=== PATIENT | female | born 1960 | race African-American/Black ===

== ENCOUNTER 2017-01-02 08:52 | Emergency (ER) | payer OTHER ==
[2017-01-02 08:56] VITALS: BP 108/71; PULSE 63; TEMP 97.8; BMI 22.1
--- NOTE | 2017-01-02 09:30 | PDOC ---
History of Present Illness - General Chief Complaint: Cold Symptoms Stated Complaint: COUGH Time Seen by Provider: 01/02/17 09:00 History Source: Patient Exam Limitations: No Limitations - History of Present Illness Initial Comments: 01/02/17 10:12 Patient is a 56 y/o female with pmh HTN, cough of unknown origin, who presents to the ED today c/o three weeks of cough. Her symptoms have progessivly gotten worse. It started off as a dry cough and has now become a productive cough with white mucous. She states that she is coughing so hard her chest hurts when she has a coughing fit. She states she has tried multiple home remedies with no relief. She states this happened to her last year. Denies fever, chills, nausea , vomiting, lightheadedness, syncope, Past History - Past Medical History Allergies/Adverse Reactions: Allergies Allergy/AdvReac Type Severity Reaction Status Date / Time aspirin Allergy Intermediate Hives Verified 01/02/17 08:56 ibuprofen Allergy Intermediate vomitting Verified 01/02/17 08:56 ketorolac tromethamine Allergy ITCHING, Verified 01/02/17 08:56 [From Toradol] VOMITING morphine Allergy Hives Verified 01/02/17 08:56 Penicillins Allergy Hives Verified 01/02/17 08:56 Shellfish Allergy Hives Verified 01/02/17 08:56 onions Allergy Uncoded 01/02/17 08:56 Home Medications: Ambulatory Orders Amlodipine Besylate 5 mg PO DAILY 03/08/16 Albuterol 0.083% Nebulizer [place] [Ventolin 0.083% Nebulizer Soln -] 1 neb NEB Q4H #20 vial 01/02/17 Estrogens, Conjugated [Premarin] 0.9 mg PO DAILY 01/02/17 Prednisone [Deltasone] 40 mg PO DAILY #10 tablet 01/02/17 Promethazine/Phenyleph/Codeine [Phenergan VC+Codeine Syrup] 5 ml PO QID PRN # 118 ml MDD 4 01/02/17 Asthma: Yes (bronchitis) GI Disorders: Yes (sbo) - Surgical History Abdominal Surgery: Yes (small bowel obstruction) Neurologic Surgery: Yes (spinal surgery, SEVERAL) - Immunization History Immunization Up to Date: Yes - Psycho/Social/Smoking Cessation Hx Anxiety: No Suicidal Ideation: No Smoking Status: No Smoking History: Never smoked Have you smoked in the past 12 months: No Number of Cigarettes Smoked Daily: 0 Information on smoking cessation initiated: No Hx Alcohol Use: No Drug/Substance Use Hx: No Substance Use Type: None Hx Substance Use Treatment: No Review of Systems - Review of Systems Able to Perform ROS?: No Is the patient limited [place] proficient: No *Physical Exam - Vital Signs Last Vital Signs Temp Pulse Resp BP Pulse Ox 97.8 F 63 19 108/71 100 01/02/17 08:55 01/02/17 08:55 01/02/17 08:55 01/02/17 08:55 01/02/17 08:55 *DC/Admit/Observation/Transfer Diagnosis at time of Disposition: Bronchitis, Wrist pain, right - Discharge Dispostion Disposition: HOME Condition at time of disposition: Good Admit: No - Prescriptions Prescriptions: Prednisone [Deltasone] 40 mg PO DAILY #10 tablet Promethazine/Phenyleph/Codeine [Phenergan VC+Codeine Syrup] 5 ml PO QID PRN # 118 ml MDD 4 PRN Reason: Cough Albuterol 0.083% Nebulizer [place] [Ventolin 0.083% Nebulizer Soln -] 1 neb NEB Q4H #20 vial - Referrals Referrals: Eddie Burr MD [Staff Physician] - Cierra Honeycutt MD [Primary Care Provider] - Radhames Chau MD [Staff Physician] - - Patient Instructions Printed Discharge Instructions: DI for Acute Bronchitis Additional Instructions: Your x-rays today were negative. There was no evidence of pneumonia. Use your nebulizer treatments as prescribed to help your symptoms. Take the prednisone as prescribed and take the whole prescription even if you feel better. You may use the cough syrup as needed up to 4 times a day, every [address] after taking this medication as it can make you drowsy. Follow up with Dr. Burr , pulmonology and Dr. Isac glasgow (wrist). Continue to wear your wrist brace for support. You may take tylenol as needed for pain not to exceed 4,000mg a day. Return to the ED if you develop fevers, chills, nausea, vomiting, worsening of your symptoms, or have any changes in your symptoms
[2017-01-02] MEDS ORDERED: ALBUTEROL SO4 2.5/IPRATROPIUM 0.5 INH SOL 3 ML VIAL.NEB. NEB ONE (09:31)
[2017-01-02] MEDS ORDERED: guaiFENesin/CODEINE 10 ML UNIT-DOSE CUPS PO ONE (10:21)
[2017-01-02] MEDS ORDERED: guaiFENesin/CODEINE 5 ML UNIT-DOSE CUPS PO ONE (10:30)
== END 2017-01-02 10:55 | disposition home or self-care (01) ==
LOC: JERFT 08:52
PROC: 3E0F7GC Introduction of Other Therapeutic Substance into Respiratory Tract, Via Natural or Artificial Opening (ICD-10-PCS; principal; 2017-01-02)
DX: J40 Bronchitis, not specified as acute or chronic (principal)
CPT/HCPCS: 71020-TC; 73110-TC-RT; 73130-TC-RT; 99281-25

== ENCOUNTER 2017-01-14 11:47 | Emergency (ER) | payer OTHER ==
[2017-01-14 11:57] VITALS: BP 118/76; PULSE 70; TEMP 98.2; BMI 24.6
--- NOTE | 2017-01-14 12:42 | PDOC ---
History of Present Illness - General Chief Complaint: Cold Symptoms Stated Complaint: REVISIT Time Seen by Provider: 01/14/17 12:00 History Source: Patient Exam Limitations: No Limitations - History of Present Illness Initial Comments: 01/14/17 12:38 CC continued cough and lung inflamation x 3 weeks; no better post albuterol, 5 days prednisone Timing/Duration: reports: constant Severity: reports: moderate Possible Cause: Yes: occasional episodes Past History - Past Medical History Allergies/Adverse Reactions: Allergies Allergy/AdvReac Type Severity Reaction Status Date / Time aspirin Allergy Intermediate Hives Verified 01/14/17 11:57 ibuprofen Allergy Intermediate vomitting Verified 01/14/17 11:57 ketorolac tromethamine Allergy ITCHING, Verified 01/14/17 11:57 [From Toradol] VOMITING morphine Allergy Hives Verified 01/14/17 11:57 Penicillins Allergy Hives Verified 01/14/17 11:57 Shellfish Allergy Hives Verified 01/14/17 11:57 onions Allergy Uncoded 01/14/17 11:57 Home Medications: Ambulatory Orders Amlodipine Besylate 5 mg PO DAILY 03/08/16 Albuterol 0.083% Nebulizer [place] [Ventolin 0.083% Nebulizer Soln -] 1 neb NEB Q4H #20 vial 01/02/17 Estrogens, Conjugated [Premarin] 0.9 mg PO DAILY 01/02/17 Guaifenesin AC [Robitussin AC] 5 ml PO Q6H PRN #120 ml MDD 4 01/02/17 Prednisone [Deltasone] 40 mg PO DAILY #10 tablet 01/02/17 Promethazine/Phenyleph/Codeine [Phenergan VC+Codeine Syrup] 5 ml PO QID PRN # 118 ml MDD 4 01/02/17 Asthma: Yes (bronchitis) GI Disorders: Yes (sbo) - Surgical History Abdominal Surgery: Yes (small bowel obstruction) Neurologic Surgery: Yes (spinal surgery, SEVERAL) - Immunization History Immunization Up to Date: Yes - Psycho/Social/Smoking Cessation Hx Anxiety: No Suicidal Ideation: No Smoking Status: No Smoking History: Never smoked Have you smoked in the past 12 months: No Number of Cigarettes Smoked Daily: 0 Hx Alcohol Use: No Drug/Substance Use Hx: No Substance Use Type: None Hx Substance Use Treatment: No Respiratory Specific PMHX - Complaint Specific PMHX Angina: No Bronchitis: No Pneumonia: No Pulmonary Embolus: No TB (Tuberculosis): No Review of Systems - Review of Systems Constitutional: Yes: Fever, Malaise. No: Chills HEENTM: Yes: Nose Congestion Respiratory: Yes: Cough, Wheezing Cardiac (ROS): No: Symptoms Reported ABD/GI: No: Symptoms Reported *Physical Exam - Vital Signs Last Vital Signs Temp Pulse Resp BP Pulse Ox 98.2 F 70 20 118/76 99 01/14/17 11:54 01/14/17 11:54 01/14/17 11:54 01/14/17 11:54 01/14/17 11:54 - Physical Exam General Appearance: Yes: Appropriately Dressed. No: Apparent Distress HEENT: positive: TMs Normal, Pharynx Normal, Nasal Congestion Neck: positive: Tender, Supple Respiratory/Chest: positive: Lungs Clear, Wheezing Medical Decision Making - Medical Decision Making 01/14/17 12:40 will treat with albuterol prednisone, codeine and add abx *DC/Admit/Observation/Transfer Diagnosis at time of Disposition: Asthmatic bronchitis - Discharge Dispostion Disposition: HOME Condition at time of disposition: Stable Admit: No - Patient Instructions Additional Instructions: please see local MD next week for reevaluation
== END 2017-01-14 12:51 | disposition home or self-care (01) ==
LOC: JERFT 11:47
DX: J45.998 Other asthma (principal)
CPT/HCPCS: 99281-25

== ENCOUNTER 2017-09-19 07:28 | Emergency (ER) | payer OTHER ==
[2017-09-19 07:38] VITALS: BP 111/55; PULSE 66; TEMP 98.2; BMI 23.0
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
--- NOTE | 2017-09-19 09:15 | PDOC ---
Attending Attestation - Resident Resident Name: Hiro Goddard - ED Attending Attestation I have performed the following: I have examined & evaluated the patient, The case was reviewed & discussed with the resident, I agree w/resident's findings & plan, Exceptions are as noted - HPI HPI: 09/19/17 09:15 57 yo F with h/o chronic neck pain, s/p fusion, followed by DR. Calvin pain management her today because she has been having pain left side neck and shoulder x over one month. has been taking gabapentin, and tenazadine. has injection 2 weeks ago. no relief. c/o spasm in left trapezium. no f/c no swelling in shoulder c/o bulging in trapezium, muscle tightness. - Physicial Exam PE: 09/19/17 09:23 on exam no midline cervical spin tenderness, trapezial spasm, shoulder no erythema, no effusion, pain on abduction, elbow NT FROM, wrist NT FROM. sensation intact throughout lungs clear bilaterally, heart RRR no mrg. skin warm and dry no rash. - Medical Decision Making 09/19/17 09:24 57 yo F with h/o chronic pain, here with worsening pain left neck shoulder. plan pt allergic to multiple meds including nsaids, morphine asa, . will treat with medrol dose pack and change muslce relaxer to valium. explained to follow up with nuerology , . will d/w pt pcp dr. katz regarding need for outpt MRI for persistant pain. and follow up with DR. Calvin pain management.
[2017-09-19] MEDS ORDERED: diazePAM 5 MG TABLET PO ONE (09:20)
[2017-09-19] MEDS ORDERED: predniSONE 20 MG TABLET (UD) PO ONE (09:29)
[2017-09-19] MEDS ORDERED: ACETAMINOPHEN 325 MG TABLET (FP) PO ONE (09:29)
[2017-09-19] MEDS ORDERED: ACETAMINOPHEN 325 MG TABLET (FP) ONE (09:35)
[2017-09-19] MEDS ORDERED: diazePAM 5 MG TABLET ONE (09:35)
[2017-09-19] MEDS ORDERED: predniSONE 20 MG TABLET (UD) ONE (09:35)
[2017-09-19] MEDS ORDERED: predniSONE 10 MG TABLET (UD) ONE (09:38)
[2017-09-19] MEDS ORDERED: ACETAMINOPHEN WITH CODEINE 300MG/30MG TABLET PO ONE (10:13)
[2017-09-19] MEDS ORDERED: ACETAMINOPHEN WITH CODEINE 300MG/30MG TABLET ONE (10:28)
== END 2017-09-19 10:52 | disposition home or self-care (01) ==
LOC: JER 07:28
DX: M54.12 Radiculopathy, cervical region (principal); I10 Essential (primary) hypertension; Z88.8 Allergy status to other drugs, medicaments and biological substances
CPT/HCPCS: 99282-25

== ENCOUNTER 2017-09-29 07:11 | Emergency (ER) | payer OTHER ==
[2017-09-29 07:29] VITALS: BP 143/71; PULSE 74; TEMP 98.2; BMI 23.0
[2017-09-29] MEDS ORDERED: ACETAMINOPHEN 325 MG TABLET (FP) PO ONE (08:06)
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
[2017-09-29] MEDS ORDERED: ACETAMINOPHEN 325 MG TABLET (FP) ONE (08:19)
[2017-09-29 08:34] LABS: URINE APPEARANCE CLEAR; URINE BILIRUBIN NEGATIVE (<2.0 mg/dL); URINE COLOR COLORLESS; URINE GLUCOSE (UA) NEGATIVE (NEGATIVE); URINE KETONE NEGATIVE (NEGATIVE); URINE LEUK ESTERASE NEGATIVE (NEGATIVE); URINE NITRITE NEGATIVE (NEGATIVE); URINE PROTEIN NEGATIVE (NEGATIVE); URINE UROBILINOGEN NEGATIVE mg/dL (0.2-1.0)
--- NOTE | 2017-09-29 09:57 | PDOC ---
Attending Attestation - Resident Resident Name: Maricruz Paniaguaony - ED Attending Attestation I have performed the following: I have examined & evaluated the patient, The case was reviewed & discussed with the resident, I agree w/resident's findings & plan - HPI HPI: 09/29/17 09:54 57-year-old female with history of chronic muscle skeletal plain presents with 2 -3 days of URI symptoms consisting of nasal congestion/rhinorrhea, dry cough, sore throat and laryngitis. Presenting today complaining of persistent throat pain, which is exacerbating her chronic neck pain. No fevers or chills, no difficulty breathing, no chest pain. Denies any sick contacts, no night sweats. - Physicial Exam PE: 09/29/17 09:54 Vital signs are normal, O2 sat is 100% on room air Alert seated in stretcher, speaking full sentences TMs and oropharynx are clear, neck with chronic left sided muscular discomfort but no swelling. sub-centimeter submandibular and anterior cervical lymphadenopathy Lungs are clear, abdomen is benign No rash - Medical Decision Making 09/29/17 09:55 57-year-old female presents with URI symptoms for 2 or 3 days, persistent throat pain but no evidence of bacterial process. Presentation most consistent with viral etiology, influenza and strep are negative. Urinalysis without evidence of infection We'll discharge home, needs refill of her chronic Valium prescription, understands return criteria.
== END 2017-09-29 10:12 | disposition home or self-care (01) ==
LOC: JER 07:11
DX: J02.9 Acute pharyngitis, unspecified (principal); I10 Essential (primary) hypertension; Z87.19 Personal history of other diseases of the digestive system
CPT/HCPCS: 81003; 87070; 87430; 87804; 99282-25

== ENCOUNTER 2017-11-09 12:25 | Inpatient (IN) | payer OTHER ==
[2017-11-09 12:49] VITALS: BMI 26.5
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
[2017-11-09] MEDS ORDERED: ALBUTEROL SO4 2.5/IPRATROPIUM 0.5 INH SOL 3 ML VIAL.NEB. NEB ONE ×2 (14:01→14:23)
[2017-11-09] MEDS ORDERED: DEXAMETHASONE 4 MG TABLET (FP) PO ONE (14:15)
[2017-11-09] MEDS ORDERED: ONDANSETRON 8 MG TABLET (FP) PO ONE ×2 (14:15→14:34)
[2017-11-09] MEDS ORDERED: DEXAMETHASONE SOD PHOSPHATE 10 MG/1 ML VIAL ONE (14:23)
[2017-11-09 15:10] LABS: BASO % 0.7 % (0-2.0); EOS % 1.1 % (0-4.5); HEMATOCRIT 35.9 % (32.4-45.2); HEMOGLOBIN 11.7 GM/dL (10.7-15.3); LYMPH % 31.3 % (8-40); MCH 29.8 pg (25.7-33.7); MCHC 32.5 g/dl (32.0-36.0); MEAN CELL VOLUME 91.8 fl (80-96); MEAN PLT VOLUME 7.1 fl (7.5-11.1); MONO % 7.5 % (3.8-10.2); NEUT % 59.4 % (42.8-82.8); PLATELET COUNT 348 K/MM3 (134-434); RBC 3.91 M/mm3 (3.60-5.2); WHITE BLOOD COUNT 4.5 K/mm3 (4.0-10.0)
[2017-11-09] MEDS ORDERED: ONDANSETRON 4 MG TABLET PO ONE (15:15)
[2017-11-09] MEDS ORDERED: HYDROmorphone HCL 2 MG TABLET PO ONE ×2 (15:15→21:58)
[2017-11-09] MEDS ORDERED: ONDANSETRON *ODT* 4 MG TABLET ONE (15:26)
[2017-11-09] MEDS ORDERED: HYDROmorphone HCL 2 MG TABLET ONE ×2 (15:26→22:11)
[2017-11-09 15:39] LABS: ALBUMIN 3.8 g/dl (3.4-5.0); ANION GAP 5 (8-16); BILIRUBIN,TOTAL 0.3 mg/dL (0.2-1.0); BLOOD UREA NITROGEN 7 mg/dL (7-18); CALCIUM 9.6 mg/dL (8.5-10.1); CHLORIDE 110 mmol/L (98-107); CO2 29 mmol/L (21-32); GLUCOSE,RANDOM 95 mg/dL (74-106); SGOT/AST 13 U/L (15-37); SGPT/ALT 15 U/L (12-78); SODIUM 144 mmol/L (136-145); TOT PROT 7.4 g/dl (6.4-8.2)
[2017-11-09 15:40] LABS: ALK PHOS 79 U/L (45-117); N-TERMINAL BNP 155.82 pg/ml (5-125)
--- NOTE | 2017-11-09 17:19 | PDOC ---
Attending Attestation - Resident Resident Name: Shereen Nassar - ED Attending Attestation I have performed the following: I have examined & evaluated the patient, The case was reviewed & discussed with the resident, I agree w/resident's findings & plan, Exceptions are as noted - HPI HPI: 11/09/17 17:14 57-year-old female with past medical history of chronic neck pain, recurrent bronchitis, hypertension presents with 2 complaint. Initial complaint was patient had a productive cough for approximately one week. Was seen approximately one week ago and had taken a course of azithromycin. However, the patient continues to report coughing. Denies fevers or chills. The patient's second complaint is acute on chronic left sided neck pain. Patient has chronic left neck pain which she sees pain specialist Dr. Calvin. Given that the pain was worsening, the patient had attempted to make an appointment with her doctor but was unable to do so in a timely fashion. Patient states that the pain is worsened despite taking Tylenol cold. States that the pain radiates into her chest but denies any exertional component. Because of the pain, the patient came to the ED. - Physicial Exam PE: 11/09/17 17:14 GENERAL: Awake, alert, and fully oriented, uncomfortable appearing HEAD: No signs of trauma EYES: EOMI, sclera anicteric, conjunctiva clear ENT: Auricles normal inspection, hearing grossly normal, nares patent, normal ROM, supple LUNGS: Breath sounds equal, clear to auscultation bilaterally. No wheezes, and no crackles HEART: Regular rate and rhythm, normal S1 and S2, no murmurs, rubs or gallops EXTREMITIES: Normal range of motion, no edema. No clubbing or cyanosis. No cords, erythema, or tenderness NEUROLOGICAL: Cranial nerves II through XII grossly intact. Normal speech, normal gait SKIN: Warm, Dry, normal turgor, no rashes or lesions noted. - Medical Decision Making 11/09/17 17:18 Vital Signs Temp Pulse Resp BP Pulse Ox 98.6 F 75 20 145/85 100 11/09/17 12:43 11/09/17 12:43 11/09/17 12:43 11/09/17 12:43 11/09/17 12:43 57-year-old female patient. We'll rule out pneumonia with a chest x-ray. Dr. Burr had seen and evaluated the patient as well. In addition, patient likely with acute on chronic pain. We are unable to control the pain, the patient admitted to the hospital for pain control. Heart Score/ECG Review #1 ECG reviewed & interpreted by me at: 16:25 11/09/17 17:19 NSR 65, no std/monica, normal axis, normal intervals, QTC 461 msec
[2017-11-09] MEDS ORDERED: LOSARTAN POTASSIUM 50 MG TABLET (FP) PO ONE (20:12)
[2017-11-09] MEDS ORDERED: LOSARTAN POTASSIUM 25 MG TABLET ONE (22:11)
[2017-11-09] MEDS ORDERED: oxyCODONE HCL 5 MG TABLET PO PRN ×2 (23:39)
[2017-11-09] MEDS ORDERED: ACETAMINOPHEN 325 MG TABLET (FP) PO PRN (23:41)
[2017-11-09] MEDS ORDERED: oxyCODONE HCL 5 MG TABLET PO SCH (23:45)
[2017-11-10] MEDS ORDERED: ACETAMINOPHEN 325 MG TABLET (FP) ONE (01:01)
[2017-11-10] MEDS ORDERED: oxyCODONE HCL 5 MG TABLET ONE (01:02)
[2017-11-10] MEDS ORDERED: HYDROmorphone HCL 2 MG TABLET PO ONE (02:19)
[2017-11-10] MEDS ORDERED: HYDROmorphone HCL 2 MG TABLET ONE (02:27)
[2017-11-10] MEDS ORDERED: MEPERIDINE HCL CARPU-JECT 25 MG/1 ML DISP.SYRIN IM PRN (09:28)
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
[2017-11-10] MEDS ORDERED: hydrOXYzine HCL 100 MG/2 ML VIAL IM ONE (11:45)
--- NOTE | 2017-11-10 12:04 | EKG ---
Test Reason : Blood Pressure : / mmHG Vent. Rate : 065 BPM Atrial Rate : 065 BPM P-R Int : 162 ms QRS Dur : 068 ms QT Int : 444 ms P-R-T Axes : 054 025 024 degrees QTc Int : 461 ms NORMAL SINUS RHYTHM NORMAL ECG Confirmed by MD ALEXX, ELVI ([id number]) on 11/10/2017 12:04:29 PM Referred By: Confirmed By:ELVI COFFEY MD
[2017-11-10] MEDS ORDERED: TIZANIDINE HCL 2 MG TABLET PO PRN (12:40)
[2017-11-10] MEDS ORDERED: MAG HYDROX/AL HYDROX/SIMETH 30 ML UNIT-DOSE CUP PO PRN (12:42)
[2017-11-10] MEDS ORDERED: ACETAMINOPHEN WITH CODEINE 300MG/30MG TABLET PO PRN (12:45)
[2017-11-10] MEDS: ONDANSETRON *ODT* 4 MG TABLET SL PRN ×2 (13:10→21:13)
[2017-11-10] MEDS: LOSARTAN POTASSIUM 50 MG TABLET (FP) PO SCH (13:19)
[2017-11-10] MEDS ORDERED: diphenhydrAMINE HCL 25 MG CAPSULE (FP) PO PRN (13:45)
[2017-11-10] MEDS: GABAPENTIN 300 MG CAPSULE (FP) PO SCH ×2 (14:06→21:13)
[2017-11-10] MEDS ORDERED: HYDROmorphone HCL 2 MG TABLET PO PRN (16:30)
[2017-11-10] MEDS: AZITHROMYCIN IVPB 500 MG in DEXTROSE 5%-WATER - 250 ML IVPB SCH (16:42)
--- NOTE | 2017-11-10 18:47 | CONSULT ---
Consult Consult Specialty:: Pain management Reason for Consultation:: Neck pain - History of Present Illness History of Present Illness: 57 yr old female known to me was admitted with severe neck pain and left upper extremity pain 02/10 with h/o chronic Neck pain s/p fusion. She was taking Tylenol #3 at home. She has difficulty in moving left upper extremity. - History Source History Provided By: Patient Limitations to Obtaining History: No Limitations - Past Medical History Cardio/Vascular: Yes: HTN Pulmonary: Yes: COPD Gastrointestinal: Yes: Constipation ...: No - Past Surgical History Additional Surgical History: Cervical fusion - Alcohol/Substance Use Hx Alcohol Use: No - Smoking History Smoking history: Never smoked Have you smoked in the past 12 months: No Aproximately how many cigarettes per day: 0 - Social History History of Recent Travel: No Home Medications - Allergies Allergies/Adverse Reactions: Allergies Allergy/AdvReac Type Severity Reaction Status Date / Time aspirin Allergy Intermediate Hives Verified 11/09/17 14:15 ibuprofen Allergy Intermediate vomitting Verified 11/09/17 14:15 ketorolac tromethamine Allergy ITCHING, Verified 11/09/17 14:15 [From Toradol] VOMITING morphine Allergy Hives Verified 11/09/17 14:15 Penicillins Allergy Hives Verified 11/09/17 14:15 Shellfish Allergy Hives Verified 11/09/17 14:15 onions Allergy Uncoded 11/09/17 14:15 - Home Medications Home Medications: Ambulatory Orders Estrogens, Conjugated [Premarin] 0.625 mg PO DAILY 01/02/17 Simvastatin 10 mg PO DAILY 09/19/17 Tizanidine HCl 2 mg PO BID 09/19/17 Losartan Potassium 50 mg PO ASDIR 10/31/17 Benzonatate 100 mg PO DAILY 11/09/17 Fluticasone/Vilanterol [Breo Ellipta 200-25 Mcg INH] 1 each IH PRN 11/09/17 Review of Systems - Review of Systems Constitutional: reports: No Symptoms Eyes: reports: No Symptoms HENT: reports: No Symptoms Neck: reports: Pain on Movement, Stiffness Cardiovascular: reports: No Symptoms Respiratory: reports: No Symptoms Gastrointestinal: reports: Constipation Genitourinary: reports: No Symptoms Musculoskeletal: reports: Extremity Pain, Muscle Pain, Muscle Weakness Integumentary: reports: No Symptoms Neurological: reports: No Symptoms Hematology/Lymphatic: reports: No Symptoms Pain Intensity: 10 Physical Exam Vital Signs: Vital Signs Temperature 98.0 F 11/10/17 14:09 Pulse Rate 88 11/10/17 14:09 Respiratory Rate 20 11/10/17 14:09 Blood Pressure 130/73 11/10/17 14:09 O2 Sat by Pulse Oximetry (%) 98 11/10/17 06:23 Constitutional: Yes: Well Nourished Eyes: Yes: WNL HENT: Yes: WNL Neck: Yes: Tenderness Cardiovascular: Yes: WNL Respiratory: Yes: WNL Gastrointestinal: Yes: WNL Musculoskeletal: Yes: Joint Stiffness, Muscle Pain, Muscle Weakness, Other ( Neck pain on movement. Paracervical muscle spasm, scar+) Extremities: Yes: Other (unable to lift left upper extremity due to pain.) Integumentary: Yes: WNL Neurological: Yes: WNL, Weakness ...Motor Strength: LUE Labs: CBC, BMP 11/09/17 14:55 11/09/17 14:55 Current Medications Generic Name Dose Route Start Last Admin Trade Name Freq PRN Reason Stop Dose Admin Acetaminophen/Codeine Phosphate 1 tab 11/10/17 12:45 11/10/17 13:19 Tylenol # 3 - PO 1 tab Q8H PRN Administration PAIN SCALE 4-10 Al Hydroxide/Mg Hydroxide 30 ml 11/10/17 12:42 Mylanta Oral Suspension - PO Q8H PRN INDIGESTION Diphenhydramine HCl 50 mg 11/10/17 13:45 Benadryl - PO BID PRN FOR ITCHING Gabapentin 300 mg 11/10/17 14:00 11/10/17 14:06 Neurontin - PO Not Given TID JUJU Hydromorphone HCl 2 mg 11/10/17 16:30 11/10/17 16:41 Dilaudid - PO 2 mg Q6H PRN Administration PAIN 4-10 Azithromycin 500 mg/ Dextrose 250 mls @ 250 mls/hr 11/10/17 11:45 11/10/17 16 :42 IVPB 250 mls/hr DAILY JUJU Administration Losartan Potassium 50 mg 11/10/17 10:00 11/10/17 13:19 Cozaar - PO 50 mg DAILY JUJU Administration Ondansetron HCl 8 mg 11/10/17 12:41 11/10/17 13:10 Zofran Odt - SL 8 mg Q8H PRN Administration NAUSEA AND/OR VOMITING Tizanidine HCl 2 mg 11/10/17 12:40 Tizanidine Hcl PO Q8H PRN MUSCLE SPASMS Imaging - Results MRI: Report Reviewed Assessment/Plan Discussed in detail with patient family members were present. 1. D/C Dilaudid 2. Tylenol #3 Q4 PRN 3. Consultation with Dr. Michelle 4. She refuse PT 5. D/C Benadry ( allergic to dye as per patient ) 6. May be discharged home after Surgical eval and medically stable. Thanks for your kind referral. Please call me if you have any questions at [phone].
[2017-11-10] MEDS ORDERED: PT OWN MED DRAWER 7, Y5N ONE (19:54)
[2017-11-10] MEDS: ACETAMINOPHEN WITH CODEINE 300MG/30MG TABLET PO PRN (21:06)
[2017-11-11] MEDS: ACETAMINOPHEN WITH CODEINE 300MG/30MG TABLET PO PRN ×5 (02:53→20:20)
[2017-11-11] MEDS ORDERED: PT OWN MED DRAWER 7, Y5N ONE ×2 (03:05→09:37)
[2017-11-11] MEDS: ONDANSETRON *ODT* 4 MG TABLET SL PRN ×3 (06:55→22:35)
[2017-11-11] MEDS: GABAPENTIN 300 MG CAPSULE (FP) PO SCH ×3 (06:57→22:35)
[2017-11-11] MEDS: LOSARTAN POTASSIUM 50 MG TABLET (FP) PO SCH (09:51)
[2017-11-11] MEDS: AZITHROMYCIN IVPB 500 MG in DEXTROSE 5%-WATER - 250 ML IVPB SCH (09:52)
--- NOTE | 2017-11-11 14:22 | PN ---
Progress Note, Physician Chief Complaint: Lt shoulder pain persists History of Present Illness: Evaluated by neuro surgery Dr Josue Advised epi dural - Current Medication List Current Medications: Active Medications Acetaminophen/Codeine Phosphate (Tylenol # 3 -) 1 tab PO Q4H PRN PRN Reason: PAIN LEVEL 6-10 Last Admin: 11/11/17 11:15 Dose: 1 tab Al Hydroxide/Mg Hydroxide (Mylanta Oral Suspension -) 30 ml PO Q8H PRN PRN Reason: INDIGESTION Gabapentin (Neurontin -) 300 mg PO TID [facility] Last Admin: 11/11/17 06:57 Dose: 300 mg Azithromycin 500 mg/ Dextrose 250 mls @ 250 mls/hr IVPB DAILY [facility] Last Admin: 11/11/17 09:52 Dose: 250 mls/hr Losartan Potassium (Cozaar -) 50 mg PO DAILY [facility] Last Admin: 11/11/17 09:51 Dose: 50 mg Ondansetron HCl (Zofran Odt -) 8 mg SL Q8H PRN PRN Reason: NAUSEA AND/OR VOMITING Last Admin: 11/11/17 06:55 Dose: 8 mg Tizanidine HCl (Tizanidine Hcl) 2 mg PO Q8H PRN PRN Reason: MUSCLE SPASMS - Objective Vital Signs: Vital Signs Temperature 97.9 F 11/11/17 09:45 Pulse Rate 60 11/11/17 09:45 Respiratory Rate 20 11/11/17 09:45 Blood Pressure 110/60 11/11/17 09:45 O2 Sat by Pulse Oximetry (%) 100 11/11/17 09:00 Constitutional: Yes: No Distress Eyes: Yes: WNL HENT: Yes: WNL Neck: Yes: WNL Cardiovascular: Yes: WNL Respiratory: Yes: WNL Gastrointestinal: Yes: WNL ...Rectal Exam: Yes: Deferred Genitourinary: Yes: WNL Musculoskeletal: Yes: WNL Edema: No Integumentary: Yes: WNL Neurological: Yes: Alert Labs: CBC, BMP 11/09/17 14:55 11/09/17 14:55 Assessment/Plan Will discuss with Dr Calvin
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
[2017-11-12] MEDS: ACETAMINOPHEN WITH CODEINE 300MG/30MG TABLET PO PRN ×3 (00:29→11:48)
[2017-11-12] MEDS: ONDANSETRON *ODT* 4 MG TABLET SL PRN (06:07)
[2017-11-12] MEDS: GABAPENTIN 300 MG CAPSULE (FP) PO SCH ×3 (06:08→22:39)
--- NOTE | 2017-11-12 09:22 | PN ---
Progress Note, Physician Chief Complaint: Lt shoulder pain the same,cough better History of Present Illness: Admitted with intractable neck and Lt shoulder pain Evaluated by neuro surgeon Dr Josue ,he will do the surgery as out patient next month - Current Medication List Current Medications: Active Medications Acetaminophen/Codeine Phosphate (Tylenol # 3 -) 1 tab PO Q4H PRN PRN Reason: PAIN LEVEL 6-10 Last Admin: 11/12/17 06:07 Dose: 1 tab Al Hydroxide/Mg Hydroxide (Mylanta Oral Suspension -) 30 ml PO Q8H PRN PRN Reason: INDIGESTION Gabapentin (Neurontin -) 300 mg PO TID [facility] Last Admin: 11/12/17 06:08 Dose: 300 mg Azithromycin 500 mg/ Dextrose 250 mls @ 250 mls/hr IVPB DAILY [facility] Last Admin: 11/11/17 09:52 Dose: 250 mls/hr Losartan Potassium (Cozaar -) 50 mg PO DAILY [facility] Last Admin: 11/11/17 09:51 Dose: 50 mg Ondansetron HCl (Zofran Odt -) 8 mg SL Q8H PRN PRN Reason: NAUSEA AND/OR VOMITING Last Admin: 11/12/17 06:07 Dose: 8 mg Tizanidine HCl (Tizanidine Hcl) 2 mg PO Q8H PRN PRN Reason: MUSCLE SPASMS - Objective Vital Signs: Vital Signs Temperature 98.1 F 11/12/17 06:00 Pulse Rate 58 L 11/12/17 06:00 Respiratory Rate 20 11/12/17 06:00 Blood Pressure 108/60 11/12/17 06:00 O2 Sat by Pulse Oximetry (%) 100 11/11/17 21:00 Constitutional: Yes: Mild Distress Eyes: Yes: WNL HENT: Yes: WNL Neck: Yes: WNL Cardiovascular: Yes: WNL Respiratory: Yes: Regular Gastrointestinal: Yes: WNL Genitourinary: Yes: WNL Edema: No Neurological: Yes: Alert Labs: CBC, BMP 11/09/17 14:55 11/09/17 14:55 Assessment/Plan Will discuss with Dr Kolb regarding epidural
[2017-11-12] MEDS ORDERED: PT OWN MED DRAWER 7, Y5N ONE (09:55)
[2017-11-12] MEDS: LOSARTAN POTASSIUM 50 MG TABLET (FP) PO SCH (10:00)
[2017-11-12] MEDS: AZITHROMYCIN IVPB 500 MG in DEXTROSE 5%-WATER - 250 ML IVPB SCH (10:01)
[2017-11-12] MEDS ORDERED: ONDANSETRON *ODT* 4 MG TABLET SL ONE (12:00)
[2017-11-12] MEDS ORDERED: hydrOXYzine HCL 50 MG/ML VIAL IM ONE (12:45)
--- NOTE | 2017-11-12 18:10 | PN ---
Mental Health Exam - Mental Status Exam Alert and Oriented to: Time, Place, Person Cognitive Function: Grossly Intact Patient Appearance: Disheveled Mood: Withdrawn, Anxious, Apprehensive Affect: Mood Congruent Patient Behavior: Passive (LAYING PRONE, UNMOVING, FLAT ON BACK, MULTIPLE PILLOWS. ) Speech Pattern: Clear, Tangential Voice Loudness: Mildly Soft/Quiet Thought Process: Goal Oriented Thought Disorder: Not Present Hallucinations: None Suicidal Ideation: None Homicidal Ideation: None Insight/Judgement: Fair Sleep: Poorly Appetite: Fair Muscle strength/Tone: Normal Gait/Station: Deferred
--- NOTE | 2017-11-12 18:18 | PN ---
Progress Note (short form) - Note Progress Note: THIS IS A 57 YO FEMALE ADMITTED WITH PAIN SYMPTOMS. cLIENT STATED SHE IS "TROWING UP" TODAY. eNDORSED UNABLE TO SLEEP WELL LAST NIGHT. 14 YO DAUGHTER BY HER SIDE, PLAYING PHONE GAMES, WHO MOM STATED SHE HAS A LEARNING DISABILITY. cONSULT CALLED FOR "ANXIETY". CLIENT IS ALERT AND ORIENTATED, MILD PRESSURED SPEECH, TANGENTAL, STATING "I DONT NEED PSYCHIATRY, I NEED DR LAURENT TO GIVE ME AN EPIDURAL". sHE IS PASSIVE, DENIES ANY SUBSTANCE USE, DENIES ANY PSYCH HISTORY. CLIENT TREATED WITH GAPAPENTIN 300MG PO TID. SHE RECIEVED 1 DOSE OF IM VISTARIL ON 11-12 AT 1PM. SHE IS NOT WILLING TO COMMENCE SSRI OR ANTI ANXIETY TREATMENT. ALSO RECOMEND OUTPATIENT THERAPY OR GROUPS. DX. ADJUSTMENT DISORDER RELATED TO GENERAL MEDICAL CONDITION. Problem List - Problems (1) Adjustment disorder with anxiety Code(s): F43.22 - ADJUSTMENT DISORDER WITH ANXIETY
[2017-11-13] MEDS: ACETAMINOPHEN WITH CODEINE 300MG/30MG TABLET PO PRN (03:35)
[2017-11-13] MEDS: ONDANSETRON *ODT* 4 MG TABLET SL PRN (03:36)
[2017-11-13] MEDS: GABAPENTIN 300 MG CAPSULE (FP) PO SCH (06:20)
[2017-11-13 07:15] VITALS: BP 101/55; PULSE 69; TEMP 97.9
--- NOTE | 2017-11-13 09:12 | DS ---
Physical Examination Vital Signs: Vital Signs Temperature 97.9 F 11/13/17 06:00 Pulse Rate 69 11/13/17 06:00 Respiratory Rate 18 11/13/17 06:00 Blood Pressure 101/55 11/13/17 06:00 O2 Sat by Pulse Oximetry (%) 99 11/12/17 21:00 Findings/Remarks: C/O nausia and vomiting Relived with zofran Constitutional: Yes: Anxious Eyes: Yes: WNL HENT: Yes: WNL Neck: Yes: WNL Cardiovascular: Yes: WNL Respiratory: Yes: WNL Gastrointestinal: Yes: WNL ...Rectal Exam: Yes: Deferred Renal/: Yes: WNL Musculoskeletal: Yes: Muscle Pain, Muscle Weakness Edema: No Neurological: Yes: Alert Psychiatric: Yes: Alert Labs: CBC, BMP 11/09/17 14:55 11/09/17 14:55 Discharge Summary Reason For Visit: ASTHMATIC BRONCHITIS,INTRACTABLE BACK PAIN, Current Active Problems Adjustment disorder with anxiety (Acute) Bronchitis (Acute) Cough (Acute) Intractable back pain (Acute) Condition: Guarded - Instructions Referrals: Cierra Honeycutt MD [Primary Care Provider] - - Home Medications Comprehensive Discharge Medication List: Ambulatory Orders Estrogens, Conjugated [Premarin] 0.625 mg PO DAILY 01/02/17 Simvastatin 10 mg PO DAILY 09/19/17 Tizanidine HCl 2 mg PO BID 09/19/17 Losartan Potassium 50 mg PO ASDIR 10/31/17 Benzonatate 100 mg PO DAILY 11/09/17 Fluticasone/Vilanterol [Breo Ellipta 200-25 Mcg INH] 1 each IH PRN 11/09/17
[2017-11-13] MEDS: LOSARTAN POTASSIUM 50 MG TABLET (FP) PO SCH (11:29)
[2017-11-13] MEDS: AZITHROMYCIN IVPB 500 MG in DEXTROSE 5%-WATER - 250 ML IVPB SCH (11:29)
== END 2017-11-13 11:28 | disposition home or self-care (01) | DRG 347 ==
LOC: JER 12:25 → JERBED 19:16 → J5S 11-10 09:24 → OBSVTOIN 11-10 09:26
PROVIDERS: ADMIT Internal Medicine; ATTEND Internal Medicine
DX: M54.2 Cervicalgia (principal); M54.5 Low back pain; I10 Essential (primary) hypertension; J44.9 Chronic obstructive pulmonary disease, unspecified; M25.512 Pain in left shoulder; F43.22 Adjustment disorder with anxiety; K59.00 Constipation, unspecified; R11.2 Nausea with vomiting, unspecified; J20.9 Acute bronchitis, unspecified
CPT/HCPCS: 36415; 71046-TC-FY; 80053; 82550; 83880; 84484; 85025; 93005; 93010; 93971-TC; 99282-25; G0378; J7620; Q0162

== ENCOUNTER 2017-12-01 06:21 | Day surgery (SDC) | payer OTHER ==
[2017-11-27 15:29] VITALS: BMI 28.3
[2017-12-01 06:56] VITALS: BP 128/72; PULSE 66; TEMP 97.9
[2017-12-01] MEDS ORDERED: ACETAMINOPHEN INJECTION 100 ML IVPB ONE (07:06)
[2017-12-01] MEDS ORDERED: CLINDAMYCIN PHOSPHATE 600 MG/4 ML VIAL ONE (07:37)
[2017-12-01] MEDS ORDERED: SUCCINYLCHOLINE CHLORIDE 200 MG/10 ML VIAL ONE (07:37)
[2017-12-01] MEDS ORDERED: PROPOFOL 20 ML ONE ×2 (07:37)
[2017-12-01] MEDS ORDERED: ROCURONIUM BROMIDE 50 MG/5 ML VIAL ONE (07:37)
[2017-12-01] MEDS ORDERED: fentaNYL CITRATE 250 MCG/5 ML VIAL ONE (07:37)
[2017-12-01] MEDS ORDERED: MIDAZOLAM HCL 2 MG/2 ML SINGLE DOSE VIAL ONE ×2 (07:38)
[2017-12-01] MEDS ORDERED: SEVOFLURANE 250 ML BTL ONE (07:45)
[2017-12-01] MEDS ORDERED: DESFLURANE GAS 240 ML BOTTLE IH ONE (07:45)
--- NOTE | 2017-12-01 07:51 | HP ---
History & Physical Update - History History: No Change - Physical Physical: No Change - Assessment Assessment: No Change - Plan Plan: No Change (Initial H&P is located in patient's paper chart. No new complaints or medications.)
[2017-12-01] MEDS ORDERED: THROMBIN (BOVINE) 20,000 UNIT VIAL TP ONE (08:29)
[2017-12-01] MEDS ORDERED: GENTAMICIN SO4 80 MG/2 ML VIAL ONE (08:29)
[2017-12-01] MEDS ORDERED: BUPIVACAINE HCL/PF 0.5% (5MG/ML) 10 ML VIAL ONE (08:30)
[2017-12-01] MEDS ORDERED: SODIUM CHLORIDE 0.9% P/F 10 ML VIAL IJ ONE (08:34)
== END 2017-12-01 11:15 | disposition home or self-care (01) | DRG 347 ==
LOC: UNDOADMIN 06:21 → JASUSAT 06:21 → JSAMEDAYSX 06:21 → EDSTATUS 08:00 → JASUSAT 11:15 → UNDODISIN 11:15 → EDSTATUS 12-03 08:00
PROVIDERS: ATTEND Neurological Surgery
PROC: 0SJC4ZZ Inspection of Right Knee Joint, Percutaneous Endoscopic Approach (ICD-10-PCS; principal; 2017-12-01)
DX: Z53.8 Procedure and treatment not carried out for other reasons (principal)
CPT/HCPCS: 86850; 86900; 86901; J0131

== ENCOUNTER 2017-12-02 05:40 | Inpatient (IN) | payer OTHER ==
--- NOTE | 2017-12-02 06:02 | PDOC ---
*Physical Exam - Vital Signs Last Vital Signs Temp Pulse Resp BP Pulse Ox 98.0 F 101 H 20 151/100 99 12/02/17 05:49 12/02/17 05:49 12/02/17 05:49 12/02/17 05:49 12/02/17 05:49 ED Treatment Course - LABORATORY CBC & Chemistry Diagram: 12/02/17 08:29 12/02/17 08:29 Medical Decision Making - Medical Decision Making 12/02/17 06:02 agree with care from BOB Tamayo *DC/Admit/Observation/Transfer Diagnosis at time of Disposition: Cervical pain (neck), Weakness of left upper extremity, Intractable pain - Discharge Dispostion Condition at time of disposition: Fair - Referrals - Patient Instructions - Post Discharge Activity
--- NOTE | 2017-12-02 06:14 | PDOC ---
History of Present Illness - General Chief Complaint: Pain Stated Complaint: PAIN,LEFT SIDE Time Seen by Provider: 12/02/17 05:53 History Source: Patient - History of Present Illness Initial Comments: 12/02/17 06:55 57-year-old female complaining of left-sided neck pain radiating to the left arm and left side of face. Patient has multiple spinal surgeries in the past. Patient was scheduled for spinal surgery yesterday and surgery was canceled. Patient reports that she woke up at 12:30 AM with severe pain to the neck radiating to the arm. Patient reports that she is unable to move the arm since 12:30 aM. Reports that this similar episodes have happened in the past today the pain is very severe. Patient was advised by neurosurgery Dr. Gilliland for evaluation Past History - Past Medical History Allergies/Adverse Reactions: Allergies Allergy/AdvReac Type Severity Reaction Status Date / Time aspirin Allergy Intermediate Hives Verified 12/01/17 07:00 ibuprofen Allergy Intermediate vomitting Verified 12/01/17 07:00 ketorolac tromethamine Allergy ITCHING, Verified 12/01/17 07:00 [From Toradol] VOMITING morphine Allergy Hives Verified 12/01/17 07:00 Penicillins Allergy Hives Verified 12/01/17 07:00 Shellfish Allergy Hives Verified 12/01/17 07:00 onions Allergy Uncoded 12/01/17 07:00 Home Medications: Ambulatory Orders Estrogens, Conjugated [Premarin] 0.625 mg PO DAILY 01/02/17 Simvastatin 10 mg PO DAILY 09/19/17 Losartan Potassium 50 mg PO ASDIR 10/31/17 Benzonatate 100 mg PO DAILY 11/09/17 Fluticasone/Vilanterol [Breo Ellipta 200-25 Mcg INH] 1 each IH PRN 11/09/17 Acetaminophen W/ Codeine #3 [Tylenol # 3 -] 1 tab PO Q6H 11/27/17 Gabapentin [Neurontin -] 100 mg PO Q8H 11/27/17 Ondansetron HCl [Zofran] 4 mg PO Q8H PRN 11/27/17 Acetaminophen/Diphenhydramine [Tylenol Pm Ex-Strength Caplet] 2 each PO PRN PRN 12/01/17 Lidocaine [Lidocaine Pain Relief] 1 each TP PRN PRN 12/01/17 Anemia: No Asthma: Yes (bronchitis) Cancer: No Cardiac Disorders: No CVA: No COPD: No CHF: No DVT: No Dementia: No Diabetes: No GI Disorders: Yes (sbo) Disorders: No HTN: Yes Hypercholesterolemia: Yes Liver Disease: No Seizures: No Thyroid Disease: No - Surgical History Abdominal Surgery: Yes (small bowel obstruction) Appendectomy: No Cardiac Surgery: No Cholecystectomy: No Lung Surgery: No Neurologic Surgery: Yes (spinal surgery, SEVERAL) Orthopedic Surgery: Yes - Immunization History Immunization Up to Date: Yes - Suicide/Smoking/Psychosocial Hx Smoking Status: No Smoking History: Never smoked Have you smoked in the past 12 months: No Number of Cigarettes Smoked Daily: 0 Information on smoking cessation initiated: No Hx Alcohol Use: No Drug/Substance Use Hx: No Substance Use Type: None Hx Substance Use Treatment: No Review of Systems - Review of Systems Able to Perform ROS?: Yes Is the patient limited [place] proficient: No Constitutional: No: Symptoms Reported, See HPI, Chills, Diaphoresis, Fever, Loss of Appetite, Malaise, Night Sweats, Weakness, Weight Stable, Unintentional Wgt. Loss, Unexplained wgt Loss, Other Musculoskeletal: Yes: Joint Swelling, Muscle Pain Neurological: Yes: Other (neck pain) *Physical Exam - Vital Signs Last Vital Signs Temp Pulse Resp BP Pulse Ox 98.0 F 101 H 20 151/100 99 12/02/17 05:49 12/02/17 05:49 12/02/17 05:49 12/02/17 05:49 12/02/17 05:49 - Physical Exam General Appearance: Yes: Moderate Distress Extremity: positive: Normal Capillary Refill, Normal Inspection, Other (limited range of motion 2left arm) Integumentary: positive: Normal Color, Dry, Warm Neurologic: positive: Fully Oriented, Alert ED Treatment Course - LABORATORY CBC & Chemistry Diagram: 12/03/17 21:30 12/03/17 21:30 Medical Decision Making - Medical Decision Making A: intractable pain P: cbc, cmp, pt/ptt muscle relaxant pain control 12/02/17 06:58 Spoke to neurosurgery service. Pending a call back from Dr. Chou. 12/02/17 07:06 patient signed out to Olga Guevara *DC/Admit/Observation/Transfer Diagnosis at time of Disposition: Cervical pain (neck), Weakness of left upper extremity, Intractable pain - Discharge Dispostion Condition at time of disposition: Fair - Referrals - Patient Instructions - Post Discharge Activity
[2017-12-02] MEDS ORDERED: ACETAMINOPHEN 1000 MG/100 ML VIAL (NON FORMULARY) IVPB ONE (07:04)
[2017-12-02] MEDS ORDERED: LORazepam 2 MG/ML SDV VIAL ONE (07:21)
[2017-12-02] MEDS ORDERED: diazePAM 5 MG TABLET PO ONE (07:44)
[2017-12-02] MEDS ORDERED: diazePAM 5 MG TABLET ONE (07:47)
[2017-12-02 08:40] LABS: BASO % 1.1 % (0-2.0); EOS % 1.3 % (0-4.5); HEMATOCRIT 34.4 % (32.4-45.2); HEMOGLOBIN 11.5 GM/dL (10.7-15.3); LYMPH % 23.3 % (8-40); MCH 30.4 pg (25.7-33.7); MCHC 33.3 g/dl (32.0-36.0); MEAN CELL VOLUME 91.3 fl (80-96); MEAN PLT VOLUME 7.5 fl (7.5-11.1); MONO % 8.1 % (3.8-10.2); NEUT % 66.2 % (42.8-82.8); PLATELET COUNT 213 K/MM3 (134-434); RBC 3.77 M/mm3 (3.60-5.2); RDW 14.1 % (11.6-15.6); WHITE BLOOD COUNT 4.4 K/mm3 (4.0-10.0)
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
[2017-12-02 09:08] LABS: INR 1.1 (0.83-1.09); PROTHROMBIN TIME (PATIENT) 12.4 SEC (9.7-13.0)
[2017-12-02 09:10] LABS: ACTIVATED PTT 27.3 SECONDS (25.2-36.5)
[2017-12-02] MEDS ORDERED: ACETAMINOPHEN INJECTION 100 ML IVPB ONE (09:17)
[2017-12-02 09:21] LABS: ALBUMIN 3.9 g/dl (3.4-5.0); ALK PHOS 63 U/L (45-117); ANION GAP 11 (8-16); BILIRUBIN,TOTAL 0.6 mg/dL (0.2-1.0); BLOOD UREA NITROGEN 15 mg/dL (7-18); CALCIUM 9.4 mg/dL (8.5-10.1); CHLORIDE 108 mmol/L (98-107); CO2 22 mmol/L (21-32); CREATININE 0.9 mg/dL (0.55-1.02); GLUCOSE,RANDOM 113 mg/dL (74-106); SGOT/AST 17 U/L (15-37); SGPT/ALT 19 U/L (12-78); SODIUM 141 mmol/L (136-145); TOT PROT 7.2 g/dl (6.4-8.2)
[2017-12-02] MEDS ORDERED: ONDANSETRON 4 MG/2 ML VIAL IVPUSH ONE ×2 (09:43→15:59)
[2017-12-02] MEDS ORDERED: ACETAMINOPHEN WITH CODEINE 300MG/30MG TABLET PO ONE ×2 (09:46→15:59)
[2017-12-02] MEDS ORDERED: ACETAMINOPHEN WITH CODEINE 300MG/30MG TABLET ONE ×3 (09:51→16:13)
[2017-12-02] MEDS ORDERED: ONDANSETRON 4 MG/2 ML VIAL ONE ×2 (09:51→16:13)
[2017-12-02] MEDS: ONDANSETRON 4 MG/2 ML VIAL IVPUSH PRN (20:09)
[2017-12-02] MEDS: ACETAMINOPHEN WITH CODEINE 300MG/30MG TABLET PO PRN (20:13)
[2017-12-02] MEDS ORDERED: CHLORHEXIDINE GLUCONATE 4% CLEANSER FOR DECOLONIZATION TP SCH (22:00)
[2017-12-03] MEDS: ACETAMINOPHEN WITH CODEINE 300MG/30MG TABLET PO PRN ×2 (00:03→07:05)
[2017-12-03] MEDS: ONDANSETRON 4 MG/2 ML VIAL IVPUSH PRN ×2 (00:04→07:04)
[2017-12-03] MEDS ORDERED: LIDOCAINE 5% TOPICAL PATCH TP SCH (00:30)
[2017-12-03] MEDS ORDERED: GENTAMICIN SO4 80 MG/2 ML VIAL ONE ×2 (07:27→12:41)
[2017-12-03] MEDS ORDERED: BACITRACIN 15 GM TUBE TOPICAL OINTMENT ONE (07:28)
[2017-12-03] MEDS ORDERED: THROMBIN (BOVINE) 20,000 UNIT VIAL TP ONE ×2 (07:28→13:48)
[2017-12-03] MEDS ORDERED: BUPIVACAINE HCL/PF 0.5% (5MG/ML) 10 ML VIAL ONE ×2 (07:28→11:15)
[2017-12-03] MEDS ORDERED: LIDOCAINE 1%/EPI 1:100000 (20 ML MULTI DOSE VIAL) ONE ×2 (07:28→11:14)
[2017-12-03] MEDS ORDERED: VANCOMYCIN 1,000 MG VIAL (RESTRICTED TO ID ONLY) ONE ×2 (07:28→09:58)
[2017-12-03] MEDS ORDERED: THROMBIN (BOVINE) 5,000 UNIT VIAL TP ONE (07:29)
--- NOTE | 2017-12-03 08:51 | HP ---
Admitting History and Physical - Admission Chief Complaint: pain in the neck ,radiate to Lt shoulder. Scheduled to go for surgery on 12/03/17. She spoke to neurosurgeon Dr Rangel and he told her to go to ER History Source: Patient Limitations to Obtaining History: No Limitations - Past Medical History Cardiovascular: Yes: HTN Pulmonary: Yes: COPD Gastrointestinal: Yes: Constipation Heme/Onc: Yes: Anemia Psych: Yes: Anxiety - Past Surgical History Additional Past Surgical History: S/P cervical spine fussion - Smoking History Smoking history: Never smoked Have you smoked in the past 12 months: No Aproximately how many cigarettes per day: 0 - Alcohol/Substance Use Hx Alcohol Use: No - Social History History of Recent Travel: No Home Medications - Allergies Allergies/Adverse Reactions: Allergies Allergy/AdvReac Type Severity Reaction Status Date / Time aspirin Allergy Intermediate Hives Verified 12/01/17 07:00 ibuprofen Allergy Intermediate vomitting Verified 12/01/17 07:00 ketorolac tromethamine Allergy ITCHING, Verified 12/01/17 07:00 [From Toradol] VOMITING morphine Allergy Hives Verified 12/01/17 07:00 Penicillins Allergy Hives Verified 12/01/17 07:00 Shellfish Allergy Hives Verified 12/01/17 07:00 onions Allergy Uncoded 12/01/17 07:00 - Home Medications Home Medications: Ambulatory Orders Estrogens, Conjugated [Premarin] 0.625 mg PO DAILY 01/02/17 Simvastatin 10 mg PO DAILY 09/19/17 Losartan Potassium 50 mg PO ASDIR 10/31/17 Benzonatate 100 mg PO DAILY 11/09/17 Fluticasone/Vilanterol [Breo Ellipta 200-25 Mcg INH] 1 each IH PRN 11/09/17 Acetaminophen W/ Codeine #3 [Tylenol # 3 -] 1 tab PO Q6H 11/27/17 Gabapentin [Neurontin -] 100 mg PO Q8H 11/27/17 Ondansetron HCl [Zofran] 4 mg PO Q8H PRN 11/27/17 Acetaminophen/Diphenhydramine [Tylenol Pm Ex-Strength Caplet] 2 each PO PRN PRN 12/01/17 Lidocaine [Lidocaine Pain Relief] 1 each TP PRN PRN 12/01/17 Physical Examination Vital Signs: Vital Signs Temperature 98 F 12/03/17 06:00 Pulse Rate 74 08/02/18 06:00 Respiratory Rate 20 12/03/17 06:00 Blood Pressure 104/68 12/03/17 06:00 O2 Sat by Pulse Oximetry (%) 99 12/02/17 21:00 Labs: CBC, BMP 12/02/17 08:29 12/02/17 08:29
[2017-12-03] MEDS ORDERED: ROCURONIUM BROMIDE 50 MG/5 ML VIAL ONE ×3 (09:03→12:03)
[2017-12-03] MEDS ORDERED: PROPOFOL 20 ML ONE ×2 (09:03→12:03)
[2017-12-03] MEDS ORDERED: MIDAZOLAM HCL 2 MG/2 ML SINGLE DOSE VIAL ONE (09:03)
[2017-12-03] MEDS ORDERED: LIDOCAINE HCL/PF 2% SDV 5ML VIAL ONE (09:04)
[2017-12-03] MEDS ORDERED: ceFAZolin SODIUM 1 GM VIAL ONE ×3 (09:49→20:48)
[2017-12-03] MEDS ORDERED: SODIUM CHLORIDE 0.9% P/F 10 ML VIAL IJ ONE ×3 (09:49→12:16)
[2017-12-03] MEDS ORDERED: ceFAZolin SODIUM 1 GM VIAL IVPB ONE (09:50)
[2017-12-03] MEDS ORDERED: LIDOCAINE 1%/EPI 1:100000 (20 ML MULTI DOSE VIAL) IJ ONE ×2 (09:59→12:35)
[2017-12-03] MEDS ORDERED: LIDOCAINE PATCH REMOVAL MC SCH (10:00)
[2017-12-03] MEDS ORDERED: VANCOMYCIN 1,000 MG VIAL (RESTRICTED TO ID ONLY) IVPB ONE (10:00)
[2017-12-03] MEDS ORDERED: ONDANSETRON 4 MG/2 ML VIAL ONE ×2 (10:02→14:27)
[2017-12-03] MEDS ORDERED: DEXAMETHASONE SOD PHOSPHATE 4 MG/1 ML VIAL ONE ×2 (10:02→14:27)
[2017-12-03] MEDS ORDERED: BUPIVACAINE HCL/PF 0.5% (5MG/ML) 10 ML VIAL IJ ONE ×2 (11:58)
[2017-12-03] MEDS ORDERED: ePHEDrine SULFATE 50 MG/1 ML AMPULE ONE (12:05)
[2017-12-03] MEDS ORDERED: ACETAMINOPHEN INJECTION 100 ML IVPB ONE (12:25)
[2017-12-03] MEDS ORDERED: GLYCOPYRROLATE 0.2 MG/1 ML VIAL ONE (14:43)
[2017-12-03] MEDS ORDERED: NEOSTIGMINE METHYLSULFATE 0.5 MG/ML - 10 ML MDV ONE (14:44)
[2017-12-03] MEDS ORDERED: LACTATED RINGERS SOLUTION 1,000 ML IV SCH (15:00)
[2017-12-03] MEDS ORDERED: HYDROmorphone *PCA* 10MG/50ML DISP.SYRIN PCA SCH (15:00)
[2017-12-03] MEDS ORDERED: METOPROLOL TARTRATE 5 MG/5 ML VIAL ONE (15:39)
[2017-12-03] MEDS: METOPROLOL TARTRATE 5 MG/5 ML VIAL IVPUSH ONE ×2 (15:40→18:43)
--- NOTE | 2017-12-03 16:07 | OP ---
Operative Note - Note: Operative Date: 12/03/17 Pre-Operative Diagnosis: spinal cord compression Operation: Exploration of spinal fusion, Removal of sublaminal wires, C2-T1 Laminectomies, C7-T1 osteotomies, C2-T1 deformity correction with posterior fusion, Removal of anterior instrumentation, C4/C5 corpectomies, Reconstruction with Peek cages and anterior plating Post-Operative Diagnosis: Same as Pre-op Surgeon: Dandre Michelle Buffer Chrome: Phill Wu Anesthesiologist/BALANCE RECESSER: Murtaza Alcaraz Anesthesia: General
[2017-12-03 16:09] LABS: BASO % 0.2 % (0-2.0); HEMATOCRIT 33.6 % (32.4-45.2); HEMOGLOBIN 11.3 GM/dL (10.7-15.3); LYMPH % 10.9 % (8-40); MCH 30.2 pg (25.7-33.7); MCHC 33.5 g/dl (32.0-36.0); MEAN PLT VOLUME 7.8 fl (7.5-11.1); MONO % 2.6 % (3.8-10.2); NEUT % 86.3 % (42.8-82.8); PLATELET COUNT 167 K/MM3 (134-434); RBC 3.74 M/mm3 (3.60-5.2); RDW 14.5 % (11.6-15.6); WHITE BLOOD COUNT 15.9 K/mm3 (4.0-10.0)
--- NOTE | 2017-12-03 16:09 | SURG ---
Surgery Seasonal Greenery Bundler Note Seasonal Greenery Bundler: Phill Wu PA-C Date of Service: 12/03/17 Diagnosis: Spinal cord compression Procedure: Exploration of spinal fusion, Removal of sublaminal wires, C2-T1 Laminectomies, C7-T1 osteotomies, C2-T1 deformity correction with posterior fusion, Removal of anterior instrumentation, C4/C5 corpectomies, Reconstruction with Peek cages and anterior plating I was present for the entirety of the operative procedure. For further detail, please refer to operative report.
[2017-12-03 16:28] LABS: ALBUMIN 2.3 g/dl (3.4-5.0); ALK PHOS 37 U/L (45-117); ANION GAP 11 (8-16); BILIRUBIN,TOTAL 0.4 mg/dL (0.2-1.0); BLOOD UREA NITROGEN 13 mg/dL (7-18); CALCIUM 7.1 mg/dL (8.5-10.1); CHLORIDE 110 mmol/L (98-107); CO2 22 mmol/L (21-32); CREATININE 1.1 mg/dL (0.55-1.02); GLUCOSE,RANDOM 191 mg/dL (74-106); POTASSIUM 4.1 mmol/L (3.5-5.1); SGOT/AST 16 U/L (15-37); SGPT/ALT 14 U/L (12-78); SODIUM 143 mmol/L (136-145); TOT PROT 4.2 g/dl (6.4-8.2)
[2017-12-03] MEDS: hydrALAZINE HCL 20 MG/ML VIAL IVPUSH ONE ×2 (16:31→18:45)
[2017-12-03] MEDS ORDERED: ACETAMINOPHEN WITH CODEINE 300MG/30MG TABLET PO PRN (16:52)
[2017-12-03 16:56] LABS: INR 1.19 (0.83-1.09); PROTHROMBIN TIME (PATIENT) 13.5 SEC (9.7-13.0)
[2017-12-03 16:59] LABS: ACTIVATED PTT 20.8 SECONDS (25.2-36.5)
[2017-12-03] MEDS ORDERED: diphenhydrAMINE HCL 25 MG CAPSULE (FP) PO PRN (17:34)
[2017-12-03] MEDS ORDERED: LACTATED RINGERS SOLUTION 1,000 ML/1,000 ML INFUS.BAG IV SCH (17:45)
[2017-12-03] MEDS ORDERED: BENZOIN/ALOE VERA/STORAX/TOLU 58 ML BOTTLE ONE (17:56)
[2017-12-03] MEDS ORDERED: DEXTROSE 5%-WATER - 50 ML IVPB ONE (20:48)
[2017-12-03] MEDS: MUPIROCIN 2% TOPICAL OINTMENT FOR DECOLONIZATION NS SCH (21:05)
[2017-12-03] MEDS: CEFAZOLIN 1 GM in DEXTROSE 5%-WATER - 50 ML IVPB SCH (21:05)
[2017-12-03] MEDS: CHLORHEXIDINE GLUCONATE 4% CLEANSER FOR DECOLONIZATION TP SCH (21:06)
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
[2017-12-03 21:51] LABS: HEMATOCRIT 40.9 % (32.4-45.2); MCH 29.2 pg (25.7-33.7); MCHC 34.1 g/dl (32.0-36.0); MEAN CELL VOLUME 85.8 fl (80-96); MEAN PLT VOLUME 7.5 fl (7.5-11.1); PLATELET COUNT 144 K/MM3 (134-434); RBC 4.77 M/mm3 (3.60-5.2); RDW 15.4 % (11.6-15.6); WHITE BLOOD COUNT 14.9 K/mm3 (4.0-10.0)
[2017-12-03] MEDS ORDERED: HEPARIN NA (PORCINE) 5,000 UNITS/ML 1ML VIAL SQ SCH (22:00)
[2017-12-03 22:21] LABS: ANION GAP 12 (8-16); BLOOD UREA NITROGEN 14 mg/dL (7-18); CALCIUM 7.5 mg/dL (8.5-10.1); CHLORIDE 108 mmol/L (98-107); CO2 21 mmol/L (21-32); CREATININE 1.1 mg/dL (0.55-1.02); GLUCOSE,RANDOM 204 mg/dL (74-106); POTASSIUM 4.7 mmol/L (3.5-5.1); SODIUM 141 mmol/L (136-145)
[2017-12-04] MEDS: ONDANSETRON 4 MG/2 ML VIAL IVPUSH PRN ×5 (01:13→19:25)
[2017-12-04] MEDS ORDERED: DEXTROSE 5%-WATER - 50 ML IVPB ONE ×3 (04:40→19:23)
[2017-12-04] MEDS ORDERED: ceFAZolin SODIUM 1 GM VIAL ONE ×3 (04:40→19:22)
[2017-12-04] MEDS: CEFAZOLIN 1 GM in DEXTROSE 5%-WATER - 50 ML IVPB SCH ×3 (04:41→20:21)
[2017-12-04] MEDS: HEPARIN NA (PORCINE) 5,000 UNITS/ML 1ML VIAL SQ SCH ×3 (05:23→21:07)
[2017-12-04 05:52] LABS: HEMATOCRIT 36.7 % (32.4-45.2); HEMOGLOBIN 12.8 GM/dL (10.7-15.3); MCH 29.5 pg (25.7-33.7); MCHC 34.8 g/dl (32.0-36.0); MEAN CELL VOLUME 84.7 fl (80-96); MEAN PLT VOLUME 7.6 fl (7.5-11.1); PLATELET COUNT 141 K/MM3 (134-434); RBC 4.34 M/mm3 (3.60-5.2); RDW 15.9 % (11.6-15.6); WHITE BLOOD COUNT 16.1 K/mm3 (4.0-10.0)
[2017-12-04 06:20] LABS: ANION GAP 8 (8-16); BLOOD UREA NITROGEN 14 mg/dL (7-18); CALCIUM 7.5 mg/dL (8.5-10.1); CHLORIDE 107 mmol/L (98-107); CO2 25 mmol/L (21-32); CREATININE 0.9 mg/dL (0.55-1.02); GLUCOSE,RANDOM 149 mg/dL (74-106); POTASSIUM 4.4 mmol/L (3.5-5.1); SODIUM 140 mmol/L (136-145)
[2017-12-04] MEDS ORDERED: PROMETHAZINE HCL 25 MG/1 ML VIAL IVPB PRN (08:26)
[2017-12-04] MEDS ORDERED: DEXAMETHASONE SOD PHOSPHATE 4 MG/1 ML VIAL IVPUSH ONE (08:26)
--- NOTE | 2017-12-04 08:30 | PN ---
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
[2017-12-04] MEDS: LACTATED RINGERS SOLUTION 1,000 ML/1,000 ML INFUS.BAG IV SCH (09:15)
--- NOTE | 2017-12-04 09:15 | PN ---
Progress Note (short form) - Note Progress Note: POD#1 Pt states tht her left hand pain is improved, having pain at the back of her neck. No headaches, some nausea. Vital Signs Period Temp Pulse Resp BP Sys/[place] Pulse Ox Last 24 Hr 98.1 F-99.6 F 83-125 12-18 109-195/65-107 90-100 SAHARA-posterior 25ml Anterior- to bile bag, drain outpt not recorded GEN: Alert and Oriented, follows commands. CV: RR, mild tachycardia Lungs: CTA b/l anteriorly Back: incision c/d/i. SAHARA serosangrenous Neck: Anterior dressing c/d/i, mild swelling noted. SAHARA(whte part) out approx 2 cm, but is still draining blood tinged fluid. Secured drain in place with tegaderm on drain itself and onto the pts anterior shoulder. LE: no calf tendneress note/SCDs in place Neuro: senior technical trainer strength equal b/l with flexion/extension of upper arm 5/5 b/l. Able to assist with turning while lying flat. CBC, BMP /07/19 05:30 Laboratory Tests //18 21:30 WBC 14.9 H Hgb 14.0 Hct 40.9 D Plt Count 144 12/04/17 05:30 A/p:57 yo female s/p Removal of sublaminal wires, C2-T1 Laminectomies, C7-T1 osteotomies, C2-T1 deformity correction with posterior fusion, Removal of anterior instrumentation, C4/C5 corpectomies, Reconstruction with Peek cages and anterior plating Pt's H&H remains stable today after 3 units of PRBC, will continue to monitor and begin folic acid/MVI in the am if on clears Clears today if nausea improves, decrease IVF to 50ml per hour. Discontinue IVF after tolerating an oral diet. Heparin SQ today started for DVT ppx, pt may also be oob to chair with her cervical collar on. Maintain [place] J collar 23 hours per day PT ordered Daily labs Discussed the care plan and evaluation with Dr. Michelle
--- NOTE | 2017-12-04 09:52 | PN ---
Progress Note, Physician Chief Complaint: Neck pain persists History of Present Illness: S/P cervical spine fusion, removal of heard layton and insertion of posterior plate - Current Medication List Current Medications: Active Medications Chlorhexidine Gluconate (Hibiclens For Decolonization -) 1 applic TP HS REPLACED BY [facility] Last Admin: 12/03/17 21:06 Dose: 1 applic Diphenhydramine HCl (Benadryl -) 25 mg PO Q6H PRN PRN Reason: FOR ITCHING Docusate Sodium (Colace -) 100 mg PO TID REPLACED BY [facility] Ferrous Sulfate (Feosol -) 325 mg PO DAILY REPLACED BY [facility] Folic Acid (Folic Acid -) 1 mg PO DAILY REPLACED BY [facility] Heparin Sodium (Porcine) (Heparin -) 5,000 unit SQ TID REPLACED BY [facility] Last Admin: 12/04/17 05:23 Dose: 5,000 unit Hydromorphone HCl (Dilaudid Associate Artistic Director -) 10 mg PROCESSOR HELPER PROCESSOR HELPER REPLACED BY [facility]; Protocol Stop: 12/11/17 08:26 Cefazolin Sodium 1 gm/ (Dextrose) 50 mls @ 100 mls/hr IVPB Q8H REPLACED BY [facility] Last Admin: 12/04/17 04:41 Dose: 100 mls/hr Lactated Ringer's (Lactated Ringers Solution) 1,000 ml in 1,000 mls @ 50 mls/ hr IV ASDIR REPLACED BY [facility] Mupirocin (Bactroban Ointment (For Decolonization) -) 1 applic NS BID REPLACED BY [facility] Stop: 12/08/17 21:59 Last Admin: 12/03/17 21:05 Dose: 1 applic Ondansetron HCl (Zofran Injection) 4 mg IVPUSH Q4H PRN PRN Reason: NAUSEA AND/OR VOMITING Promethazine HCl (Phenergan Injection -) 12.5 mg IVPB Q6H PRN PRN Reason: NAUSEA AND/OR VOMITING - Objective Vital Signs: Vital Signs Temperature 99.6 F 12/04/17 08:00 Pulse Rate 83 12/04/17 08:35 Respiratory Rate 12 12/04/17 09:00 Blood Pressure 129/75 12/04/17 08:00 O2 Sat by Pulse Oximetry (%) 99 12/04/17 08:35 Constitutional: Yes: Severe Distress Eyes: Yes: WNL HENT: Yes: WNL Neck: Yes: WNL Cardiovascular: Yes: WNL Respiratory: Yes: WNL Gastrointestinal: Yes: WNL ...Rectal Exam: Yes: WNL Breast(s): Yes: WNL Musculoskeletal: Yes: Muscle Weakness Edema: No Peripheral Pulses WNL: Yes Integumentary: Yes: WNL Neurological: Yes: Alert Labs: CBC, BMP 12/04/17 05:30 12/04/17 05:30 INR, PTT INR 1.19 (0.83-1.09) H 12/03/17 15:30
[2017-12-04] MEDS: MUPIROCIN 2% TOPICAL OINTMENT FOR DECOLONIZATION NS SCH ×2 (10:00→21:07)
[2017-12-04] MEDS: HYDROmorphone *PCA* 10MG/50ML DISP.SYRIN PCA SCH (10:00)
--- NOTE | 2017-12-04 12:01 | PN ---
Teaching Attending Note Name of Resident: Mireille Taylor ATTENDING PHYSICIAN STATEMENT I saw and evaluated the patient. I reviewed the resident's note and discussed the case with the resident. I agree with the resident's findings and plan as documented. SUBJECTIVE: Patient seen and examined in the ICU. Awake and alert. Reports back pain. No CP or SOB. Intake & Output 12/01/17 12/02/17 12/03/17 12/04/17 23:59 23:59 23:59 23:59 Intake Total 4450 Output Total 1550 425 Balance 2900 -425 Weight 160 lb Last Vital Signs Temp Pulse Resp BP Pulse Ox 99.6 F 84 17 142/65 97 12/04/17 08:00 12/04/17 11:48 12/04/17 11:48 12/04/17 11:48 12/04/17 11:21 Active Medications Chlorhexidine Gluconate (Hibiclens For Decolonization -) 1 applic TP HS [facility] Last Admin: 12/03/17 21:06 Dose: 1 applic Diphenhydramine HCl (Benadryl -) 25 mg PO Q6H PRN PRN Reason: FOR ITCHING Docusate Sodium (Colace -) 100 mg PO TID [facility] Ferrous Sulfate (Feosol -) 325 mg PO DAILY [facility] Folic Acid (Folic Acid -) 1 mg PO DAILY [facility] Heparin Sodium (Porcine) (Heparin -) 5,000 unit SQ TID [facility] Last Admin: 12/04/17 05:23 Dose: 5,000 unit Hydromorphone HCl (Dilaudid Juice Packaging Machines Setter -) 10 mg APPLICATION DEVELOPMENT TEAM LEAD APPLICATION DEVELOPMENT TEAM LEAD [facility]; Protocol Stop: 12/11/17 08:26 Last Admin: 12/04/17 10:00 Dose: 10 mg Cefazolin Sodium 1 gm/ (Dextrose) 50 mls @ 100 mls/hr IVPB Q8H [facility] Last Admin: 12/04/17 04:41 Dose: 100 mls/hr Lactated Ringer's (Lactated Ringers Solution) 1,000 ml in 1,000 mls @ 50 mls/ hr IV ASDIR [facility] Last Admin: 12/04/17 09:15 Dose: 50 mls/hr Mupirocin (Bactroban Ointment (For Decolonization) -) 1 applic NS BID [facility] Stop: 12/08/17 21:59 Last Admin: 12/04/17 10:00 Dose: 1 applic Ondansetron HCl (Zofran Injection) 4 mg IVPUSH Q4H PRN PRN Reason: NAUSEA AND/OR VOMITING Last Admin: 12/04/17 10:38 Dose: 4 mg Promethazine HCl (Phenergan Injection -) 12.5 mg IVPB Q6H PRN PRN Reason: NAUSEA AND/OR VOMITING GENERAL: Awake, alert, and oriented, mildly uncomfortable due to pain HEAD: Normal with no signs of trauma. EYES: Pupils equal, sclera anicteric, conjunctiva clear. EARS, NOSE, THROAT: Oropharynx clear without exudates. Dry MM. NECK: Cervical collar, ROM not assessed, two drains present, draining sanguinous fluid, dressing applied. LUNGS: Breath sounds equal, clear to auscultation bilaterally. No wheezes, and no crackles. No accessory muscle use. HEART: Regular rate and rhythm, normal S1 and S2 without murmur, rub or gallop. ABDOMEN: Soft, nontender, not distended, normoactive bowel sounds, no guarding, no rebound, no masses. UPPER EXTREMITIES: No peripheral edema. LOWER EXTREMITIES: 2+ pulses, no peripheral edema. NEUROLOGICAL: No facial asymmetry, motor 4/5 in UE, sensation to light touch intact. PSYCHIATRIC: Cooperative. SKIN: Warm, dry. Laboratory Results - last 24 hr 12/02/17 12/03/17 12/03/17 09:11 15:30 15:30 WBC 15.9 H RBC 3.74 Hgb 11.3 Hct 33.6 MCV 90.0 MCH 30.2 MCHC 33.5 RDW 14.5 Plt Count 167 D MPV 7.8 Absolute Neuts (auto) 13.7 Neutrophils % 86.3 H D Lymphocytes % 10.9 D Monocytes % 2.6 L Eosinophils % 0.0 D Basophils % 0.2 Nucleated RBC % 0 PT with INR INR PTT (Actin FS) Sodium 143 Potassium 4.1 Chloride 110 H Carbon Dioxide 22 Anion Gap 11 BUN 13 Creatinine 1.1 H Creat Clearance w eGFR 51.02 Random Glucose 191 H Calcium 7.1 L Total Bilirubin 0.4 AST 16 ALT 14 Alkaline Phosphatase 37 L D Total Protein 4.2 L D Albumin 2.3 L Blood Type A POSITIVE Antibody Screen Negative Crossmatch IS Only See Detail 12/03/17 12/03/17 12/03/17 15:30 21:30 21:30 WBC 14.9 H RBC 4.77 Hgb 14.0 Hct 40.9 D MCV 85.8 MCH 29.2 MCHC 34.1 RDW 15.4 Plt Count 144 MPV 7.5 Absolute Neuts (auto) Neutrophils % Lymphocytes % Monocytes % Eosinophils % Basophils % Nucleated RBC % PT with INR 13.50 H INR 1.19 H PTT (Actin FS) 20.8 L Sodium 141 Potassium 4.7 Chloride 108 H Carbon Dioxide 21 Anion Gap 12 BUN 14 Creatinine 1.1 H Creat Clearance w eGFR 51.02 Random Glucose 204 H Calcium 7.5 L Total Bilirubin AST ALT Alkaline Phosphatase Total Protein Albumin Blood Type Antibody Screen Crossmatch IS Only 12/04/17 12/04/17 05:30 05:30 WBC 16.1 H RBC 4.34 Hgb 12.8 Hct 36.7 MCV 84.7 MCH 29.5 MCHC 34.8 RDW 15.9 H Plt Count 141 MPV 7.6 Absolute Neuts (auto) Neutrophils % Lymphocytes % Monocytes % Eosinophils % Basophils % Nucleated RBC % PT with INR INR PTT (Actin FS) Sodium 140 Potassium 4.4 Chloride 107 Carbon Dioxide 25 Anion Gap 8 BUN 14 Creatinine 0.9 Creat Clearance w eGFR > 60 Random Glucose 149 H Calcium 7.5 L Total Bilirubin AST ALT Alkaline Phosphatase Total Protein Albumin Blood Type Antibody Screen Crossmatch IS Only Problem List - Problems (1) Cervical pain (neck) Code(s): M54.2 - CERVICALGIA (2) Intractable back pain Code(s): M54.9 - DORSALGIA, UNSPECIFIED (3) Weakness of left upper extremity Code(s): M62.81 - MUSCLE WEAKNESS (GENERALIZED) (4) Asthmatic bronchitis Code(s): J45.909 - UNSPECIFIED ASTHMA, UNCOMPLICATED (5) Hypertension Code(s): I10 - ESSENTIAL (PRIMARY) HYPERTENSION ASSESSMENT/PLAN: POD #1 S/P exploration of spinal fusion, removal of sublaminal wires, C2-T1 Laminectomies, C7-T1 osteotomies, C2-T1 deformity correction with posterior fusion, removal of anterior instrumentation, C4/C5 corpectomies, reconstruction with Peek cages and anterior plating, durotomy. Asthma HTN Asthma COPD Anxiety HPL Plan: Mobility per Neurosurgery Pain control with APPLICATION DEVELOPMENT TEAM LEAD O2 as needed VTE prophylaxis Post-op ABX per ID IVF Monitor drain output PO when cleared by surgery Dr Limon Critical care time spent in reviewing chart, evaluating patient and formulating plan - 36 minutes.
--- NOTE | 2017-12-04 13:50 | PN ---
Physical Exam: SUBJECTIVE: Patient seen and examined at bedside. she does not appear in any acute distress, however, she is complaining of back/neck pain and nausea. she denies any MCMULLEN/Dizziness SOB/ or chest pain. OBJECTIVE: Vital Signs Period Temp Pulse Resp BP Sys/Hylton Pulse Ox Last 24 Hr 98.1 F-99.6 F 80-125 12-20 109-195/65-107 90-100 GENERAL: The patient is awake, alert, and fully oriented, in no acute distress. NECK: cervical collar in place, range of motion not tested- 2 drains present draining serosanguinous fluid LUNGS: Breath sounds equal, clear to auscultation bilaterally, no wheezes, no crackles, no accessory muscle use. HEART: Regular rate and rhythm, S1, S2 without murmur, rub or gallop. ABDOMEN: Soft, nontender, nondistended, normoactive bowel sounds, no guarding, no rebound, no hepatosplenomegaly, no masses. EXTREMITIES: 2+ pulses, warm, well-perfused, no edema. PSYCH: Normal mood, normal affect. SKIN: Warm, dry, normal turgor, no rashes or lesions noted Laboratory Results - last 24 hr 12/02/17 12/03/17 12/03/17 09:11 15:30 15:30 WBC 15.9 H RBC 3.74 Hgb 11.3 Hct 33.6 MCV 90.0 MCH 30.2 MCHC 33.5 RDW 14.5 Plt Count 167 D MPV 7.8 Absolute Neuts (auto) 13.7 Neutrophils % 86.3 H D Lymphocytes % 10.9 D Monocytes % 2.6 L Eosinophils % 0.0 D Basophils % 0.2 Nucleated RBC % 0 PT with INR INR PTT (Actin FS) Sodium 143 Potassium 4.1 Chloride 110 H Carbon Dioxide 22 Anion Gap 11 BUN 13 Creatinine 1.1 H Creat Clearance w eGFR 51.02 Random Glucose 191 H Calcium 7.1 L Total Bilirubin 0.4 AST 16 ALT 14 Alkaline Phosphatase 37 L D Total Protein 4.2 L D Albumin 2.3 L Blood Type A POSITIVE Antibody Screen Negative Crossmatch IS Only See Detail 12/03/17 12/03/17 12/03/17 15:30 21:30 21:30 WBC 14.9 H RBC 4.77 Hgb 14.0 Hct 40.9 D MCV 85.8 MCH 29.2 MCHC 34.1 RDW 15.4 Plt Count 144 MPV 7.5 Absolute Neuts (auto) Neutrophils % Lymphocytes % Monocytes % Eosinophils % Basophils % Nucleated RBC % PT with INR 13.50 H INR 1.19 H PTT (Actin FS) 20.8 L Sodium 141 Potassium 4.7 Chloride 108 H Carbon Dioxide 21 Anion Gap 12 BUN 14 Creatinine 1.1 H Creat Clearance w eGFR 51.02 Random Glucose 204 H Calcium 7.5 L Total Bilirubin AST ALT Alkaline Phosphatase Total Protein Albumin Blood Type Antibody Screen Crossmatch IS Only 12/04/17 12/04/17 05:30 05:30 WBC 16.1 H RBC 4.34 Hgb 12.8 Hct 36.7 MCV 84.7 MCH 29.5 MCHC 34.8 RDW 15.9 H Plt Count 141 MPV 7.6 Absolute Neuts (auto) Neutrophils % Lymphocytes % Monocytes % Eosinophils % Basophils % Nucleated RBC % PT with INR INR PTT (Actin FS) Sodium 140 Potassium 4.4 Chloride 107 Carbon Dioxide 25 Anion Gap 8 BUN 14 Creatinine 0.9 Creat Clearance w eGFR > 60 Random Glucose 149 H Calcium 7.5 L Total Bilirubin AST ALT Alkaline Phosphatase Total Protein Albumin Blood Type Antibody Screen Crossmatch IS Only Active Medications Generic Name Dose Route Start Last Admin Trade Name Freq PRN Reason Stop Dose Admin Chlorhexidine Gluconate 1 applic 12/03/17 22:00 12/03/17 21:06 Hibiclens For Decolonization - TP 1 applic HS JUJU Administration Diphenhydramine HCl 25 mg 12/03/17 17:34 Benadryl - PO Q6H PRN FOR ITCHING Docusate Sodium 100 mg 12/04/17 22:00 Colace - PO TID JUJU Ferrous Sulfate 325 mg 12/05/17 10:00 Feosol - PO DAILY JUJU Folic Acid 1 mg 12/05/17 10:00 Folic Acid - PO DAILY JUJU Heparin Sodium (Porcine) 5,000 unit 12/04/17 06:00 12/04/17 05:23 Heparin - SQ 5,000 unit TID JUJU Administration Hydromorphone HCl 10 mg 12/04/17 08:30 12/04/17 10:00 Dilaudid Program Attendant - DOCUMENT CLERK 12/11/17 08:26 10 mg DOCUMENT CLERK JUJU Administration Protocol Cefazolin Sodium 1 gm/ 50 mls @ 100 mls/hr 08/02/18 21:00 12/04/17 04:41 Dextrose IVPB 100 mls/hr Q8H JUJU Administration Lactated Ringer's 1,000 ml in 1,000 mls @ 50 mls/hr 12/04/17 09:06 12/04/17 09:15 Lactated Ringers Solution IV 50 mls/hr ASDIR JUJU Administration Mupirocin 1 applic 12/03/17 22:00 12/04/17 10:00 Bactroban Ointment (For Decolonization) - NS 12/08/17 21:59 1 applic BID JUJU Administration Ondansetron HCl 4 mg 12/04/17 08:26 12/04/17 10:38 Zofran Injection IVPUSH 4 mg Q4H PRN Administration NAUSEA AND/OR VOMITING Promethazine HCl 12.5 mg 12/04/17 08:26 Phenergan Injection - IVPB Q6H PRN NAUSEA AND/OR VOMITING ASSESSMENT/PLAN: 57 y/o female with PMH of HTN,COPD,asthma, multiple spine surgeries in the past - presented to the ED with left sided pain and numbness radiating up to the face and down through the arm. Patient underwent neurosurgery last night: C2-T1 laminectomy,C7-T1 ostectomy, C2-T1 posterior fusion, C4-C5 corpectomies and durotomy with spinal cord exploration. Patient is now POD #1. POD #1 from spinal surgery -patient needs to be wearing collar for majority of day as per neurosurgery -incentive spirometry -Dilaudid DOCUMENT CLERK for pain -zofran and phenergan for nausea -mobility as per surgery -abx as per ID Cardio: restart home meds when permissable from surgery F/E/N LR 1000@50mls/hr monitor electrolytes clear diet dispo: monitor in ICU setting- transfer when permissible by surgery Problem List - Problems (1) Cervical pain (neck) Code(s): M54.2 - CERVICALGIA (2) Intractable back pain Code(s): M54.9 - DORSALGIA, UNSPECIFIED (3) Intractable pain Code(s): R52 - PAIN, UNSPECIFIED Visit type - Emergency Visit Emergency Visit: Yes ED Registration Date: 12/02/17 Care time: The patient presented to the Emergency Department on the above date and was hospitalized for further evaluation of their emergent condition. - New Patient This patient is new to me today: Yes Date on this admission: 12/04/17 - Critical Care Critical Care patient: Yes Total Critical Care Time (in minutes): 35 Critical Care Statement: The care of this patient involved high complexity decision making to prevent further life threatening deterioration of the patient 's condition and/or to evaluate & treat vital organ system(s) failure or risk of failure.
[2017-12-04] MEDS ORDERED: PT OWN MED DRAWER 7, Y5N ONE (14:13)
[2017-12-04] MEDS: CHLORHEXIDINE GLUCONATE 4% CLEANSER FOR DECOLONIZATION TP SCH (21:07)
[2017-12-04] MEDS: DOCUSATE SODIUM 100 MG CAPSULE (FP) PO SCH (21:07)
[2017-12-05] MEDS: ONDANSETRON 4 MG/2 ML VIAL IVPUSH PRN (00:08)
[2017-12-05] MEDS: LACTATED RINGERS SOLUTION 1,000 ML/1,000 ML INFUS.BAG IV SCH ×2 (01:00→10:00)
[2017-12-05] MEDS ORDERED: ceFAZolin SODIUM 1 GM VIAL ONE ×2 (04:56→19:52)
[2017-12-05] MEDS ORDERED: DEXTROSE 5%-WATER - 50 ML IVPB ONE ×2 (04:56→19:52)
[2017-12-05] MEDS: CEFAZOLIN 1 GM in DEXTROSE 5%-WATER - 50 ML IVPB SCH ×3 (04:59→20:32)
[2017-12-05] MEDS: HEPARIN NA (PORCINE) 5,000 UNITS/ML 1ML VIAL SQ SCH ×3 (05:00→21:04)
[2017-12-05] MEDS: DOCUSATE SODIUM 100 MG CAPSULE (FP) PO SCH ×3 (05:00→21:04)
[2017-12-05 06:07] LABS: BASO % 0.3 % (0-2.0); HEMATOCRIT 30.3 % (32.4-45.2); HEMOGLOBIN 10.5 GM/dL (10.7-15.3); LYMPH % 15.9 % (8-40); MCH 29.9 pg (25.7-33.7); MCHC 34.6 g/dl (32.0-36.0); MEAN CELL VOLUME 86.2 fl (80-96); MEAN PLT VOLUME 7.6 fl (7.5-11.1); MONO % 8.7 % (3.8-10.2); NEUT % 75.1 % (42.8-82.8); PLATELET COUNT 118 K/MM3 (134-434); RBC 3.51 M/mm3 (3.60-5.2); RDW 15.6 % (11.6-15.6); WHITE BLOOD COUNT 13.9 K/mm3 (4.0-10.0)
[2017-12-05 06:36] LABS: ALBUMIN 2.6 g/dl (3.4-5.0); ALK PHOS 34 U/L (45-117); ANION GAP 6 (8-16); BILIRUBIN,TOTAL 0.4 mg/dL (0.2-1.0); BLOOD UREA NITROGEN 12 mg/dL (7-18); CALCIUM 7.7 mg/dL (8.5-10.1); CHLORIDE 105 mmol/L (98-107); CO2 29 mmol/L (21-32); CREATININE 0.8 mg/dL (0.55-1.02); GLUCOSE,RANDOM 94 mg/dL (74-106); MAGNESIUM 1.9 mg/dL (1.8-2.4); POTASSIUM 4.1 mmol/L (3.5-5.1); SGOT/AST 19 U/L (15-37); SGPT/ALT 15 U/L (12-78); SODIUM 140 mmol/L (136-145); TOT PROT 4.9 g/dl (6.4-8.2)
[2017-12-05] MEDS ORDERED: ONDANSETRON 4 MG/2 ML VIAL ONE (08:37)
[2017-12-05] MEDS ORDERED: ONDANSETRON 4 MG/2 ML VIAL IVPUSH PRN (08:44)
[2017-12-05] MEDS: MUPIROCIN 2% TOPICAL OINTMENT FOR DECOLONIZATION NS SCH ×2 (10:02→21:05)
[2017-12-05] MEDS: HYDROmorphone *PCA* 10MG/50ML DISP.SYRIN PCA SCH (10:06)
[2017-12-05] MEDS: FOLIC ACID 1 MG TABLET (FP) PO SCH (10:07)
[2017-12-05] MEDS: FERROUS SO4 325 MG TABLET (FP) PO SCH (10:07)
[2017-12-05] MEDS: ACETAMINOPHEN 1000 MG/100 ML VIAL (NON FORMULARY) IVPB PRN ×3 (10:25→23:20)
--- NOTE | 2017-12-05 12:28 | PN ---
Teaching Attending Note Name of Resident: Alo Greene ATTENDING PHYSICIAN STATEMENT I saw and evaluated the patient. I reviewed the resident's note and discussed the case with the resident. I agree with the resident's findings and plan as documented. SUBJECTIVE: Pt seen and examined in the ICU. Pain controlled but with increasing headache and nausea after using ROUTE RELIEF DRIVER pump. OBJECTIVE: Vital Signs Period Temp Pulse Resp BP Sys/Hylton Pulse Ox Last 24 Hr 99.0 F-99.9 F 70-101 12-27 126-161/70-92 96-100 Intake & Output 12/02/17 12/03/17 12/04/17 12/05/17 23:59 23:59 23:59 23:59 Intake Total 4450 950 820 Output Total 1550 2365 610 Balance 2900 -1415 210 Weight 72.575 kg Gen: NAD in cervical collar Heart: RRR Lung: decreased breath sounds at the bases Abd: soft, nontender Ext: no edema Drains with serosanguinous fluid CBC, BMP 12/05/17 05:30 12/05/17 05:30 Active Medications Acetaminophen (Ofirmev Injection -) 1,000 mg IVPB Q6H PRN PRN Reason: PAIN LEVEL 6-10 Last Admin: 12/05/17 10:25 Dose: 1,000 mg Chlorhexidine Gluconate (Hibiclens For Decolonization -) 1 applic TP HS [facility] Last Admin: 12/04/17 21:07 Dose: 1 applic Diphenhydramine HCl (Benadryl -) 25 mg PO Q6H PRN PRN Reason: FOR ITCHING Docusate Sodium (Colace -) 100 mg PO TID [facility] Last Admin: 12/05/17 05:00 Dose: 100 mg Ferrous Sulfate (Feosol -) 325 mg PO DAILY [facility] Last Admin: 12/05/17 10:07 Dose: 325 mg Folic Acid (Folic Acid -) 1 mg PO DAILY [facility] Last Admin: 12/05/17 10:07 Dose: 1 mg Heparin Sodium (Porcine) (Heparin -) 5,000 unit SQ TID [facility] Last Admin: 12/05/17 05:00 Dose: 5,000 unit Hydromorphone HCl (Dilaudid Enterprise Cloud Architect -) 10 mg ROUTE RELIEF DRIVER ROUTE RELIEF DRIVER [facility]; Protocol Stop: 12/11/17 08:26 Last Admin: 12/05/17 10:06 Dose: Not Given Cefazolin Sodium 1 gm/ (Dextrose) 50 mls @ 100 mls/hr IVPB Q8H [facility] Last Admin: 12/05/17 04:59 Dose: 100 mls/hr Lactated Ringer's (Lactated Ringers Solution) 1,000 ml in 1,000 mls @ 50 mls/ hr IV ASDIR [facility] Last Admin: 12/05/17 10:00 Dose: 50 mls/hr Mupirocin (Bactroban Ointment (For Decolonization) -) 1 applic NS BID [facility] Stop: 12/08/17 21:59 Last Admin: 12/05/17 10:02 Dose: 1 applic Ondansetron HCl (Zofran Injection) 4 mg IVPUSH Q6H PRN PRN Reason: NAUSEA Last Admin: 12/05/17 09:07 Dose: 4 mg ASSESSMENT AND PLAN: Spinal Cord Compression s/p C2-T1 Laminectomies/C7-T1 Osteotomies/C2-T1 posterior fusion/Removal of anterior instrumentation/Reconstruction HTN Hypercholesterolemia COPD - pain control - add IV tylenol - antiemetics - monitor drain output - d/c jacques - rehab/PT - PO as tolerated - bowel regimen - DVT prophylaxis - can transfer to floor when ok with surgery
[2017-12-05] MEDS ORDERED: DEXAMETHASONE SOD PHOSPHATE 4 MG/1 ML VIAL IM ONE (12:40)
[2017-12-05] MEDS ORDERED: PT OWN MED DRAWER 7, Y5N ONE (13:22)
--- NOTE | 2017-12-05 14:02 | PN ---
Physical Exam: SUBJECTIVE: Patient seen and examined at bedside. C/o headache. Had nausea when sitting in chair yesterday. Sitting in chair today and able to tolerate it better today. OBJECTIVE: Vital Signs Period Temp Pulse Resp BP Sys/Hylton Pulse Ox Last 24 Hr 99.0 F-99.9 F 70-101 12-27 126-161/70-92 96-100 GENERAL: The patient is awake, alert, and fully oriented, in no acute distress. NECK: neck with cervical collar, pt with 2 drains placed. LUNGS: Breath sounds equal, clear to auscultation bilaterally HEART: Regular rate and rhythm, S1, S2 ABDOMEN: Soft, nontender, nondistended, normoactive bowel sounds EXTREMITIES: warm, well-perfused, no edema. PSYCH: Normal mood, normal affect. SKIN: Warm, dry Laboratory Results - last 24 hr 12/02/17 12/05/17 12/05/17 09:11 05:30 05:30 WBC 13.9 H RBC 3.51 L Hgb 10.5 L Hct 30.3 L D MCV 86.2 MCH 29.9 MCHC 34.6 RDW 15.6 Plt Count 118 L MPV 7.6 Absolute Neuts (auto) 10.5 Neutrophils % 75.1 Lymphocytes % 15.9 D Monocytes % 8.7 D Eosinophils % 0.0 Basophils % 0.3 Nucleated RBC % 0 Sodium 140 Potassium 4.1 Chloride 105 Carbon Dioxide 29 Anion Gap 6 L BUN 12 Creatinine 0.8 Creat Clearance w eGFR > 60 Random Glucose 94 Calcium 7.7 L Phosphorus 3.0 Magnesium 1.9 Total Bilirubin 0.4 AST 19 ALT 15 Alkaline Phosphatase 34 L Total Protein 4.9 L Albumin 2.6 L Crossmatch IS Only See Detail Active Medications Generic Name Dose Route Start Last Admin Trade Name Freq PRN Reason Stop Dose Admin Acetaminophen 1,000 mg 12/05/17 10:00 12/05/17 10:25 Ofirmev Injection - IVPB 1,000 mg Q6H PRN Administration PAIN LEVEL 6-10 Chlorhexidine Gluconate 1 applic 12/03/17 22:00 12/04/17 21:07 Hibiclens For Decolonization - TP 1 applic HS JUJU Administration Diphenhydramine HCl 25 mg 12/03/17 17:34 Benadryl - PO Q6H PRN FOR ITCHING Docusate Sodium 100 mg 12/04/17 22:00 12/05/17 13:24 Colace - PO 100 mg TID JUJU Administration Ferrous Sulfate 325 mg 12/05/17 10:00 12/05/17 10:07 Feosol - PO 325 mg DAILY JUJU Administration Folic Acid 1 mg 12/05/17 10:00 12/05/17 10:07 Folic Acid - PO 1 mg DAILY JUJU Administration Heparin Sodium (Porcine) 5,000 unit 12/04/17 06:00 12/05/17 13:24 Heparin - SQ 5,000 unit TID JUJU Administration Hydromorphone HCl 10 mg 12/04/17 08:30 12/05/17 10:06 Dilaudid Assembler Bicycle - FISH HATCHERY SUPERINTENDENT 12/11/17 08:26 Not Given FISH HATCHERY SUPERINTENDENT JUJU Protocol Cefazolin Sodium 1 gm/ 50 mls @ 100 mls/hr 12/03/17 21:00 12/05/17 04:59 Dextrose IVPB 100 mls/hr Q8H JUJU Administration Lactated Ringer's 1,000 ml in 1,000 mls @ 50 mls/hr 12/04/17 09:06 12/05/17 10:00 Lactated Ringers Solution IV 50 mls/hr ASDIR JUJU Administration Mupirocin 1 applic 12/03/17 22:00 12/05/17 10:02 Bactroban Ointment (For Decolonization) - NS 12/08/17 21:59 1 applic BID JUJU Administration Ondansetron HCl 4 mg 12/05/17 08:44 12/05/17 09:07 Zofran Injection IVPUSH 4 mg Q6H PRN Administration NAUSEA ASSESSMENT/PLAN: 57 y/o F w/PMH of HTN, asthma, COPD, previous spinal surgeries presented to ER with numbness and pain on L side radiating to face and arm. Pt is s/p C2-T1 laminectomy; POD 2 -C2-T1 laminectomy -POD 2 -Dilaudid FISH HATCHERY SUPERINTENDENT -c/w incentive spirometry -on cefazolin -spoke with Dr. Michelle - goal for drains at this time is 0mL and to hold fluids unless necessary. He would like the patient to continue to be monitored in the ICU at this time. -LR stopped -c/w PT, OOB to chair -d/c georgie when ambulating -Headache -IV ofirmev 1g q6h PRN for headache -received one push of decadron 4mg for MCMULLEN as well today -Cardio -Normotensive, can resume home meds when hypertensive -DVT ppx -SCDs and TEDs -FEN -No fluids -Monitor electrolytes -Clear diet -Dispo: continue ICU monitoring Visit type - Emergency Visit Emergency Visit: Yes ED Registration Date: 12/02/17 Care time: The patient presented to the Emergency Department on the above date and was hospitalized for further evaluation of their emergent condition. - New Patient This patient is new to me today: No - Critical Care Critical Care patient: Yes Total Critical Care Time (in minutes): 39 Critical Care Statement: The care of this patient involved high complexity decision making to prevent further life threatening deterioration of the patient 's condition and/or to evaluate & treat vital organ system(s) failure or risk of failure.
[2017-12-05] MEDS ORDERED: ONDANSETRON 4 MG TABLET PO PRN (16:24)
[2017-12-05] MEDS ORDERED: PATIENT'S OWN MEDICATION (NON-FORMULARY) (Fluticasone/Vilanterol [Breo Ellipta 200-25 Mcg IH SCH (16:30)
--- NOTE | 2017-12-05 16:30 | PN ---
Progress Note, Physician Chief Complaint: C/O Head ache and Left shoulder pain - Current Medication List Current Medications: Active Medications Acetaminophen (Ofirmev Injection -) 1,000 mg IVPB Q6H PRN PRN Reason: PAIN LEVEL 6-10 Last Admin: 12/05/17 16:21 Dose: 1,000 mg Chlorhexidine Gluconate (Hibiclens For Decolonization -) 1 applic TP HS [facility] Last Admin: 12/04/17 21:07 Dose: 1 applic Diphenhydramine HCl (Benadryl -) 25 mg PO Q6H PRN PRN Reason: FOR ITCHING Docusate Sodium (Colace -) 100 mg PO TID [facility] Last Admin: 12/05/17 13:24 Dose: 100 mg Ferrous Sulfate (Feosol -) 325 mg PO DAILY [facility] Last Admin: 12/05/17 10:07 Dose: 325 mg Folic Acid (Folic Acid -) 1 mg PO DAILY [facility] Last Admin: 12/05/17 10:07 Dose: 1 mg Heparin Sodium (Porcine) (Heparin -) 5,000 unit SQ TID [facility] Last Admin: 12/05/17 13:24 Dose: 5,000 unit Hydromorphone HCl (Dilaudid Pin Setter -) 10 mg HEARTH FEEDER HEARTH FEEDER [facility]; Protocol Stop: 12/11/17 08:26 Last Admin: 12/05/17 10:06 Dose: Not Given Cefazolin Sodium 1 gm/ (Dextrose) 50 mls @ 100 mls/hr IVPB Q8H [facility] Last Admin: 12/05/17 14:38 Dose: 100 mls/hr Mupirocin (Bactroban Ointment (For Decolonization) -) 1 applic NS BID [facility] Stop: 12/08/17 21:59 Last Admin: 12/05/17 10:02 Dose: 1 applic Ondansetron HCl (Zofran Injection) 4 mg IVPUSH Q6H PRN PRN Reason: NAUSEA Last Admin: 12/05/17 09:07 Dose: 4 mg - Objective Vital Signs: Vital Signs Temperature 99.8 F H 12/05/17 14:00 Pulse Rate 100 H 12/05/17 14:00 Respiratory Rate 20 12/05/17 14:00 Blood Pressure 159/86 12/05/17 14:00 O2 Sat by Pulse Oximetry (%) 100 12/05/17 13:54 Middle aged F S/O C spine surgery c/o neck pain and Left UE numbness HEENT: Mm moist, no anemia, PERRLA, EOMI NECK: S/p surgery on wound vac CHEST: CTA B/L CVS; S1S2 R ABD: nO distention, non tender , BS + EXT: No viky afeet no calf tenderness SUSTAINABLE AGRICULTURE SPECIALIST: Aox3 Left UE radiating pain Labs: CBC, BMP 12/05/17 05:30 12/05/17 05:30 INR, PTT INR 1.19 (0.83-1.09) H 12/03/17 15:30 Problem List - Problems (1) Intractable back pain Assessment/Plan: Exploration of spinal fusion, Removal of sublaminal wires, C2-T1 Laminectomies, C7-T1 osteotomies, C2-T1 deformity correction with posterior fusion, Removal of anterior instrumentation, C4/C5 corpectomies, Reconstruction with Peek cages and anterior plating cont pain management Code(s): M54.9 - DORSALGIA, UNSPECIFIED (2) Weakness of left upper extremity Assessment/Plan: Due to cord compression s/p decompression surgery pain control cont Neurosurgery recommendations Code(s): M62.81 - MUSCLE WEAKNESS (GENERALIZED) (3) Hypertension Assessment/Plan: Well controlled of [place] Code(s): I10 - ESSENTIAL (PRIMARY) HYPERTENSION (4) COPD (chronic obstructive pulmonary disease) Assessment/Plan: Stable cont Adavair Duoneb PRN Code(s): J44.9 - CHRONIC OBSTRUCTIVE PULMONARY DISEASE, UNSPECIFIED
[2017-12-05] MEDS: GABAPENTIN 100 MG CAPSULE (FP) PO SCH ×2 (18:32→21:04)
[2017-12-05] MEDS ORDERED: LORazepam 2 MG/ML SDV VIAL IVPUSH PRN (18:33)
--- NOTE | 2017-12-05 18:51 | PN ---
Progress Note (short form) - Note Progress Note: Anesthesiology Pain Service 57 y.o. woman POD#2 after cervical spine exploration with post-op PATIENT ACCOUNTS CLERK. Pt. c/o headache and she states that the PATIENT ACCOUNTS CLERK is not helping. She states that she occasionally takes Valium at home when this type of pain starts. Otherwise, she has had no other issues since overnight; she spent the evening of POD#0 on BiPAP but has not needed this further. Per RN, she did diurese 2 litres of fluid over the course of the day. 57 y.o. woman s/p cervical spine exploration with headache. Will add PRN Ativan for headache. Continue PATIENT ACCOUNTS CLERK for now; will D/C if pt. not using. Continue further care as per ICU/primary team.
[2017-12-05] MEDS: LORazepam 2 MG/ML SDV VIAL IVPUSH PRN (19:54)
[2017-12-05] MEDS: CHLORHEXIDINE GLUCONATE 4% CLEANSER FOR DECOLONIZATION TP SCH (21:04)
[2017-12-06] MEDS ORDERED: PT OWN MED DRAWER 7, Y5N ONE ×2 (01:59→12:25)
[2017-12-06] MEDS ORDERED: oxyCODONE HCL 5 MG TABLET PO ONE (03:14)
[2017-12-06] MEDS: LORazepam 2 MG/ML SDV VIAL IVPUSH PRN ×2 (03:31→19:53)
[2017-12-06] MEDS ORDERED: DEXTROSE 5%-WATER - 50 ML IVPB ONE ×3 (04:04→19:31)
[2017-12-06] MEDS ORDERED: ceFAZolin SODIUM 1 GM VIAL ONE ×3 (04:04→19:31)
[2017-12-06] MEDS: CEFAZOLIN 1 GM in DEXTROSE 5%-WATER - 50 ML IVPB SCH ×3 (04:12→21:20)
[2017-12-06] MEDS: GABAPENTIN 100 MG CAPSULE (FP) PO SCH ×3 (05:22→21:21)
[2017-12-06] MEDS: DOCUSATE SODIUM 100 MG CAPSULE (FP) PO SCH ×3 (05:22→21:21)
[2017-12-06] MEDS: HEPARIN NA (PORCINE) 5,000 UNITS/ML 1ML VIAL SQ SCH ×3 (05:22→21:21)
[2017-12-06 06:03] LABS: BASO % 0.3 % (0-2.0); HEMATOCRIT 30.8 % (32.4-45.2); HEMOGLOBIN 10.6 GM/dL (10.7-15.3); LYMPH % 11.3 % (8-40); MCH 29.8 pg (25.7-33.7); MCHC 34.3 g/dl (32.0-36.0); MEAN CELL VOLUME 86.9 fl (80-96); MEAN PLT VOLUME 7.7 fl (7.5-11.1); MONO % 6.9 % (3.8-10.2); NEUT % 81.5 % (42.8-82.8); PLATELET COUNT 145 K/MM3 (134-434); RBC 3.55 M/mm3 (3.60-5.2); RDW 15.6 % (11.6-15.6); WHITE BLOOD COUNT 13.6 K/mm3 (4.0-10.0)
[2017-12-06 06:35] LABS: ALBUMIN 2.8 g/dl (3.4-5.0); ANION GAP 7 (8-16); BLOOD UREA NITROGEN 12 mg/dL (7-18); CALCIUM 8.1 mg/dL (8.5-10.1); CHLORIDE 102 mmol/L (98-107); CO2 29 mmol/L (21-32); GLUCOSE,RANDOM 112 mg/dL (74-106); MAGNESIUM 2.2 mg/dL (1.8-2.4); POTASSIUM 4.1 mmol/L (3.5-5.1); SODIUM 138 mmol/L (136-145)
[2017-12-06 06:37] LABS: ALK PHOS 47 U/L (45-117); BILIRUBIN,TOTAL 0.4 mg/dL (0.2-1.0); CREATININE 0.7 mg/dL (0.55-1.02); PHOSPHOROUS 3.2 mg/dL (2.5-4.9); SGOT/AST 20 U/L (15-37); SGPT/ALT 16 U/L (12-78); TOT PROT 5.7 g/dl (6.4-8.2)
--- NOTE | 2017-12-06 10:05 | PN ---
Progress Note (short form) - Note Progress Note: P 104 BP 152/83 and Spo2 98% on RA.Patient stable but c/o headache 8/10 pain score which could be due to duratomy so will continue shear tender today and will f/u tomorrow.
[2017-12-06] MEDS: ACETAMINOPHEN 1000 MG/100 ML VIAL (NON FORMULARY) IVPB PRN (10:48)
[2017-12-06] MEDS: FOLIC ACID 1 MG TABLET (FP) PO SCH (11:00)
[2017-12-06] MEDS: FERROUS SO4 325 MG TABLET (FP) PO SCH (11:00)
[2017-12-06] MEDS: MUPIROCIN 2% TOPICAL OINTMENT FOR DECOLONIZATION NS SCH ×2 (11:00→21:24)
--- NOTE | 2017-12-06 11:15 | PN ---
Physical Exam: SUBJECTIVE: Patient seen and examined at bedside. patient is complaining of a lot of pain in her head/neck/back overnight. she didn't want to take her MEDICAL INSTRUCTOR as she didnt think the medicine was helping her. she denies any CP/SOB/N/V OBJECTIVE: Vital Signs Period Temp Pulse Resp BP Sys/Hylton Pulse Ox Last 24 Hr 98.7 F-99.8 F 80-106 12-27 130-160/73-92 96-100 GENERAL: The patient is awake, alert, and fully oriented, in distress. NECK: in cervical collar; ROM not tested. [address] LUNGS: Breath sounds equal, clear to auscultation bilaterally, no wheezes, no crackles, no accessory muscle use. HEART: Regular rate and rhythm, S1, S2 without murmur, rub or gallop. ABDOMEN: Soft, nontender, nondistended, normoactive bowel sounds, no guarding, no rebound, no hepatosplenomegaly, no masses. EXTREMITIES: 2+ pulses, warm, well-perfused, no edema. SKIN: Warm, dry, normal turgor, no rashes or lesions noted Laboratory Results - last 24 hr 12/06/17 12/06/17 05:30 05:30 WBC 13.6 H RBC 3.55 L Hgb 10.6 L Hct 30.8 L MCV 86.9 MCH 29.8 MCHC 34.3 RDW 15.6 Plt Count 145 D MPV 7.7 Absolute Neuts (auto) 11.0 Neutrophils % 81.5 Lymphocytes % 11.3 D Monocytes % 6.9 Eosinophils % 0.0 Basophils % 0.3 Nucleated RBC % 0 Sodium 138 Potassium 4.1 Chloride 102 Carbon Dioxide 29 Anion Gap 7 L BUN 12 Creatinine 0.7 Creat Clearance w eGFR > 60 Random Glucose 112 H Calcium 8.1 L Phosphorus 3.2 Magnesium 2.2 Total Bilirubin 0.4 AST 20 ALT 16 Alkaline Phosphatase 47 D Total Protein 5.7 L Albumin 2.8 L Active Medications Generic Name Dose Route Start Last Admin Trade Name Freq PRN Reason Stop Dose Admin Acetaminophen/Butalbital/Caffeine 1 tablet 12/06/17 10:35 Fioricet - PO Q4H PRN HEADACHE Atorvastatin Calcium 10 mg 12/06/17 22:00 Lipitor - PO HS JUJU Chlorhexidine Gluconate 1 applic 12/03/17 22:00 12/05/17 21:04 Hibiclens For Decolonization - TP 1 applic HS JUJU Administration Diphenhydramine HCl 25 mg 12/03/17 17:34 Benadryl - PO Q6H PRN FOR ITCHING Docusate Sodium 100 mg 12/04/17 22:00 12/06/17 05:22 Colace - PO 100 mg TID JUJU Administration Ferrous Sulfate 325 mg 12/05/17 10:00 12/05/17 10:07 Feosol - PO 325 mg DAILY JUJU Administration Folic Acid 1 mg 12/05/17 10:00 12/05/17 10:07 Folic Acid - PO 1 mg DAILY JUJU Administration Gabapentin 100 mg 12/05/17 16:45 12/06/17 05:22 Neurontin - PO 100 mg TID JUJU Administration Heparin Sodium (Porcine) 5,000 unit 12/04/17 06:00 12/06/17 05:22 Heparin - SQ 5,000 unit TID [facility] Administration Hydromorphone HCl 10 mg 12/04/17 08:30 12/05/17 10:06 Dilaudid Senior Counsel Commercial - MEDICAL INSTRUCTOR 12/11/17 08:26 Not Given MEDICAL INSTRUCTOR [facility] Protocol Cefazolin Sodium 1 gm/ 50 mls @ 100 mls/hr 12/03/17 21:00 12/06/17 04:12 Dextrose IVPB 100 mls/hr Q8H JUJU Administration Lorazepam 0.5 mg 12/05/17 18:51 12/06/17 03:31 Ativan Injection - IVPUSH 0.5 mg Q6H PRN Administration MUSCLE SPASMS Mupirocin 1 applic 12/03/17 22:00 12/05/17 21:05 Bactroban Ointment (For Decolonization) - NS 12/08/17 21:59 1 applic BID JUJU Administration Non-Formulary Medication 1 each 12/05/17 16:30 Fluticasone/Vilanterol [Breo Ellipta 200-25 Mcg Inh] IH PRN JUJU Ondansetron HCl 4 mg 12/05/17 08:44 12/05/17 09:07 Zofran Injection IVPUSH 4 mg Q6H PRN Administration NAUSEA Ondansetron HCl 4 mg 12/05/17 16:24 Zofran - PO Q8H PRN NAUSEA Oxycodone HCl 10 mg 12/06/17 10:49 Roxicodone - PO Q6H PRN PAIN LEVEL 6-10 ASSESSMENT/PLAN: 57 y/o female s/p laminectomy and duratomy POD #3 still complaining of head/neck /back pain. POD#3: still complaining of head/neck/back pain -d/c dilaudid MEDICAL INSTRUCTOR -start fioricet and oxycodone 10 -no extra fluids as per surgery -keep drains at 0ml as per surgery- -d/c jacques once ambulating -zofran PRN for nausea headache: -start fioricet for headaches Cardio: -can restart home medications if become hypertensive DVT Prophylaxis: SCD's and JASON's F/E/N: -no extra fluids -replete electrolytes if necessary -clear diet dispo: continue ICU monitoring Problem List - Problems (1) Cervical pain (neck) Code(s): M54.2 - CERVICALGIA (2) Intractable back pain Code(s): M54.9 - DORSALGIA, UNSPECIFIED (3) Intractable pain Code(s): R52 - PAIN, UNSPECIFIED Visit type - Emergency Visit Emergency Visit: Yes ED Registration Date: 12/02/17 Care time: The patient presented to the Emergency Department on the above date and was hospitalized for further evaluation of their emergent condition. - New Patient This patient is new to me today: No - Critical Care Critical Care patient: Yes Total Critical Care Time (in minutes): 35 Critical Care Statement: The care of this patient involved high complexity decision making to prevent further life threatening deterioration of the patient 's condition and/or to evaluate & treat vital organ system(s) failure or risk of failure.
--- NOTE | 2017-12-06 11:52 | PN ---
Teaching Attending Note Name of Resident: Mireille Taylor ATTENDING PHYSICIAN STATEMENT I saw and evaluated the patient. I reviewed the resident's note and discussed the case with the resident. I agree with the resident's findings and plan as documented. SUBJECTIVE: Pt seen and examined in the ICU. Still with persistent headache. No shortness of breath or chest pain. No fevers or chills. OBJECTIVE: Vital Signs Period Temp Pulse Resp BP Sys/Hylton Pulse Ox Last 24 Hr 98.7 F-99.8 F 80-106 12-27 130-160/73-92 96-100 Intake & Output 12/03/17 12/04/17 12/05/17 12/06/17 23:59 23:59 23:59 23:59 Intake Total 4450 950 1900 270 Output Total 1550 2365 3195 770 Balance 2900 -1415 -1295 -500 Weight 73 kg 72.711 kg Gen: uncomfortable in hard cervical collar Heart: RRR Lung: decreased breath sounds at the bases Abd: soft, nontender Ext: no edema Drains with serosanguinous fluid CBC, BMP 12/06/17 05:30 12/06/17 05:30 Active Medications Acetaminophen/Butalbital/Caffeine (Fioricet -) 1 tablet PO Q4H PRN PRN Reason: HEADACHE Atorvastatin Calcium (Lipitor -) 10 mg PO [facility] Chlorhexidine Gluconate (Hibiclens For Decolonization -) 1 applic TP [facility] Last Admin: 12/05/17 21:04 Dose: 1 applic Diphenhydramine HCl (Benadryl -) 25 mg PO Q6H PRN PRN Reason: FOR ITCHING Docusate Sodium (Colace -) 100 mg PO TID [facility] Last Admin: 12/06/17 05:22 Dose: 100 mg Ferrous Sulfate (Feosol -) 325 mg PO DAILY [facility] Last Admin: 12/05/17 10:07 Dose: 325 mg Folic Acid (Folic Acid -) 1 mg PO DAILY [facility] Last Admin: 12/05/17 10:07 Dose: 1 mg Gabapentin (Neurontin -) 100 mg PO TID [facility] Last Admin: 12/06/17 05:22 Dose: 100 mg Heparin Sodium (Porcine) (Heparin -) 5,000 unit SQ TID [facility] Last Admin: 12/06/17 05:22 Dose: 5,000 unit Hydromorphone HCl (Dilaudid Reservoir Engineer -) 10 mg FOURTH MATE FOURTH MATE [facility]; Protocol Stop: 12/11/17 08:26 Last Admin: 12/05/17 10:06 Dose: Not Given Cefazolin Sodium 1 gm/ (Dextrose) 50 mls @ 100 mls/hr IVPB Q8H [facility] Last Admin: 12/06/17 04:12 Dose: 100 mls/hr Lorazepam (Ativan Injection -) 0.5 mg IVPUSH Q6H PRN PRN Reason: MUSCLE SPASMS Last Admin: 12/06/17 03:31 Dose: 0.5 mg Mupirocin (Bactroban Ointment (For Decolonization) -) 1 applic NS BID [facility] Stop: 12/08/17 21:59 Last Admin: 12/05/17 21:05 Dose: 1 applic Non-Formulary Medication (Fluticasone/Vilanterol [Breo Ellipta 200-25 Mcg Inh]) 1 each IH PRN [facility] Ondansetron HCl (Zofran Injection) 4 mg IVPUSH Q6H PRN PRN Reason: NAUSEA Last Admin: 12/05/17 09:07 Dose: 4 mg Ondansetron HCl (Zofran -) 4 mg PO Q8H PRN PRN Reason: NAUSEA Oxycodone HCl (Roxicodone -) 10 mg PO Q6H PRN PRN Reason: PAIN LEVEL 6-10 ASSESSMENT AND PLAN: Spinal Cord Compression s/p C2-T1 Laminectomies/C7-T1 Osteotomies/C2-T1 posterior fusion/Removal of anterior instrumentation/Reconstruction HTN Hypercholesterolemia COPD - pain control - d/c dilaudid FOURTH MATE, titrate oxycodone - antiemetics - trial of decadron - monitor drain output - d/c jacques - rehab/PT - PO as tolerated - bowel regimen - DVT prophylaxis - can transfer to floor when ok with surgery
[2017-12-06] MEDS: oxyCODONE HCL 5 MG TABLET PO PRN ×2 (13:01→19:33)
--- NOTE | 2017-12-06 13:26 | PN ---
Progress Note, Physician Chief Complaint: C/o pain all over the body History of Present Illness: S/P neck surgery being followed by Neurosurgeon and ICU attednding - Current Medication List Current Medications: Active Medications Acetaminophen/Butalbital/Caffeine (Fioricet -) 1 tablet PO Q4H PRN PRN Reason: HEADACHE Atorvastatin Calcium (Lipitor -) 10 mg PO [facility] Chlorhexidine Gluconate (Hibiclens For Decolonization -) 1 applic TP HS [facility] Last Admin: 12/05/17 21:04 Dose: 1 applic Diphenhydramine HCl (Benadryl -) 25 mg PO Q6H PRN PRN Reason: FOR ITCHING Docusate Sodium (Colace -) 100 mg PO TID [facility] Last Admin: 12/06/17 05:22 Dose: 100 mg Ferrous Sulfate (Feosol -) 325 mg PO DAILY [facility] Last Admin: 12/06/17 11:00 Dose: 325 mg Folic Acid (Folic Acid -) 1 mg PO DAILY [facility] Last Admin: 12/06/17 11:00 Dose: 1 mg Gabapentin (Neurontin -) 100 mg PO TID [facility] Last Admin: 12/06/17 05:22 Dose: 100 mg Heparin Sodium (Porcine) (Heparin -) 5,000 unit SQ TID [facility] Last Admin: 12/06/17 05:22 Dose: 5,000 unit Hydromorphone HCl (Dilaudid Tarper -) 10 mg EXECUTIVE MANAGER EXECUTIVE MANAGER [facility]; Protocol Stop: 12/11/17 08:26 Last Admin: 12/05/17 10:06 Dose: Not Given Cefazolin Sodium 1 gm/ (Dextrose) 50 mls @ 100 mls/hr IVPB Q8H [facility] Last Admin: 12/06/17 13:01 Dose: 100 mls/hr Lorazepam (Ativan Injection -) 0.5 mg IVPUSH Q6H PRN PRN Reason: MUSCLE SPASMS Last Admin: 12/06/17 03:31 Dose: 0.5 mg Mupirocin (Bactroban Ointment (For Decolonization) -) 1 applic NS BID [facility] Stop: 12/08/17 21:59 Last Admin: 12/06/17 11:00 Dose: 1 applic Non-Formulary Medication (Fluticasone/Vilanterol [Breo Ellipta 200-25 Mcg Inh]) 1 each IH PRN [facility] Ondansetron HCl (Zofran Injection) 4 mg IVPUSH Q6H PRN PRN Reason: NAUSEA Last Admin: 12/05/17 09:07 Dose: 4 mg Ondansetron HCl (Zofran -) 4 mg PO Q8H PRN PRN Reason: NAUSEA Oxycodone HCl (Roxicodone -) 10 mg PO Q6H PRN PRN Reason: PAIN LEVEL 6-10 Last Admin: 12/06/17 13:01 Dose: 10 mg - Objective Vital Signs: Vital Signs Temperature 98.7 F 12/06/17 06:00 Pulse Rate 80 12/06/17 08:00 Respiratory Rate 16 12/06/17 06:00 Blood Pressure 154/87 12/06/17 06:00 O2 Sat by Pulse Oximetry (%) 99 12/06/17 11:52 Constitutional: Yes: Severe Distress Eyes: Yes: WNL HENT: Yes: WNL Neck: Yes: WNL Cardiovascular: Yes: WNL, Tachycardia Respiratory: Yes: Regular ...Rectal Exam: Yes: Deferred Genitourinary: Yes: Monreal Present Edema: No Peripheral Pulses WNL: Yes ...Motor Strength: LUE (moves OK) Labs: CBC, BMP 12/06/17 05:30 12/06/17 05:30 INR, PTT INR 1.19 (0.83-1.09) H 12/03/17 15:30
[2017-12-06] MEDS: ACETAMINOPHEN/CAFFEINE/BUTALBITAL 1 TAB PO PRN ×2 (19:32→23:30)
[2017-12-06] MEDS: SENNOSIDES 8.6MG TABLET (FP) PO PRN (21:21)
[2017-12-06] MEDS: ATORVASTATIN CA 10 MG TABLET (FP) PO SCH (21:22)
[2017-12-06] MEDS: CHLORHEXIDINE GLUCONATE 4% CLEANSER FOR DECOLONIZATION TP SCH (21:22)
[2017-12-07] MEDS: oxyCODONE HCL 5 MG TABLET PO PRN ×4 (03:00→21:57)
[2017-12-07] MEDS: LORazepam 2 MG/ML SDV VIAL IVPUSH PRN ×4 (03:10→21:57)
[2017-12-07] MEDS: ACETAMINOPHEN/CAFFEINE/BUTALBITAL 1 TAB PO PRN ×4 (03:30→21:57)
[2017-12-07] MEDS ORDERED: ceFAZolin SODIUM 1 GM VIAL ONE ×3 (05:58→20:11)
[2017-12-07] MEDS ORDERED: DEXTROSE 5%-WATER - 50 ML IVPB ONE ×3 (05:58→20:11)
[2017-12-07] MEDS: CEFAZOLIN 1 GM in DEXTROSE 5%-WATER - 50 ML IVPB SCH ×3 (06:00→21:23)
[2017-12-07] MEDS: DOCUSATE SODIUM 100 MG CAPSULE (FP) PO SCH ×3 (06:02→21:53)
[2017-12-07] MEDS: GABAPENTIN 100 MG CAPSULE (FP) PO SCH ×3 (06:02→21:53)
[2017-12-07] MEDS: HEPARIN NA (PORCINE) 5,000 UNITS/ML 1ML VIAL SQ SCH ×3 (06:03→21:53)
[2017-12-07 06:09] LABS: BASO % 0.7 % (0-2.0); EOS % 0.5 % (0-4.5); HEMATOCRIT 30.8 % (32.4-45.2); HEMOGLOBIN 10.6 GM/dL (10.7-15.3); LYMPH % 20.2 % (8-40); MCHC 34.4 g/dl (32.0-36.0); MEAN CELL VOLUME 87.4 fl (80-96); MEAN PLT VOLUME 7.3 fl (7.5-11.1); MONO % 9.1 % (3.8-10.2); NEUT % 69.5 % (42.8-82.8); PLATELET COUNT 186 K/MM3 (134-434); RBC 3.53 M/mm3 (3.60-5.2); RDW 14.8 % (11.6-15.6)
[2017-12-07 06:36] LABS: CHLORIDE 99 mmol/L (98-107); POTASSIUM 3.7 mmol/L (3.5-5.1); SODIUM 135 mmol/L (136-145)
[2017-12-07 06:47] LABS: ALBUMIN 2.7 g/dl (3.4-5.0); ALK PHOS 51 U/L (45-117); ANION GAP 7 (8-16); BILIRUBIN,TOTAL 0.4 mg/dL (0.2-1.0); BLOOD UREA NITROGEN 12 mg/dL (7-18); CO2 29 mmol/L (21-32); CREATININE 0.6 mg/dL (0.55-1.02); GLUCOSE,RANDOM 107 mg/dL (74-106); MAGNESIUM 1.9 mg/dL (1.8-2.4); PHOSPHOROUS 3.3 mg/dL (2.5-4.9); SGOT/AST 20 U/L (15-37); SGPT/ALT 16 U/L (12-78); TOT PROT 5.7 g/dl (6.4-8.2)
--- NOTE | 2017-12-07 08:14 | PN ---
Progress Note (short form) - Note Progress Note: POD #4 Patient seen and examined at bedside. Cont to c/o MCMULLEN. RN notes states she sin't using her DENTISTRY PROFESSOR becuase she (the patient) doesn't think it's helping her. She states her LUE/hand numbness is slowly getting better. Denies photophobia, n/v. Denies CP, SOB or palpitations. Last Vital Signs Temp Pulse Resp BP Pulse Ox 99.6 F 83 16 140/77 95 18 02:00 12/07/17 06:00 12/07/17 06:00 12/07/17 06:00 12/06/17 22:00 CBC, BMP 12/07/17 05:30 12/07/17 05:30 SAHARA --> minimal output Anterior --> drain to bile bag PE GEN: A&Ox3 CV: Tachy at 111, no ectopy Lungs: CTA bilat Back: incision c/d/i. SAHARA serosangrenous Neck: Anterior dressing c/d/i, mild swelling noted. No hematoma. SAHARA Neuro: GMNVI bilat, 5 LE: SCDs bilat. Soft. NT <Isaac Longoria P - Last Filed: 12/07/17 08:30> - Note Progress Note: Agree with above. Plan to switch both drains to bile bags and monitor output and wounds for swelling. This will hopefully relieve some of her headaches. <Dandre Michelle - Last Filed: 12/07/17 09:39> Problem List - Problems (1) Intractable back pain Assessment/Plan: POD #4 s/p C2-T1 Laminectomies/C7-T1 Osteotomies/C2-T1 posterior fusion/Removal of anterior instrumentation/Reconstruction DVT PPX via Heparin SQ OOB to chair with her cervical collar on. [place] collar to be worn 23 hours/day (may take off when eating food) PT Daily labs Monitor SAHARA and Bile bag output and record Above plan discussed with Dr. Michelle and agrees Code(s): M54.9 - DORSALGIA, UNSPECIFIED <Isaac Longoria P - Last Filed: 12/07/17 08:30>
[2017-12-07] MEDS: FERROUS SO4 325 MG TABLET (FP) PO SCH (09:05)
[2017-12-07] MEDS: FOLIC ACID 1 MG TABLET (FP) PO SCH (09:05)
--- NOTE | 2017-12-07 09:17 | PN ---
Progress Note, Physician Chief Complaint: Patient resting comfortably. Nurse states that she prefers scheduled oral medications over ELECTROENCEPHALOGRAPH TECHNICIAN. Has not been using ELECTROENCEPHALOGRAPH TECHNICIAN much lately, only oral meds. No complications. - Current Medication List Current Medications: Active Medications Acetaminophen/Butalbital/Caffeine (Fioricet -) 1 tablet PO Q4H PRN PRN Reason: HEADACHE Last Admin: 12/07/17 07:35 Dose: 1 tablet Atorvastatin Calcium (Lipitor -) 10 mg PO [facility] Last Admin: 12/06/17 21:22 Dose: 10 mg Chlorhexidine Gluconate (Hibiclens For Decolonization -) 1 applic TP [facility] Last Admin: 12/06/17 21:22 Dose: 1 applic Diphenhydramine HCl (Benadryl -) 25 mg PO Q6H PRN PRN Reason: FOR ITCHING Docusate Sodium (Colace -) 100 mg PO TID [facility] Last Admin: 12/07/17 06:02 Dose: 100 mg Ferrous Sulfate (Feosol -) 325 mg PO DAILY [facility] Last Admin: 12/07/17 09:05 Dose: 325 mg Folic Acid (Folic Acid -) 1 mg PO DAILY [facility] Last Admin: 12/07/17 09:05 Dose: 1 mg Gabapentin (Neurontin -) 100 mg PO TID [facility] Last Admin: 12/07/17 06:02 Dose: 100 mg Heparin Sodium (Porcine) (Heparin -) 5,000 unit SQ TID [facility] Last Admin: 12/07/17 06:03 Dose: 5,000 unit Hydromorphone HCl (Dilaudid Backer Up -) 10 mg ELECTROENCEPHALOGRAPH TECHNICIAN ELECTROENCEPHALOGRAPH TECHNICIAN [facility]; Protocol Stop: 12/11/17 08:26 Last Admin: 12/05/17 10:06 Dose: Not Given Cefazolin Sodium 1 gm/ (Dextrose) 50 mls @ 100 mls/hr IVPB Q8H [facility] Last Admin: 12/07/17 06:00 Dose: 100 mls/hr Lorazepam (Ativan Injection -) 0.5 mg IVPUSH Q6H PRN PRN Reason: MUSCLE SPASMS Last Admin: 12/07/17 09:06 Dose: 0.5 mg Mupirocin (Bactroban Ointment (For Decolonization) -) 1 applic NS BID [facility] Stop: 12/08/17 21:59 Last Admin: 12/06/17 21:24 Dose: 1 applic Non-Formulary Medication (Fluticasone/Vilanterol [Breo Ellipta 200-25 Mcg Inh]) 1 each IH PRN [facility] Ondansetron HCl (Zofran -) 4 mg PO Q8H PRN PRN Reason: NAUSEA Oxycodone HCl (Roxicodone -) 10 mg PO Q6H PRN PRN Reason: PAIN LEVEL 6-10 Last Admin: 12/07/17 09:05 Dose: 10 mg Senna (Senna -) 2 tab PO HS PRN PRN Reason: CONSTIPATION Last Admin: 12/06/17 21:21 Dose: 2 tab - Objective Vital Signs: Vital Signs Temperature 99.6 F 12/07/17 02:00 Pulse Rate 65 12/07/17 08:31 Respiratory Rate 15 12/07/17 08:00 Blood Pressure 159/90 12/07/17 08:00 O2 Sat by Pulse Oximetry (%) 95 12/07/17 08:31 Constitutional: Yes: Well Nourished, No Distress, Calm Neurological: Yes: WNL, Alert, Oriented Labs: CBC, BMP 12/07/17 05:30 12/07/17 05:30 INR, PTT INR 1.19 (0.83-1.09) H 12/03/17 15:30 Assessment/Plan POD#4 s/p Cervical spine exploration and removal of hardware under GA. Stable condition. D/C ELECTROENCEPHALOGRAPH TECHNICIAN.
--- NOTE | 2017-12-07 09:24 | PN ---
Progress Note, Physician Chief Complaint: Head ache History of Present Illness: S/P cervical spine surgery - Current Medication List Current Medications: Active Medications Acetaminophen/Butalbital/Caffeine (Fioricet -) 1 tablet PO Q4H PRN PRN Reason: HEADACHE Last Admin: 12/07/17 07:35 Dose: 1 tablet Atorvastatin Calcium (Lipitor -) [address] [facility] Last Admin: 12/06/17 21:22 Dose: 10 mg Chlorhexidine Gluconate (Hibiclens For Decolonization -) [address] [facility] Last Admin: 12/06/17 21:22 Dose: 1 applic Diphenhydramine HCl (Benadryl -) 25 mg PO Q6H PRN PRN Reason: FOR ITCHING Docusate Sodium (Colace -) 100 mg PO TID [facility] Last Admin: 12/07/17 06:02 Dose: 100 mg Ferrous Sulfate (Feosol -) 325 mg PO DAILY [facility] Last Admin: 12/07/17 09:05 Dose: 325 mg Folic Acid (Folic Acid -) 1 mg PO DAILY [facility] Last Admin: 12/07/17 09:05 Dose: 1 mg Gabapentin (Neurontin -) 100 mg PO TID [facility] Last Admin: 12/07/17 06:02 Dose: 100 mg Heparin Sodium (Porcine) (Heparin -) 5,000 unit SQ TID [facility] Last Admin: 12/07/17 06:03 Dose: 5,000 unit Hydromorphone HCl (Dilaudid Winery Cellar Hand -) 10 mg CONTRACT RUNNER CONTRACT RUNNER [facility]; Protocol Stop: 12/11/17 08:26 Last Admin: 12/05/17 10:06 Dose: Not Given Cefazolin Sodium 1 gm/ (Dextrose) 50 mls @ 100 mls/hr IVPB Q8H [facility] Last Admin: 12/07/17 06:00 Dose: 100 mls/hr Lorazepam (Ativan Injection -) 0.5 mg IVPUSH Q6H PRN PRN Reason: MUSCLE SPASMS Last Admin: 12/07/17 09:06 Dose: 0.5 mg Mupirocin (Bactroban Ointment (For Decolonization) -) 1 applic NS BID [facility] Stop: 12/08/17 21:59 Last Admin: 12/06/17 21:24 Dose: 1 applic Non-Formulary Medication (Fluticasone/Vilanterol [Breo Ellipta 200-25 Mcg Inh]) 1 each IH PRN [facility] Ondansetron HCl (Zofran -) 4 mg PO Q8H PRN PRN Reason: NAUSEA Oxycodone HCl (Roxicodone -) 10 mg PO Q6H PRN PRN Reason: PAIN LEVEL 6-10 Last Admin: 12/07/17 09:05 Dose: 10 mg Senna (Senna -) 2 tab PO HS PRN PRN Reason: CONSTIPATION Last Admin: 12/06/17 21:21 Dose: 2 tab - Objective Vital Signs: Vital Signs Temperature 99.6 F 12/07/17 02:00 Pulse Rate 65 12/07/17 08:31 Respiratory Rate 15 12/07/17 08:00 Blood Pressure 159/90 12/07/17 08:00 O2 Sat by Pulse Oximetry (%) 95 12/07/17 08:31 Constitutional: Yes: Mild Distress Eyes: Yes: WNL HENT: Yes: WNL Neck: Yes: WNL Cardiovascular: Yes: WNL Respiratory: Yes: WNL Gastrointestinal: Yes: WNL ...Rectal Exam: Yes: Deferred Musculoskeletal: Yes: Muscle Pain Extremities: Yes: WNL Edema: No Peripheral Pulses WNL: Yes Wound/Incision: Yes: Dressing Dry and Intact Neurological: Yes: Alert Psychiatric: Yes: Alert Labs: CBC, BMP 12/07/17 05:30 12/07/17 05:30 INR, PTT INR 1.19 (0.83-1.09) H 12/03/17 15:30 Assessment/Plan As per ICU attending
[2017-12-07] MEDS: MUPIROCIN 2% TOPICAL OINTMENT FOR DECOLONIZATION NS SCH ×2 (10:54→21:56)
--- NOTE | 2017-12-07 11:41 | PN ---
Teaching Attending Note Name of Resident: Mireille Taylor ATTENDING PHYSICIAN STATEMENT I saw and evaluated the patient. I reviewed the resident's note and discussed the case with the resident. I agree with the resident's findings and plan as documented. SUBJECTIVE: Pt seen and examined in the ICU. Pain better controlled on fiorcet. Increased headache with dilaudid. OBJECTIVE: Vital Signs Period Temp Pulse Resp BP Sys/Hylton Pulse Ox Last 24 Hr 98.2 F-99.6 F 65-104 12-20 137-159/60-99 95-99 Intake & Output 12/04/17 12/05/17 12/06/17 12/07/17 23:59 23:59 23:59 23:59 Intake Total 950 1900 910 Output Total 2365 3195 1595 400 Balance -1415 -1295 -685 -400 Weight 73 kg 72.711 kg 69.989 kg Gen: NAD in hard collar Heart: RRR Lung: decreased breath sounds at the bases Abd: soft, nontender Ext: no edema Drains with serosanguinous fluid CBC, BMP 12/07/17 05:30 12/07/17 05:30 Active Medications Acetaminophen/Butalbital/Caffeine (Fioricet -) 1 tablet PO Q4H PRN PRN Reason: HEADACHE Last Admin: 12/07/17 07:35 Dose: 1 tablet Atorvastatin Calcium (Lipitor -) 10 mg PO HS [facility] Last Admin: 12/06/17 21:22 Dose: 10 mg Chlorhexidine Gluconate (Hibiclens For Decolonization -) 1 applic TP HS [facility] Last Admin: 12/06/17 21:22 Dose: 1 applic Diphenhydramine HCl (Benadryl -) 25 mg PO Q6H PRN PRN Reason: FOR ITCHING Docusate Sodium (Colace -) 100 mg PO TID [facility] Last Admin: 12/07/17 06:02 Dose: 100 mg Ferrous Sulfate (Feosol -) 325 mg PO DAILY [facility] Last Admin: 12/07/17 09:05 Dose: 325 mg Folic Acid (Folic Acid -) 1 mg PO DAILY [facility] Last Admin: 12/07/17 09:05 Dose: 1 mg Gabapentin (Neurontin -) 100 mg PO TID [facility] Last Admin: 12/07/17 06:02 Dose: 100 mg Heparin Sodium (Porcine) (Heparin -) 5,000 unit SQ TID [facility] Last Admin: 12/07/17 06:03 Dose: 5,000 unit Hydromorphone HCl (Dilaudid Plastic Outfitter -) 10 mg CONFIGURATION TECHNICIAN CONFIGURATION TECHNICIAN [facility]; Protocol Stop: 12/11/17 08:26 Last Admin: 12/05/17 10:06 Dose: Not Given Cefazolin Sodium 1 gm/ (Dextrose) 50 mls @ 100 mls/hr IVPB Q8H [facility] Last Admin: 12/07/17 06:00 Dose: 100 mls/hr Lorazepam (Ativan Injection -) 0.5 mg IVPUSH Q6H PRN PRN Reason: MUSCLE SPASMS Last Admin: 12/07/17 09:06 Dose: 0.5 mg Mupirocin (Bactroban Ointment (For Decolonization) -) 1 applic NS BID [facility] Stop: 12/08/17 21:59 Last Admin: 12/07/17 10:54 Dose: 1 applic Non-Formulary Medication (Fluticasone/Vilanterol [Breo Ellipta 200-25 Mcg Inh]) 1 each IH PRN [facility] Ondansetron HCl (Zofran -) 4 mg PO Q8H PRN PRN Reason: NAUSEA Oxycodone HCl (Roxicodone -) 10 mg PO Q6H PRN PRN Reason: PAIN LEVEL 6-10 Last Admin: 12/07/17 09:05 Dose: 10 mg Senna (Senna -) 2 tab PO HS PRN PRN Reason: CONSTIPATION Last Admin: 12/06/17 21:21 Dose: 2 tab ASSESSMENT AND PLAN: Spinal Cord Compression s/p C2-T1 Laminectomies/C7-T1 Osteotomies/C2-T1 posterior fusion/Removal of anterior instrumentation/Reconstruction HTN Hypercholesterolemia COPD - pain control - d/c dilaudid CONFIGURATION TECHNICIAN, titrate oxycodone - antiemetics - monitor drain output - rehab/PT - PO as tolerated - bowel regimen - DVT prophylaxis - can transfer to floor when ok with surgery
--- NOTE | 2017-12-07 13:45 | PN ---
Physical Exam: SUBJECTIVE: Patient seen and examined at bedside. states her pain and headache is much better controlled with the new meds. she does not want to use the dilaudid LUNCHEONETTE MANAGER as she feels it gives her a headache and makes her feel worse. she denies any CP/SOB/N/V. her nausea is much improved with the zofran. OBJECTIVE: Vital Signs Period Temp Pulse Resp BP Sys/Hylton Pulse Ox Last 24 Hr 98.2 F-99.6 F 65-104 12-20 138-159/60-99 95-98 GENERAL: The patient is awake, alert, and fully oriented, in slight acute distress. NECK: in cervical collar; cannot assess ROM LUNGS: Breath sounds equal, clear to auscultation bilaterally, no wheezes, no crackles, no accessory muscle use. HEART: Regular rate and rhythm, S1, S2 without murmur, rub or gallop. ABDOMEN: Soft, nontender, nondistended, normoactive bowel sounds, no guarding, no rebound, no hepatosplenomegaly, no masses. EXTREMITIES: 2+ pulses, warm, well-perfused, no edema. NEUROLOGICAL: Cranial nerves II through XII grossly intact. Normal speech, gait not observed. PSYCH: Normal mood, normal affect. SKIN: Warm, dry, normal turgor, no rashes or lesions noted Laboratory Results - last 24 hr 12/02/17 12/07/17 12/07/17 09:11 05:30 05:30 WBC 12.0 H RBC 3.53 L Hgb 10.6 L Hct 30.8 L MCV 87.4 MCH 30.0 MCHC 34.4 RDW 14.8 Plt Count 186 D MPV 7.3 L Absolute Neuts (auto) 8.3 Neutrophils % 69.5 Lymphocytes % 20.2 D Monocytes % 9.1 Eosinophils % 0.5 D Basophils % 0.7 Nucleated RBC % 0 Sodium 135 L Potassium 3.7 Chloride 99 Carbon Dioxide 29 Anion Gap 7 L BUN 12 Creatinine 0.6 Creat Clearance w eGFR > 60 Random Glucose 107 H Calcium 8.0 L Phosphorus 3.3 Magnesium 1.9 Total Bilirubin 0.4 AST 20 ALT 16 Alkaline Phosphatase 51 Total Protein 5.7 L Albumin 2.7 L Blood Type A POSITIVE Antibody Screen Negative Crossmatch IS Only See Detail Active Medications Generic Name Dose Route Start Last Admin Trade Name Freq PRN Reason Stop Dose Admin Acetaminophen/Butalbital/Caffeine 1 tablet 12/06/17 10:35 12/07/17 13:16 Fioricet - PO 1 tablet Q4H PRN Administration HEADACHE Atorvastatin Calcium 10 mg 12/06/17 22:00 12/06/17 21:22 Lipitor - PO 10 mg HS [facility] Administration Chlorhexidine Gluconate 1 applic 12/03/17 22:00 12/06/17 21:22 Hibiclens For Decolonization - TP 1 applic HS [facility] Administration Diphenhydramine HCl 25 mg 12/03/17 17:34 Benadryl - PO Q6H PRN FOR ITCHING Docusate Sodium 100 mg 12/04/17 22:00 12/07/17 13:12 Colace - PO 100 mg TID [facility] Administration Ferrous Sulfate 325 mg 12/05/17 10:00 12/07/17 09:05 Feosol - PO 325 mg DAILY [facility] Administration Folic Acid 1 mg 12/05/17 10:00 12/07/17 09:05 Folic Acid - PO 1 mg DAILY [facility] Administration Gabapentin 100 mg 12/05/17 16:45 12/07/17 13:14 Neurontin - PO 100 mg TID [facility] Administration Heparin Sodium (Porcine) 5,000 unit 12/04/17 06:00 12/07/17 13:11 Heparin - SQ 5,000 unit TID [facility] Administration Hydromorphone HCl 10 mg 12/04/17 08:30 12/05/17 10:06 Dilaudid Slide Fastener Repairer - LUNCHEONETTE MANAGER 12/11/17 08:26 Not Given LUNCHEONETTE MANAGER [facility] Protocol Cefazolin Sodium 1 gm/ 50 mls @ 100 mls/hr 12/03/17 21:00 12/07/17 12:23 Dextrose IVPB 100 mls/hr Q8H [facility] Administration Lorazepam 0.5 mg 12/05/17 18:51 12/07/17 09:06 Ativan Injection - IVPUSH 0.5 mg Q6H PRN Administration MUSCLE SPASMS Mupirocin 1 applic 12/03/17 22:00 12/07/17 10:54 Bactroban Ointment (For Decolonization) - NS 12/08/17 21:59 1 applic BID [facility] Administration Non-Formulary Medication 1 each 12/05/17 16:30 Fluticasone/Vilanterol [Breo Ellipta 200-25 Mcg Inh] IH PRN [facility] Ondansetron HCl 4 mg 12/05/17 16:24 Zofran - PO Q8H PRN NAUSEA Oxycodone HCl 10 mg 12/06/17 10:49 12/07/17 09:05 Roxicodone - PO 10 mg Q6H PRN Administration PAIN LEVEL 6-10 Senna 2 tab 12/06/17 18:44 12/06/17 21:21 Senna - PO 2 tab HS PRN Administration CONSTIPATION ASSESSMENT/PLAN: 57 y/o female s/p laminectomy and duratomy POD #4 neck/back/arm pain is improving. Spinal Surgery POD #4: patients pain is much better controlled -monitor drain output- needs to be near zero -out of bed to chair -d/c dilaudid LUNCHEONETTE MANAGER -c/w fioricet and oxycodone -zofran for nausea -senna PRN for constipation HLD: -continue taking lipitor F/E/N: no extra fluids replete electrolytes when needed PO as tolerated Problem List - Problems (1) Cervical pain (neck) Code(s): M54.2 - CERVICALGIA (2) Intractable back pain Code(s): M54.9 - DORSALGIA, UNSPECIFIED (3) Intractable pain Code(s): R52 - PAIN, UNSPECIFIED Visit type - Emergency Visit Emergency Visit: Yes ED Registration Date: 12/02/17 Care time: The patient presented to the Emergency Department on the above date and was hospitalized for further evaluation of their emergent condition. - New Patient This patient is new to me today: No - Critical Care Critical Care patient: Yes Total Critical Care Time (in minutes): 35 Critical Care Statement: The care of this patient involved high complexity decision making to prevent further life threatening deterioration of the patient 's condition and/or to evaluate & treat vital organ system(s) failure or risk of failure.
[2017-12-07] MEDS: ATORVASTATIN CA 10 MG TABLET (FP) PO SCH (21:53)
[2017-12-07] MEDS: CHLORHEXIDINE GLUCONATE 4% CLEANSER FOR DECOLONIZATION TP SCH (21:58)
[2017-12-07] MEDS ORDERED: ACETAMINOPHEN 1000 MG/100 ML VIAL (NON FORMULARY) IVPB ONE (22:46)
--- NOTE | 2017-12-08 00:13 | PN ---
Progress Note (short form) - Note Progress Note: The patient is complaining of worsening sore throat, neck pain. She was found to have fever 101.3F. The patient cervical collar was removed, wound is well healing, drain output monitored. Blood cultures, urine cultures, UA ordered. The patient was given Tylenol IV, neurosurgeon was notified and agreed with orders. Problem List - Problems (1) Cervical pain (neck) Code(s): M54.2 - CERVICALGIA (2) Intractable back pain Code(s): M54.9 - DORSALGIA, UNSPECIFIED (3) Weakness of left upper extremity Code(s): M62.81 - MUSCLE WEAKNESS (GENERALIZED) (4) Asthmatic bronchitis Code(s): J45.909 - UNSPECIFIED ASTHMA, UNCOMPLICATED (5) Hypertension Code(s): I10 - ESSENTIAL (PRIMARY) HYPERTENSION
[2017-12-08 00:30] LABS: BASO % 0.4 % (0-2.0); EOS % 0.2 % (0-4.5); HEMATOCRIT 32.7 % (32.4-45.2); HEMOGLOBIN 11.1 GM/dL (10.7-15.3); LYMPH % 12.5 % (8-40); MCH 29.7 pg (25.7-33.7); MCHC 33.9 g/dl (32.0-36.0); MEAN CELL VOLUME 87.7 fl (80-96); MEAN PLT VOLUME 7.6 fl (7.5-11.1); MONO % 10.6 % (3.8-10.2); NEUT % 76.3 % (42.8-82.8); PLATELET COUNT 235 K/MM3 (134-434); RBC 3.73 M/mm3 (3.60-5.2); RDW 14.7 % (11.6-15.6); WHITE BLOOD COUNT 12.5 K/mm3 (4.0-10.0)
[2017-12-08 01:03] LABS: ALBUMIN 2.6 g/dl (3.4-5.0); ANION GAP 7 (8-16); BLOOD UREA NITROGEN 10 mg/dL (7-18); CALCIUM 8.1 mg/dL (8.5-10.1); CHLORIDE 97 mmol/L (98-107); CO2 29 mmol/L (21-32); CREATININE 0.7 mg/dL (0.55-1.02); GLUCOSE,RANDOM 139 mg/dL (74-106); POTASSIUM 3.7 mmol/L (3.5-5.1); SGOT/AST 16 U/L (15-37); SGPT/ALT 13 U/L (12-78); SODIUM 133 mmol/L (136-145)
[2017-12-08 01:05] LABS: ALK PHOS 59 U/L (45-117); BILIRUBIN,TOTAL 0.3 mg/dL (0.2-1.0); TOT PROT 5.8 g/dl (6.4-8.2)
[2017-12-08 01:27] LABS: URINE APPEARANCE CLEAR; URINE BILIRUBIN NEGATIVE (<2.0 mg/dL); URINE COLOR LTYELLOW; URINE GLUCOSE (UA) NEGATIVE (NEGATIVE); URINE KETONE 2+ (NEGATIVE); URINE LEUK ESTERASE NEGATIVE (NEGATIVE); URINE NITRITE NEGATIVE (NEGATIVE); URINE PROTEIN NEGATIVE (NEGATIVE); URINE UROBILINOGEN NEGATIVE mg/dL (0.2-1.0)
[2017-12-08] MEDS ORDERED: SODIUM CHLORIDE 1,000 ML IV SCH (03:45)
[2017-12-08] MEDS ORDERED: DEXTROSE 5%-WATER - 50 ML IVPB ONE ×3 (03:52→19:50)
[2017-12-08] MEDS ORDERED: ceFAZolin SODIUM 1 GM VIAL ONE ×3 (03:52→19:49)
[2017-12-08] MEDS: oxyCODONE HCL 5 MG TABLET PO PRN ×4 (03:56→20:40)
[2017-12-08] MEDS: ACETAMINOPHEN/CAFFEINE/BUTALBITAL 1 TAB PO PRN ×3 (04:00→12:32)
[2017-12-08] MEDS: LORazepam 2 MG/ML SDV VIAL IVPUSH PRN ×2 (04:00→20:14)
[2017-12-08] MEDS: CEFAZOLIN 1 GM in DEXTROSE 5%-WATER - 50 ML IVPB SCH ×3 (04:02→21:11)
[2017-12-08] MEDS: HEPARIN NA (PORCINE) 5,000 UNITS/ML 1ML VIAL SQ SCH ×3 (06:16→21:12)
[2017-12-08] MEDS: GABAPENTIN 100 MG CAPSULE (FP) PO SCH ×2 (06:16→13:07)
[2017-12-08] MEDS: DOCUSATE SODIUM 100 MG CAPSULE (FP) PO SCH ×3 (06:16→21:12)
[2017-12-08 06:24] LABS: BASO % 0.4 % (0-2.0); EOS % 0.6 % (0-4.5); HEMATOCRIT 32.3 % (32.4-45.2); LYMPH % 20.3 % (8-40); MCH 30.1 pg (25.7-33.7); MCHC 34.2 g/dl (32.0-36.0); MEAN CELL VOLUME 88.2 fl (80-96); MEAN PLT VOLUME 7.7 fl (7.5-11.1); MONO % 8.8 % (3.8-10.2); NEUT % 69.9 % (42.8-82.8); PLATELET COUNT 228 K/MM3 (134-434); RBC 3.66 M/mm3 (3.60-5.2); RDW 14.7 % (11.6-15.6); WHITE BLOOD COUNT 11.7 K/mm3 (4.0-10.0)
[2017-12-08 06:50] LABS: CHLORIDE 101 mmol/L (98-107); POTASSIUM 3.9 mmol/L (3.5-5.1); SODIUM 135 mmol/L (136-145)
[2017-12-08 06:55] LABS: ALBUMIN 2.6 g/dl (3.4-5.0); ALK PHOS 59 U/L (45-117); ANION GAP 6 (8-16); BILIRUBIN,TOTAL 0.3 mg/dL (0.2-1.0); BLOOD UREA NITROGEN 9 mg/dL (7-18); CALCIUM 8.3 mg/dL (8.5-10.1); CO2 28 mmol/L (21-32); CREATININE 0.7 mg/dL (0.55-1.02); GLUCOSE,RANDOM 115 mg/dL (74-106); MAGNESIUM 2.1 mg/dL (1.8-2.4); PHOSPHOROUS 3.2 mg/dL (2.5-4.9); SGOT/AST 19 U/L (15-37); SGPT/ALT 12 U/L (12-78); TOT PROT 5.9 g/dl (6.4-8.2)
[2017-12-08] MEDS ORDERED: oxyCODONE HCL 5 MG TABLET PO ONE (08:33)
--- NOTE | 2017-12-08 09:41 | PN ---
Progress Note, Physician Chief Complaint: Feels the same - Current Medication List Current Medications: Active Medications Acetaminophen/Butalbital/Caffeine (Fioricet -) 1 tablet PO Q4H PRN PRN Reason: HEADACHE Last Admin: 12/08/17 08:42 Dose: 1 tablet Atorvastatin Calcium (Lipitor -) 10 mg PO [facility] Last Admin: 12/07/17 21:53 Dose: 10 mg Chlorhexidine Gluconate (Hibiclens For Decolonization -) 1 applic TP [facility] Last Admin: 12/07/17 21:58 Dose: 1 applic Diphenhydramine HCl (Benadryl -) 25 mg PO Q6H PRN PRN Reason: FOR ITCHING Docusate Sodium (Colace -) 100 mg PO TID [facility] Last Admin: 12/08/17 06:16 Dose: 100 mg Ferrous Sulfate (Feosol -) 325 mg PO DAILY [facility] Last Admin: 12/07/17 09:05 Dose: 325 mg Folic Acid (Folic Acid -) 1 mg PO DAILY [facility] Last Admin: 12/07/17 09:05 Dose: 1 mg Gabapentin (Neurontin -) 100 mg PO TID [facility] Last Admin: 12/08/17 06:16 Dose: 100 mg Heparin Sodium (Porcine) (Heparin -) 5,000 unit SQ TID [facility] Last Admin: 12/08/17 06:16 Dose: 5,000 unit Cefazolin Sodium 1 gm/ (Dextrose) 50 mls @ 100 mls/hr IVPB Q8H [facility] Last Admin: 12/08/17 04:02 Dose: 100 mls/hr Levofloxacin (Levaquin 750 Mg Premixed Ivpb -) 750 mg in 150 mls @ 100 mls/hr IVPB ONCE ONE; Protocol Stop: 12/08/17 10:14 Last Admin: 12/08/17 08:42 Dose: 100 mls/hr Lorazepam (Ativan Injection -) 0.5 mg IVPUSH Q6H PRN PRN Reason: MUSCLE SPASMS Last Admin: 12/08/17 04:00 Dose: 0.5 mg Mupirocin (Bactroban Ointment (For Decolonization) -) 1 applic NS BID [facility] Stop: 12/08/17 21:59 Last Admin: 12/07/17 21:56 Dose: 1 applic Non-Formulary Medication (Fluticasone/Vilanterol [Breo Ellipta 200-25 Mcg Inh]) 1 each IH PRN [facility] Ondansetron HCl (Zofran -) 4 mg PO Q8H PRN PRN Reason: NAUSEA Oxycodone HCl (Roxicodone -) 10 mg PO Q6H PRN PRN Reason: PAIN LEVEL 6-10 Last Admin: 12/08/17 03:56 Dose: 10 mg Senna (Senna -) 2 tab PO HS PRN PRN Reason: CONSTIPATION Last Admin: 12/06/17 21:21 Dose: 2 tab - Objective Vital Signs: Vital Signs Temperature 98.8 F 12/08/17 07:41 Pulse Rate 91 H 12/08/17 07:41 Respiratory Rate 16 12/08/17 07:41 Blood Pressure 106/65 12/08/17 07:41 O2 Sat by Pulse Oximetry (%) 99 12/08/17 07:41 Constitutional: Yes: Moderate Distress Eyes: Yes: WNL HENT: Yes: WNL Neck: Yes: WNL, Tenderness Cardiovascular: Yes: WNL, Tachycardia Respiratory: Yes: Regular Gastrointestinal: Yes: Normal Bowel Sounds ...Rectal Exam: Yes: Deferred Genitourinary: Yes: WNL Edema: No Wound/Incision: Yes: Clean/Dry ...Motor Strength: LUE (Weak) Labs: CBC, BMP 12/08/17 05:30 12/08/17 05:30 INR, PTT INR 1.19 (0.83-1.09) H 12/03/17 15:30 Assessment/Plan Continue present care
[2017-12-08] MEDS: SENNOSIDES 8.6MG TABLET (FP) PO PRN ×2 (09:44→21:14)
[2017-12-08] MEDS: FOLIC ACID 1 MG TABLET (FP) PO SCH (09:45)
[2017-12-08] MEDS: FERROUS SO4 325 MG TABLET (FP) PO SCH (09:46)
[2017-12-08] MEDS: MUPIROCIN 2% TOPICAL OINTMENT FOR DECOLONIZATION NS SCH (09:46)
[2017-12-08] MEDS ORDERED: HEMOQUE TEST 1 EACH EACH ONE (10:07)
--- NOTE | 2017-12-08 11:31 | PN ---
Teaching Attending Note Name of Resident: Mireille Taylor ATTENDING PHYSICIAN STATEMENT I saw and evaluated the patient. I reviewed the resident's note and discussed the case with the resident. I agree with the resident's findings and plan as documented. SUBJECTIVE: Pt seen and examined in the ICU. Febrile overnight and now with thick whitish/ yellow sputum, started on antibiotics. Cultures pending. Still with pain. OBJECTIVE: Vital Signs Period Temp Pulse Resp BP Sys/Hylton Pulse Ox Last 24 Hr 98.8 F-101.3 F 79-119 15-21 106-154/65-101 97-99 Intake & Output 12/05/17 12/06/17 12/07/17 12/08/17 23:59 23:59 23:59 23:59 Intake Total 1900 910 370 370 Output Total 3195 1595 835 120 Balance -1295 -685 -465 250 Weight 73 kg 72.711 kg 69.989 kg 69.899 kg Gen: NAD in hard collar Heart: RRR Lung: decreased breath sounds at the bases Abd: soft, nontender Ext: no edema Drains with serosanguinous fluid CBC, BMP 12/08/17 05:30 12/08/17 05:30 Active Medications Acetaminophen/Butalbital/Caffeine (Fioricet -) 1 tablet PO Q4H PRN PRN Reason: HEADACHE Last Admin: 12/08/17 08:42 Dose: 1 tablet Atorvastatin Calcium (Lipitor -) 10 mg PO HS [facility] Last Admin: 12/07/17 21:53 Dose: 10 mg Chlorhexidine Gluconate (Hibiclens For Decolonization -) 1 applic TP [facility] Last Admin: 12/07/17 21:58 Dose: 1 applic Diphenhydramine HCl (Benadryl -) 25 mg PO Q6H PRN PRN Reason: FOR ITCHING Docusate Sodium (Colace -) 100 mg PO TID [facility] Last Admin: 12/08/17 06:16 Dose: 100 mg Ferrous Sulfate (Feosol -) 325 mg PO DAILY [facility] Last Admin: 12/08/17 09:46 Dose: 325 mg Folic Acid (Folic Acid -) 1 mg PO DAILY [facility] Last Admin: 12/08/17 09:45 Dose: 1 mg Gabapentin (Neurontin -) 100 mg PO TID [facility] Last Admin: 12/08/17 06:16 Dose: 100 mg Heparin Sodium (Porcine) (Heparin -) 5,000 unit SQ TID [facility] Last Admin: 12/08/17 06:16 Dose: 5,000 unit Cefazolin Sodium 1 gm/ (Dextrose) 50 mls @ 100 mls/hr IVPB Q8H [facility] Last Admin: 12/08/17 04:02 Dose: 100 mls/hr Lorazepam (Ativan Injection -) 0.5 mg IVPUSH Q6H PRN PRN Reason: MUSCLE SPASMS Last Admin: 12/08/17 04:00 Dose: 0.5 mg Mupirocin (Bactroban Ointment (For Decolonization) -) 1 applic NS BID [facility] Stop: 12/08/17 21:59 Last Admin: 12/08/17 09:46 Dose: 1 applic Non-Formulary Medication (Fluticasone/Vilanterol [Breo Ellipta 200-25 Mcg Inh]) 1 each IH PRN [facility] Ondansetron HCl (Zofran -) 4 mg PO Q8H PRN PRN Reason: NAUSEA Oxycodone HCl (Roxicodone -) 10 mg PO Q6H PRN PRN Reason: PAIN LEVEL 6-10 Last Admin: 12/08/17 09:45 Dose: 10 mg Senna (Senna -) 2 tab PO HS PRN PRN Reason: CONSTIPATION Last Admin: 12/08/17 09:44 Dose: 2 tab ASSESSMENT AND PLAN: Spinal Cord Compression s/p C2-T1 Laminectomies/C7-T1 Osteotomies/C2-T1 posterior fusion/Removal of anterior instrumentation/Reconstruction HTN Hypercholesterolemia COPD Acute Bronchitis - continue antibiotics - f/u cultures - incentive spirometry - pain control - antiemetics - monitor drain output - rehab/PT - PO as tolerated - bowel regimen - DVT prophylaxis - can transfer to floor when ok with surgery
--- NOTE | 2017-12-08 12:31 | PN ---
Physical Exam: SUBJECTIVE: Patient seen and examined at bedside. patient still complains of pain but states she is feeling better. Patient spiked a fever to 101.3 overnight and has a productive cough. blood and urine cultures were sent and chest was performed. patient's pain is much better controlled with the new pain medications. OBJECTIVE: Vital Signs Period Temp Pulse Resp BP Sys/Hylton Pulse Ox Last 24 Hr 98.8 F-101.3 F 79-117 15-21 106-154/65-101 97-99 GENERAL: The patient is awake, alert, and fully oriented, in no acute distress.. NECK: drains are intact with dressings clean and dry; minimal serosanguinous drain output. LUNGS: Breath sounds equal, clear to auscultation bilaterally, no wheezes, no crackles, no accessory muscle use. HEART: Regular rate and rhythm, S1, S2 without murmur, rub or gallop. ABDOMEN: Soft, nontender, nondistended, normoactive bowel sounds, no guarding, no rebound, no hepatosplenomegaly, no masses. EXTREMITIES: 2+ pulses, warm, well-perfused, no edema. PSYCH: Normal mood, normal affect. SKIN: Warm, dry, normal turgor, no rashes or lesions noted Laboratory Results - last 24 hr 12/08/17 12/08/17 12/08/17 00:00 00:00 00:00 WBC 12.5 H RBC 3.73 Hgb 11.1 Hct 32.7 MCV 87.7 MCH 29.7 MCHC 33.9 RDW 14.7 Plt Count 235 D MPV 7.6 Absolute Neuts (auto) 9.6 Neutrophils % 76.3 Lymphocytes % 12.5 D Monocytes % 10.6 H Eosinophils % 0.2 Basophils % 0.4 Nucleated RBC % 0 Sodium 133 L Potassium 3.7 Chloride 97 L Carbon Dioxide 29 Anion Gap 7 L BUN 10 Creatinine 0.7 Creat Clearance w eGFR > 60 Random Glucose 139 H Calcium 8.1 L Phosphorus Magnesium Total Bilirubin 0.3 AST 16 ALT 13 Alkaline Phosphatase 59 Total Protein 5.8 L Albumin 2.6 L Urine Color Ltyellow Urine Appearance Clear Urine pH 6.0 D Ur Specific [place] 1.020 Urine Protein Negative Urine Glucose (UA) Negative Urine Ketones 2+ H Urine Blood Negative Urine Nitrite Negative Urine Bilirubin Negative Urine Urobilinogen Negative Ur Leukocyte Esterase Negative 12/08/17 12/08/17 05:30 05:30 WBC 11.7 H RBC 3.66 Hgb 11.0 Hct 32.3 L MCV 88.2 MCH 30.1 MCHC 34.2 RDW 14.7 Plt Count 228 MPV 7.7 Absolute Neuts (auto) 8.2 Neutrophils % 69.9 Lymphocytes % 20.3 D Monocytes % 8.8 Eosinophils % 0.6 D Basophils % 0.4 Nucleated RBC % 0 Sodium 135 L Potassium 3.9 Chloride 101 Carbon Dioxide 28 Anion Gap 6 L BUN 9 Creatinine 0.7 Creat Clearance w eGFR > 60 Random Glucose 115 H Calcium 8.3 L Phosphorus 3.2 Magnesium 2.1 Total Bilirubin 0.3 AST 19 ALT 12 Alkaline Phosphatase 59 Total Protein 5.9 L Albumin 2.6 L Urine Color Urine Appearance Urine pH Ur Specific [place] Urine Protein Urine Glucose (UA) Urine Ketones Urine Blood Urine Nitrite Urine Bilirubin Urine Urobilinogen Ur Leukocyte Esterase Active Medications Generic Name Dose Route Start Last Admin Trade Name Freq PRN Reason Stop Dose Admin Acetaminophen/Butalbital/Caffeine 1 tablet 12/06/17 10:35 12/08/17 08:42 Fioricet - PO 1 tablet Q4H PRN Administration HEADACHE Atorvastatin Calcium 10 mg 12/06/17 22:00 12/07/17 21:53 Lipitor - PO 10 mg HS [facility] Administration Chlorhexidine Gluconate 1 applic 12/03/17 22:00 12/07/17 21:58 Hibiclens For Decolonization - TP 1 applic HS [facility] Administration Diphenhydramine HCl 25 mg 12/03/17 17:34 Benadryl - PO Q6H PRN FOR ITCHING Docusate Sodium 100 mg 12/04/17 22:00 12/08/17 06:16 Colace - PO 100 mg TID [facility] Administration Ferrous Sulfate 325 mg 12/05/17 10:00 12/08/17 09:46 Feosol - PO 325 mg DAILY [facility] Administration Folic Acid 1 mg 12/05/17 10:00 12/08/17 09:45 Folic Acid - PO 1 mg DAILY [facility] Administration Gabapentin 100 mg 12/05/17 16:45 12/08/17 06:16 Neurontin - PO 100 mg TID [facility] Administration Heparin Sodium (Porcine) 5,000 unit 12/04/17 06:00 12/08/17 06:16 Heparin - SQ 5,000 unit TID [facility] Administration Cefazolin Sodium 1 gm/ 50 mls @ 100 mls/hr 12/03/17 21:00 12/08/17 04:02 Dextrose IVPB 100 mls/hr Q8H [facility] Administration Lorazepam 0.5 mg 12/05/17 18:51 12/08/17 04:00 Ativan Injection - IVPUSH 0.5 mg Q6H PRN Administration MUSCLE SPASMS Mupirocin 1 applic 12/03/17 22:00 12/08/17 09:46 Bactroban Ointment (For Decolonization) - NS 12/08/17 21:59 1 applic BID [facility] Administration Non-Formulary Medication 1 each 12/05/17 16:30 Fluticasone/Vilanterol [Breo Ellipta 200-25 Mcg Inh] IH PRN [facility] Ondansetron HCl 4 mg 12/05/17 16:24 Zofran - PO Q8H PRN NAUSEA Oxycodone HCl 10 mg 12/06/17 10:49 12/08/17 09:45 Roxicodone - PO 10 mg Q6H PRN Administration PAIN LEVEL 6-10 Senna 2 tab 12/06/17 18:44 12/08/17 09:44 Senna - PO 2 tab HS PRN Administration CONSTIPATION ASSESSMENT/PLAN: 57 y/o female s/p laminectomy and duratomy POD #5 neck/back/arm pain is improving. However, given patients fever spike overnight workup has been intitiated. POD#5: -patient's pain is improving -continue with oxycodone and fioricet -monitor drain output: minimal -no extra fluids -out of bed -can transfer once permissible by surgery Fever: -follow up blood and urine cultures -continue with abx F/E/N: no fluids replete electrolytes when necessary clear diet dispo: one more day of ICU monitoring per neurosurgeon Problem List - Problems (1) Cervical pain (neck) Code(s): M54.2 - CERVICALGIA (2) Intractable back pain Code(s): M54.9 - DORSALGIA, UNSPECIFIED (3) Intractable pain Code(s): R52 - PAIN, UNSPECIFIED Visit type - Emergency Visit Emergency Visit: Yes ED Registration Date: 12/02/17 Care time: The patient presented to the Emergency Department on the above date and was hospitalized for further evaluation of their emergent condition. - New Patient This patient is new to me today: No - Critical Care Critical Care patient: Yes Total Critical Care Time (in minutes): 35 Critical Care Statement: The care of this patient involved high complexity decision making to prevent further life threatening deterioration of the patient 's condition and/or to evaluate & treat vital organ system(s) failure or risk of failure.
[2017-12-08] MEDS ORDERED: LIDOCAINE 5% TOPICAL PATCH TP ONE (14:19)
--- NOTE | 2017-12-08 15:26 | PN ---
Progress Note (short form) - Note Progress Note: POD #5 Exploration of spinal fusion, Removal of sublaminal wires, C2-T1 Laminectomies, C7-T1 osteotomies, C2-T1 deformity correction with posterior fusion, Removal of anterior instrumentation, C4/C5 corpectomies, Reconstruction with Peek cages and anterior plating Patient seen and examined at bedside. She c/o pain over incision sites but states the MCMULLEN is better today. She states her LUE/hand numbness is slowly improving. She is tolerating her clear diet and denies any CP, SOB, N/V or chills. Vital Signs Temp 100.3 F H 0818 13:00 Pulse 82 18 13:00 Resp 17 12/08/17 13:00 BP 129/82 12/08/17 13:00 Pulse Ox 99 12/08/17 07:41 Intake & Output 18 12/08/17 12/08/17 23:59 11:59 23:59 Intake Total 370 620 Output Total 405 135 Balance -35 485 Weight 154 lb 1.6 oz Intake: IV 100 Normal Saline - 1,000 ml 100 @ 50 mls/hr IV ASDIR [facility] Rx#:[id number] IVPB 50 400 Oral 320 120 Output: Drainage 55 35 Left Posterior Back 25 10 Right Anterior Neck 30 25 Urine 350 100 Void 350 100 Other: Voiding Method Indwelling Catheter Bedpan # Unmeasured Voids Void 3 Bowel Movement No Weight Measurement Method Built in Bedscale CBC, BMP 18 05:30 18 05:30 PE A&Ox3, NAD Lungs: unlabored resp on RA posterior neck incision: c/d/i with surrounding tissue intact and no evidence of erythema, edema, collection or d/c, Drain at right upper thoracic paravetebral area in good position and draining ss Anterior neck incision: c/d/i with some flaking of the dermabond, surrounding tissue intact with no erythema, edema, collection of d/c. Drain at right lateral neck partially pulled out with tip insitu and draining ss d/c UE: Right social welfare administrator with 5/5 strength, left social welfare administrator 3/5 strength LE: compartments soft, supple and non-tender with +2 pedal pulses 5/5 strength with dorsi/plantar flexion Problem List - Problems (1) Intractable pain Assessment/Plan: POD #5 front/back re-op c-spine with low grade fever and resolving h/a. 1) maintain c-collar 23 hours/day 2) DVT prophylaxis, SQ heparin, b/l scds 3) OOB with PT as tolerated 4) Encourage daily IS Evaluation and plan discussed with Dr Michelle Code(s): R52 - PAIN, UNSPECIFIED
[2017-12-08] MEDS: ATORVASTATIN CA 10 MG TABLET (FP) PO SCH (21:13)
[2017-12-08] MEDS: CHLORHEXIDINE GLUCONATE 4% CLEANSER FOR DECOLONIZATION TP SCH (21:13)
[2017-12-08] MEDS: GABAPENTIN 300 MG CAPSULE (FP) PO SCH (21:23)
[2017-12-08] MEDS ORDERED: LIDOCAINE PATCH REMOVAL MC SCH (22:00)
[2017-12-09] MEDS: oxyCODONE HCL 5 MG TABLET PO PRN ×3 (01:48→19:03)
[2017-12-09 06:04] LABS: BASO % 0.5 % (0-2.0); EOS % 0.8 % (0-4.5); HEMATOCRIT 33.7 % (32.4-45.2); HEMOGLOBIN 11.3 GM/dL (10.7-15.3); LYMPH % 16.8 % (8-40); MCH 29.7 pg (25.7-33.7); MCHC 33.6 g/dl (32.0-36.0); MEAN CELL VOLUME 88.4 fl (80-96); MONO % 8.6 % (3.8-10.2); NEUT % 73.3 % (42.8-82.8); PLATELET COUNT 271 K/MM3 (134-434); RBC 3.81 M/mm3 (3.60-5.2); WHITE BLOOD COUNT 12.7 K/mm3 (4.0-10.0)
[2017-12-09] MEDS ORDERED: DEXTROSE 5%-WATER - 50 ML IVPB ONE ×2 (06:09→12:04)
[2017-12-09] MEDS ORDERED: ceFAZolin SODIUM 1 GM VIAL ONE ×2 (06:09→12:03)
[2017-12-09] MEDS: CEFAZOLIN 1 GM in DEXTROSE 5%-WATER - 50 ML IVPB SCH ×2 (06:10→12:05)
[2017-12-09] MEDS: DOCUSATE SODIUM 100 MG CAPSULE (FP) PO SCH ×3 (06:10→21:18)
[2017-12-09] MEDS: HEPARIN NA (PORCINE) 5,000 UNITS/ML 1ML VIAL SQ SCH ×3 (06:10→21:17)
[2017-12-09] MEDS: GABAPENTIN 300 MG CAPSULE (FP) PO SCH ×3 (06:11→21:18)
[2017-12-09 06:37] LABS: ALBUMIN 2.6 g/dl (3.4-5.0); ANION GAP 8 (8-16); BLOOD UREA NITROGEN 9 mg/dL (7-18); CALCIUM 8.5 mg/dL (8.5-10.1); CHLORIDE 99 mmol/L (98-107); CO2 29 mmol/L (21-32); CREATININE 0.7 mg/dL (0.55-1.02); GLUCOSE,RANDOM 111 mg/dL (74-106); PHOSPHOROUS 3.1 mg/dL (2.5-4.9); POTASSIUM 3.9 mmol/L (3.5-5.1); SGOT/AST 16 U/L (15-37); SGPT/ALT 12 U/L (12-78); SODIUM 136 mmol/L (136-145)
[2017-12-09 06:38] LABS: ALK PHOS 68 U/L (45-117); BILIRUBIN,TOTAL 0.3 mg/dL (0.2-1.0); TOT PROT 6.1 g/dl (6.4-8.2)
--- NOTE | 2017-12-09 07:50 | PN ---
Progress Note (short form) - Note Progress Note: POD #6 Patient seen and examined at bedside. Cont to c/o about incisional pain but tolerating with PRN meds. Also, still c/o MCMULLEN but has reduced/improved greatly since my last note. States she has gotten OOB and ambulate around ICU. Still has LUE/hand numbness...slowly improving. Tolerating clear diet. Denies n/v/f/c or photophobia. Last Vital Signs Temp Pulse Resp BP Pulse Ox 99.6 F 89 18 128/75 99 18 06:00 18 06:00 18 06:00 12/09/17 06:00 12/08/17 20:38 CBC, BMP 12/09/17 05:30 12/09/17 05:30 PE GEN: NAD. A&Ox3 NECK (posterior): incidion c/d/i. no evidence of erythema, edema, or collection. Drain/bilebag (rt paravetebral). (neck): incision c/d/i, no erythema, edema, collection. Drain/bilebag ( rt lateral), partially pulled out with tip insitu. draining minimal UE: Rt 5/5 strength, Lt 3/5 strength. LE: soft, supple and NT. DP/PT 2+ bilat. + Dorsi/Plantar flexion <Isaac Longoria - Last Filed: 12/09/17 08:05> - Note Progress Note: Agree with above. Wounds look good. Agree with removal of drains and coating incisions with Dermabond. Patient may transfer to regular room and soon thereafter to Rehab. CVL should be removed soon. GI/DVT prophylaxis. Posterior skin clips may be removed 3 weeks after surgery date. <Dandre Michelle - Last Filed: 12/09/17 12:48> Problem List - Problems (1) Intractable back pain Assessment/Plan: POD #6 s/p Exploration of spinal fusion, Removal of sublaminal wires, C2-T1 Laminectomies, C7-T1 osteotomies, C2-T1 deformity correction with posterior fusion, Removal of anterior instrumentation, C4/C5 corpectomies, Reconstruction with Peek cages and anterior plating Instructed to wear C-collar 23h/day - may remove while eating DVT ppx - SQ hep, b/l scds OOB PT Incentive spirometer Pain management PRN Drain/bilebag to gravity Advance diet as tolerated Per Dr. Michelle, please downgrade patient to floors Above plan discussed with Dr Michelle and agrees Code(s): M54.9 - DORSALGIA, UNSPECIFIED <Isaac Longoria - Last Filed: 12/09/17 08:05>
[2017-12-09] MEDS: FOLIC ACID 1 MG TABLET (FP) PO SCH (10:16)
[2017-12-09] MEDS: FERROUS SO4 325 MG TABLET (FP) PO SCH (10:16)
--- NOTE | 2017-12-09 11:21 | PN ---
Teaching Attending Note Name of Resident: Mireille Taylor ATTENDING PHYSICIAN STATEMENT I saw and evaluated the patient. I reviewed the resident's note and discussed the case with the resident. I agree with the resident's findings and plan as documented. SUBJECTIVE: Pt seen and examined in the ICU. Pain better controlled. No further fevers. Still with productive cough. OBJECTIVE: Vital Signs Period Temp Pulse Resp BP Sys/Hylton Pulse Ox Last 24 Hr 99.6 F-100.3 F 80-119 14-24 94-159/69-91 99-99 Intake & Output 12/06/17 12/07/17 12/08/17 12/09/17 23:59 23:59 23:59 23:59 Intake Total 910 370 720 350 Output Total 1595 835 785 715 Balance -685 -465 -65 -365 Weight 72.711 kg 69.989 kg 69.899 kg 69.995 kg Gen: NAD in hard collar Heart: RRR Lung: decreased breath sounds at the bases Abd: soft, nontender Ext: no edema Drains with serosanguinous fluid CBC, BMP 12/09/17 05:30 12/09/17 05:30 Active Medications Acetaminophen/Butalbital/Caffeine (Fioricet -) 1 tablet PO Q4H PRN PRN Reason: HEADACHE Last Admin: 12/08/17 12:32 Dose: 1 tablet Atorvastatin Calcium (Lipitor -) 10 mg PO HS [facility] Last Admin: 12/08/17 21:13 Dose: 10 mg Chlorhexidine Gluconate (Hibiclens For Decolonization -) 1 applic TP [facility] Last Admin: 12/08/17 21:13 Dose: 1 applic Diphenhydramine HCl (Benadryl -) 25 mg PO Q6H PRN PRN Reason: FOR ITCHING Docusate Sodium (Colace -) 100 mg PO TID [facility] Last Admin: 12/09/17 06:10 Dose: Not Given Ferrous Sulfate (Feosol -) 325 mg PO DAILY [facility] Last Admin: 12/09/17 10:16 Dose: 325 mg Folic Acid (Folic Acid -) 1 mg PO DAILY [facility] Last Admin: 12/09/17 10:16 Dose: 1 mg Gabapentin (Neurontin -) 300 mg PO TID [facility] Last Admin: 12/09/17 06:11 Dose: 300 mg Heparin Sodium (Porcine) (Heparin -) 5,000 unit SQ TID [facility] Last Admin: 12/09/17 06:10 Dose: 5,000 unit Cefazolin Sodium 1 gm/ (Dextrose) 50 mls @ 100 mls/hr IVPB Q8H [facility] Last Admin: 12/09/17 06:10 Dose: 100 mls/hr Levofloxacin (Levaquin 750 Mg Premixed Ivpb -) 750 mg in 150 mls @ 100 mls/hr IVPB DAILY@0800 [facility]; Protocol Last Admin: 12/09/17 10:16 Dose: 100 mls/hr Lorazepam (Ativan Injection -) 0.5 mg IVPUSH Q6H PRN PRN Reason: MUSCLE SPASMS Last Admin: 12/08/17 20:14 Dose: 0.5 mg Miscellaneous (Lidoderm Patch Removal) 1 each MC DAILY@2200 [facility] Last Admin: 12/08/17 21:12 Dose: 1 each Non-Formulary Medication (Fluticasone/Vilanterol [Breo Ellipta 200-25 Mcg Inh]) 1 each IH PRN [facility] Ondansetron HCl (Zofran -) 4 mg PO Q8H PRN PRN Reason: NAUSEA Oxycodone HCl (Roxicodone -) 10 mg PO Q6H PRN PRN Reason: PAIN LEVEL 6-10 Last Admin: 12/09/17 01:48 Dose: 10 mg Senna (Senna -) 2 tab PO HS PRN PRN Reason: CONSTIPATION Last Admin: 12/08/17 21:14 Dose: 2 tab ASSESSMENT AND PLAN: Spinal Cord Compression s/p C2-T1 Laminectomies/C7-T1 Osteotomies/C2-T1 posterior fusion/Removal of anterior instrumentation/Reconstruction HTN Hypercholesterolemia COPD Acute Bronchitis - continue antibiotics - f/u cultures, send sputum - incentive spirometry - pain control - antiemetics - d/c drains per NS - rehab/PT - PO as tolerated - bowel regimen - DVT prophylaxis - transfer to floor
--- NOTE | 2017-12-09 11:42 | PN ---
Physical Exam: SUBJECTIVE: Patient seen and examined at bedside. she states her pain is much more controlled but she is still having productive cough. she walked around the unit with PT yesterday and did well. she denies any CP/N/VSOB. patient is still on empiric antibiotics for possible pneumonia, but blood cultures and urine cultures are negative thus far. OBJECTIVE: Vital Signs Period Temp Pulse Resp BP Sys/Hylton Pulse Ox Last 24 Hr 99.6 F-100.3 F 80-119 14-24 94-159/69-91 99-99 GENERAL: The patient is awake, alert, and fully oriented, in slight acute distress. NECK: cervical collar; cannot assess ROM LUNGS: Breath sounds equal, clear to auscultation bilaterally, no wheezes, no crackles, no accessory muscle use. HEART: Regular rate and rhythm, S1, S2 without murmur, rub or gallop. ABDOMEN: Soft, nontender, nondistended, normoactive bowel sounds, no guarding, no rebound, no hepatosplenomegaly, no masses. EXTREMITIES: 2+ pulses, warm, well-perfused, no edema. PSYCH: Normal mood, normal affect. SKIN: Warm, dry, normal turgor, no rashes or lesions noted Laboratory Results - last 24 hr 12/08/17 12/09/17 12/09/17 05:30 05:30 05:30 WBC 12.7 H RBC 3.81 Hgb 11.3 Hct 33.7 MCV 88.4 MCH 29.7 MCHC 33.6 RDW 15.0 Plt Count 271 MPV 7.0 L Absolute Neuts (auto) 9.3 Neutrophils % 73.3 Neutrophils % (Manual) 61.2 Band Neutrophils % 0.0 Lymphocytes % 16.8 Lymphocytes % (Manual) 26.5 Monocytes % 8.6 Monocytes % (Manual) 12 H Eosinophils % 0.8 Eosinophils % (Manual) 0.0 Basophils % 0.5 Basophils % (Manual) 0.0 Myelocytes % (Man) 0 Promyelocytes % (Man) 0 Blast Cells % (Manual) 0 Nucleated RBC % 0 Metamyelocytes 0 Sodium 136 Potassium 3.9 Chloride 99 Carbon Dioxide 29 Anion Gap 8 BUN 9 Creatinine 0.7 Creat Clearance w eGFR > 60 Random Glucose 111 H Calcium 8.5 Phosphorus 3.1 Magnesium 2.0 Total Bilirubin 0.3 AST 16 ALT 12 Alkaline Phosphatase 68 Total Protein 6.1 L Albumin 2.6 L Active Medications Generic Name Dose Route Start Last Admin Trade Name Freq PRN Reason Stop Dose Admin Acetaminophen/Butalbital/Caffeine 1 tablet 12/06/17 10:35 12/08/17 12:32 Fioricet - PO 1 tablet Q4H PRN Administration HEADACHE Atorvastatin Calcium 10 mg 12/06/17 22:00 12/08/17 21:13 Lipitor - PO 10 mg HS JUJU Administration Chlorhexidine Gluconate 1 applic 12/03/17 22:00 12/08/17 21:13 Hibiclens For Decolonization - TP 1 applic HS [facility] Administration Diphenhydramine HCl 25 mg 12/03/17 17:34 Benadryl - PO Q6H PRN FOR ITCHING Docusate Sodium 100 mg 12/04/17 22:00 12/09/17 06:10 Colace - PO Not Given TID JUJU Ferrous Sulfate 325 mg 12/05/17 10:00 12/09/17 10:16 Feosol - PO 325 mg DAILY JUJU Administration Folic Acid 1 mg 12/05/17 10:00 12/09/17 10:16 Folic Acid - PO 1 mg DAILY JUJU Administration Gabapentin 300 mg 12/08/17 22:00 12/09/17 06:11 Neurontin - PO 300 mg TID [facility] Administration Heparin Sodium (Porcine) 5,000 unit 12/04/17 06:00 12/09/17 06:10 Heparin - SQ 5,000 unit TID JUJU Administration Cefazolin Sodium 1 gm/ 50 mls @ 100 mls/hr 12/03/17 21:00 12/09/17 06:10 Dextrose IVPB 100 mls/hr Q8H JUJU Administration Levofloxacin 750 mg in 150 mls @ 100 mls/hr 12/09/17 09:15 12/09/17 10:16 Levaquin 750 Mg Premixed Ivpb - IVPB 100 mls/hr DAILY@0800 [facility] Administration Protocol Lorazepam 0.5 mg 12/05/17 18:51 12/08/17 20:14 Ativan Injection - IVPUSH 0.5 mg Q6H PRN Administration MUSCLE SPASMS Miscellaneous 1 each 12/08/17 22:00 12/08/17 21:12 Lidoderm Patch Removal MC 1 each DAILY@2200 JUJU Administration Non-Formulary Medication 1 each 12/05/17 16:30 Fluticasone/Vilanterol [Breo Ellipta 200-25 Mcg Inh] IH PRN JUJU Ondansetron HCl 4 mg 12/05/17 16:24 Zofran - PO Q8H PRN NAUSEA Oxycodone HCl 10 mg 12/06/17 10:49 12/09/17 01:48 Roxicodone - PO 10 mg Q6H PRN Administration PAIN LEVEL 6-10 Senna 2 tab 12/06/17 18:44 12/08/17 21:14 Senna - PO 2 tab HS PRN Administration CONSTIPATION ASSESSMENT/PLAN: 57 y/o female s/p laminectomy and duratomy POD #6 neck/back/arm pain is improving. she is no longer spiking fevers, blood and urine cultures are negative to date thus far. Surgery POD #6: patients pain is improving and she is gradually getting her strength back with minimal output from her drain -continue with pain medications -incentive spirometry -out of bed Pneumonia? -patients fever workup has been intiated; blood and urine cx negative thus far' -follow up sputum cx -repeat CXR in AM -c/w levaquin 750 daily F/E/N -not on fluids -replete electrolytes when necessary -soft diet dispo: transfer to med surg Problem List - Problems (1) Cervical pain (neck) Code(s): M54.2 - CERVICALGIA (2) Intractable back pain Code(s): M54.9 - DORSALGIA, UNSPECIFIED (3) Intractable pain Code(s): R52 - PAIN, UNSPECIFIED Visit type - Emergency Visit Emergency Visit: Yes ED Registration Date: 12/02/17 Care time: The patient presented to the Emergency Department on the above date and was hospitalized for further evaluation of their emergent condition. - New Patient This patient is new to me today: No - Critical Care Critical Care patient: Yes Total Critical Care Time (in minutes): 35 Critical Care Statement: The care of this patient involved high complexity decision making to prevent further life threatening deterioration of the patient 's condition and/or to evaluate & treat vital organ system(s) failure or risk of failure.
[2017-12-09 11:43] VITALS: BMI 27.3
[2017-12-09] MEDS: ACETAMINOPHEN/CAFFEINE/BUTALBITAL 1 TAB PO PRN (13:25)
[2017-12-09 13:33] LABS: ACANTHOCYTES 0; HELMET CELLS 0; HOWELL-JOLLY BODIES 0; OVALOCYTE 0; ROULEAU 0; SICKELED CELLS 0; TARGET CELLS 0; TEAR DROP CELLS 0; TOXIC GRANULATION 0
[2017-12-09 13:36] LABS: ANISOCYTOSIS 1+; MACROCYTOSIS 1+
--- NOTE | 2017-12-09 13:57 | PN ---
Progress Note (short form) - Note Progress Note: Procedure note: Anterior and posterior drains removed with the tip intact. Pt tolerated the drain removal well.
--- NOTE | 2017-12-09 15:26 | PN ---
Progress Note, Physician Chief Complaint: C/O Head ache and Left shoulder pain - Current Medication List Current Medications: Active Medications Acetaminophen/Butalbital/Caffeine (Fioricet -) 1 tablet PO Q4H PRN PRN Reason: HEADACHE Last Admin: 12/09/17 13:25 Dose: 1 tablet Atorvastatin Calcium (Lipitor -) 10 mg PO [facility] Last Admin: 12/08/17 21:13 Dose: 10 mg Chlorhexidine Gluconate (Hibiclens For Decolonization -) 1 applic TP [facility] Last Admin: 12/08/17 21:13 Dose: 1 applic Diphenhydramine HCl (Benadryl -) 25 mg PO Q6H PRN PRN Reason: FOR ITCHING Docusate Sodium (Colace -) 100 mg PO TID [facility] Last Admin: 12/09/17 14:48 Dose: 100 mg Ferrous Sulfate (Feosol -) 325 mg PO DAILY [facility] Last Admin: 12/09/17 10:16 Dose: 325 mg Folic Acid (Folic Acid -) 1 mg PO DAILY [facility] Last Admin: 12/09/17 10:16 Dose: 1 mg Gabapentin (Neurontin -) 300 mg PO TID [facility] Last Admin: 12/09/17 14:48 Dose: 300 mg Heparin Sodium (Porcine) (Heparin -) 5,000 unit SQ TID [facility] Last Admin: 12/09/17 14:48 Dose: 5,000 unit Cefazolin Sodium 1 gm/ (Dextrose) 50 mls @ 100 mls/hr IVPB Q8H [facility] Last Admin: 12/09/17 12:05 Dose: 100 mls/hr Levofloxacin (Levaquin 750 Mg Premixed Ivpb -) 750 mg in 150 mls @ 100 mls/hr IVPB DAILY@0800 [facility]; Protocol Last Admin: 12/09/17 10:16 Dose: 100 mls/hr Lorazepam (Ativan Injection -) 0.5 mg IVPUSH Q6H PRN PRN Reason: MUSCLE SPASMS Last Admin: 12/08/17 20:14 Dose: 0.5 mg Miscellaneous (Lidoderm Patch Removal) 1 each MC DAILY@2200 [facility] Last Admin: 12/08/17 21:12 Dose: 1 each Non-Formulary Medication (Fluticasone/Vilanterol [Breo Ellipta 200-25 Mcg Inh]) 1 each IH PRN [facility] Ondansetron HCl (Zofran -) 4 mg PO Q8H PRN PRN Reason: NAUSEA Oxycodone HCl (Roxicodone -) 10 mg PO Q6H PRN PRN Reason: PAIN LEVEL 6-10 Last Admin: 12/09/17 12:05 Dose: 10 mg Senna (Senna -) 2 tab PO HS PRN PRN Reason: CONSTIPATION Last Admin: 12/08/17 21:14 Dose: 2 tab - Objective Vital Signs: Vital Signs Temperature 99.6 F 12/09/17 06:00 Pulse Rate 114 H 12/09/17 10:00 Respiratory Rate 20 12/09/17 10:43 Blood Pressure 118/80 12/09/17 10:00 O2 Sat by Pulse Oximetry (%) 99 12/09/17 10:43 Middle aged F S/O C spine surgery c/o neck pain and Left UE numbness HEENT: Mm moist, no anemia, PERRLA, EOMI NECK: S/p surgery on wound vac CHEST: CTA B/L CVS; S1S2 R ABD: nO distention, non tender , BS + EXT: No viky afeet no calf tenderness [employer] OF [employer]KS: [employer] Left UE radiating pain Labs: CBC, BMP 12/09/17 05:30 12/09/17 05:30 INR, PTT INR 1.19 (0.83-1.09) H 12/03/17 15:30 Problem List - Problems (1) Intractable back pain Assessment/Plan: Exploration of spinal fusion, Removal of sublaminal wires, C2-T1 Laminectomies, C7-T1 osteotomies, C2-T1 deformity correction with posterior fusion, Removal of anterior instrumentation, C4/C5 corpectomies, Reconstruction with Peek cages and anterior plating cont pain management Code(s): M54.9 - DORSALGIA, UNSPECIFIED (2) Weakness of left upper extremity Assessment/Plan: Due to cord compression s/p decompression surgery pain control cont Neurosurgery recommendations Code(s): M62.81 - MUSCLE WEAKNESS (GENERALIZED) (3) Hypertension Assessment/Plan: Well controlled of [place] Code(s): I10 - ESSENTIAL (PRIMARY) HYPERTENSION (4) COPD (chronic obstructive pulmonary disease) Assessment/Plan: Stable cont Adavair Duoneb PRN Code(s): J44.9 - CHRONIC OBSTRUCTIVE PULMONARY DISEASE, UNSPECIFIED
[2017-12-09] MEDS ORDERED: SENNOSIDES 8.6MG TABLET (FP) PO PRN (19:31)
[2017-12-09] MEDS ORDERED: PATIENT'S OWN MEDICATION (NON-FORMULARY) (Fluticasone/Vilanterol [Breo Ellipta 200-25 Mcg IH SCH (19:31)
[2017-12-09] MEDS ORDERED: LORazepam 2 MG/ML SDV VIAL IVPUSH PRN (19:31)
[2017-12-09] MEDS ORDERED: LIDOCAINE 5% TOPICAL PATCH TP ONE (20:15)
[2017-12-09] MEDS: LIDOCAINE PATCH REMOVAL MC SCH (21:17)
[2017-12-09] MEDS: ATORVASTATIN CA 10 MG TABLET (FP) PO SCH (21:17)
[2017-12-09] MEDS ORDERED: LIDOCAINE PATCH REMOVAL MC SCH (22:00)
[2017-12-10] MEDS: ACETAMINOPHEN/CAFFEINE/BUTALBITAL 1 TAB PO PRN ×5 (01:57→21:28)
[2017-12-10] MEDS: oxyCODONE HCL 5 MG TABLET PO PRN ×3 (04:29→20:03)
[2017-12-10 07:55] LABS: BASO % 0.4 % (0-2.0); EOS % 0.6 % (0-4.5); HEMATOCRIT 33.3 % (32.4-45.2); HEMOGLOBIN 11.1 GM/dL (10.7-15.3); LYMPH % 12.4 % (8-40); MCH 29.6 pg (25.7-33.7); MCHC 33.3 g/dl (32.0-36.0); MEAN CELL VOLUME 88.7 fl (80-96); NEUT % 78.6 % (42.8-82.8); PLATELET COUNT 304 K/MM3 (134-434); RBC 3.75 M/mm3 (3.60-5.2); RDW 14.8 % (11.6-15.6); WHITE BLOOD COUNT 12.6 K/mm3 (4.0-10.0)
[2017-12-10] MEDS: FERROUS SO4 325 MG TABLET (FP) PO SCH (08:45)
[2017-12-10] MEDS ORDERED: LORazepam 1 MG TABLET PO PRN (09:03)
--- NOTE | 2017-12-10 09:08 | PN ---
Progress Note, Physician Chief Complaint: Still C/O pain all over History of Present Illness: On 8th floor now Spiked fever last night,Dr Pak consulted ,on Levaquin - Current Medication List Current Medications: Active Medications Acetaminophen/Butalbital/Caffeine (Fioricet -) 1 tablet PO Q4H PRN PRN Reason: HEADACHE Last Admin: 12/10/17 01:57 Dose: 1 tablet Atorvastatin Calcium (Lipitor -) 10 mg PO HS [facility] Last Admin: 12/09/17 21:17 Dose: 10 mg Diphenhydramine HCl (Benadryl -) 25 mg PO Q6H PRN PRN Reason: FOR ITCHING Docusate Sodium (Colace -) 100 mg PO TID [facility] Last Admin: 12/09/17 21:18 Dose: Not Given Ferrous Sulfate (Feosol -) 325 mg PO DAILY@0800 [facility] Last Admin: 12/10/17 08:45 Dose: 325 mg Folic Acid (Folic Acid -) 1 mg PO DAILY [facility] Gabapentin (Neurontin -) 300 mg PO TID [facility] Last Admin: 12/09/17 21:18 Dose: 300 mg Heparin Sodium (Porcine) (Heparin -) 5,000 unit SQ TID [facility] Last Admin: 12/09/17 21:17 Dose: 5,000 unit Levofloxacin (Levaquin 750 Mg Premixed Ivpb -) 750 mg in 150 mls @ 100 mls/hr IVPB DAILY@0800 [facility]; Protocol Last Admin: 12/10/17 08:45 Dose: 100 mls/hr Lorazepam (Ativan -) 2 mg PO TID PRN PRN Reason: ANXIETY Miscellaneous (Lidoderm Patch Removal) 1 each MC DAILY@2200 [facility] Last Admin: 12/09/17 21:17 Dose: Not Given Non-Formulary Medication (Fluticasone/Vilanterol [Breo Ellipta 200-25 Mcg Inh]) 1 each IH PRN [facility] Ondansetron HCl (Zofran -) 4 mg PO Q8H PRN PRN Reason: NAUSEA Oxycodone HCl (Roxicodone -) 10 mg PO Q6H PRN PRN Reason: PAIN LEVEL 6-10 Last Admin: 12/10/17 04:29 Dose: 10 mg Senna (Senna -) 2 tab PO HS PRN PRN Reason: CONSTIPATION Last Admin: 12/09/17 21:18 Dose: 2 tab - Objective Vital Signs: Vital Signs Temperature 99.8 F H 12/10/17 06:00 Pulse Rate 104 H 12/10/17 06:00 Respiratory Rate 18 12/10/17 06:00 Blood Pressure 128/70 12/10/17 06:00 O2 Sat by Pulse Oximetry (%) 99 12/09/17 23:55 Constitutional: Yes: Mild Distress Eyes: Yes: WNL HENT: Yes: WNL Neck: Yes: WNL Cardiovascular: Yes: WNL Respiratory: Yes: WNL Gastrointestinal: Yes: WNL ...Rectal Exam: Yes: Deferred Genitourinary: Yes: WNL Musculoskeletal: Yes: Muscle Weakness Neurological: Yes: Alert Labs: CBC, BMP 12/10/17 07:00 INR, PTT INR 1.19 (0.83-1.09) H 12/03/17 15:30
[2017-12-10 09:16] LABS: CHLORIDE 100 mmol/L (98-107); POTASSIUM 4.7 mmol/L (3.5-5.1); SODIUM 138 mmol/L (136-145)
[2017-12-10 09:28] LABS: ALBUMIN 2.7 g/dl (3.4-5.0); ALK PHOS 76 U/L (45-117); ANION GAP 13 (8-16); BILIRUBIN,TOTAL 0.3 mg/dL (0.2-1.0); BLOOD UREA NITROGEN 13 mg/dL (7-18); CALCIUM 8.8 mg/dL (8.5-10.1); CO2 25 mmol/L (21-32); CREATININE 0.7 mg/dL (0.55-1.02); GLUCOSE,RANDOM 119 mg/dL (74-106); MAGNESIUM 2.2 mg/dL (1.8-2.4); PHOSPHOROUS 3.5 mg/dL (2.5-4.9); SGOT/AST 39 U/L (15-37); SGPT/ALT 19 U/L (12-78); TOT PROT 6.3 g/dl (6.4-8.2)
[2017-12-10] MEDS: FOLIC ACID 1 MG TABLET (FP) PO SCH (09:34)
[2017-12-10 10:24] LABS: ANISOCYTOSIS 1+; MACROCYTOSIS 0; PLATELET ESTIMATE NORMAL
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
[2017-12-10] MEDS: DOCUSATE SODIUM 100 MG CAPSULE (FP) PO SCH ×2 (13:30→21:29)
[2017-12-10] MEDS: HEPARIN NA (PORCINE) 5,000 UNITS/ML 1ML VIAL SQ SCH ×2 (13:31→21:30)
[2017-12-10] MEDS: GABAPENTIN 300 MG CAPSULE (FP) PO SCH ×2 (13:31→21:30)
[2017-12-10] MEDS: CLINDAMYCIN HCL 150 MG CAPSULE (FP) PO SCH ×2 (14:40→18:57)
[2017-12-10] MEDS ORDERED: PT OWN MED DRAWER 7, Y5N ONE (17:35)
[2017-12-10] MEDS: diazePAM 5 MG TABLET PO PRN ×2 (17:37→21:31)
[2017-12-10] MEDS: ATORVASTATIN CA 10 MG TABLET (FP) PO SCH (21:31)
[2017-12-10] MEDS: ONDANSETRON 4 MG TABLET PO PRN (21:31)
[2017-12-10] MEDS: LIDOCAINE PATCH REMOVAL MC SCH (22:05)
[2017-12-11] MEDS: CLINDAMYCIN HCL 150 MG CAPSULE (FP) PO SCH ×5 (00:55→23:33)
[2017-12-11] MEDS: ACETAMINOPHEN/CAFFEINE/BUTALBITAL 1 TAB PO PRN ×5 (01:01→23:32)
[2017-12-11] MEDS: diazePAM 5 MG TABLET PO PRN ×2 (01:02→23:33)
[2017-12-11] MEDS: oxyCODONE HCL 5 MG TABLET PO PRN ×3 (01:03→21:34)
[2017-12-11] MEDS: DOCUSATE SODIUM 100 MG CAPSULE (FP) PO SCH ×3 (06:24→21:31)
[2017-12-11] MEDS: GABAPENTIN 300 MG CAPSULE (FP) PO SCH ×3 (06:25→21:32)
[2017-12-11] MEDS: HEPARIN NA (PORCINE) 5,000 UNITS/ML 1ML VIAL SQ SCH ×3 (06:26→21:31)
[2017-12-11] MEDS: FERROUS SO4 325 MG TABLET (FP) PO SCH (08:12)
--- NOTE | 2017-12-11 09:58 | PN ---
Progress Note, Physician History of Present Illness: patient looks better has been afebrile some discomfort - Current Medication List Current Medications: Active Medications Acetaminophen/Butalbital/Caffeine (Fioricet -) 1 tablet PO Q4H PRN PRN Reason: HEADACHE Last Admin: 12/11/17 07:40 Dose: 1 tablet Atorvastatin Calcium (Lipitor -) 10 mg PO HS [facility] Last Admin: 12/10/17 21:31 Dose: 10 mg Clindamycin HCl (Cleocin -) 300 mg PO Q6HPO [facility] Last Admin: 12/11/17 06:22 Dose: 300 mg Diazepam (Valium -) 5 mg PO Q4H PRN PRN Reason: MUSCLE SPASMS Last Admin: 12/11/17 01:02 Dose: 5 mg Diphenhydramine HCl (Benadryl -) 25 mg PO Q6H PRN PRN Reason: FOR ITCHING Docusate Sodium (Colace -) 100 mg PO TID [facility] Last Admin: 12/11/17 06:24 Dose: Not Given Ferrous Sulfate (Feosol -) 325 mg PO DAILY@0800 [facility] Last Admin: 12/11/17 08:12 Dose: 325 mg Folic Acid (Folic Acid -) 1 mg PO DAILY [facility] Last Admin: 12/10/17 09:34 Dose: 1 mg Gabapentin (Neurontin -) 300 mg PO TID [facility] Last Admin: 12/11/17 06:25 Dose: 300 mg Heparin Sodium (Porcine) (Heparin -) 5,000 unit SQ TID [facility] Last Admin: 12/11/17 06:26 Dose: 5,000 unit Miscellaneous (Lidoderm Patch Removal) 1 each MC DAILY@2200 [facility] Last Admin: 12/10/17 22:05 Dose: 1 each Non-Formulary Medication (Fluticasone/Vilanterol [Breo Ellipta 200-25 Mcg Inh]) 1 each IH PRN [facility] Ondansetron HCl (Zofran -) 4 mg PO Q8H PRN PRN Reason: NAUSEA Last Admin: 12/10/17 21:31 Dose: 4 mg Oxycodone HCl (Roxicodone -) 10 mg PO Q6H PRN PRN Reason: PAIN LEVEL 6-10 Last Admin: 12/11/17 01:03 Dose: 10 mg Senna (Senna -) 2 tab PO HS PRN PRN Reason: CONSTIPATION Last Admin: 12/09/17 21:18 Dose: 2 tab - Objective Vital Signs: Vital Signs Temperature 99.1 F 12/11/17 07:17 Pulse Rate 107 H 12/11/17 07:17 Respiratory Rate 18 12/11/17 07:17 Blood Pressure 129/64 12/11/17 07:17 O2 Sat by Pulse Oximetry (%) 98 12/10/17 21:00 Constitutional: Yes: No Distress, Calm HENT: Yes: Other (neck) Cardiovascular: Yes: Regular Rate and Rhythm Respiratory: Yes: Regular, CTA Bilaterally Gastrointestinal: Yes: Normal Bowel Sounds, Soft Musculoskeletal: Yes: WNL Extremities: Yes: WNL Neurological: Yes: Alert, Oriented Psychiatric: Yes: Alert, Oriented Labs: CBC, BMP 12/10/17 07:00 12/10/17 07:00 INR, PTT INR 1.19 (0.83-1.09) H 12/03/17 15:30 Assessment/Plan Problem List - Problems (1) Cervical pain (neck) Code(s): M54.2 - CERVICALGIA (2) Intractable back pain Code(s): M54.9 - DORSALGIA, UNSPECIFIED (3) Weakness of left upper extremity Code(s): M62.81 - MUSCLE WEAKNESS (GENERALIZED) (4) Asthmatic bronchitis Code(s): J45.909 - UNSPECIFIED ASTHMA, UNCOMPLICATED (5) Hypertension Code(s): I10 - ESSENTIAL (PRIMARY) HYPERTENSION 6 fever 7 leukocytosis ASSESSMENT/PLAN: S/P exploration of spinal fusion, removal of sublaminal wires, C2-T1 Laminectomies, C7-T1 osteotomies, C2-T1 deformity correction with posterior fusion, removal of anterior instrumentation, C4/C5 corpectomies, reconstruction with Peek cages and anterior plating, durotomy. patient spiking fevers plan continue current mgmt rest as per the team will check wbc tomorrow rest as per the team
[2017-12-11] MEDS: FOLIC ACID 1 MG TABLET (FP) PO SCH (10:12)
[2017-12-11] MEDS ORDERED: BISACODYL 10 MG SUPP.RECT RC PRN (11:47)
[2017-12-11] MEDS ORDERED: PT OWN MED DRAWER 7, Y5N ONE ×2 (12:09→14:20)
--- NOTE | 2017-12-11 12:12 | PROC ---
Procedure Note Procedure: Patient spiking fevers. Central line in > 7 days. ID consulted and following. Right IJ central line removed with distal tip intact. Occlusive dressing applied. Tolerated well.
[2017-12-11] MEDS: ONDANSETRON 4 MG TABLET PO PRN (15:58)
[2017-12-11] MEDS: LIDOCAINE PATCH REMOVAL MC SCH (21:34)
[2017-12-11] MEDS: ATORVASTATIN CA 10 MG TABLET (FP) PO SCH (21:34)
[2017-12-12] MEDS: oxyCODONE HCL 5 MG TABLET PO PRN ×3 (06:46→18:21)
[2017-12-12] MEDS: ACETAMINOPHEN/CAFFEINE/BUTALBITAL 1 TAB PO PRN ×3 (06:47→16:59)
[2017-12-12] MEDS: HEPARIN NA (PORCINE) 5,000 UNITS/ML 1ML VIAL SQ SCH ×4 (06:47→22:17)
[2017-12-12] MEDS: GABAPENTIN 300 MG CAPSULE (FP) PO SCH ×4 (06:47→22:04)
[2017-12-12] MEDS: DOCUSATE SODIUM 100 MG CAPSULE (FP) PO SCH ×4 (06:48→22:04)
[2017-12-12] MEDS: CLINDAMYCIN HCL 150 MG CAPSULE (FP) PO SCH ×4 (06:48→23:35)
[2017-12-12 08:04] LABS: HEMATOCRIT 33.3 % (32.4-45.2); HEMOGLOBIN 11.5 GM/dL (10.7-15.3); MCH 30.6 pg (25.7-33.7); MCHC 34.5 g/dl (32.0-36.0); MEAN CELL VOLUME 88.6 fl (80-96); MEAN PLT VOLUME 7.4 fl (7.5-11.1); PLATELET COUNT 409 K/MM3 (134-434); RBC 3.76 M/mm3 (3.60-5.2); RDW 14.5 % (11.6-15.6); WHITE BLOOD COUNT 9.9 K/mm3 (4.0-10.0)
[2017-12-12 08:10] LABS: CHLORIDE 99 mmol/L (98-107); SODIUM 137 mmol/L (136-145)
[2017-12-12 08:23] LABS: ANION GAP 9 (8-16); BLOOD UREA NITROGEN 21 mg/dL (7-18); CALCIUM 8.8 mg/dL (8.5-10.1); CO2 29 mmol/L (21-32); CREATININE 0.9 mg/dL (0.55-1.02); GLUCOSE,RANDOM 120 mg/dL (74-106)
[2017-12-12] MEDS: FERROUS SO4 325 MG TABLET (FP) PO SCH (09:26)
[2017-12-12] MEDS: diazePAM 5 MG TABLET PO PRN ×2 (09:26→22:04)
[2017-12-12] MEDS: FOLIC ACID 1 MG TABLET (FP) PO SCH (09:26)
--- NOTE | 2017-12-12 12:02 | PN ---
Progress Note, Physician Chief Complaint: C/O bad head aches History of Present Illness: S/P neck surgery,sill has weakness LUE - Current Medication List Current Medications: Active Medications Acetaminophen (Tylenol -) 500 mg PO Q6H PRN PRN Reason: PAIN LEVEL 1-5 Acetaminophen/Butalbital/Caffeine (Fioricet -) 1 tablet PO Q4H PRN PRN Reason: HEADACHE Last Admin: 12/12/17 11:45 Dose: 1 tablet Atorvastatin Calcium (Lipitor -) 10 mg PO HS [facility] Last Admin: 12/11/17 21:34 Dose: 10 mg Bisacodyl (Dulcolax Suppository -) 10 mg RC DAILY PRN PRN Reason: CONSTIPATION Last Admin: 12/11/17 12:04 Dose: 10 mg Clindamycin HCl (Cleocin -) 300 mg PO Q6HPO [facility] Last Admin: 12/12/17 06:48 Dose: 300 mg Diazepam (Valium -) 5 mg PO Q4H PRN PRN Reason: MUSCLE SPASMS Last Admin: 12/12/17 09:26 Dose: 5 mg Diphenhydramine HCl (Benadryl -) 25 mg PO Q6H PRN PRN Reason: FOR ITCHING Docusate Sodium (Colace -) 100 mg PO TID [facility] Last Admin: 12/12/17 07:58 Dose: Not Given Ferrous Sulfate (Feosol -) 325 mg PO DAILY@0800 [facility] Last Admin: 12/12/17 09:26 Dose: 325 mg Folic Acid (Folic Acid -) 1 mg PO DAILY [facility] Last Admin: 12/12/17 09:26 Dose: 1 mg Gabapentin (Neurontin -) 300 mg PO TID [facility] Last Admin: 12/12/17 07:59 Dose: Not Given Heparin Sodium (Porcine) (Heparin -) 5,000 unit SQ TID [facility] Last Admin: 12/12/17 07:59 Dose: Not Given Miscellaneous (Lidoderm Patch Removal) 1 each MC DAILY@2200 [facility] Last Admin: 12/11/17 21:34 Dose: 1 each Non-Formulary Medication (Fluticasone/Vilanterol [Breo Ellipta 200-25 Mcg Inh]) 1 each IH PRN [facility] Ondansetron HCl (Zofran -) 4 mg PO Q8H PRN PRN Reason: NAUSEA Last Admin: 12/11/17 15:58 Dose: 4 mg Oxycodone HCl (Roxicodone -) 10 mg PO Q6H PRN PRN Reason: PAIN LEVEL 6-10 Last Admin: 12/12/17 06:46 Dose: 10 mg Senna (Senna -) 2 tab PO HS PRN PRN Reason: CONSTIPATION Last Admin: 12/09/17 21:18 Dose: 2 tab - Objective Vital Signs: Vital Signs Temperature 99.2 F 12/12/17 06:00 Pulse Rate 94 H 12/12/17 06:00 Respiratory Rate 20 12/12/17 06:00 Blood Pressure 112/74 12/12/17 06:00 O2 Sat by Pulse Oximetry (%) 99 12/11/17 21:00 Constitutional: Yes: Moderate Distress Eyes: Yes: WNL HENT: Yes: WNL Neck: Yes: Other (Dressings intact Has the coller in place) Cardiovascular: Yes: WNL Respiratory: Yes: WNL ...Rectal Exam: Yes: Deferred Genitourinary: Yes: WNL Edema: No Peripheral Pulses WNL: Yes Neurological: Yes: Alert Psychiatric: Yes: Alert Labs: CBC, BMP 12/12/17 06:30 12/12/17 06:30 INR, PTT INR 1.19 (0.83-1.09) H 12/03/17 15:30 Assessment/Plan continue same treatment
--- NOTE | 2017-12-12 12:39 | PN ---
Progress Note, Physician History of Present Illness: headaches weakness left arm wbc has normalized - Current Medication List Current Medications: Active Medications Acetaminophen (Tylenol -) 500 mg PO Q6H PRN PRN Reason: PAIN LEVEL 1-5 Acetaminophen/Butalbital/Caffeine (Fioricet -) 1 tablet PO Q4H PRN PRN Reason: HEADACHE Last Admin: 12/12/17 11:45 Dose: 1 tablet Atorvastatin Calcium (Lipitor -) 10 mg PO HS [facility] Last Admin: 12/11/17 21:34 Dose: 10 mg Bisacodyl (Dulcolax Suppository -) 10 mg RC DAILY PRN PRN Reason: CONSTIPATION Last Admin: 12/11/17 12:04 Dose: 10 mg Clindamycin HCl (Cleocin -) 300 mg PO Q6HPO [facility] Last Admin: 12/12/17 06:48 Dose: 300 mg Diazepam (Valium -) 5 mg PO Q4H PRN PRN Reason: MUSCLE SPASMS Last Admin: 12/12/17 09:26 Dose: 5 mg Diphenhydramine HCl (Benadryl -) 25 mg PO Q6H PRN PRN Reason: FOR ITCHING Docusate Sodium (Colace -) 100 mg PO TID [facility] Last Admin: 12/12/17 07:58 Dose: Not Given Ferrous Sulfate (Feosol -) 325 mg PO DAILY@0800 [facility] Last Admin: 12/12/17 09:26 Dose: 325 mg Folic Acid (Folic Acid -) 1 mg PO DAILY [facility] Last Admin: 12/12/17 09:26 Dose: 1 mg Gabapentin (Neurontin -) 300 mg PO TID [facility] Last Admin: 12/12/17 07:59 Dose: Not Given Heparin Sodium (Porcine) (Heparin -) 5,000 unit SQ TID [facility] Last Admin: 12/12/17 07:59 Dose: Not Given Miscellaneous (Lidoderm Patch Removal) 1 each MC DAILY@2200 [facility] Last Admin: 12/11/17 21:34 Dose: 1 each Non-Formulary Medication (Fluticasone/Vilanterol [Breo Ellipta 200-25 Mcg Inh]) 1 each IH PRN [facility] Ondansetron HCl (Zofran -) 4 mg PO Q8H PRN PRN Reason: NAUSEA Last Admin: 12/11/17 15:58 Dose: 4 mg Oxycodone HCl (Roxicodone -) 10 mg PO Q6H PRN PRN Reason: PAIN LEVEL 6-10 Last Admin: 12/12/17 12:06 Dose: 10 mg Senna (Senna -) 2 tab PO HS PRN PRN Reason: CONSTIPATION Last Admin: 12/09/17 21:18 Dose: 2 tab - Objective Vital Signs: Vital Signs Temperature 99.2 F 12/12/17 06:00 Pulse Rate 94 H 12/12/17 06:00 Respiratory Rate 20 12/12/17 06:00 Blood Pressure 112/74 12/12/17 06:00 O2 Sat by Pulse Oximetry (%) 99 12/11/17 21:00 Constitutional: Yes: No Distress, Calm HENT: Yes: Other (hard collar) Cardiovascular: Yes: Regular Rate and Rhythm Respiratory: Yes: Regular, CTA Bilaterally Gastrointestinal: Yes: Normal Bowel Sounds, Soft Musculoskeletal: Yes: WNL Extremities: Yes: WNL Neurological: Yes: Alert, Oriented Psychiatric: Yes: Alert, Oriented Labs: CBC, BMP 12/12/17 06:30 12/12/17 06:30 INR, PTT INR 1.19 (0.83-1.09) H 12/03/17 15:30 Assessment/Plan Problem List - Problems (1) Cervical pain (neck) Code(s): M54.2 - CERVICALGIA (2) Intractable back pain Code(s): M54.9 - DORSALGIA, UNSPECIFIED (3) Weakness of left upper extremity Code(s): M62.81 - MUSCLE WEAKNESS (GENERALIZED) (4) Asthmatic bronchitis Code(s): J45.909 - UNSPECIFIED ASTHMA, UNCOMPLICATED (5) Hypertension Code(s): I10 - ESSENTIAL (PRIMARY) HYPERTENSION 6 fever 7 leukocytosis ASSESSMENT/PLAN: S/P exploration of spinal fusion, removal of sublaminal wires, C2-T1 Laminectomies, C7-T1 osteotomies, C2-T1 deformity correction with posterior fusion, removal of anterior instrumentation, C4/C5 corpectomies, reconstruction with Peek cages and anterior plating, durotomy. patient spiking fevers plan continue current mgmt rest as per the team
[2017-12-12] MEDS: ATORVASTATIN CA 10 MG TABLET (FP) PO SCH (22:04)
[2017-12-12] MEDS: diphenhydrAMINE HCL 25 MG CAPSULE (FP) PO PRN (22:04)
[2017-12-12] MEDS: ACETAMINOPHEN 500 MG TABLET (FP) PO PRN (22:05)
[2017-12-12] MEDS: LIDOCAINE PATCH REMOVAL MC SCH ×2 (22:16→22:25)
[2017-12-13] MEDS: diazePAM 5 MG TABLET PO PRN ×2 (02:46→13:55)
[2017-12-13] MEDS: ACETAMINOPHEN 500 MG TABLET (FP) PO PRN (03:03)
[2017-12-13] MEDS: GABAPENTIN 300 MG CAPSULE (FP) PO SCH ×3 (06:53→21:47)
[2017-12-13] MEDS: CLINDAMYCIN HCL 150 MG CAPSULE (FP) PO SCH ×4 (06:53→23:09)
[2017-12-13] MEDS: DOCUSATE SODIUM 100 MG CAPSULE (FP) PO SCH ×3 (06:53→21:47)
[2017-12-13] MEDS: HEPARIN NA (PORCINE) 5,000 UNITS/ML 1ML VIAL SQ SCH ×3 (06:54→21:48)
--- NOTE | 2017-12-13 07:17 | PN ---
Progress Note, Physician History of Present Illness: still continues to have headaches no other issues some neck pain still in c collar - Current Medication List Current Medications: Active Medications Acetaminophen (Tylenol -) 500 mg PO Q6H PRN PRN Reason: PAIN LEVEL 1-5 Last Admin: 12/13/17 03:03 Dose: 500 mg Atorvastatin Calcium (Lipitor -) 10 mg PO HS [facility] Last Admin: 12/12/17 22:04 Dose: 10 mg Bisacodyl (Dulcolax Suppository -) 10 mg RC DAILY PRN PRN Reason: CONSTIPATION Last Admin: 12/11/17 12:04 Dose: 10 mg Clindamycin HCl (Cleocin -) 300 mg PO Q6HPO [facility] Last Admin: 12/13/17 06:53 Dose: 300 mg Diazepam (Valium -) 5 mg PO Q4H PRN PRN Reason: MUSCLE SPASMS Last Admin: 12/13/17 02:46 Dose: 5 mg Diphenhydramine HCl (Benadryl -) 25 mg PO Q6H PRN PRN Reason: FOR ITCHING Last Admin: 12/12/17 22:04 Dose: 25 mg Docusate Sodium (Colace -) 100 mg PO TID [facility] Last Admin: 12/13/17 06:53 Dose: 100 mg Ferrous Sulfate (Feosol -) 325 mg PO DAILY@0800 [facility] Last Admin: 12/12/17 09:26 Dose: 325 mg Folic Acid (Folic Acid -) 1 mg PO DAILY [facility] Last Admin: 12/12/17 09:26 Dose: 1 mg Gabapentin (Neurontin -) 300 mg PO TID [facility] Last Admin: 12/13/17 06:53 Dose: 300 mg Heparin Sodium (Porcine) (Heparin -) 5,000 unit SQ TID [facility] Last Admin: 12/13/17 06:54 Dose: 5,000 unit Miscellaneous (Lidoderm Patch Removal) 1 each MC DAILY@2200 [facility] Last Admin: 12/12/17 22:25 Dose: Not Given Non-Formulary Medication (Fluticasone/Vilanterol [Breo Ellipta 200-25 Mcg Inh]) 1 each IH PRN [facility] Ondansetron HCl (Zofran -) 4 mg PO Q8H PRN PRN Reason: NAUSEA Last Admin: 12/11/17 15:58 Dose: 4 mg Senna (Senna -) 2 tab PO HS PRN PRN Reason: CONSTIPATION Last Admin: 12/09/17 21:18 Dose: 2 tab - Objective Vital Signs: Vital Signs Temperature 99.6 F 12/12/17 22:00 Pulse Rate 94 H 12/12/17 22:00 Respiratory Rate 18 12/12/17 22:00 Blood Pressure 123/71 12/12/17 22:00 O2 Sat by Pulse Oximetry (%) 95 12/12/17 21:00 Constitutional: Yes: No Distress, Calm HENT: Yes: Other (c collar) Cardiovascular: Yes: Regular Rate and Rhythm Respiratory: Yes: Regular, CTA Bilaterally Gastrointestinal: Yes: Normal Bowel Sounds, Soft Musculoskeletal: Yes: WNL Extremities: Yes: WNL Neurological: Yes: Alert, Oriented Labs: CBC, BMP 12/12/17 06:30 12/12/17 06:30 INR, PTT INR 1.19 (0.83-1.09) H 12/03/17 15:30 Assessment/Plan Problem List - Problems (1) Cervical pain (neck) Code(s): M54.2 - CERVICALGIA (2) Intractable back pain Code(s): M54.9 - DORSALGIA, UNSPECIFIED (3) Weakness of left upper extremity Code(s): M62.81 - MUSCLE WEAKNESS (GENERALIZED) (4) Asthmatic bronchitis Code(s): J45.909 - UNSPECIFIED ASTHMA, UNCOMPLICATED (5) Hypertension Code(s): I10 - ESSENTIAL (PRIMARY) HYPERTENSION 6 fever 7 leukocytosis ASSESSMENT/PLAN: S/P exploration of spinal fusion, removal of sublaminal wires, C2-T1 Laminectomies, C7-T1 osteotomies, C2-T1 deformity correction with posterior fusion, removal of anterior instrumentation, C4/C5 corpectomies, reconstruction with Peek cages and anterior plating, durotomy. patient spiking fevers plan continue current mgmt rest as per the team will stop clinda tomorrow physio
[2017-12-13] MEDS: FOLIC ACID 1 MG TABLET (FP) PO SCH (10:30)
[2017-12-13] MEDS: FERROUS SO4 325 MG TABLET (FP) PO SCH (10:30)
[2017-12-13] MEDS: ACETAMINOPHEN/CAFFEINE/BUTALBITAL 1 TAB PO PRN ×3 (10:31→21:47)
[2017-12-13] MEDS: oxyCODONE HCL 5 MG TABLET PO PRN ×3 (10:31→23:10)
--- NOTE | 2017-12-13 12:16 | PN ---
Progress Note, Physician Chief Complaint: Still C/o sevior headache History of Present Illness: S/P neck surgery C/O head ache not relived with fiorecet - Current Medication List Current Medications: Active Medications Acetaminophen (Tylenol -) 500 mg PO Q6H PRN PRN Reason: PAIN LEVEL 1-5 Last Admin: 12/13/17 03:03 Dose: 500 mg Acetaminophen/Butalbital/Caffeine (Fioricet -) 1 tablet PO Q4H PRN PRN Reason: HEADACHE Last Admin: 12/13/17 10:31 Dose: 1 tablet Atorvastatin Calcium (Lipitor -) 10 mg PO HS [facility] Last Admin: 12/12/17 22:04 Dose: 10 mg Bisacodyl (Dulcolax Suppository -) 10 mg RC DAILY PRN PRN Reason: CONSTIPATION Last Admin: 12/11/17 12:04 Dose: 10 mg Clindamycin HCl (Cleocin -) 300 mg PO Q6HPO [facility] Last Admin: 12/13/17 06:53 Dose: 300 mg Diazepam (Valium -) 5 mg PO Q4H PRN PRN Reason: MUSCLE SPASMS Last Admin: 12/13/17 02:46 Dose: 5 mg Diphenhydramine HCl (Benadryl -) 25 mg PO Q6H PRN PRN Reason: FOR ITCHING Last Admin: 12/12/17 22:04 Dose: 25 mg Docusate Sodium (Colace -) 100 mg PO TID [facility] Last Admin: 12/13/17 06:53 Dose: 100 mg Ferrous Sulfate (Feosol -) 325 mg PO DAILY@0800 [facility] Last Admin: 12/13/17 10:30 Dose: 325 mg Folic Acid (Folic Acid -) 1 mg PO DAILY [facility] Last Admin: 12/13/17 10:30 Dose: 1 mg Gabapentin (Neurontin -) 300 mg PO TID [facility] Last Admin: 12/13/17 06:53 Dose: 300 mg Heparin Sodium (Porcine) (Heparin -) 5,000 unit SQ TID [facility] Last Admin: 12/13/17 06:54 Dose: 5,000 unit Miscellaneous (Lidoderm Patch Removal) 1 each MC DAILY@2200 [facility] Last Admin: 12/12/17 22:25 Dose: Not Given Non-Formulary Medication (Fluticasone/Vilanterol [Breo Ellipta 200-25 Mcg Inh]) 1 each IH PRN [facility] Ondansetron HCl (Zofran -) 4 mg PO Q8H PRN PRN Reason: NAUSEA Last Admin: 12/11/17 15:58 Dose: 4 mg Oxycodone HCl (Roxicodone -) 10 mg PO Q6H PRN PRN Reason: PAIN 6-10 Last Admin: 12/13/17 10:31 Dose: 10 mg Senna (Senna -) 2 tab PO HS PRN PRN Reason: CONSTIPATION Last Admin: 12/09/17 21:18 Dose: 2 tab - Objective Vital Signs: Vital Signs Temperature 99.6 F 12/13/17 08:00 Pulse Rate 90 12/13/17 08:00 Respiratory Rate 18 12/13/17 08:00 Blood Pressure 101/52 12/13/17 08:00 O2 Sat by Pulse Oximetry (%) 95 12/12/17 21:00 Constitutional: Yes: Mild Distress Eyes: Yes: WNL HENT: Yes: WNL Neck: Yes: Rigid Cardiovascular: Yes: WNL Respiratory: Yes: WNL Gastrointestinal: Yes: WNL ...Rectal Exam: Yes: Deferred Genitourinary: Yes: WNL Musculoskeletal: Yes: Back Pain Edema: No Wound/Incision: Yes: Clean/Dry Neurological: Yes: Alert Psychiatric: Yes: Alert Labs: CBC, BMP 12/12/17 06:30 12/12/17 06:30 INR, PTT INR 1.19 (0.83-1.09) H 12/03/17 15:30 Assessment/Plan Will give immitrx atrial for head ache
[2017-12-13] MEDS ORDERED: SUMAtriptan SUCCINATE 50 MG TABLET PO SCH (13:00)
[2017-12-13] MEDS ORDERED: SUMAtriptan SUCCINATE 50 MG TABLET PO ONE (13:00)
[2017-12-13] MEDS: diphenhydrAMINE HCL 25 MG CAPSULE (FP) PO PRN (21:47)
[2017-12-13] MEDS: ATORVASTATIN CA 10 MG TABLET (FP) PO SCH (21:47)
[2017-12-13] MEDS: LIDOCAINE PATCH REMOVAL MC SCH (21:48)
[2017-12-14] MEDS: ACETAMINOPHEN/CAFFEINE/BUTALBITAL 1 TAB PO PRN ×5 (02:05→23:52)
[2017-12-14] MEDS: oxyCODONE HCL 5 MG TABLET PO PRN ×3 (06:53→19:07)
[2017-12-14] MEDS: CLINDAMYCIN HCL 150 MG CAPSULE (FP) PO SCH ×2 (06:53→12:56)
[2017-12-14] MEDS: DOCUSATE SODIUM 100 MG CAPSULE (FP) PO SCH ×3 (06:53→21:54)
[2017-12-14] MEDS: HEPARIN NA (PORCINE) 5,000 UNITS/ML 1ML VIAL SQ SCH ×3 (06:53→22:03)
[2017-12-14] MEDS: GABAPENTIN 300 MG CAPSULE (FP) PO SCH ×3 (06:53→21:54)
[2017-12-14] MEDS: FERROUS SO4 325 MG TABLET (FP) PO SCH (08:12)
--- NOTE | 2017-12-14 09:22 | PN ---
Progress Note, Physician Chief Complaint: pain better History of Present Illness: S/P neck surgery,doing better - Current Medication List Current Medications: Active Medications Acetaminophen (Tylenol -) 500 mg PO Q6H PRN PRN Reason: PAIN LEVEL 1-5 Last Admin: 12/13/17 03:03 Dose: 500 mg Acetaminophen/Butalbital/Caffeine (Fioricet -) 1 tablet PO Q4H PRN PRN Reason: HEADACHE Last Admin: 12/14/17 06:52 Dose: 1 tablet Atorvastatin Calcium (Lipitor -) 10 mg PO HS [facility] Last Admin: 12/13/17 21:47 Dose: 10 mg Bisacodyl (Dulcolax Suppository -) 10 mg RC DAILY PRN PRN Reason: CONSTIPATION Last Admin: 12/11/17 12:04 Dose: 10 mg Clindamycin HCl (Cleocin -) 300 mg PO Q6HPO [facility] Last Admin: 12/14/17 06:53 Dose: 300 mg Diphenhydramine HCl (Benadryl -) 25 mg PO Q6H PRN PRN Reason: FOR ITCHING Last Admin: 12/13/17 21:47 Dose: 25 mg Docusate Sodium (Colace -) 100 mg PO TID [facility] Last Admin: 12/14/17 06:53 Dose: 100 mg Ferrous Sulfate (Feosol -) 325 mg PO DAILY@0800 [facility] Last Admin: 12/14/17 08:12 Dose: 325 mg Folic Acid (Folic Acid -) 1 mg PO DAILY [facility] Last Admin: 12/13/17 10:30 Dose: 1 mg Gabapentin (Neurontin -) 300 mg PO TID [facility] Last Admin: 12/14/17 06:53 Dose: 300 mg Heparin Sodium (Porcine) (Heparin -) 5,000 unit SQ TID [facility] Last Admin: 12/14/17 06:53 Dose: 5,000 unit Lidocaine (Lidoderm Patch -) 1 patch TP DAILY [facility] Miscellaneous (Lidoderm Patch Removal) 1 each MC DAILY@2200 [facility] Non-Formulary Medication (Fluticasone/Vilanterol [Breo Ellipta 200-25 Mcg Inh]) 1 each IH PRN [facility] Ondansetron HCl (Zofran -) 4 mg PO Q8H PRN PRN Reason: NAUSEA Last Admin: 12/11/17 15:58 Dose: 4 mg Oxycodone HCl (Roxicodone -) 10 mg PO Q6H PRN PRN Reason: PAIN 6-10 Last Admin: 12/14/17 06:53 Dose: 10 mg Senna (Senna -) 2 tab PO HS PRN PRN Reason: CONSTIPATION Last Admin: 12/09/17 21:18 Dose: 2 tab - Objective Vital Signs: Vital Signs Temperature 99.2 F 12/14/17 06:00 Pulse Rate 87 12/14/17 06:00 Respiratory Rate 20 12/14/17 06:00 Blood Pressure 119/64 12/14/17 06:00 O2 Sat by Pulse Oximetry (%) 96 12/13/17 21:00 Constitutional: Yes: Anxious Eyes: Yes: WNL HENT: Yes: WNL Neck: Yes: WNL Cardiovascular: Yes: WNL Respiratory: Yes: WNL Gastrointestinal: Yes: WNL ...Rectal Exam: Yes: Deferred Genitourinary: Yes: WNL Musculoskeletal: Yes: WNL Edema: No Neurological: Yes: Alert Labs: CBC, BMP 12/12/17 06:30 12/12/17 06:30 INR, PTT INR 1.19 (0.83-1.09) H 12/03/17 15:30 Assessment/Plan Will talk to SW regarding DC home
[2017-12-14] MEDS: ACETAMINOPHEN 500 MG TABLET (FP) PO PRN ×2 (09:27→21:52)
[2017-12-14] MEDS: FOLIC ACID 1 MG TABLET (FP) PO SCH (10:15)
[2017-12-14] MEDS: LIDOCAINE 5% TOPICAL PATCH TP SCH (10:15)
--- NOTE | 2017-12-14 12:24 | PN ---
Progress Note, Physician History of Present Illness: still continues to have headaches no fever stable - Current Medication List Current Medications: Active Medications Acetaminophen (Tylenol -) 500 mg PO Q6H PRN PRN Reason: PAIN LEVEL 1-5 Last Admin: 12/14/17 09:27 Dose: 500 mg Acetaminophen/Butalbital/Caffeine (Fioricet -) 1 tablet PO Q4H PRN PRN Reason: HEADACHE Last Admin: 12/14/17 06:52 Dose: 1 tablet Atorvastatin Calcium (Lipitor -) 10 mg PO HS [facility] Last Admin: 12/13/17 21:47 Dose: 10 mg Bisacodyl (Dulcolax Suppository -) 10 mg RC DAILY PRN PRN Reason: CONSTIPATION Last Admin: 12/11/17 12:04 Dose: 10 mg Diphenhydramine HCl (Benadryl -) 25 mg PO Q6H PRN PRN Reason: FOR ITCHING Last Admin: 12/13/17 21:47 Dose: 25 mg Docusate Sodium (Colace -) 100 mg PO TID [facility] Last Admin: 12/14/17 06:53 Dose: 100 mg Ferrous Sulfate (Feosol -) 325 mg PO DAILY@0800 [facility] Last Admin: 12/14/17 08:12 Dose: 325 mg Folic Acid (Folic Acid -) 1 mg PO DAILY [facility] Last Admin: 12/14/17 10:15 Dose: 1 mg Gabapentin (Neurontin -) 300 mg PO TID [facility] Last Admin: 12/14/17 06:53 Dose: 300 mg Heparin Sodium (Porcine) (Heparin -) 5,000 unit SQ TID [facility] Last Admin: 12/14/17 06:53 Dose: 5,000 unit Lidocaine (Lidoderm Patch -) 1 patch TP DAILY [facility] Last Admin: 12/14/17 10:15 Dose: 1 patch Miscellaneous (Lidoderm Patch Removal) 1 each MC DAILY@2200 [facility] Non-Formulary Medication (Fluticasone/Vilanterol [Breo Ellipta 200-25 Mcg Inh]) 1 each IH PRN [facility] Ondansetron HCl (Zofran -) 4 mg PO Q8H PRN PRN Reason: NAUSEA Last Admin: 12/11/17 15:58 Dose: 4 mg Oxycodone HCl (Roxicodone -) 10 mg PO Q6H PRN PRN Reason: PAIN 6-10 Last Admin: 12/14/17 06:53 Dose: 10 mg Senna (Senna -) 2 tab PO HS PRN PRN Reason: CONSTIPATION Last Admin: 12/09/17 21:18 Dose: 2 tab - Objective Vital Signs: Vital Signs Temperature 97.6 F 12/14/17 08:00 Pulse Rate 98 H 12/14/17 08:00 Respiratory Rate 20 12/14/17 08:00 Blood Pressure 116/83 12/14/17 08:00 O2 Sat by Pulse Oximetry (%) 98 12/14/17 10:30 Constitutional: Yes: No Distress, Calm HENT: Yes: Other Cardiovascular: Yes: Regular Rate and Rhythm Respiratory: Yes: Regular, CTA Bilaterally Gastrointestinal: Yes: Normal Bowel Sounds, Soft Musculoskeletal: Yes: WNL Extremities: Yes: WNL Neurological: Yes: Alert, Oriented Psychiatric: Yes: Alert, Oriented Labs: CBC, BMP 12/12/17 06:30 12/12/17 06:30 INR, PTT INR 1.19 (0.83-1.09) H 12/03/17 15:30 Assessment/Plan Problem List - Problems (1) Cervical pain (neck) Code(s): M54.2 - CERVICALGIA (2) Intractable back pain Code(s): M54.9 - DORSALGIA, UNSPECIFIED (3) Weakness of left upper extremity Code(s): M62.81 - MUSCLE WEAKNESS (GENERALIZED) (4) Asthmatic bronchitis Code(s): J45.909 - UNSPECIFIED ASTHMA, UNCOMPLICATED (5) Hypertension Code(s): I10 - ESSENTIAL (PRIMARY) HYPERTENSION 6 fever 7 leukocytosis ASSESSMENT/PLAN: S/P exploration of spinal fusion, removal of sublaminal wires, C2-T1 Laminectomies, C7-T1 osteotomies, C2-T1 deformity correction with posterior fusion, removal of anterior instrumentation, C4/C5 corpectomies, reconstruction with Peek cages and anterior plating, durotomy. patient spiking fevers plan continue current mgmt rest as per the team stopped clinda physio rest as per the team
[2017-12-14] MEDS: diphenhydrAMINE HCL 25 MG CAPSULE (FP) PO PRN ×2 (18:14→23:53)
[2017-12-14] MEDS: ATORVASTATIN CA 10 MG TABLET (FP) PO SCH (21:54)
[2017-12-14] MEDS ORDERED: LIDOCAINE PATCH REMOVAL MC SCH (22:00)
[2017-12-15] MEDS: DOCUSATE SODIUM 100 MG CAPSULE (FP) PO SCH (06:33)
[2017-12-15] MEDS: GABAPENTIN 300 MG CAPSULE (FP) PO SCH (06:33)
[2017-12-15] MEDS: ACETAMINOPHEN/CAFFEINE/BUTALBITAL 1 TAB PO PRN ×2 (06:33→10:36)
[2017-12-15] MEDS: oxyCODONE HCL 5 MG TABLET PO PRN (06:34)
[2017-12-15] MEDS: HEPARIN NA (PORCINE) 5,000 UNITS/ML 1ML VIAL SQ SCH (06:39)
[2017-12-15] MEDS: ONDANSETRON 4 MG TABLET PO PRN (07:38)
--- NOTE | 2017-12-15 08:49 | DS ---
Physical Examination Vital Signs: Vital Signs Temperature 98.8 F 12/15/17 06:00 Pulse Rate 89 12/15/17 06:00 Respiratory Rate 20 12/15/17 06:00 Blood Pressure 106/73 12/15/17 06:00 O2 Sat by Pulse Oximetry (%) 97 12/14/17 21:00 Findings/Remarks: S/P cervical spine fusion Head aches on and off Constitutional: Yes: Anxious Eyes: Yes: WNL HENT: Yes: WNL Neck: Yes: Decreased ROM Cardiovascular: Yes: Regular Rate and Rhythm Respiratory: Yes: WNL Gastrointestinal: Yes: WNL ...Rectal Exam: Yes: Deferred Renal/: Yes: WNL Breast(s): Yes: WNL Musculoskeletal: Yes: Muscle Weakness Edema: No Peripheral Pulses WNL: Yes Wound/Incision: Yes: Clean/Dry Neurological: Yes: Alert Psychiatric: Yes: Alert Labs: CBC, BMP 12/12/17 06:30 12/12/17 06:30 Discharge Summary Reason For Visit: INTRACTABLE PAIN Current Active Problems COPD (chronic obstructive pulmonary disease) (Acute) Cervical pain (neck) (Acute) Intractable back pain (Acute) Intractable pain (Acute) Weakness of left upper extremity (Acute) Condition: Fair - Instructions Referrals: Caesar Wright MD [Primary Care Provider] - - Home Medications Comprehensive Discharge Medication List: Ambulatory Orders Estrogens, Conjugated [Premarin] 0.625 mg PO DAILY 01/02/17 Simvastatin 10 mg PO DAILY 09/19/17 Losartan Potassium 50 mg PO ASDIR 10/31/17 Benzonatate 100 mg PO DAILY 11/09/17 Fluticasone/Vilanterol [Breo Ellipta 200-25 Mcg INH] 1 each IH PRN 11/09/17 Acetaminophen W/ Codeine #3 [Tylenol # 3 -] 1 tab PO Q6H 11/27/17 Gabapentin [Neurontin -] 100 mg PO Q8H 11/27/17 Ondansetron HCl [Zofran] 4 mg PO Q8H PRN 11/27/17 Acetaminophen/Diphenhydramine [Tylenol Pm Ex-Strength Caplet] 2 each PO PRN PRN 12/01/17 Lidocaine [Lidocaine Pain Relief] 1 each TP PRN PRN 12/01/17
[2017-12-15] MEDS: FERROUS SO4 325 MG TABLET (FP) PO SCH (08:51)
[2017-12-15] MEDS: LIDOCAINE 5% TOPICAL PATCH TP SCH (10:03)
[2017-12-15] MEDS: FOLIC ACID 1 MG TABLET (FP) PO SCH (10:03)
--- NOTE | 2017-12-15 12:10 | PN ---
Progress Note, Physician History of Present Illness: stable going home no headaches otherwise doing well - Current Medication List Current Medications: Active Medications Acetaminophen (Tylenol -) 500 mg PO Q6H PRN PRN Reason: PAIN LEVEL 1-5 Last Admin: 12/14/17 21:52 Dose: 500 mg Acetaminophen/Butalbital/Caffeine (Fioricet -) 1 tablet PO Q4H PRN PRN Reason: HEADACHE Last Admin: 12/15/17 10:36 Dose: 1 tablet Atorvastatin Calcium (Lipitor -) 10 mg PO HS [facility] Last Admin: 12/14/17 21:54 Dose: 10 mg Bisacodyl (Dulcolax Suppository -) 10 mg RC DAILY PRN PRN Reason: CONSTIPATION Last Admin: 12/11/17 12:04 Dose: 10 mg Diphenhydramine HCl (Benadryl -) 25 mg PO Q6H PRN PRN Reason: FOR ITCHING Last Admin: 12/14/17 23:53 Dose: 25 mg Docusate Sodium (Colace -) 100 mg PO TID [facility] Last Admin: 12/15/17 06:33 Dose: 100 mg Ferrous Sulfate (Feosol -) 325 mg PO DAILY@0800 [facility] Last Admin: 12/15/17 08:51 Dose: 325 mg Folic Acid (Folic Acid -) 1 mg PO DAILY [facility] Last Admin: 12/15/17 10:03 Dose: 1 mg Gabapentin (Neurontin -) 300 mg PO TID [facility] Last Admin: 12/15/17 06:33 Dose: 300 mg Heparin Sodium (Porcine) (Heparin -) 5,000 unit SQ TID [facility] Last Admin: 12/15/17 06:39 Dose: 5,000 unit Lidocaine (Lidoderm Patch -) 1 patch TP DAILY [facility] Last Admin: 12/15/17 10:03 Dose: 1 patch Miscellaneous (Lidoderm Patch Removal) 1 each MC DAILY@2200 [facility] Last Admin: 12/14/17 22:03 Dose: 1 each Non-Formulary Medication (Fluticasone/Vilanterol [Breo Ellipta 200-25 Mcg Inh]) 1 each IH PRN [facility] Ondansetron HCl (Zofran -) 4 mg PO Q8H PRN PRN Reason: NAUSEA Last Admin: 12/15/17 07:38 Dose: 4 mg Oxycodone HCl (Roxicodone -) 10 mg PO Q6H PRN PRN Reason: PAIN 6-10 Last Admin: 12/15/17 06:34 Dose: 10 mg Senna (Senna -) 2 tab PO HS PRN PRN Reason: CONSTIPATION Last Admin: 12/09/17 21:18 Dose: 2 tab - Objective Vital Signs: Vital Signs Temperature 98.8 F 12/15/17 06:00 Pulse Rate 89 12/15/17 06:00 Respiratory Rate 20 12/15/17 06:00 Blood Pressure 106/73 12/15/17 06:00 O2 Sat by Pulse Oximetry (%) 97 12/14/17 21:00 Constitutional: Yes: No Distress, Calm Eyes: Yes: WNL HENT: Yes: Other (hard neck collar) Cardiovascular: Yes: Regular Rate and Rhythm Respiratory: Yes: Regular, CTA Bilaterally Gastrointestinal: Yes: Normal Bowel Sounds, Soft Musculoskeletal: Yes: WNL Extremities: Yes: WNL Neurological: Yes: Alert, Oriented Psychiatric: Yes: Alert, Oriented Labs: CBC, BMP 12/12/17 06:30 12/12/17 06:30 INR, PTT INR 1.19 (0.83-1.09) H 12/03/17 15:30 Assessment/Plan Problem List - Problems (1) Cervical pain (neck) Code(s): M54.2 - CERVICALGIA (2) Intractable back pain Code(s): M54.9 - DORSALGIA, UNSPECIFIED (3) Weakness of left upper extremity Code(s): M62.81 - MUSCLE WEAKNESS (GENERALIZED) (4) Asthmatic bronchitis Code(s): J45.909 - UNSPECIFIED ASTHMA, UNCOMPLICATED (5) Hypertension Code(s): I10 - ESSENTIAL (PRIMARY) HYPERTENSION 6 fever 7 leukocytosis ASSESSMENT/PLAN: S/P exploration of spinal fusion, removal of sublaminal wires, C2-T1 Laminectomies, C7-T1 osteotomies, C2-T1 deformity correction with posterior fusion, removal of anterior instrumentation, C4/C5 corpectomies, reconstruction with Peek cages and anterior plating, durotomy. patient spiking fevers plan continue current mgmt rest as per the team physio rest as per the team
[2017-12-15 12:13] VITALS: BP 123/57; PULSE 88; TEMP 98.5
== END 2017-12-15 11:55 | disposition home or self-care (01) | DRG 321 ==
LOC: JER 05:40 → JERBED 08:53 → UNDOADMIN 10:21 → JERBED 10:21 → J8W 16:45 → JICU 12-03 18:08 → J8W 12-09 21:52
PROVIDERS: ADMIT Internal Medicine; ATTEND Internal Medicine
PROC: 0RG4071 Fusion of Cervicothoracic Vertebral Joint with Autologous Tissue Substitute, Posterior Approach, Posterior Column, Open Approach (ICD-10-PCS; 2017-12-03)
PROC: 0RG2071 Fusion of 2 or more Cervical Vertebral Joints with Autologous Tissue Substitute, Posterior Approach, Posterior Column, Open Approach (ICD-10-PCS; 2017-12-03)
PROC: 0PP30JZ Removal of Synthetic Substitute from Cervical Vertebra, Open Approach (ICD-10-PCS; 2017-12-03)
PROC: 0JR707Z Replacement of Back Subcutaneous Tissue and Fascia with Autologous Tissue Substitute, Open Approach (ICD-10-PCS; 2017-12-03)
PROC: 0PB30ZZ Excision of Cervical Vertebra, Open Approach (ICD-10-PCS; 2017-12-03)
PROC: 0PP304Z Removal of Internal Fixation Device from Cervical Vertebra, Open Approach (ICD-10-PCS; 2017-12-03)
PROC: 0RG4070 Fusion of Cervicothoracic Vertebral Joint with Autologous Tissue Substitute, Anterior Approach, Anterior Column, Open Approach (ICD-10-PCS; 2017-12-03)
PROC: 0RG20A0 Fusion of 2 or more Cervical Vertebral Joints with Interbody Fusion Device, Anterior Approach, Anterior Column, Open Approach (ICD-10-PCS; 2017-12-03)
PROC: 00QT0ZZ Repair Spinal Meninges, Open Approach (ICD-10-PCS; 2017-12-03)
PROC: 05H533Z Insertion of Infusion Device into Right Subclavian Vein, Percutaneous Approach (ICD-10-PCS; 2017-12-03)
PROC: B516ZZA Fluoroscopy of Right Subclavian Vein, Guidance (ICD-10-PCS; 2017-12-03)
PROC: 00NW0ZZ Release Cervical Spinal Cord, Open Approach (ICD-10-PCS; principal; 2017-12-03 09:00)
PROC: 00NX0ZZ Release Thoracic Spinal Cord, Open Approach (ICD-10-PCS; 2017-12-03 09:00)
PROC: 05PYX3Z Removal of Infusion Device from Upper Vein, External Approach (ICD-10-PCS; 2017-12-11)
DX: M47.12 Other spondylosis with myelopathy, cervical region (principal); M50.01 Cervical disc disorder with myelopathy, high cervical region; M40.202 Unspecified kyphosis, cervical region; M50.20 Other cervical disc displacement, unspecified cervical region; G95.29 Other cord compression; R51 Headache; I10 Essential (primary) hypertension; J44.9 Chronic obstructive pulmonary disease, unspecified; F41.9 Anxiety disorder, unspecified; E78.5 Hyperlipidemia, unspecified; Z88.0 Allergy status to penicillin; M54.9 Dorsalgia, unspecified; R50.82 Postprocedural fever; J20.9 Acute bronchitis, unspecified; M62.81 Muscle weakness (generalized); J45.909 Unspecified asthma, uncomplicated
CPT/HCPCS: 36415; 36511; 71045-TC-FY; 72125-TC; 76000-TC-FY; 80048; 80053; 81003; 83735; 84100; 85025; 85027; 85610; 85730; 86850; 86900; 86901; 86922; 87040; 87070; 87077; 87086; 87205; 94660; 94760; 97116-GP; 97161-GP; 99284-25; J0131; J1644; J7030; P9038; P9058

== ENCOUNTER 2018-01-16 11:36 | Emergency (ER) | payer OTHER ==
[2018-01-16 11:43] VITALS: BP 154/78; PULSE 80; TEMP 98.4; BMI 23.0
--- NOTE | 2018-01-16 11:59 | PDOC ---
Attending Attestation - Resident Resident Name: Joey Manzanares - ED Attending Attestation I have performed the following: I have examined & evaluated the patient, The case was reviewed & discussed with the resident, I agree w/resident's findings & plan, Exceptions are as noted
--- NOTE | 2018-01-16 12:35 | PDOC ---
Attending Attestation - Resident Resident Name: Joey Manzanares - ED Attending Attestation I have performed the following: I have examined & evaluated the patient, The case was reviewed & discussed with the resident, I agree w/resident's findings & plan, Exceptions are as noted - HPI HPI: 01/16/18 12:32 57-year-old female patient status post C2 to T1 laminectomy on December 03 presents with bruising and mild drainage from the anterior neck surgical site. Denies fevers or chills. Noted that yesterday she was developing some crusting of the neck. Patient called her neurosurgeon, Dr. Mihcelle, who sent the patient to the ER. - Physicial Exam PE: 01/16/18 12:37 GENERAL: Awake, alert, and fully oriented, in no acute distress HEAD: No signs of trauma EYES: EOMI, sclera anicteric, conjunctiva clear ENT: Auricles normal inspection, hearing grossly normal, nares patent, oropharynx clear without exudates. Moist mucosa NECK: Normal ROM, supple, anterior surgical site with some honeycombing, crusting, but no obvious oozing. EXTREMITIES: Normal range of motion, no edema. No clubbing or cyanosis. No cords, erythema, or tenderness NEUROLOGICAL: Cranial nerves II through XII grossly intact. Normal speech SKIN: Warm, Dry, normal turgor, no rashes or lesions noted. - Medical Decision Making 01/16/18 12:37 Vital Signs Temp Pulse Resp BP Pulse Ox 98.4 F 80 18 154/78 100 01/16/18 11:37 01/16/18 11:37 01/16/18 11:37 01/16/18 11:37 01/16/18 11:37 57 yo F p/w mild oozing and infection of post surgical site. No fever or chills. Pt is otherwise nontoxic appearing. Case discussed with Dr. Michelle (who also has images of her neck). Requests oral antibiotics nd follow up in the next several days for followup. Will start clindamycin. I agree with plan. Will instruct pt to return if symptoms worsen. 01/16/18 12:41
--- NOTE | 2018-01-16 12:48 | PDOC ---
History of Present Illness - General Chief Complaint: Wound Stated Complaint: PCP SENT Time Seen by Provider: 01/16/18 11:49 History Source: Patient, Old Records Exam Limitations: No Limitations - History of Present Illness Initial Comments: 57 y/o female presenting to [facility] ER via private auto from home at request of Dr. Michelle. Pt is complaining of itching and drainage from post-op site since last night. States it was dripping down her neck. Denies active bleeding, fevers , chills, or diaphoresis. Pt is s/p exploration of spinal fusion, removal of sublaminal wires, C2-T1 Laminectomies, C7-T1 osteotomies, C2-T1 deformity correction with posterior fusion, removal of anterior instrumentation, C4/C5 corpectomies, reconstruction with Peek cages and anterior plating. Performed by Dr. Rees on 03 December 2017. Past History - Past Medical History Allergies/Adverse Reactions: Allergies Allergy/AdvReac Type Severity Reaction Status Date / Time aspirin Allergy Intermediate Hives Verified 01/16/18 11:43 ibuprofen Allergy Intermediate vomitting Verified 01/16/18 11:43 ketorolac tromethamine Allergy ITCHING, Verified 01/16/18 11:43 [From Toradol] VOMITING lactose Allergy Verified 01/16/18 11:43 morphine Allergy Hives Verified 01/16/18 11:43 Penicillins Allergy Hives Verified 01/16/18 11:43 Shellfish Allergy Hives Verified 01/16/18 11:43 onions Allergy Uncoded 01/16/18 11:43 seasoning Allergy Uncoded 01/16/18 11:43 Home Medications: Ambulatory Orders Estrogens, Conjugated [Premarin] 0.625 mg PO DAILY 01/02/17 Simvastatin 10 mg PO DAILY 09/19/17 Losartan Potassium 50 mg PO ASDIR 10/31/17 Benzonatate 100 mg PO DAILY 11/09/17 Gabapentin [Neurontin -] 100 mg PO Q8H 11/27/17 Ondansetron HCl [Zofran] 4 mg PO Q8H PRN 11/27/17 Diazepam [Valium] 2 mg PO BID #14 tablet MDD 2 12/19/17 Fentanyl 12.5 mcg TD ONCE #2 patch MDD 1 12/19/17 Clindamycin Oral Solution [Cleocin Oral Solution -] 300 mg PO Q6H 7 Days #560 ml 01/16/18 Anemia: No Asthma: Yes (bronchitis) Cancer: No Cardiac Disorders: No CVA: No COPD: No CHF: No DVT: No Dementia: No Diabetes: No GI Disorders: Yes (sbo) Disorders: No HTN: Yes Hypercholesterolemia: Yes Liver Disease: No Seizures: No Thyroid Disease: No - Surgical History Abdominal Surgery: Yes (small bowel obstruction) Appendectomy: No Cardiac Surgery: No Cholecystectomy: No Lung Surgery: No Neurologic Surgery: Yes (spinal surgery, SEVERAL) Orthopedic Surgery: Yes - Immunization History Immunization Up to Date: Yes - Suicide/Smoking/Psychosocial Hx Smoking Status: No Smoking History: Never smoked Have you smoked in the past 12 months: No Number of Cigarettes Smoked Daily: 0 Hx Alcohol Use: No Drug/Substance Use Hx: No Substance Use Type: None Hx Substance Use Treatment: No Review of Systems - Review of Systems Able to Perform ROS?: Yes Is the patient limited Telugu proficient: No Constitutional: No: Chills, Diaphoresis, Fever HEENTM: No: Difficulty Swallowing Respiratory: No: Shortness of Breath Cardiac (ROS): No: Chest Pain Integumentary: Yes: See HPI, Pruritus *Physical Exam - Vital Signs Last Vital Signs Temp Pulse Resp BP Pulse Ox 98.4 F 80 18 154/78 100 01/16/18 11:37 01/16/18 11:37 01/16/18 11:37 01/16/18 11:37 01/16/18 11:37 - Physical Exam Comments: Constitutional: Well-developed, well-nourished female in no acute distress or obvious discomfort. Found sitting upright with on rollator with cervical collar in place. Alert and oriented x4. Answered all questions appropriately and completely. Speech was non-labored, non-pressured. Cardiovascular: Not tachycardic or bradycardic. Peripheral pulses: Radial pulses full. Respiratory: Breathing unlabored. Equal chest rise and fall. Stable on room air. Neuro: Alert and oriented. Moving all four extremities spontaneously. Standing from seated position without assistance. Skin: Anterior post-op site: covered with clean dressing. Small amount of purulent material noted inside of dressing. Wound itself appeared dry, without serosanguinous or purulent discharge. No obvious wound dehiscence. No fluctuance. Posterior post-op site: clean, dry, and intact without dressing in place. Globally skin is warm and dry. Psych: Affect: appropriate. Mood: normal. Medical Decision Making - Medical Decision Making *Reviewed vital signs, nursing notes, and prior visit documentation (if available). 57 y/o female complaining of pruritus and drainage from anterior neck post-op site. No systemic symptoms. Afebrile. Vitals unremarkable. Physical exam revealing mild purulent material on dressing. Suspect possible cellulitis without abscess versus normal wound healing course. Very low suspicion for systemic infection given vitals. 12:[address] Michelle. Requests Keflex 500 QID for 2 weeks. Will see in outpatient clinic on Thursday. Pt is allergic to penicillin per [facility]. Will prescribed clindamycin 300mg q6h for 7 days. Pt insists she be prescribed oral suspension. Called [facility] to make sure they have it in stock, they do not. Called [facility] to insure they have it in stock, they do. Electronic script sent. Discussed physical exam findings with pt. Answered all questions. Provided return precautions. Pt expressed verbal understanding and agreement with plan to discharge home with outpatient follow up. *DC/Admit/Observation/Transfer Diagnosis at time of Disposition: Cellulitis of drainage site, post-operative Qualifiers: Encounter type: initial encounter Qualified Code(s): T81.4XXA - Infection following a procedure, initial encounter - Discharge Dispostion Disposition: HOME Condition at time of disposition: Good Decision to Admit order: No - Prescriptions Prescriptions: Clindamycin Oral Solution [Cleocin Oral Solution -] 300 mg PO Q6H 7 Days #560 ml - Referrals Referrals: Dandre Michelle MD, FAANS [Staff Physician] - - Patient Instructions Printed Discharge Instructions: DI for Wound Infection Additional Instructions: I have sent a prescription for Clindamycin to [facility]. I called to make sure the medication was in stock. Take as directed on the bottle. Follow up with Dr. Michelle's office on Thursday (January 20, 2018). You will need to call to make an appointment. The number is included in this packet. Go to the nearest emergency department if your condition worsens or you feel like you need additional emergency evaluation. Print Language: KAZAKH - Post Discharge Activity
== END 2018-01-16 13:37 | disposition home or self-care (01) ==
LOC: JER 11:36
DX: T81.4XXA Infection following a procedure, initial encounter (principal); L03.221 Cellulitis of neck; I10 Essential (primary) hypertension; E78.00 Pure hypercholesterolemia, unspecified; Z87.09 Personal history of other diseases of the respiratory system; Z87.19 Personal history of other diseases of the digestive system; Z88.0 Allergy status to penicillin; Z88.8 Allergy status to other drugs, medicaments and biological substances; Z91.018 Allergy to other foods
CPT/HCPCS: 99282-25

== ENCOUNTER 2018-01-16 21:36 | Emergency (ER) | payer OTHER ==
[2018-01-16 21:49] VITALS: BP 136/87; PULSE 86; TEMP 98.6; BMI 23.0
[2018-01-16] MEDS ORDERED: methylPREDNISolone NA SUCC 125 MG/2 ML VIAL IVPB ONE (22:42)
[2018-01-16] MEDS ORDERED: FAMOTIDINE 20 MG/50 ML IVPB 20 MG/50 ML MG IVPB ONE ×2 (22:42→23:32)
[2018-01-16] MEDS ORDERED: SODIUM CHLORIDE 1,000 ML IV STA (22:42)
--- NOTE | 2018-01-16 22:42 | PDOC ---
History of Present Illness - General History Source: Patient Exam Limitations: No Limitations - History of Present Illness Initial Comments: 01/16/18 22:41 Best Contact:[phone] PCP: Dr. Nolan Pmhx: Chronic neck pain Pshx: 3 cervical fusion/last surgery was 12/03/2017: SBO/resection, total abdominal hysterectomy Allergies: Aspirin, Toradol, ibuprofen, lactulose, morphine, penicillin FH:0 Social Hx: Cigarettes/ 0 Alcohol/ 0 Drugs/0 LMP:N/A 57-year-old female presents to the emergency department complaining of hives/ puritis to her face, right shoulder after taking gabapentin one hour prior to her symptoms. Patient states she initially took her first dose of gabapentin yesterday and noticed some itching to the left anterior thigh but she fell asleep. Patient states she took her second dose this afternoon and shortly afterwards, patient noticed some hives "that's itchy" but denies any nausea/ vomiting, fever/chills, headache, dizziness, facial pains, sore throat, throat closing sensation, chest pain, shortness of breath, back pains, abdominal pains. Patient states she was recently given gabapentin due to her recent cervical fusion. <Jimbo Reddy - Last Filed: 01/17/18 03:24> <Tyree Mckeon - Last Filed: 01/17/18 22:16> - General Chief Complaint: Allergic Reaction Stated Complaint: ALLERGIC REACTION Time Seen by Provider: 01/16/18 21:56 Past History - Past Medical History Anemia: No Asthma: Yes (bronchitis) Cancer: No Cardiac Disorders: No CVA: No COPD: No CHF: No DVT: No Dementia: No Diabetes: No GI Disorders: Yes (sbo) Disorders: No HTN: Yes Hypercholesterolemia: Yes Liver Disease: No Seizures: No Thyroid Disease: No - Surgical History Abdominal Surgery: Yes (small bowel obstruction) Appendectomy: No Cardiac Surgery: No Cholecystectomy: No Lung Surgery: No Neurologic Surgery: Yes (spinal surgery, SEVERAL) Orthopedic Surgery: Yes - Immunization History Immunization Up to Date: Yes - Suicide/Smoking/Psychosocial Hx Smoking Status: No Smoking History: Never smoked Have you smoked in the past 12 months: No Number of Cigarettes Smoked Daily: 0 Hx Alcohol Use: No Drug/Substance Use Hx: No Substance Use Type: None Hx Substance Use Treatment: No <Jimbo Reddy - Last Filed: 01/17/18 03:24> <Tyree Mckeon - Last Filed: 01/17/18 22:16> - Past Medical History Allergies/Adverse Reactions: Allergies Allergy/AdvReac Type Severity Reaction Status Date / Time aspirin Allergy Intermediate Hives Verified 01/16/18 11:43 ibuprofen Allergy Intermediate vomitting Verified 01/16/18 11:43 ketorolac tromethamine Allergy ITCHING, Verified 01/16/18 11:43 [From Toradol] VOMITING lactose Allergy Verified 01/16/18 11:43 morphine Allergy Hives Verified 01/16/18 11:43 Penicillins Allergy Hives Verified 01/16/18 11:43 Shellfish Allergy Hives Verified 01/16/18 11:43 onions Allergy Uncoded 01/16/18 11:43 seasoning Allergy Uncoded 01/16/18 11:43 Home Medications: Ambulatory Orders Estrogens, Conjugated [Premarin] 0.625 mg PO DAILY 01/02/17 Simvastatin 10 mg PO DAILY 09/19/17 Losartan Potassium 50 mg PO ASDIR 10/31/17 Benzonatate 100 mg PO DAILY 11/09/17 Gabapentin [Neurontin -] 100 mg PO Q8H 11/27/17 Ondansetron HCl [Zofran] 4 mg PO Q8H PRN 11/27/17 Diazepam [Valium] 2 mg PO BID #14 tablet MDD 2 12/19/17 Fentanyl 12.5 mcg TD ONCE #2 patch MDD 1 12/19/17 Clindamycin Oral Solution [Cleocin Oral Solution -] 300 mg PO Q6H 7 Days #560 ml 01/16/18 predniSONE [Deltasone -] 20 mg PO BID 3 Days #6 tablet 01/17/18 Review of Systems - Review of Systems Able to Perform ROS?: Yes Comments:: 01/17/18 03:26 CONSTITUTIONAL: Absent: fever, chills, diaphoresis, generalized weakness, malaise, loss of appetite HEENT: Absent: rhinorrhea, nasal congestion, throat pain, throat swelling, difficulty swallowing, mouth swelling, ear pain, eye pain, visual Changes CARDIOVASCULAR: Absent: chest pain, loss of consciousness, palpitations, irregular heart rate, peripheral edema RESPIRATORY: Absent: cough, shortness of breath, dyspnea with exertion, orthopnea, wheezing, stridor, hemoptysis GASTROINTESTINAL: Absent: abdominal pain, abdominal distension, nausea, vomiting, diarrhea, constipation, melena, hematochezia GENITOURINARY: Absent: dysuria, frequency, urgency, hesitancy, hematuria, flank pain, genital pain MUSCULOSKELETAL: Absent: myalgia, arthralgia, joint swelling SKIN: +hives/itch to face/right shoulder Absent: pallor HEMATOLOGIC/IMMUNOLOGIC: Absent: easy bleeding, easy bruising, lymphadenopathy, frequent infections ENDOCRINE: Absent: unexplained weight gain, unexplained weight loss, heat intolerance, cold intolerance NEUROLOGIC: Absent: headache, focal weakness or paresthesias, dizziness, unsteady gait, seizure, mental status changes, bladder or bowel incontinence PSYCHIATRIC: Absent: anxiety, depression, suicidal or homicidal ideation, hallucinations. Is the patient limited Wolof proficient: No <Lauren Reddyui - Last Filed: 01/17/18 03:24> *Physical Exam - Vital Signs Last Vital Signs Temp Pulse Resp BP Pulse Ox 98.6 F 86 18 136/87 100 01/16/18 21:44 01/16/18 21:44 01/16/18 21:44 01/16/18 21:44 01/16/18 21:44 - Physical Exam Comments: 01/17/18 03:26 GENERAL: Well developed, well nourished. Awake and alert. No acute distress. HEENT: Normocephalic, atraumatic. PERRLA, EOMI. No conjunctival pallor. Sclera are non- icteric. Moist mucous membranes. Oropharynx is clear. NECK: Supple. Full ROM. No JVD. Carotid pulses 2+ and symmetric, without bruits. No thyromegaly. No lymphadenopathy. CARDIOVASCULAR: Regular rate and rhythm. No murmurs, rubs, or gallops. Distal pulses are 2+ and symmetric. PULMONARY: No evidence of respiratory distress. Lungs clear to auscultation bilaterally. No wheezing, rales or rhonchi. ABDOMINAL: Soft. Non-tender. Non-distended. No rebound or guarding. No organomegaly. Normoactive bowel sounds. MUSCULOSKELETAL Normal range of motion at all joints. No bony deformities or tenderness. No CVA tenderness. EXTREMITIES: No cyanosis. No clubbing. No edema. No calf tenderness. SKIN: +hives to face/right shoulder Warm and dry. Normal capillary refill. No rashes. No jaundice. NEUROLOGICAL: Alert, awake, appropriate. Cranial nerves 2-12 intact. No deficits to light touch and temperature in face, upper extremities and lower extremities. No motor deficits in the in face, upper extremities and lower extremities. Normoreflexic in the upper and lower extremities. Normal speech. Toes are down- going bilaterally. Gait is normal without ataxia. PSYCHIATRIC: Cooperative. Good eye contact. Appropriate mood and affect. <Jimbo Reddy - Last Filed: 01/17/18 03:24> - Vital Signs Last Vital Signs Temp Pulse Resp BP Pulse Ox 98.6 F 86 18 136/87 100 01/16/18 21:44 01/16/18 21:44 01/16/18 21:44 01/16/18 21:44 01/16/18 21:44 <Tyree Mckeon - Last Filed: 01/17/18 22:16> ED Treatment Course - Medications Given in the ED: ED Medications Discontinued Medications Generic Name Dose Route Start Last Admin Trade Name Brendan PRN Reason Stop Dose Admin Diphenhydramine HCl 25 mg 01/16/18 22:42 01/16/18 23:44 Benadryl Injection - IVPUSH 01/16/18 22:43 25 mg ONCE ONE Administration Famotidine/Sodium Chloride 20 mg in 50 mls @ 100 mls/hr 01/16/18 22:42 23:44 Pepcid 20 Mg Premixed Ivpb - IVPB 01/16/18 23:11 100 mls/hr ONCE ONE Administration Sodium Chloride 1,000 mls @ 1,000 mls/hr 01/16/18 22:42 01/16/18 23:44 Normal Saline - IV 01/16/18 23:41 1,000 mls/hr ASDIR STA Administration Methylprednisolone Sodium Succinate 125 mg 01/16/18 22:42 01/16/18 23:44 Solu-Medrol - IVPB 01/16/18 22:43 125 mg ONCE ONE Administration <Tyree Mckeon - Last Filed: 01/17/18 22:16> Medical Decision Making - Medical Decision Making 01/17/18 22:16 The patient was seen and evaluated in conjunction with GABRIELLA Reddy under my direct supervision, ancillary studies were reviewed. I agree with the plan as outlined by GABRIELLA Reddy. <Tyree Mckeon - Last Filed: 01/17/18 22:16> *DC/Admit/Observation/Transfer - Discharge Dispostion Decision to Admit order: No <Jimbo Reddy - Last Filed: 01/17/18 03:24> <Tyree Mckeon - Last Filed: 01/17/18 22:16> Diagnosis at time of Disposition: Allergic reaction caused by a drug Qualifiers: Encounter type: initial encounter Qualified Code(s): T78.40XA - Allergy, unspecified, initial encounter - Discharge Dispostion Disposition: HOME Condition at time of disposition: Stable - Prescriptions Prescriptions: predniSONE [Deltasone -] 20 mg PO BID 3 Days #6 tablet - Referrals Referrals: Celeste Phelps MD [Staff Physician] - - Patient Instructions Printed Discharge Instructions: DI for General Allergic Reactions Additional Instructions: Increase fluids Take Prednisone as prescribed Zantac 300mg tablet daily for 5 days Follow up with the retail product advisor listed on your discharge Return to the ER for severe/persistent/worsening symptoms Progress Note - Progress Note Progress Note: Patient states she feels 99.99% better and wishes to be discharged. <Jimbo Reddy - Last Filed: 01/17/18 03:24>
[2018-01-16] MEDS ORDERED: methylPREDNISolone NA SUCC 125 MG/2 ML VIAL ONE (23:32)
== END 2018-01-17 02:49 | disposition home or self-care (01) ==
LOC: JER 21:36
PROC: 3E033GC Introduction of Other Therapeutic Substance into Peripheral Vein, Percutaneous Approach (ICD-10-PCS; principal; 2018-01-16)
PROC: 3E033GC Introduction of Other Therapeutic Substance into Peripheral Vein, Percutaneous Approach (ICD-10-PCS; 2018-01-16)
PROC: 3E0333Z Introduction of Anti-inflammatory into Peripheral Vein, Percutaneous Approach (ICD-10-PCS; 2018-01-16)
DX: T42.6X5A Adverse effect of other antiepileptic and sedative-hypnotic drugs, initial encounter (principal); L50.0 Allergic urticaria
CPT/HCPCS: 99281-25; J7030

== ENCOUNTER 2018-02-06 15:47 | Observation (INO) | payer OTHER ==
[2018-02-06 16:01] VITALS: BMI 23.0
--- NOTE | 2018-02-06 16:23 | PDOC ---
History of Present Illness - General Chief Complaint: Pain, Acute Stated Complaint: POST OP PAIN Time Seen by Provider: 02/06/18 16:04 - History of Present Illness Initial Comments: 02/06/18 16:49 Patient is a 57 year old female with a PMH of C2-TI laminectomy (12/2017), COPD (not on home O2), asthma, anxiety, HLD who presents to our ED this afternoon c/ o 3 day h/o abdominal pain, neck pain and resolved hives. Patient states the pain started acutely on night and is intermittent, cramping, diffuse w/ radiation to her back. Unable to identify any triggering or relieving factors. Notes she has been tolerating PO intake, however has had decreased appetite 2/ 2 to her pain. Two loose watery non-bloody stools prior to presentation. Rash occurred this morning -- resolved after 1 hour. As per EMR, patient was last evaluated in our ED in 01/2105 both for pain related to her laminectomy site and an allergic reaction possibly to Gabapentin. Mild discharge was appreciated from wound site and patient was given Clindamycin and discharged home. Allergy: as per EMR Surgical: Laminectomy Social: denies toxic habits PMD: Dr. Chaim M.D. Past History - Past Medical History Allergies/Adverse Reactions: Allergies Allergy/AdvReac Type Severity Reaction Status Date / Time aspirin Allergy Intermediate Hives Verified 02/06/18 15:56 ibuprofen Allergy Intermediate vomitting Verified 02/06/18 15:56 ketorolac tromethamine Allergy ITCHING, Verified 02/06/18 15:56 [From Toradol] VOMITING lactose Allergy Verified 02/06/18 15:56 morphine Allergy Hives Verified 02/06/18 15:56 Penicillins Allergy Hives Verified 02/06/18 15:56 Shellfish Allergy Hives Verified 02/06/18 15:56 onions Allergy Uncoded 02/06/18 15:56 seasoning Allergy Uncoded 02/06/18 15:56 Home Medications: Ambulatory Orders Estrogens, Conjugated [Premarin] 0.625 mg PO DAILY 01/02/17 Simvastatin 10 mg PO DAILY 09/19/17 Losartan Potassium 50 mg PO ASDIR 10/31/17 Benzonatate 100 mg PO DAILY 11/09/17 Gabapentin [Neurontin -] 100 mg PO Q8H 11/27/17 Ondansetron HCl [Zofran] 4 mg PO Q8H PRN 11/27/17 Diazepam [Valium] 2 mg PO BID #14 tablet MDD 2 12/19/17 Fentanyl 12.5 mcg TD ONCE #2 patch MDD 1 12/19/17 Clindamycin Oral Solution [Cleocin Oral Solution -] 300 mg PO Q6H 7 Days #560 ml 01/16/18 predniSONE [Deltasone -] 20 mg PO BID 3 Days #6 tablet 01/17/18 Anemia: No Asthma: Yes (bronchitis) Cancer: No Cardiac Disorders: No CVA: No COPD: No CHF: No DVT: No Dementia: No Diabetes: No GI Disorders: Yes (sbo) Disorders: No HTN: Yes Hypercholesterolemia: Yes Liver Disease: No Seizures: No Thyroid Disease: No - Surgical History Abdominal Surgery: Yes (small bowel obstruction) Appendectomy: No Cardiac Surgery: No Cholecystectomy: No Lung Surgery: No Neurologic Surgery: Yes (spinal surgery, SEVERAL) Orthopedic Surgery: Yes - Immunization History Immunization Up to Date: Yes - Suicide/Smoking/Psychosocial Hx Smoking Status: No Smoking History: Never smoked Have you smoked in the past 12 months: No Number of Cigarettes Smoked Daily: 0 Hx Alcohol Use: No Drug/Substance Use Hx: No Substance Use Type: None Hx Substance Use Treatment: No Review of Systems - Review of Systems Constitutional: No: Fever HEENTM: No: Blurred Vision, Double Vision Respiratory: No: Cough, Shortness of Breath, Wheezing, Hemoptysis Cardiac (ROS): No: Chest Pain, Lightheadedness, Palpitations, Syncope ABD/GI: Yes: Constipated, Nausea, Vomiting, Other (2 episodes of loose watery stools) : No: Burning, Dysuria Musculoskeletal: Yes: Neck Pain *Physical Exam - Vital Signs Last Vital Signs Temp Pulse Resp BP Pulse Ox 98.5 F 125 H 30 H 144/87 99 02/06/18 15:56 02/06/18 15:56 02/06/18 15:56 02/06/18 15:56 02/06/18 15:56 - Physical Exam General Appearance: Yes: Nourished, Appropriately Dressed HEENT: positive: Normal Voice, Hearing Grossly Normal Neck: positive: Trachea midline, Supple, Other (anterior and posterior surgical sites, no erythema/edema/discharge) Respiratory/Chest: positive: Lungs Clear, Normal Breath Sounds. negative: Crackles, Wheezing Cardiovascular: positive: S1, S2. negative: Edema, JVD, Murmur Vascular Pulses: Dorsalis-Pedis (R): 3+, Doralis-Pedis (L): 3+ Gastrointestinal/Abdominal: positive: Other (diffuse TTP w/o peritoneal signs). negative: Guarding, Rebound, Hernia, Mass Extremity: positive: Normal Capillary Refill, Normal Inspection Integumentary: positive: Normal Color, Dry, Warm Neurologic: positive: Fully Oriented, Alert ED Treatment Course - LABORATORY CBC & Chemistry Diagram: 02/06/18 16:20 02/06/18 16:20 Medical Decision Making - Medical Decision Making 02/06/18 18:35 57 year old female with abdominal pain w/emesis as well as neck pain, h/o SBO in 2010. Abdomen exquisitely tender on PE w/o peritoneal signs. Tachycardic. Frontal diagnosis: acute abdomen including SBO/appy/cholecystitis as well as GERD/PUD, PNA. Will obtain basic labs, latic acid, lipase as well as coags +CT abdomen (w/o contrast as patient as shellfish allergy). Zofran + Benadryl + Tylenol + IV NS. Reassess. Case d/w Dr. Michelle -- agrees w/plan of care. Requests update on patient. 02/06/18 18:40 Lactic Acid 2.4 --> IV fluids hanging; will repeat s/p fluid Tachycardia resolved (HR 94), patient continues to breath comfortably on RA 02/06/18 19:03 CT abdomen, repeat Lactic pending Patient signed out to Dr. Greene (Resident) and Dr. Osborne (Attending). Dr. Greene to contact Dr. Michelle with plan. *DC/Admit/Observation/Transfer Diagnosis at time of Disposition: Abdominal pain - Referrals - Patient Instructions - Post Discharge Activity
[2018-02-06] MEDS ORDERED: SODIUM CHLORIDE 0.9% 500 ML INFUS.BAG IV ONE (16:33)
[2018-02-06 17:21] LABS: BASO % 0.5 % (0-2.0); EOS % 2.6 % (0-4.5); HEMATOCRIT 36.8 % (32.4-45.2); HEMOGLOBIN 12.1 GM/dL (10.7-15.3); LYMPH % 13.9 % (8-40); MCH 30.1 pg (25.7-33.7); MCHC 32.8 g/dl (32.0-36.0); MEAN CELL VOLUME 91.7 fl (80-96); MEAN PLT VOLUME 7.9 fl (7.5-11.1); MONO % 6.1 % (3.8-10.2); NEUT % 76.9 % (42.8-82.8); PLATELET COUNT 253 K/MM3 (134-434); RBC 4.01 M/mm3 (3.60-5.2); RDW 15.1 % (11.6-15.6)
[2018-02-06 17:37] LABS: INR 1.13 (0.83-1.09); PROTHROMBIN TIME (PATIENT) 13.3 SEC (9.7-13.0)
[2018-02-06 17:40] LABS: ACTIVATED PTT 26.9 SECONDS (25.2-36.5)
[2018-02-06 17:49] LABS: ALK PHOS 69 U/L (45-117); ANION GAP 9 MMOL/L (8-16); BILIRUBIN,TOTAL 0.8 mg/dL (0.2-1); BLOOD UREA NITROGEN 14 mg/dL (7-18); CALCIUM 9.4 mg/dL (8.5-10.1); CHLORIDE 105 mmol/L (98-107); CO2 24 mmol/L (21-32); CREATININE 0.8 mg/dL (0.55-1.3); GLUCOSE,RANDOM 84 mg/dL (74-106); LIPASE 87 U/L (73-393); POTASSIUM 4.5 mmol/L (3.5-5.1); SGOT/AST 21 U/L (15-37); SGPT/ALT 16 U/L (13-61); SODIUM 139 mmol/L (136-145); TOT PROT 7.3 g/dl (6.4-8.2)
[2018-02-06] MEDS ORDERED: ONDANSETRON 4 MG/2 ML VIAL IVPUSH ONE ×2 (18:04→22:03)
[2018-02-06] MEDS ORDERED: MAG HYDROX/AL HYDROX/SIMETH -MYLANTA- ORAL SUSPENSION PO ONE (18:04)
[2018-02-06] MEDS ORDERED: PANTOPRAZOLE SODIUM 40 MG VIAL IVPUSH ONE (18:09)
[2018-02-06] MEDS ORDERED: ACETAMINOPHEN 1000 MG/100 ML VIAL (NON FORMULARY) IVPB ONE (18:09)
[2018-02-06] MEDS ORDERED: ACETAMINOPHEN INJECTION 100 ML IVPB ONE (18:40)
[2018-02-06] MEDS ORDERED: MAG HYDROX/AL HYDROX/SIMETH 30 ML UNIT-DOSE CUP ONE (18:40)
[2018-02-06] MEDS ORDERED: ONDANSETRON 4 MG/2 ML VIAL ONE ×2 (18:40→22:07)
[2018-02-06] MEDS ORDERED: PANTOPRAZOLE SODIUM 40 MG VIAL ONE (18:40)
[2018-02-06] MEDS ORDERED: diazePAM CARPU-JECT 10 MG/2 ML DISP.SYRIN IVPUSH ONE (18:53)
[2018-02-06] MEDS ORDERED: diazePAM 2 MG TABLET PO ONE (18:55)
[2018-02-06] MEDS ORDERED: diazePAM 2 MG TABLET ONE (18:57)
--- NOTE | 2018-02-06 19:48 | PDOC ---
Attending Attestation - Resident Resident Name: Chaparrita Mariscal - ED Attending Attestation I have performed the following: I have examined & evaluated the patient, The case was reviewed & discussed with the resident, I agree w/resident's findings & plan, Exceptions are as noted - HPI HPI: 02/06/18 19:43 57yo F wit h/o recent laminectomy ( dr. kenny 12/19) copd/ asthma, here today c/o abd pain. . does hh/o sbo. pt states since 3 days has been having diffuse abd pain, nausea and vomiting. also c/o loose watery stool. has cough, nonproductive. when coughing, feels she strained her neck, now c/o pain at her anterior incision site. no f/c no urinary complaints. no drainage from wound currently. was treated previously with antiobiotics for wound infection. has two losse watery nonbloody stools today. no new weakness or numbness. has left upper extremity weakness and pain from prior to her surgery. - Physicial Exam PE: 02/06/18 19:47 awake alert lungs clear bilaterally. heart rrr no mrg abd soft. diffusely ttp. no rebound no guarding. ext wwp. . skin anterior and posterior scars cdi, no erythema. no fluctuance. no drainage. - Medical Decision Making 02/06/18 19:48 differential viral uri, colitis, uti, pyleo, sbo less likley, pt also c/o hives, states has had intermittent rash, wsa previously believed to be secondary to gabapentin. pt states has rash earlier today, but not currently has since resolve. no tongue or lip swelling. no new wheezing. plan ct a/p labs ua , pain control will give benadryl for itching. reassess.
--- NOTE | 2018-02-06 20:02 | PDOC ---
*Physical Exam - Vital Signs Last Vital Signs Temp Pulse Resp BP Pulse Ox 98.5 F 125 H 30 H 144/87 99 02/06/18 15:56 02/06/18 15:56 02/06/18 15:56 02/06/18 15:56 02/06/18 15:56 ED Treatment Course - LABORATORY CBC & Chemistry Diagram: 02/06/18 16:20 02/06/18 16:20 - ADDITIONAL ORDERS Additional order review: Laboratory Results 02/06/18 02/06/18 02/06/18 16:20 16:20 16:20 PT with INR 13.30 H INR 1.13 H PTT (Actin FS) 26.9 Sodium 139 Potassium 4.5 Chloride 105 Carbon Dioxide 24 Anion Gap 9 BUN 14 Creatinine 0.8 Creat Clearance w eGFR > 60 Random Glucose 84 Lactic Acid Calcium 9.4 Total Bilirubin 0.8 AST 21 ALT 16 Alkaline Phosphatase 69 Creatine Kinase 65 Troponin I < 0.02 Total Protein 7.3 Albumin 4.0 Lipase 87 Blood Type A POSITIVE Antibody Screen Negative 02/06/18 16:12 PT with INR INR PTT (Actin FS) Sodium Potassium Chloride Carbon Dioxide Anion Gap BUN Creatinine Creat Clearance w eGFR Random Glucose Lactic Acid 2.3 H* Calcium Total Bilirubin AST ALT Alkaline Phosphatase Creatine Kinase Troponin I Total Protein Albumin Lipase Blood Type Antibody Screen 02/06/18 16:20 RBC 4.01 MCV 91.7 MCHC 32.8 RDW 15.1 MPV 7.9 Neutrophils % 76.9 Lymphocytes % 13.9 Monocytes % 6.1 Eosinophils % 2.6 D Basophils % 0.5 - Medications Given in the ED: ED Medications Discontinued Medications Generic Name Dose Route Start Last Admin Trade Name Brendan PRN Reason Stop Dose Admin Acetaminophen 1,000 mg 02/06/18 18:09 02/06/18 18:45 Ofirmev Injection - IVPB 02/06/18 18:10 1,000 mg ONCE ONE Administration Al Hydroxide/Mg Hydroxide 30 ml 02/06/18 18:04 02/06/18 18:50 Mylanta Suspension - PO 02/06/18 18:05 Not Given ONCE ONE Diazepam 2 mg 02/06/18 18:53 02/06/18 19:04 Valium Injection - IVPUSH 02/06/18 18:54 Not Given ONCE ONE Diazepam 2 mg 02/06/18 18:55 02/06/18 19:03 Valium - PO 02/06/18 18:56 2 mg ONCE ONE Administration Diphenhydramine HCl 25 mg 02/06/18 18:04 02/06/18 18:40 Benadryl Injection - IVPUSH 02/06/18 18:05 25 mg ONCE ONE Administration Ondansetron HCl 4 mg 02/06/18 18:04 02/06/18 18:45 Zofran Injection IVPUSH 02/06/18 18:05 4 mg ONCE ONE Administration Pantoprazole Sodium 40 mg 02/06/18 18:09 02/06/18 18:45 Protonix Iv IVPUSH 02/06/18 18:10 40 mg ONCE ONE Administration Sodium Chloride 1,000 ml 02/06/18 16:33 02/06/18 18:00 Normal Saline - IV 02/06/18 16:34 1,000 ml ONCE ONE Administration Medical Decision Making - Medical Decision Making Sign out received from Dr. Mariscal. 02/06/18 21:[address] scan, awaiting prelim read. 02/06/18 21:27 Pt reports her neck pain is returning and she is starting to get itchy again. This is the same pain she presented with. Lactic acid repeated. Pending results. Pt had received 1 L NS. IV Benadryl 25 mg ordered. Dilaudid 2 mg PO ordered. IV zofran 4 mg ordered. 02/06/18 22:05 Pt initially refused PO dilaudid but now would like to take it. 02/06/18 22:16 CT prelim read shows mild mucosal thickening in distal ileum and terminal ileum suggestive of ileitis. 02/06/18 22:41 Will check to see if she is able to tolerate PO at this time. Called Dr. Michelle but call went to voicemail. Pt given crackers and water. Lactic acid now at 1.2 02/06/18 22:55 Pt would like to try a turkey sandwich 02/06/18 23:54 Pt did not tolerate the turkey sandwich. She says her stomach pains returned after eating. Pt will be placed in observation for intractable abd pain and ileitis. Will make pt NPO for now. NS @ 75 ml/hr started. 02/07/18 00:39 Spoke and discussed case with Dr. Ortega Duran. Pt to be placed in observation for intractable abdominal pain and inability to tolerate PO intake. *DC/Admit/Observation/Transfer Diagnosis at time of Disposition: Abdominal pain - Discharge Dispostion Decision to Admit order: Yes - Referrals - Patient Instructions - Post Discharge Activity
[2018-02-06 21:08] LABS: URINE APPEARANCE CLEAR; URINE BILIRUBIN NEGATIVE (<2.0 mg/dL); URINE COLOR STRAW; URINE GLUCOSE (UA) NEGATIVE (NEGATIVE); URINE KETONE 2+ (NEGATIVE); URINE LEUK ESTERASE NEGATIVE (NEGATIVE); URINE NITRITE NEGATIVE (NEGATIVE); URINE PROTEIN NEGATIVE (NEGATIVE); URINE UROBILINOGEN NEGATIVE mg/dL (0.2-1.0)
[2018-02-06 21:22] VITALS: TEMP 98.4
[2018-02-06] MEDS ORDERED: HYDROmorphone HCL 2 MG TABLET PO ONE ×2 (21:36→22:04)
[2018-02-06] MEDS ORDERED: HYDROmorphone HCL 2 MG TABLET ONE ×2 (21:45→22:06)
[2018-02-07] MEDS ORDERED: SODIUM CHLORIDE 1,000 ML IV SCH (00:15)
[2018-02-07] MEDS ORDERED: ONDANSETRON 4 MG TABLET PO PRN (03:28)
[2018-02-07] MEDS ORDERED: FENTANYL TD ONE (03:30)
[2018-02-07] MEDS ORDERED: LOSARTAN POTASSIUM 50 MG TABLET (FP) PO SCH (03:30)
[2018-02-07] MEDS ORDERED: FENTANYL TD SCH (03:30)
[2018-02-07] MEDS ORDERED: fentaNYL 25mcg/hr PATCH.TD72 ONE (03:35)
[2018-02-07] MEDS ORDERED: HYDROmorphone HCl 2 MG/ML VIAL IVPUSH PRN (03:35)
[2018-02-07] MEDS ORDERED: GABAPENTIN 100 MG CAPSULE (FP) ONE (03:36)
[2018-02-07] MEDS ORDERED: ONDANSETRON *ODT* 4 MG TABLET ONE (04:48)
[2018-02-07 05:49] VITALS: BP 128/72; PULSE 78
[2018-02-07] MEDS ORDERED: GABAPENTIN 100 MG CAPSULE (FP) PO SCH (06:00)
[2018-02-07] MEDS ORDERED: PATIENT'S OWN MEDICATION (NON-FORMULARY) (Benzonatate [Benzonatate] 100 MG) PO SCH (10:00)
[2018-02-07] MEDS: diazePAM 2 MG TABLET PO SCH ×2 (10:10→10:50)
[2018-02-07] MEDS ORDERED: diazePAM 2 MG TABLET ONE (10:50)
[2018-02-07] MEDS: FAMOTIDINE 20 MG/50 ML IVPB 20 MG/50 ML MG IVPB SCH ×2 (10:50→10:59)
[2018-02-07] MEDS ORDERED: PANTOPRAZOLE 40 MG TABLET (FP) PO ONE (12:05)
[2018-02-07] MEDS ORDERED: PANTOPRAZOLE 40 MG TABLET (FP) ONE (12:06)
--- NOTE | 2018-02-07 12:42 | PN ---
Progress Note (short form) - Note Progress Note: patient signed AMA from ED before evaluation by me.
[2018-02-07] MEDS ORDERED: ATORVASTATIN CA 10 MG TABLET (FP) PO SCH (22:00)
== END 2018-02-07 13:00 | disposition left against medical advice (07) ==
LOC: JER 15:47 → JERBED 02-07 00:41
PROVIDERS: ADMIT Internal Medicine; ATTEND Internal Medicine
PROC: 3E033NZ Introduction of Analgesics, Hypnotics, Sedatives into Peripheral Vein, Percutaneous Approach (ICD-10-PCS; principal; 2018-02-07)
PROC: 3E0337Z Introduction of Electrolytic and Water Balance Substance into Peripheral Vein, Percutaneous Approach (ICD-10-PCS; 2018-02-07)
PROC: 3E033GC Introduction of Other Therapeutic Substance into Peripheral Vein, Percutaneous Approach (ICD-10-PCS; 2018-02-07)
DX: R10.9 Unspecified abdominal pain (principal); I10 Essential (primary) hypertension; E78.5 Hyperlipidemia, unspecified; J45.909 Unspecified asthma, uncomplicated; J44.9 Chronic obstructive pulmonary disease, unspecified; F41.9 Anxiety disorder, unspecified; Z98.890 Other specified postprocedural states; Z91.011 Allergy to milk products; Z88.6 Allergy status to analgesic agent; Z88.8 Allergy status to other drugs, medicaments and biological substances; Z91.013 Allergy to seafood; Z91.048 Other nonmedicinal substance allergy status
CPT/HCPCS: 36415; 71045-TC-FY; 74176-TC; 80053; 81003; 82550; 83605; 83690; 84484; 85025; 85610; 85730; 86850; 86900; 86901; 87086; 99284-25; G0378; J0131; J7030

== ENCOUNTER 2018-02-09 15:25 | Observation (INO) | payer OTHER ==
--- NOTE | 2018-02-09 15:46 | PDOC ---
History of Present Illness - General Chief Complaint: Nausea/Vomiting Stated Complaint: VOMITING Time Seen by Provider: 02/09/18 15:28 - History of Present Illness Initial Comments: 02/09/18 15:42 57YO F hx HTN, HL, SBO, multiple spinal fusion, C2-T1 laminectomy on 12/03/17 ( Dr. Michelle) p/w vomiting and abd pain for 4 days. Pt was seen at [facility] for the same 2 days ago, was found to have enteritis. Pt was unable to tolerate PO, and was admitted but eloped prior to evaluation by admitting doctor. Pt states she left because she had not received any medication and decided to go home and take her own medications. Since then, she states she has not been able to keep food or even water down. Vomiting is NBNB. Pain is present only after she eats or drinks. Pain is diffuse, describes it as crampy and wringing. It has not changed compared to 2 days ago. No diarrhea, normal Bm yest. Passing flatus. Denies fevers, chills, CP, SOB, rashes, LE edema. Pt also reports continued pain to entire L neck and LUE since the surgery. Past History - Past Medical History Allergies/Adverse Reactions: Allergies Allergy/AdvReac Type Severity Reaction Status Date / Time aspirin Allergy Intermediate Hives Verified 02/09/18 15:37 gabapentin Allergy Intermediate Rash Verified 02/09/18 15:38 hydromorphone [From Dilaudid] Allergy Intermediate Vomiting Verified 02/09/18 15 :38 ibuprofen Allergy Intermediate vomitting Verified 02/09/18 15:37 ketorolac tromethamine Allergy ITCHING, Verified 02/09/18 15:37 [From Toradol] VOMITING lactose Allergy Verified 02/09/18 15:37 morphine Allergy Hives Verified 02/09/18 15:37 Penicillins Allergy Hives Verified 02/09/18 15:37 Shellfish Allergy Hives Verified 02/09/18 15:37 onions Allergy Uncoded 02/06/18 15:56 seasoning Allergy Uncoded 02/06/18 15:56 iv dye AdvReac Severe Uncoded 02/09/18 15:39 Home Medications: Ambulatory Orders Estrogens, Conjugated [Premarin] 0.625 mg PO DAILY 01/02/17 Simvastatin 10 mg PO HS 09/19/17 Losartan Potassium 50 mg PO DAILY 10/31/17 Ondansetron HCl [Zofran] 4 mg PO BID PRN 11/27/17 Diazepam [Valium] 2 mg PO BID #14 tablet MDD 2 12/19/17 FENTANYL 12mcg PATCH [DURAGESIC 12mcg PATCH -] 1 each TD Q72H 02/09/18 Pantoprazole Sodium [Protonix] 40 mg PO DAILY 02/09/18 Anemia: No Asthma: Yes (bronchitis) Cancer: No Cardiac Disorders: No CVA: No COPD: No CHF: No DVT: No Dementia: No Diabetes: No GI Disorders: Yes (sbo) Disorders: No HTN: Yes Hypercholesterolemia: Yes Liver Disease: No Seizures: No Thyroid Disease: No - Surgical History Abdominal Surgery: Yes (small bowel obstruction) Appendectomy: No Cardiac Surgery: No Cholecystectomy: No Lung Surgery: No Neurologic Surgery: Yes (spinal surgery, SEVERAL) Orthopedic Surgery: Yes - Immunization History Immunization Up to Date: Yes - Suicide/Smoking/Psychosocial Hx Smoking Status: No Smoking History: Never smoked Have you smoked in the past 12 months: No Number of Cigarettes Smoked Daily: 0 Hx Alcohol Use: No Drug/Substance Use Hx: No Substance Use Type: None Hx Substance Use Treatment: No Review of Systems - Review of Systems Comments:: 02/09/18 17:20 GENERAL/CONSTITUTIONAL: No fever or chills. +weakness. HEAD, EYES, EARS, NOSE AND THROAT: No change in vision. No ear pain or discharge. No sore throat. GASTROINTESTINAL: +nausea, vomiting, no diarrhea or constipation. +abd pain GENITOURINARY: No dysuria, frequency, or change in urination. CARDIOVASCULAR: No chest pain or shortness of breath RESPIRATORY: No cough, wheezing, or hemoptysis. MUSCULOSKELETAL: No joint or muscle swelling or pain. No neck or back pain. SKIN: No rash NEUROLOGIC: No headache, vertigo, loss of consciousness, or change in strength/ sensation. ENDOCRINE: No increased thirst. No abnormal weight change. HEMATOLOGIC/LYMPHATIC: No anemia, easy bleeding, or history of blood clots. ALLERGIC/IMMUNOLOGIC: No hives or skin allergy. *Physical Exam - Vital Signs Last Vital Signs Temp Pulse Resp BP Pulse Ox 98.3 F 90 18 149/100 100 02/09/18 15:26 02/09/18 15:26 02/09/18 15:26 02/09/18 15:26 02/09/18 15:26 - Physical Exam Comments: 02/09/18 17:21 GENERAL: Awake, alert, and fully oriented, in no acute distress EYES: PERRLA, EOMI, sclera anicteric, conjunctiva clear ENT: Auricles normal inspection, hearing grossly normal, nares patent, oropharynx clear without exudates. dry MM NECK: Normal ROM, supple, no lymphadenopathy, JVD, or masses LUNGS: Breath sounds equal, clear to auscultation bilaterally. No wheezes, and no crackles HEART: Regular rate and rhythm, normal S1 and S2, no murmurs, rubs or gallops ABDOMEN: Soft, diffuse mild nonfocal ttp, normoactive bowel sounds. No guarding , no rebound. No masses. No CVAT EXTREMITIES: Normal range of motion, no edema. No clubbing or cyanosis. No cords, erythema, or tenderness NEUROLOGICAL: Normal speech, cranial nerves intact, 5/5 strength in all 4 extremities, normal sensation to light touch in all 4 extremities SKIN: Warm, Dry, normal turgor, no rashes or lesions noted. ED Treatment Course - LABORATORY CBC & Chemistry Diagram: 02/09/18 17:00 02/09/18 17:00 Medical Decision Making - Medical Decision Making 02/09/18 17:22 57yo F hx HTN, HL, SBO, multiple spinal fusion, C2-T1 laminectomy on 12/03/17 presents to the ED with continued abd pain and vomiting. CTAP 2 days ago with enteritis. Vitals unremarkable. Exam with diffuse non focal ttp. Will obtain labs, hydrate pt, and treat symptomatically. Will hold off on repeat imaging as pt states the pain is the same today as it was 2 days ago. WIll PO challenge post meds. 02/09/18 18:58 Labs unremarakble UA neg Pt given water for PO challenge If able to tolerate will PO challenge with solid foods *DC/Admit/Observation/Transfer - Discharge Dispostion Condition at time of disposition: Fair - Referrals - Patient Instructions - Post Discharge Activity
[2018-02-09 16:39] LABS: URINE APPEARANCE Clear; URINE BILIRUBIN 2+ (NEGATIVE); URINE COLOR Yellow; URINE GLUCOSE (UA) Negative (NEGATIVE); URINE KETONE 4+ (NEGATIVE); URINE LEUK ESTERASE Negative (NEGATIVE); URINE NITRITE Negative (NEGATIVE); URINE PROTEIN 1+ (NEGATIVE); URINE UROBILINOGEN 0.2 (0.2-1.0)
[2018-02-09] MEDS ORDERED: ONDANSETRON 4 MG/2 ML VIAL IVPUSH ONE ×2 (17:16→21:11)
[2018-02-09] MEDS ORDERED: SODIUM CHLORIDE 1,000 ML IV STA (17:16)
[2018-02-09] MEDS ORDERED: ACETAMINOPHEN 1000 MG/100 ML VIAL (NON FORMULARY) IVPB ONE (17:16)
[2018-02-09] MEDS ORDERED: ACETAMINOPHEN INJECTION 100 ML IVPB ONE (17:20)
[2018-02-09] MEDS ORDERED: ONDANSETRON 4 MG/2 ML VIAL ONE ×2 (17:20→21:12)
[2018-02-09 17:31] LABS: ALBUMIN 4.3 g/dl (3.5-5.0); ALK PHOS 52 U/L (32-92); ANION GAP 13 MMOL/L (8-16); BILIRUBIN,TOTAL 0.9 mg/dl (0.2-1.0); BLOOD UREA NITROGEN 6 mg/dl (7-18); CALCIUM 9.2 mg/dl (8.4-10.2); CHLORIDE 104 mmol/L (98-107); CO2 21 mmol/L (22-28); CREATININE 0.7 mg/dl (0.6-1.3); GLUCOSE,RANDOM 94 mg/dl (74-106); POTASSIUM 3.5 mmol/L (3.5-5.1); SGOT/AST 27 U/L (10-42); SGPT/ALT 18 U/L (10-40); SODIUM 138 mmol/L (136-145)
[2018-02-09 17:39] LABS: BASO % 0.8 % (0-2.0); EOS % 5.9 % (0-4.5); HEMATOCRIT 34.3 % (32.4-45.2); LYMPH % 23.5 % (8-40); MCH 29.5 pg (25.7-33.7); MEAN CELL VOLUME 92.2 fl (80-96); MEAN PLT VOLUME 8.5 fl (7.5-11.1); MONO % 9.4 % (3.8-10.2); NEUT % 60.4 % (42.8-82.8); PLATELET COUNT 268 K/MM3 (134-434); RBC 3.72 M/mm3 (3.60-5.2); RDW 14.3 % (11.6-15.6); WHITE BLOOD COUNT 3.8 K/mm3 (4.0-10.8)
[2018-02-09 18:22] LABS: EPI CELLS 1+ /HPF; URINE BACTERIA 1+ /hpf (NEGATIVE); URINE RBC 0-2 /hpf (0-3); URINE WBC 0-1 (0-5)
--- NOTE | 2018-02-09 20:02 | PDOC ---
*Physical Exam - Vital Signs Last Vital Signs Temp Pulse Resp BP Pulse Ox 98.3 F 90 18 149/100 100 02/09/18 15:26 02/09/18 15:26 02/09/18 15:26 02/09/18 15:26 02/09/18 15:26 ED Treatment Course - LABORATORY CBC & Chemistry Diagram: 02/09/18 17:00 02/09/18 17:00 - ADDITIONAL ORDERS Additional order review: Laboratory Results 02/09/18 02/09/18 02/09/18 17:00 17:00 16:55 Sodium 138 Potassium 3.5 Chloride 104 Carbon Dioxide 21 L Anion Gap 13 BUN 6 L Creatinine 0.7 Creat Clearance w eGFR > 60 Random Glucose 94 Lactic Acid 1.5 Calcium 9.2 Total Bilirubin 0.9 AST 27 ALT 18 Alkaline Phosphatase 52 Total Protein 7.0 Albumin 4.3 Lipase 109 Urine Color Urine Appearance Urine pH Ur Specific Brom[place] Urine Protein Urine Glucose (UA) Urine Ketones Urine Blood Urine Nitrite Urine Bilirubin Urine Urobilinogen Ur Leukocyte Esterase Urine RBC Urine WBC Ur Epithelial Cells Urine Bacteria 02/09/18 16:30 Sodium Potassium Chloride Carbon Dioxide Anion Gap BUN Creatinine Creat Clearance w eGFR Random Glucose Lactic Acid Calcium Total Bilirubin AST ALT Alkaline Phosphatase Total Protein Albumin Lipase Urine Color Yellow Urine Appearance Clear Urine pH 6.0 Ur Specific [place] >= 1.030 Urine Protein 1+ H Urine Glucose (UA) Negative Urine Ketones 4+ H Urine Blood Negative Urine Nitrite Negative Urine Bilirubin 2+ H Urine Urobilinogen 0.2 Ur Leukocyte Esterase Negative Urine RBC 0-2 Urine WBC 0-1 Ur Epithelial Cells 1+ Urine Bacteria 1+ 02/09/18 17:00 RBC 3.72 MCV 92.2 MCHC 32.0 RDW 14.3 MPV 8.5 Neutrophils % 60.4 Lymphocytes % 23.5 Monocytes % 9.4 Eosinophils % 5.9 H Basophils % 0.8 - Medications Given in the ED: ED Medications Discontinued Medications Generic Name Dose Route Start Last Admin Trade Name Freq PRN Reason Stop Dose Admin Acetaminophen 1,000 mg 02/09/18 17:16 02/09/18 17:28 Ofirmev Injection - IVPB 02/09/18 17:17 1,000 mg ONCE ONE Administration Sodium Chloride 1,000 mls @ 1,000 mls/hr 02/09/18 17:16 02/09/18 17:28 Normal Saline - IV 10/09/18 18:15 1,000 mls/hr ASDIR STA Administration Ondansetron HCl 4 mg 02/09/18 17:16 02/09/18 17:28 Zofran Injection IVPUSH 02/09/18 17:17 4 mg ONCE ONE Administration Medical Decision Making - Medical Decision Making 02/09/18 20:12 Care of this patient received from . After oral challenge (crackers/water) patient states that she continues to feel very nauseous and ready to vomit. Because of patient's intractable nausea and intermittent abdominal pain, admission for observation are warranted for IV hydration and further evaluation. Of note, patient describes laparotomy many years ago for intestinal obstruction. Review of medical record reveals that this was in 2004; patient is unclear what the etiology of the obstruction was. Actual chart is unobtainable at this time 02/09/18 20:53 Case discussed with ABDI Bobo. Patient admitted under observation status for acute enteritis, Dr. Slaughter *DC/Admit/Observation/Transfer Diagnosis at time of Disposition: Enteritis - Discharge Dispostion Condition at time of disposition: Fair Decision to Admit order: Yes - Referrals - Patient Instructions - Post Discharge Activity
[2018-02-09 22:53] VITALS: BMI 24.5
[2018-02-10] MEDS ORDERED: ONDANSETRON 4 MG TABLET PO PRN (00:06)
[2018-02-10] MEDS: diazePAM 2 MG TABLET PO SCH ×3 (00:18→21:26)
[2018-02-10] MEDS ORDERED: FENTANYL PATCH WASTE TD PRN (00:20)
[2018-02-10] MEDS ORDERED: PREGABALIN 25 MG CAPSULE PO ONE (00:57)
[2018-02-10] MEDS ORDERED: diphenhydrAMINE HCL 12.5 MG/5 ML UNIT-DOSE CUPS PO PRN (01:02)
[2018-02-10] MEDS: ONDANSETRON 4 MG/2 ML VIAL IVPUSH PRN ×4 (01:18→21:24)
--- NOTE | 2018-02-10 03:04 | HP ---
CHIEF COMPLAINT: nausea, vomiting PCP: Kyle HISTORY OF PRESENT ILLNESS: This is a 57 year old female with a significant past medical history recent spinal fusion 12/2017 with chronic neck and left arm pain postop, HTN, COPD, SBO who presented to the ED with nausea and vomiting. Minimal abdominal pain. Pt was seen and evaluated at [facility] ER on 02/06/18 and was admitted but pt signed out AMA on 02/07/18. Vomiting is NBNB. Abdominal pain was worse on Thursday. Last normal BM Thursday, small BM Thursday. Pt reports she has been "unable to keep anything down" since last week. ER course was notable for: (1) WBC 3.8 (2) CT done on 02/06 c/w enteritis Recent Travel: pt denies PAST MEDICAL HISTORY: HTN, COPD, SBO, constipation, anemia, anxiety PAST SURGICAL HISTORY: laporatomy for SBP 2004 multiple spinal laminectomy, most recent: C2-T1 laminectomy on 12/03/17 Social History: Smoking: pt denies Alcohol: pt denies Drugs: pt denies Allergies aspirin Allergy (Intermediate, Verified 02/09/18 15:37) Hives gabapentin Allergy (Intermediate, Verified 02/09/18 15:38) Rash hydromorphone [From Dilaudid] Allergy (Intermediate, Verified 02/09/18 15:38) Vomiting ibuprofen Allergy (Intermediate, Verified 02/09/18 15:37) vomitting ketorolac tromethamine [From Toradol] Allergy (Verified 02/09/18 15:37) ITCHING, VOMITING lactose Allergy (Verified 02/09/18 15:37) morphine Allergy (Verified 02/09/18 15:37) Hives Penicillins Allergy (Verified 02/09/18 15:37) Hives Shellfish Allergy (Verified 02/09/18 15:37) Hives onions Allergy (Uncoded 02/06/18 15:56) any onions or onion powder seasoning Allergy (Uncoded 02/06/18 15:56) iv dye Adverse Reaction (Severe, Uncoded 02/09/18 15:39) reports as she is allergic to shell fish. HOME MEDICATIONS: 3 Medication Instructions Recorded Estrogens, Conjugated [Premarin] 0.625 mg PO DAILY 01/02/17 Simvastatin 10 mg PO HS 09/19/17 Losartan Potassium 50 mg PO DAILY 10/31/17 Ondansetron HCl [Zofran] 4 mg PO BID PRN 11/27/17 Diazepam [Valium] 2 mg PO BID #14 tablet MDD 2 12/19/17 FENTANYL 12mcg PATCH [DURAGESIC 1 each TD Q72H 02/09/18 12mcg PATCH -] Pantoprazole Sodium [Protonix] 40 mg PO DAILY 02/09/18 REVIEW OF SYSTEMS CONSTITUTIONAL: Absent: fever, chills, diaphoresis, generalized weakness, malaise, loss of appetite, weight change HEENT: Absent: rhinorrhea, nasal congestion, throat pain, throat swelling, difficulty swallowing, mouth swelling, ear pain, eye pain, visual changes CARDIOVASCULAR: Absent: chest pain, syncope, palpitations, irregular heart rate, lightheadedness , peripheral edema RESPIRATORY: Absent: cough, shortness of breath, dyspnea with exertion, orthopnea, wheezing, stridor, hemoptysis GASTROINTESTINAL: Present: nausea, vomiting Absent: abdominal distension, diarrhea, constipation, melena, hematochezia GENITOURINARY: Absent: dysuria, frequency, urgency, hesitancy, hematuria, flank pain, genital pain MUSCULOSKELETAL: Absent: myalgia, arthralgia, joint swelling, back pain, neck pain SKIN: Absent: rash, itching, pallor HEMATOLOGIC/IMMUNOLOGIC: Absent: easy bleeding, easy bruising, lymphadenopathy, frequent infections ENDOCRINE: Absent: unexplained weight gain, unexplained weight loss, heat intolerance, cold intolerance NEUROLOGIC: Absent: headache, focal weakness or paresthesias, dizziness, unsteady gait, seizure, mental status changes, bladder or bowel incontinence PSYCHIATRIC: Absent: anxiety, depression, suicidal or homicidal ideation, hallucinations. PHYSICAL EXAMINATION Vital Signs - 24 hr 3 02/09/18 02/09/18 02/09/18 15:26 21:04 23:41 Temperature 98.3 F 97.9 F 97.7 F Pulse Rate 90 71 Pulse Rate [ 79 Apical] Respiratory 18 18 19 Rate Blood Pressure 149/100 137/66 Blood Pressure 147/88 [Arm] O2 Sat by Pulse 100 99 100 Oximetry (%) GENERAL: Awake, alert, and fully oriented, in no acute distress. HEAD: Normal with no signs of trauma. EYES: Pupils equal, round and reactive to light, extraocular movements intact, sclera anicteric, conjunctiva clear. No lid lag. EARS, NOSE, THROAT: Ears normal, nares patent, oropharynx clear without exudates. Moist mucous membranes. NECK: Normal range of motion, supple without lymphadenopathy, JVD, or masses. LUNGS: Breath sounds equal, clear to auscultation bilaterally. No wheezes, and no crackles. No accessory muscle use. HEART: Regular rate and rhythm, normal S1 and S2 without murmur, rub or gallop. ABDOMEN: Soft, mildly tender on palpation, not distended, normoactive bowel sounds, no guarding, no rebound, no masses. No hepatomegaly or splenomegaly. MUSCULOSKELETAL: Normal range of motion at all joints. No bony deformities or tenderness. No CVA tenderness. UPPER EXTREMITIES: 2+ pulses, warm, well-perfused. No cyanosis. No clubbing. No peripheral edema. LOWER EXTREMITIES: 2+ pulses, warm, well-perfused. No calf tenderness. No peripheral edema. NEUROLOGICAL: Cranial nerves II-XII intact. Normal speech. PSYCHIATRIC: Cooperative. Good eye contact. Appropriate mood and affect. SKIN: Warm, dry, normal turgor, no rashes or lesions noted, normal capillary refill. Laboratory Results - last 24 hr 3 02/09/18 02/09/18 02/09/18 16:30 16:55 17:00 WBC 3.8 L RBC 3.72 Hgb 11.0 Hct 34.3 MCV 92.2 MCH 29.5 MCHC 32.0 RDW 14.3 Plt Count 268 MPV 8.5 Absolute Neuts (auto) 2.3 Neutrophils % 60.4 Lymphocytes % 23.5 Monocytes % 9.4 Eosinophils % 5.9 H Basophils % 0.8 Sodium Potassium Chloride Carbon Dioxide Anion Gap BUN Creatinine Creat Clearance w eGFR Random Glucose Lactic Acid 1.5 Calcium Total Bilirubin AST ALT Alkaline Phosphatase Total Protein Albumin Lipase Urine Color Yellow Urine Appearance Clear Urine pH 6.0 Ur Specific [place] >= 1.030 Urine Protein 1+ H Urine Glucose (UA) Negative Urine Ketones 4+ H Urine Blood Negative Urine Nitrite Negative Urine Bilirubin 2+ H Urine Urobilinogen 0.2 Ur Leukocyte Esterase Negative Urine RBC 0-2 Urine WBC 0-1 Ur Epithelial Cells 1+ Urine Bacteria 1+ 3 02/09/18 02/09/18 17:00 17:00 WBC RBC Hgb Hct MCV MCH MCHC RDW Plt Count MPV Absolute Neuts (auto) Neutrophils % Lymphocytes % Monocytes % Eosinophils % Basophils % Sodium 138 Potassium 3.5 Chloride 104 Carbon Dioxide 21 L Anion Gap 13 BUN 6 L Creatinine 0.7 Creat Clearance w eGFR > 60 Random Glucose 94 Lactic Acid Calcium 9.2 Total Bilirubin 0.9 AST 27 ALT 18 Alkaline Phosphatase 52 Total Protein 7.0 Albumin 4.3 Lipase 109 Urine Color Urine Appearance Urine pH Ur Specific [place] Urine Protein Urine Glucose (UA) Urine Ketones Urine Blood Urine Nitrite Urine Bilirubin Urine Urobilinogen Ur Leukocyte Esterase Urine RBC Urine WBC Ur Epithelial Cells Urine Bacteria ASSESSMENT/PLAN: 57yF with PMH HTN, COPD, SBO, constipation, anemia, anxiety presented to the ED with nausea and vomiting. Enteritis with nausea and vomiting - given flagyl in ED, will cont same, add levaquin - NPO except meds for now, consider clear liquids in am if feeling better - consider GI and ID consults - no s/s SBO, + BS, passing gas HTN - cont home meds COPD - no s/s exacerbation - albuterol PRN FEN - NS @75cc/hr - BMP in am - NPO DVT PPX - heparin deferred, anticipated LOS <48h Dispo: pt currently requires further observation for management of her emergent condition. Visit type - Emergency Visit Emergency Visit: Yes ED Registration Date: 02/09/18 Care time: The patient presented to the Emergency Department on the above date and was hospitalized for further evaluation of their emergent condition. - New Patient This patient is new to me today: Yes Date on this admission: 02/10/18 - Critical Care Critical Care patient: No
[2018-02-10] MEDS ORDERED: SODIUM CHLORIDE 1,000 ML IV SCH (03:30)
[2018-02-10] MEDS ORDERED: METOCLOPRAMIDE HCL INJECTION 10 MG/2 ML VIAL IVPUSH ONE (05:24)
--- NOTE | 2018-02-10 07:23 | PN ---
Physical Exam: SUBJECTIVE: Patient seen and examined, patient resting comfortably in bed, denies any nausea or vomiting. OBJECTIVE: Patient is 57-year-old female with a past medical history of htn, copd, sbo, and chronic back pain. Patient is s/p expiration of spinal fusion, removal of wires C2-T1 laminectomy C7-T1 osteotomies, C2-T1 deformity correction with posterior fusion, removal of anterior instrumentation, C4/C5 corpectomies reconstruction with peek cages and anterior plating. Patient was recently admitted to [facility] for enteritis and left AMA on 02/07/18. Patient presented to the emergency Department at [facility] on February [id number] for intractable vomiting and persistent back / neck pain and was admitted to observation on the medical surgical floor Vital Signs Period Temp Pulse Resp BP Sys/Hylton Pulse Ox Last 24 Hr 97.7 F-98.3 F 71-102 18-19 133-149/66-100 99-100 GENERAL: The patient is awake, alert, and fully oriented, in no acute distress. HEAD: Normal with no signs of trauma. EYES: PERRL, extraocular movements intact, sclera anicteric, conjunctiva clear. No ptosis. ENT: Ears normal, nares patent, oropharynx clear without exudates, moist mucous membranes. NECK: [place] j collar in place, Trachea midline, full range of motion, supple. LUNGS: Breath sounds equal, clear to auscultation bilaterally, no wheezes, no crackles, no accessory muscle use. HEART: Regular rate and rhythm, S1, S2 without murmur, rub or gallop. ABDOMEN: Soft, nontender, nondistended, normoactive bowel sounds, no guarding, no rebound, no hepatosplenomegaly, no masses. EXTREMITIES: 2+ pulses, warm, well-perfused, no edema. NEUROLOGICAL: Cranial nerves II through XII grossly intact. Normal speech, gait not observed. PSYCH: Normal mood, normal affect. SKIN: Warm, dry, normal turgor, no rashes or lesions noted Laboratory Results - last 24 hr CBC WBC 2.8 K/mm3 (4.0-10.8) L 02/10/18 07:25 RBC 3.44 M/mm3 (3.60-5.2) L 02/10/18 07:25 Hgb 10.0 GM/dl (10.7-15.3) L 02/10/18 07:25 Hct 31.9 % (32.4-45.2) L 02/10/18 07:25 MCV 92.8 fl (80-96) 02/10/18 07:25 MCH 29.0 pg (25.7-33.7) 02/10/18 07:25 MCHC 31.2 g/dl (32.0-36.0) L 02/10/18 07:25 RDW 15.0 % (11.6-15.6) 02/10/18 07:25 Plt Count 245 K/MM3 (134-434) 02/10/18 07:25 MPV 7.7 fl (7.5-11.1) 02/10/18 07:25 Absolute Neuts (auto) 1.1 K/mm3 02/10/18 07:25 Neutrophils % No Result Required. 02/10/18 07:25 Lymphocytes % No Result Required. 02/10/18 07:25 Monocytes % 9.4 % (3.8-10.2) 02/09/18 17:00 Eosinophils % 5.9 % (0-4.5) H 02/09/18 17:00 Basophils % 0.8 % (0-2.0) 02/09/18 17:00 CMP Sodium 136 mmol/L (136-145) 02/10/18 07:25 Potassium 3.3 mmol/L (3.5-5.1) L 02/10/18 07:25 Chloride 105 mmol/L (98-107) 02/10/18 07:25 Carbon Dioxide 22 mmol/L (22-28) 02/10/18 07:25 Anion Gap 9 MMOL/L (8-16) 02/10/18 07:25 BUN 4 mg/dl (7-18) L 02/10/18 07:25 Creatinine 0.7 mg/dl (0.6-1.3) 02/10/18 07:25 Creat Clearance w eGFR > 60 (>60) 02/10/18 07:25 Random Glucose 75 mg/dl (74-106) D 02/10/18 07:25 Lactic Acid 1.5 mmol/L (0.4-2.0) 02/09/18 16:55 Calcium 8.3 mg/dl (8.4-10.2) L 02/10/18 07:25 Phosphorus 3.7 mg/dl (2.5-4.6) 02/10/18 07:25 Magnesium 1.5 mg/dL (1.8-2.4) L 02/10/18 07:25 Total Bilirubin 0.9 mg/dl (0.2-1.0) 02/09/18 17:00 AST 27 U/L (10-42) 02/09/18 17:00 ALT 18 U/L (10-40) 02/09/18 17:00 Alkaline Phosphatase 52 U/L (32-92) 02/09/18 17:00 Total Protein 7.0 g/dl (6.4-8.3) 02/09/18 17:00 Albumin 4.3 g/dl (3.5-5.0) 02/09/18 17:00 Lipase 109 U/L (73-393) 02/09/18 17:00 Active Medications Generic Name Dose Route Start Last Admin Trade Name Freq PRN Reason Stop Dose Admin Atorvastatin Calcium 10 mg 02/10/18 22:00 Lipitor - PO HS JUJU Diazepam 2 mg 02/10/18 00:15 02/10/18 00:18 Valium - PO 2 mg BID JUJU Administration Diphenhydramine HCl 25 mg 02/10/18 01:02 Benadryl Oral Solution - PO Q6H PRN INSOMNIA Estrogens Conjugated 0.625 mg 02/10/18 10:00 Premarin - PO DAILY JUJU Fentanyl 1 patch 02/11/18 10:00 Duragesic 12mcg Patch - TD Q72H JUJU Metronidazole 500 mg in 100 mls @ 100 mls/hr 02/10/18 03:30 02/10/18 03:32 Flagyl 500mg Premixed Ivpb - IVPB 100 mls/hr Q6H-IV JUJU Administration Levofloxacin 750 mg in 150 mls @ 150 mls/hr 02/10/18 03:45 02/10/18 03:33 Levaquin 750 Mg Premixed Ivpb - IVPB 150 mls/hr DAILY JUJU Administration Protocol Sodium Chloride 1,000 mls @ 75 mls/hr 02/10/18 03:30 02/10/18 03:40 Normal Saline - IV 75 mls/hr ASDIR JUJU Administration Losartan Potassium 50 mg 02/10/18 10:00 Cozaar - PO DAILY JUJU Miscellaneous 1 each 02/10/18 00:20 Duragesic Patch Waste TD PRN PRN REMOVAL OF PATCH Ondansetron HCl 4 mg 02/10/18 01:03 02/10/18 01:18 Zofran Injection IVPUSH 4 mg Q6H PRN Administration NAUSEA AND/OR VOMITING Pantoprazole Sodium 40 mg 02/10/18 10:00 Protonix - PO DAILY JUJU Imaging CT abdomen/pelvis without contrast 02/07/2018Colon thickening of the terminal ileum and adjacent distal small bowel loops consistent with enteritis, inflammatory versus infectiousno free air or free fluid in the abdomen and pelvis no evidence of diverticulitis, as per radiologist Dr Llamas ASSESSMENT/PLAN: 1) GI Enteritis with nausea and vomiting - will continue levaquin and flagyl - pt denies any nausea will trial clear liquid diet 2) cardiovascular hypertension - b/p at goal, continue cozar, b/p q4h 3) pulmonary copd - no acute excerbation at this time, continue albuterol prn f/e/n - trial clear liquid diet - ns w/20meq kci @75ml/hr - replete magnesium and potassium ppx - protonix - physical therapy - heparin sq Dispo: pt currently requires further observation for management of her emergent condition.
[2018-02-10 07:55] LABS: HEMATOCRIT 31.9 % (32.4-45.2); MCHC 31.2 g/dl (32.0-36.0); MEAN CELL VOLUME 92.8 fl (80-96); MEAN PLT VOLUME 7.7 fl (7.5-11.1); PLATELET COUNT 245 K/MM3 (134-434); RBC 3.44 M/mm3 (3.60-5.2); WHITE BLOOD COUNT 2.8 K/mm3 (4.0-10.8)
[2018-02-10 08:14] LABS: ANION GAP 9 MMOL/L (8-16); BLOOD UREA NITROGEN 4 mg/dl (7-18); CALCIUM 8.3 mg/dl (8.4-10.2); CHLORIDE 105 mmol/L (98-107); CO2 22 mmol/L (22-28); CREATININE 0.7 mg/dl (0.6-1.3); GLUCOSE,RANDOM 75 mg/dl (74-106); MAGNESIUM 1.5 mg/dL (1.8-2.4); PHOSPHOROUS 3.7 mg/dl (2.5-4.6); POTASSIUM 3.3 mmol/L (3.5-5.1); SODIUM 136 mmol/L (136-145)
[2018-02-10] MEDS ORDERED: MAGNESIUM SULFATE IN WATER 2 GM/50 ML IVPB IVPB ONE (09:00)
[2018-02-10] MEDS ORDERED: POTASSIUM CHLORIDE ORAL LIQUID 20 MEQ/15 ML PO ONE (09:00)
--- NOTE | 2018-02-10 09:50 | EKG ---
Test Reason : Blood Pressure : / mmHG Vent. Rate : 080 BPM Atrial Rate : 080 BPM P-R Int : 162 ms QRS Dur : 070 ms QT Int : 436 ms P-R-T Axes : 054 022 000 degrees QTc Int : 502 ms NORMAL SINUS RHYTHM NONSPECIFIC T WAVE ABNORMALITY ABNORMAL ECG WHEN COMPARED WITH ECG OF 09-NOV-2017 16:23, NO SIGNIFICANT CHANGE WAS FOUND Confirmed by THERESA PATEL, PEDRO ([id number]) on 02/10/2018 9:49:53 AM Referred By: Confirmed By:PEDRO CARDENAS MD
[2018-02-10] MEDS: SODIUM CHLORIDE 0.9%/KCL 20 MEQ/1,000 ML INFUS.BAG IV SCH (09:52)
[2018-02-10] MEDS: HEPARIN NA (PORCINE) 5,000 UNITS/ML 1ML VIAL SQ SCH ×2 (09:53→21:24)
[2018-02-10] MEDS: LOSARTAN POTASSIUM 50 MG TABLET (FP) PO SCH (09:56)
[2018-02-10] MEDS: PANTOPRAZOLE 40 MG TABLET (FP) PO SCH (09:56)
[2018-02-10 11:13] LABS: PLATELET ESTIMATE ADEQUATE
[2018-02-10] MEDS: ESTROGENS,CONJUGATED 0.625 MG TABLET PO SCH (13:20)
[2018-02-10] MEDS: PREGABALIN 25 MG CAPSULE PO SCH ×2 (14:51→21:26)
[2018-02-10] MEDS ORDERED: diphenhydrAMINE HCL 25 MG CAPSULE (FP) PO PRN (15:53)
[2018-02-10] MEDS ORDERED: ACETAMINOPHEN 1000 MG/100 ML VIAL (NON FORMULARY) IVPB ONE (21:23)
[2018-02-10] MEDS ORDERED: ATORVASTATIN CA 10 MG TABLET (FP) PO SCH (22:00)
[2018-02-11] MEDS: ONDANSETRON 4 MG/2 ML VIAL IVPUSH PRN ×2 (03:47→10:02)
[2018-02-11] MEDS ORDERED: ACETAMINOPHEN 1000 MG/100 ML VIAL (NON FORMULARY) IVPB ONE (04:05)
[2018-02-11] MEDS: PREGABALIN 25 MG CAPSULE PO SCH ×2 (07:14→13:35)
[2018-02-11] MEDS ORDERED: ACETAMINOPHEN 325 MG TABLET (FP) PO PRN (09:07)
[2018-02-11 09:27] VITALS: BP 140/90; PULSE 88; TEMP 98
[2018-02-11] MEDS ORDERED: PT OWN MED DRAWER 7, Y5N ONE (09:39)
[2018-02-11] MEDS ORDERED: fentaNYL 12mcg/hr PATCH.TD72 TD SCH (10:00)
[2018-02-11] MEDS: HEPARIN NA (PORCINE) 5,000 UNITS/ML 1ML VIAL SQ SCH (10:02)
[2018-02-11] MEDS: LOSARTAN POTASSIUM 50 MG TABLET (FP) PO SCH (10:03)
[2018-02-11] MEDS: PANTOPRAZOLE 40 MG TABLET (FP) PO SCH (10:03)
[2018-02-11] MEDS: diazePAM 2 MG TABLET PO SCH (10:03)
[2018-02-11 10:12] LABS: BASO % 6.1 % (0-2.0); EOS % 10.2 % (0-4.5); HEMATOCRIT 37.1 % (32.4-45.2); HEMOGLOBIN 12.4 GM/dl (10.7-15.3); LYMPH % 29.7 % (8-40); MCH 30.6 pg (25.7-33.7); MCHC 33.3 g/dl (32.0-36.0); MEAN CELL VOLUME 91.9 fl (80-96); MEAN PLT VOLUME 7.9 fl (7.5-11.1); PLATELET COUNT 273 K/MM3 (134-434); RBC 4.04 M/mm3 (3.60-5.2); RDW 14.4 % (11.6-15.6); WHITE BLOOD COUNT 3.1 K/mm3 (4.0-10.8)
[2018-02-11 10:22] LABS: ANION GAP 10 MMOL/L (8-16); CALCIUM 8.9 mg/dl (8.4-10.2); CHLORIDE 106 mmol/L (98-107); CO2 21 mmol/L (22-28); CREATININE 0.7 mg/dl (0.6-1.3); GLUCOSE,RANDOM 101 mg/dl (74-106); MAGNESIUM 1.8 mg/dL (1.8-2.4); PHOSPHOROUS 2.5 mg/dl (2.5-4.6); POTASSIUM 3.5 mmol/L (3.5-5.1); SODIUM 137 mmol/L (136-145)
[2018-02-11] MEDS: ESTROGENS,CONJUGATED 0.625 MG TABLET PO SCH (10:22)
[2018-02-11] MEDS: SODIUM CHLORIDE 0.9%/KCL 20 MEQ/1,000 ML INFUS.BAG IV SCH (10:24)
[2018-02-11 10:25] LABS: BLOOD UREA NITROGEN < 5 mg/dl (7-18)
--- NOTE | 2018-02-11 11:29 | DS ---
Physical Exam: SUBJECTIVE: Patient seen and examined, patient is sitting at bedside chair tolerating diet denies any chest pain or shortness of breath denies any abdominal pain or fever OBJECTIVE:This is a 57 year old female with a significant past medical history recent spinal fusion 12/2017 with chronic neck and left arm pain postop, HTN, COPD, SBO who presented to the ED with nausea and vomiting. Minimal abdominal pain. Pt was seen and evaluated at [facility] ER on 02/06/18 and was admitted but pt signed out AMA on 02/07/18. Vomiting is NBNB. Abdominal pain was worse on Thursday. Last normal BM Thursday, small BM Thursday. Pt reports she has been "unable to keep anything down" since last week. ER course was notable for: (1) WBC 3.8 (2) CT done on 02/06 c/w enteritis Vital Signs Period Temp Pulse Resp BP Sys/Hylton Pulse Ox Last 24 Hr 97.8 F-98.3 F 65-90 16-18 119-154/68-90 98-100 PHYSICAL EXAM GENERAL: The patient is awake, alert, and fully oriented, in no acute distress. HEAD: Normal with no signs of trauma. EYES: PERRL, extraocular movements intact, sclera anicteric, conjunctiva clear. No ptosis. ENT: Ears normal, nares patent, oropharynx clear without exudates, moist mucous membranes. NECK: [place] j collar in place, Trachea midline, full range of motion, supple. LUNGS: Breath sounds equal, clear to auscultation bilaterally, no wheezes, no crackles, no accessory muscle use. HEART: Regular rate and rhythm, S1, S2 without murmur, rub or gallop. ABDOMEN: Soft, nontender, nondistended, normoactive bowel sounds, no guarding, no rebound, no hepatosplenomegaly, no masses. EXTREMITIES: 2+ pulses, warm, well-perfused, no edema. NEUROLOGICAL: Cranial nerves II through XII grossly intact. Normal speech, gait not observed. PSYCH: Normal mood, normal affect. SKIN: Warm, dry, normal turgor, no rashes or lesions noted LABS Laboratory Results - last 24 hr 02/11/18 02/11/18 09:59 09:59 WBC 3.1 L RBC 4.04 Hgb 12.4 Hct 37.1 D MCV 91.9 MCH 30.6 MCHC 33.3 RDW 14.4 Plt Count 273 MPV 7.9 Absolute Neuts (auto) 1.5 Neutrophils % 47.0 Lymphocytes % 29.7 Monocytes % 7.0 Eosinophils % 10.2 H Basophils % 6.1 H* Sodium 137 Potassium 3.5 Chloride 106 Carbon Dioxide 21 L Anion Gap 10 BUN < 5 L Creatinine 0.7 Creat Clearance w eGFR > 60 Random Glucose 101 D Calcium 8.9 Phosphorus 2.5 D Magnesium 1.8 Microbiology 02/09/18 16:30 Urine - Urine Clean Catch Urine Culture - Preliminary Staphylococcus Coagulase Neg Imaging CT abdomen/pelvis without contrast 02/07/2018Colon thickening of the terminal ileum and adjacent distal small bowel loops consistent with enteritis, inflammatory versus infectiousno free air or free fluid in the abdomen and pelvis no evidence of diverticulitis, as per radiologist Dr Llamas HOSPITAL COURSE: 1) GI Enteritis with nausea and vomiting - ct Scan of abdomen and pelvis reviewed, patient was started on Levaquin and Flagyl however patient reports adverse reaction of nausea vomiting after Levaquin and Flagyl and declines any further antibiotic, no leukocytosis noted patient is afebrile patient is tolerating soft diet. 2) cardiovascular hypertension - b/p at goal, continued cozar, b/p q4h 3) pulmonary copd - no acute excerbation at this time, continue albuterol prn 4) MS chronic back pain - Home medications continued outpatient declined Lyrica Because patient reports there was giving her hives. - Outpatient follow-up with private pain management physician Dr. Calvin PLAN - discharge home with follow up to Dr Michelle, Neurosurgeon, patient as a scheduled appointment for 02/17/2018. advised to keep follow up appointment - follow up with Dr Calvin pain management physician within 2 weeks - continue all medications as prescribed Date of Admission:02/09/18 Date of Discharge: 02/11/18 Minutes to complete discharge: 45 Discharge Summary Reason For Visit: ENTERITIS Current Active Problems Enteritis (Acute) Condition: Fair - Instructions - Home Medications Comprehensive Discharge Medication List: Ambulatory Orders Estrogens, Conjugated [Premarin] 0.625 mg PO DAILY 01/02/17 Simvastatin 10 mg PO HS 09/19/17 Losartan Potassium 50 mg PO DAILY 10/31/17 Ondansetron HCl [Zofran] 4 mg PO BID PRN 11/27/17 Diazepam [Valium] 2 mg PO BID #14 tablet MDD 2 12/19/17 FENTANYL 12mcg PATCH [DURAGESIC 12mcg PATCH -] 1 each TD Q72H 02/09/18 Pantoprazole Sodium [Protonix] 40 mg PO DAILY 02/09/18
[2018-02-11] MEDS ORDERED: MAGNESIUM SULFATE IN WATER 2 GM/50 ML IVPB IVPB ONE (11:30)
== END 2018-02-11 14:25 | disposition home health service (06) ==
LOC: FER 15:25 → FM/S 22:08
PROVIDERS: ADMIT Internal Medicine; ATTEND Nurse Practitioner Family
PROC: 3E03329 Introduction of Other Anti-infective into Peripheral Vein, Percutaneous Approach (ICD-10-PCS; principal; 2018-02-09)
PROC: 3E0337Z Introduction of Electrolytic and Water Balance Substance into Peripheral Vein, Percutaneous Approach (ICD-10-PCS; 2018-02-09)
PROC: 3E033GC Introduction of Other Therapeutic Substance into Peripheral Vein, Percutaneous Approach (ICD-10-PCS; 2018-02-09)
PROC: 3E013GC Introduction of Other Therapeutic Substance into Subcutaneous Tissue, Percutaneous Approach (ICD-10-PCS; 2018-02-09)
DX: K52.9 Noninfective gastroenteritis and colitis, unspecified (principal); R11.2 Nausea with vomiting, unspecified; I10 Essential (primary) hypertension; E78.5 Hyperlipidemia, unspecified; J44.9 Chronic obstructive pulmonary disease, unspecified; M54.5 Low back pain; G89.29 Other chronic pain; Z88.0 Allergy status to penicillin; Z88.6 Allergy status to analgesic agent; Z88.8 Allergy status to other drugs, medicaments and biological substances; Z91.013 Allergy to seafood; Z91.048 Other nonmedicinal substance allergy status; Z91.041 Radiographic dye allergy status; Z98.1 Arthrodesis status
CPT/HCPCS: 36415; 80048; 80053; 81003; 81015; 83605; 83690; 83735; 84100; 85025; 87086; 87186; 93005; 97116-GP; 97162-GP; 99283-25; G0378; J0131; J1410; J1644; J7030

== ENCOUNTER 2018-02-13 23:06 | Emergency (ER) | payer OTHER ==
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
[2018-02-13 23:23] VITALS: BP 152/87; PULSE 76; TEMP 98.4; BMI 24.4
[2018-02-14] MEDS ORDERED: ONDANSETRON *ODT* 4 MG TABLET ONE (00:44)
== END 2018-02-14 00:47 | disposition home or self-care (01) ==
LOC: FER 23:06
DX: R11.0 Nausea (principal); I10 Essential (primary) hypertension; E78.00 Pure hypercholesterolemia, unspecified
CPT/HCPCS: 99281-25

== ENCOUNTER → 2018-02-13 | Emergency (ER) | payer OTHER ==
[~2018-02-13] MED LIST: ACETAMINOPHEN 1000 MG/100 ML VIAL (NON FORMULARY) IVPB ONE; ACETAMINOPHEN INJECTION 100 ML IVPB ONE; ONDANSETRON 4 MG/2 ML VIAL IVPUSH ONE; ONDANSETRON 4 MG/2 ML VIAL ONE; SODIUM CHLORIDE 1,000 ML IV STA
[2018-02-13 18:57] VITALS: PULSE 110; BMI 22.4
[2018-02-13 19:09] VITALS: BP 170/74; TEMP 97.2
--- NOTE | 2018-02-13 19:52 | PDOC ---
History of Present Illness - General History Source: Patient Exam Limitations: No Limitations - History of Present Illness Travel History: No Initial Comments: 02/13/18 22:02 Best Contact: PCP: Dr. Chitra Andino Pmhx: Pshx: ? year: C2-T1 laminectomies, C7-L1 osteotomies, C2-T1 removal of anterior instrumentation, C4-C5 corpectomies/recon with anterior plate and cage by Dr. Burden Allergies: FH: Social Hx: Cigarettes/ Alcohol/ Drugs/ LMP:N/A Patient is status post C2-T1 laminectomy on 12/03/2017 02/13/18 22:03 This is a 57-year-old female presents to the emergency department complaining of nausea/vomiting 3 days. Patient states she noticed abdominal swelling 3 days ago which has subsided. Patient reports she had a CAT scan of her abdomen and pelvis 2 weeks ago when she noticed abdominal swelling with nausea and vomiting. Patient was informed she has an infection and was admitted for observation IV antibiotics. Patient was admitted for 24 hours and discharged and was informed to return back to the ER for recurrent symptoms. Patient states 3-4 hours after being discharged, she arrived home and became nauseous and was vomiting NBNB. Patient denies any headache, dizziness, lightheadedness, fever/chills, chest pain, shortness of breath, flank pains, urinary symptoms. Patient states there are no exacerbating factors but alleviated at rest and when she is not thinking about feeling nauseous. Patient is very demanding while in the emergency department. Patient states providers must use an ultrasound machine for IV access. I explained to the patient that not everyone needs an ultrasound machine to find IV access. Patient's nurse/direct Lino was able to obtain 20-gauge IV access to the right hand with positive flash and normal saline bolus without signs of infiltration. Patient insists that that the IV be removed because it wasn't obtained through an ultrasound machine. Patient insists on being transferred over to [facility]. Patient states she usually gets seen at [facility] ER I explained to the patient that [facility] if part of [facility] and we will not do anything different [facility] relations to tests order, treatment, assessment and plan. Patient refuses to sign AMA and insists on walking out and having her and bring her to [facility]. Patient was encouraged to stay at [facility] emergency department to be seen but the patient insists on leaving. <Jimbo Reddy - Last Filed: 02/13/18 22:34> <Rimma Ribeiro - Last Filed: 02/14/18 00:25> - General Chief Complaint: Nausea/Vomiting Stated Complaint: SPINE PAIN Time Seen by Provider: 02/13/18 19:26 Past History - Past Medical History Anemia: No Asthma: Yes (bronchitis) Cancer: No Cardiac Disorders: No CVA: No COPD: No CHF: No DVT: No Dementia: No Diabetes: No GI Disorders: Yes (sbo) Disorders: No HTN: Yes Hypercholesterolemia: Yes Liver Disease: No Seizures: No Thyroid Disease: No - Surgical History Abdominal Surgery: Yes (small bowel obstruction) Appendectomy: No Cardiac Surgery: No Cholecystectomy: No Lung Surgery: No Neurologic Surgery: Yes (spinal surgery, SEVERAL) Orthopedic Surgery: Yes - Immunization History Immunization Up to Date: Yes - Suicide/Smoking/Psychosocial Hx Smoking Status: No Smoking History: Never smoked Have you smoked in the past 12 months: No Number of Cigarettes Smoked Daily: 0 Hx Alcohol Use: No Drug/Substance Use Hx: No Substance Use Type: None Hx Substance Use Treatment: No <Jimbo Reddy - Last Filed: 02/13/18 22:34> <Rimma Ribeiro - Last Filed: 02/14/18 00:25> - Past Medical History Allergies/Adverse Reactions: Allergies Allergy/AdvReac Type Severity Reaction Status Date / Time aspirin Allergy Intermediate Hives Verified 02/13/18 23:08 gabapentin Allergy Intermediate Rash Verified 02/13/18 23:08 hydromorphone [From Dilaudid] Allergy Intermediate Vomiting Verified 02/13/18 23 :08 ibuprofen Allergy Intermediate vomitting Verified 02/13/18 23:08 ketorolac tromethamine Allergy ITCHING, Verified 02/13/18 23:08 [From Toradol] VOMITING lactose Allergy Verified 02/13/18 23:08 morphine Allergy Hives Verified 02/13/18 23:08 Penicillins Allergy Hives Verified 02/13/18 23:08 Shellfish Allergy Hives Verified 02/13/18 23:08 onions Allergy Uncoded 02/13/18 18:54 seasoning Allergy Uncoded 02/13/18 18:54 iv dye AdvReac Severe Uncoded 02/13/18 18:54 Home Medications: Ambulatory Orders Estrogens, Conjugated [Premarin] 0.625 mg PO DAILY 01/02/17 Simvastatin 10 mg PO HS 09/19/17 Losartan Potassium 50 mg PO DAILY 10/31/17 Ondansetron HCl [Zofran] 4 mg PO BID PRN 11/27/17 Diazepam [Valium] 2 mg PO BID #14 tablet MDD 2 12/19/17 FENTANYL 12mcg PATCH [DURAGESIC 12mcg PATCH -] 1 each TD Q72H 02/09/18 Pantoprazole Sodium [Protonix] 40 mg PO DAILY 02/09/18 Diphenhydramine [Benadryl 12.5 MG/5 ML Oral Solution -] 25 mg PO Q6H PRN ml 03/21 Review of Systems - Review of Systems Able to Perform ROS?: Yes Comments:: 02/13/18 22:27 CONSTITUTIONAL: Absent: fever, chills, diaphoresis, generalized weakness, malaise, loss of appetite HEENT: Absent: rhinorrhea, nasal congestion, throat pain, throat swelling, difficulty swallowing, mouth swelling, ear pain, eye pain, visual Changes CARDIOVASCULAR: Absent: chest pain, loss of consciousness, palpitations, irregular heart rate, peripheral edema RESPIRATORY: Absent: cough, shortness of breath, dyspnea with exertion, orthopnea, wheezing, stridor, hemoptysis GASTROINTESTINAL: +nausea/vomiting Absent: abdominal pain, abdominal distension, diarrhea, constipation, melena, hematochezia GENITOURINARY: Absent: dysuria, frequency, urgency, hesitancy, hematuria, flank pain, genital pain MUSCULOSKELETAL: Absent: myalgia, arthralgia, joint swelling SKIN: Absent: rash, itching, pallor HEMATOLOGIC/IMMUNOLOGIC: Absent: easy bleeding, easy bruising, lymphadenopathy, frequent infections ENDOCRINE: Absent: unexplained weight gain, unexplained weight loss, heat intolerance, cold intolerance NEUROLOGIC: Absent: headache, focal weakness or paresthesias, dizziness, unsteady gait, seizure, mental status changes, bladder or bowel incontinence PSYCHIATRIC: Absent: anxiety, depression, suicidal or homicidal ideation, hallucinations. Is the patient limited Setswana proficient: No <Jimbo Reddy - Last Filed: 02/13/18 22:34> *Physical Exam - Vital Signs Last Vital Signs Temp Pulse Resp BP Pulse Ox 97.2 F L 110 H 92 H 170/74 100 02/13/18 18:55 02/13/18 18:55 02/13/18 18:55 02/13/18 18:55 02/13/18 18:55 - Physical Exam Comments: 02/13/18 22:28 GENERAL: Well developed, well nourished. Awake and alert. No acute distress. HEENT: Normocephalic, atraumatic. PERRLA, EOMI. No conjunctival pallor. Sclera are non- icteric. Moist mucous membranes. Oropharynx is clear. NECK: Supple. Full ROM. No JVD. Carotid pulses 2+ and symmetric, without bruits. No thyromegaly. No lymphadenopathy. CARDIOVASCULAR: Regular rate and rhythm. No murmurs, rubs, or gallops. Distal pulses are 2+ and symmetric. PULMONARY: No evidence of respiratory distress. Lungs clear to auscultation bilaterally. No wheezing, rales or rhonchi. ABDOMINAL: Soft. Non-tender. Non-distended. No rebound or guarding. No organomegaly. Normoactive bowel sounds. MUSCULOSKELETAL Normal range of motion at all joints. No bony deformities or tenderness. No CVA tenderness. EXTREMITIES: No cyanosis. No clubbing. No edema. No calf tenderness. SKIN: Warm and dry. Normal capillary refill. No rashes. No jaundice. NEUROLOGICAL: Alert, awake, appropriate. Cranial nerves 2-12 intact. No deficits to light touch and temperature in face, upper extremities and lower extremities. No motor deficits in the in face, upper extremities and lower extremities. Normoreflexic in the upper and lower extremities. Normal speech. Toes are down- going bilaterally. Gait is normal without ataxia. PSYCHIATRIC: Cooperative. Good eye contact. Appropriate mood and affect. <Jimbo Reddy - Last Filed: 02/13/18 22:34> - Vital Signs Last Vital Signs Temp Pulse Resp BP Pulse Ox 97.2 F L 110 H 92 H 170/74 100 02/13/18 18:55 02/13/18 18:55 02/13/18 18:55 02/13/18 18:55 02/13/18 18:55 <Rimma Ribeiro - Last Filed: 02/14/18 00:25> ED Treatment Course - LABORATORY CBC & Chemistry Diagram: 02/13/18 20:30 02/13/18 20:30 <Jimbo Reddy - Last Filed: 02/13/18 22:34> - LABORATORY CBC & Chemistry Diagram: 02/13/18 20:30 02/13/18 20:30 - ADDITIONAL ORDERS Additional order review: Laboratory Results 02/13/18 20:30 Sodium Cancelled Potassium Cancelled Chloride Cancelled Carbon Dioxide Cancelled Anion Gap Cancelled BUN Cancelled Creatinine Cancelled Creat Clearance w eGFR Cancelled Random Glucose Cancelled Calcium Cancelled Total Bilirubin Cancelled AST Cancelled ALT Cancelled Alkaline Phosphatase Cancelled Total Protein Cancelled Albumin Cancelled Lipase Cancelled 02/13/18 20:30 RBC 3.89 MCV 90.8 MCHC 33.7 RDW 15.2 MPV 8.0 Neutrophils % 59.6 D Lymphocytes % 28.8 D Monocytes % 7.9 Eosinophils % 2.4 Basophils % 1.3 - Medications Given in the ED: ED Medications Discontinued Medications Generic Name Dose Route Start Last Admin Trade Name Freq PRN Reason Stop Dose Admin Sodium Chloride 1,000 mls @ 1,000 mls/hr 02/13/18 19:56 02/13/18 20:15 Normal Saline - IV 02/13/18 20:55 1,000 mls/hr ASDIR STA Administration Ondansetron HCl 4 mg 02/13/18 19:56 02/13/18 20:15 Zofran Injection IVPUSH 02/13/18 19:57 4 mg ONCE ONE Administration <Rimma Ribeiro - Last Filed: 02/14/18 00:25> *DC/Admit/Observation/Transfer <Jimbo Reddy - Last Filed: 02/13/18 22:34> - Attestations Physician Attestion: I reviewed the case with the mid-level practitioner and agree with the mid- level practitioner's assessment, diagnosis and disposition. <Rimma Ribeiro - Last Filed: 02/14/18 00:25> Diagnosis at time of Disposition: Nausea & vomiting Qualifiers: Vomiting type: unspecified Vomiting Intractability: non-intractable Qualified Code(s): R11.2 - Nausea with vomiting, unspecified - Discharge Dispostion Disposition: LEFT BEFORE SYLVIE DUFF - Referrals Referrals: Montez Andino MD [Primary Care Provider] - - Patient Instructions - Post Discharge Activity
[2018-02-13 21:03] LABS: BASO % 1.3 % (0-2.0); EOS % 2.4 % (0-4.5); HEMATOCRIT 35.3 % (32.4-45.2); HEMOGLOBIN 11.9 GM/dL (10.7-15.3); LYMPH % 28.8 % (8-40); MCH 30.6 pg (25.7-33.7); MCHC 33.7 g/dl (32.0-36.0); MEAN CELL VOLUME 90.8 fl (80-96); MONO % 7.9 % (3.8-10.2); NEUT % 59.6 % (42.8-82.8); PLATELET COUNT 292 K/MM3 (134-434); RBC 3.89 M/mm3 (3.60-5.2); RDW 15.2 % (11.6-15.6); WHITE BLOOD COUNT 4.4 K/mm3 (4.0-10.0)
== END | disposition left against medical advice (07) ==
LOC: JER 18:45
PROC: 3E033GC Introduction of Other Therapeutic Substance into Peripheral Vein, Percutaneous Approach (ICD-10-PCS; principal; 2018-02-13)
DX: R11.2 Nausea with vomiting, unspecified (principal); I10 Essential (primary) hypertension; E78.00 Pure hypercholesterolemia, unspecified; Z87.09 Personal history of other diseases of the respiratory system; Z87.19 Personal history of other diseases of the digestive system
CPT/HCPCS: 36415; 85025; 99282-25; J7030

== ENCOUNTER 2018-03-23 08:40 | Day surgery (SDC) | payer OTHER ==
[2018-03-22 14:16] VITALS: BMI 22.6
[2018-03-23] MEDS ORDERED: methylPREDNISolone ACET (DEPO) 40 MG/1 ML VIAL ONE (09:50)
[2018-03-23] MEDS ORDERED: LIDOCAINE HCL 1%, 10 MG/ML (20ML VIAL) ONE (09:50)
[2018-03-23] MEDS ORDERED: BETAMET ACET/BETAMET NA PH 30 MG/5 ML VIAL ONE (09:51)
[2018-03-23] MEDS ORDERED: BUPIVACAINE HCL/PF 0.25% (2.5MG/ML) 10 ML VIAL ONE ×2 (09:52→11:36)
[2018-03-23] MEDS ORDERED: DEXAMETHASONE SOD PHOSPHATE 4 MG/1 ML VIAL ONE ×2 (10:13→11:41)
[2018-03-23] MEDS ORDERED: MIDAZOLAM HCL 2 MG/2 ML SINGLE DOSE VIAL ONE ×4 (10:53→11:32)
[2018-03-23] MEDS ORDERED: LIDOCAINE HCL 1%, 10 MG/ML (20ML VIAL) INF ONE (11:07)
[2018-03-23] MEDS ORDERED: BUPIVACAINE HCL/PF 0.25% (2.5MG/ML) 10 ML VIAL IJ ONE ×2 (11:08)
[2018-03-23] MEDS ORDERED: DEXAMETHASONE SOD PHOSPHATE 4 MG/1 ML VIAL IM ONE (11:09)
[2018-03-23] MEDS ORDERED: ONDANSETRON 4 MG/2 ML VIAL IVPUSH PRN (12:01)
[2018-03-23] MEDS ORDERED: LACTATED RINGERS SOLUTION 1,000 ML IV SCH (12:15)
[2018-03-23 14:02] VITALS: BP 126/82; PULSE 57; TEMP 97.4
== END 2018-03-23 14:29 | disposition home or self-care (01) ==
LOC: JASU-SURG 08:40
PROVIDERS: ATTEND Physical Medicine & Rehabilitation
PROC: 3E0T3BZ Introduction of Anesthetic Agent into Peripheral Nerves and Plexi, Percutaneous Approach (ICD-10-PCS; principal; 2018-03-23 10:30)
DX: G90.512 Complex regional pain syndrome I of left upper limb (principal)
CPT/HCPCS: 76000-TC-FY; 94760

== ENCOUNTER 2018-03-24 09:58 | Day surgery (SDC) | payer OTHER ==
[2018-03-22 15:07] VITALS: BMI 22.6
[2018-03-24] MEDS ORDERED: PROPOFOL 20 ML ONE ×2 (10:06)
[2018-03-24 13:55] VITALS: TEMP 98.4
[2018-03-24 14:25] VITALS: BP 143/86; PULSE 62
--- NOTE | 2018-03-26 14:44 | PATH ---
Surgical Pathology Report Patient Name: FIDE GAMA [facility]. Rec. #: [id number] /Age/Gender: 1960 (Age: 57) / F Account: [id number] Location: [facility] Taken: 03/24/2018 Received: 03/24/2018 Reported: 03/26/2018 Physicians: Shirley Landry M.D. Specimen(s) Received A: DUODENUM PORTIN B: ANTRUM C: GE JUNCTION D: MID ESOPHAGUS Clinical History Nausea, vomiting Postoperative diagnosis: Hiatal hernia, gastritis Final Diagnosis A. DUODENUM 2ND PORTION, BIOPSY: DUODENAL MUCOSA WITH NO PATHOLOGIC FINDINGS. B. ANTRUM, BIOPSY: MILD CHRONIC ACTIVE GASTRITIS. IMMUNOSTAIN IS NEGATIVE H PYLORI ORGANISMS. C.GE JUNCTION, BIOPSY: COLUMNAR (GASTRIC CARDIA-TYPE) MUCOSA SHOWING MODERATE CHRONIC INFLAMMATION WITH FOCAL INTESTINAL METAPLASIA. (SEE NOTE). NEGATIVE FOR DYSPLASIA. NO ESOPHAGEAL (SQUAMOUS) MUCOSA IS IDENTIFIED. Note: These findings may be consistent with Rubin's esophagus in conjunction with appropriate endoscopic findings. D. MID ESOPHAGUS, BIOPSY: ESOPHAGEAL (SQUAMOUS) MUCOSA WITH NO PATHOLOGIC FINDINGS. NO COLUMNAR EPITHELIUM/INTESTINAL METAPLASIA IS IDENTIFIED. Electronically Signed Dayana Glass M.D. Gross Description A. Received in formalin, labeled "biopsy duodenum 2nd portion" is a menon, irregular portion of soft tissue measuring 0.3 cm. in greatest dimension. The specimen is submitted in toto in one cassette. B. Received in formalin, labeled "biopsy antrum" is a menon, irregular portion of soft tissue measuring 0.3 cm. in greatest dimension. The specimen is submitted in toto in one cassette. C. Received in formalin, labeled "biopsy GE junction" is a menon, irregular portion of soft tissue measuring 0.3 cm. in greatest dimension. The specimen is submitted in toto in one cassette. D. Received in formalin, labeled "biopsy mid esophagus" is a menon, irregular portion of soft tissue measuring 0.5 cm. in greatest dimension. The specimen is submitted in toto in one cassette. 03/24/2018 saudi03/24/2018
== END 2018-03-24 14:25 | disposition home or self-care (01) ==
LOC: FASU-ENDO 09:58
PROVIDERS: ATTEND Internal Medicine Gastroenterology
PROC: 0DB68ZX Excision of Stomach, Via Natural or Artificial Opening Endoscopic, Diagnostic (ICD-10-PCS; 2018-03-24)
PROC: 0DB48ZX Excision of Esophagogastric Junction, Via Natural or Artificial Opening Endoscopic, Diagnostic (ICD-10-PCS; 2018-03-24)
PROC: 0DB98ZX Excision of Duodenum, Via Natural or Artificial Opening Endoscopic, Diagnostic (ICD-10-PCS; principal; 2018-03-24 11:15)
DX: K29.50 Unspecified chronic gastritis without bleeding (principal); K31.89 Other diseases of stomach and duodenum; K44.9 Diaphragmatic hernia without obstruction or gangrene; R13.10 Dysphagia, unspecified; R11.2 Nausea with vomiting, unspecified; R10.9 Unspecified abdominal pain
CPT/HCPCS: 88305-TC; 88342-TC

== ENCOUNTER 2018-04-16 07:43 | Emergency (ER) | payer OTHER ==
[2018-04-16 07:55] VITALS: BP 160/91; PULSE 90; TEMP 98; BMI 24.7
--- NOTE | 2018-04-16 08:17 | PDOC ---
History of Present Illness - General Chief Complaint: Eye Problem Stated Complaint: R/O PINK EYE Time Seen by Provider: 04/16/18 08:12 History Source: Patient Exam Limitations: No Limitations - History of Present Illness Initial Comments: 04/16/18 08:38 Patient is a 57-year-old female who presents to the emergency department for 2 days of right eye itching and redness. Patient states she had some drainage and crusting from the right eye this morning. Admits to cold-like symptoms earlier this week. Denies fevers, chills, cough, sore throat, difficulty breathing, nausea, vomiting and diarrhea. Past History - Travel Traveled outside of the country in the last 30 days: No Close contact w/someone who was outside of country & ill: No - Past Medical History Allergies/Adverse Reactions: Allergies Allergy/AdvReac Type Severity Reaction Status Date / Time aspirin Allergy Intermediate Hives Verified 04/16/18 07:52 gabapentin Allergy Intermediate Rash Verified 04/16/18 07:52 hydromorphone [From Dilaudid] Allergy Intermediate Vomiting Verified 04/16/18 07 :52 ibuprofen Allergy Intermediate vomitting Verified 04/16/18 07:52 ketorolac tromethamine Allergy ITCHING, Verified 04/16/18 07:52 [From Toradol] VOMITING lactose Allergy Verified 04/16/18 07:52 morphine Allergy Hives Verified 04/16/18 07:52 Penicillins Allergy Hives Verified 04/16/18 07:52 Shellfish Allergy Hives Verified 04/16/18 07:52 onions Allergy Hives Uncoded 04/16/18 07:52 seasoning Allergy Hives Uncoded 04/16/18 07:52 iv dye AdvReac Severe Uncoded 04/16/18 07:52 Home Medications: Ambulatory Orders Estrogens, Conjugated [Premarin] 0.625 mg PO DAILY 01/02/17 Simvastatin 10 mg PO HS 09/19/17 Losartan Potassium 50 mg PO DAILY 10/31/17 Ondansetron HCl [Zofran] 4 mg PO BID PRN 11/27/17 Pantoprazole Sodium [Protonix] 40 mg PO DAILY 02/09/18 Diphenhydramine [Benadryl 12.5 MG/5 ML Oral Solution -] 25 mg PO Q6H PRN ml 03/21 Albuterol Sulfate Inhaler - [Ventolin Hfa Inhaler -] 1 - 2 inh PO PRN 03/23/18 Ofloxacin 0.3% Ophth Soln [Ocuflox -] 1 drop OP Q4H #100 drops 04/16/18 Anemia: No Asthma: Yes (bronchitis) Cancer: No Cardiac Disorders: No CVA: No COPD: No CHF: No DVT: No Dementia: No Diabetes: No GI Disorders: Yes (sbo) Disorders: No HTN: Yes Hypercholesterolemia: Yes Liver Disease: No Seizures: No Thyroid Disease: No - Surgical History Abdominal Surgery: Yes (small bowel obstruction) Appendectomy: No Cardiac Surgery: No Cholecystectomy: No Lung Surgery: No Neurologic Surgery: Yes (spinal surgery, SEVERAL) Orthopedic Surgery: Yes (Cervical Fusion x3-last one 12/03/17) - Immunization History Immunization Up to Date: Yes - Suicide/Smoking/Psychosocial Hx Smoking Status: No Smoking History: Never smoked Have you smoked in the past 12 months: No Number of Cigarettes Smoked Daily: 0 'Breaking Loose' booklet given: 02/14/18 Hx Alcohol Use: No Drug/Substance Use Hx: No Substance Use Type: None Hx Substance Use Treatment: No Review of Systems - Review of Systems Able to Perform ROS?: Yes Comments:: 04/16/18 08:16 CONSTITUTIONAL: Absent: fever, chills, diaphoresis, generalized weakness, malaise, loss of appetite HEENT: Present: eye itching and redness with discharge Absent: rhinorrhea, nasal congestion, throat pain, throat swelling, difficulty swallowing, mouth swelling , ear pain, visual changes RESPIRATORY: Absent: cough, shortness of breath, dyspnea with exertion, orthopnea, wheezing, stridor, hemoptysis SKIN: Absent: rash, itching, pallor NEUROLOGIC: Absent: headache, focal weakness or paresthesias, dizziness, unsteady gait, seizure, mental status changes, bladder or bowel incontinence PSYCHIATRIC: Absent: anxiety, depression, suicidal or homicidal ideation, hallucinations. Is the patient limited [place] proficient: No *Physical Exam - Vital Signs Last Vital Signs Temp Pulse Resp BP Pulse Ox 98.0 F 90 18 160/91 100 04/16/18 07:52 04/16/18 07:52 04/16/18 07:52 04/16/18 07:52 04/16/18 07:52 - Physical Exam Comments: 04/16/18 08:17 GENERAL: The patient is awake, alert, and fully oriented, in no acute distress. HEAD: Normal with no signs of trauma. EYES: Pupils equal, round and reactive to light, extraocular movements intact, sclera anicteric, R conjunctiva with erythema and watering to the bottom half. L conjunctiva is clear. Visual acuity 20/20 OD, OS, OU EXTREMITIES: Normal range of motion, no edema. NEUROLOGICAL: Normal speech, normal gait. PSYCH: Normal mood, normal affect. SKIN: Warm, Dry, normal turgor, no rashes or lesions noted. Moderate Sedation - Procedure Monitoring Vital Signs: Procedure Monitoring Vital Signs Temperature 98.0 F 04/16/18 07:52 Pulse Rate 90 04/16/18 07:52 Respiratory Rate 18 04/16/18 07:52 Blood Pressure 160/91 04/16/18 07:52 O2 Sat by Pulse Oximetry (%) 100 04/16/18 07:52 Medical Decision Making - Medical Decision Making 04/16/18 08:42 Patient is a 57-year-old female who presents to emergency department with 2 days of right eye itching and redness. -On exam patient with clinical conjunctivitis to the bottom half of the right eye. -We will treat with ofloxacin drops at this time. -Visual acuity intact. Afebrile. -Discharge home with PCP follow-up -I discussed the physical exam findings, ancillary test results and final diagnoses with the patient. I answered all of the patient's questions. The patient was satisfied with the care received and felt comfortable with the discharge plan and treatment plan. The Patient agrees to follow up with the primary care physician/specialist within 24-72 hours. Return precautions were given. *DC/Admit/Observation/Transfer Diagnosis at time of Disposition: Conjunctivitis Qualifiers: Conjunctivitis type: acute Acute conjunctivitis type: unspecified Laterality: left Qualified Code(s): H10.32 - Unspecified acute conjunctivitis, left eye - Discharge Dispostion Disposition: HOME Condition at time of disposition: Stable Decision to Admit order: No - Prescriptions Prescriptions: Ofloxacin 0.3% Ophth Soln [Ocuflox -] 1 drop OP Q4H #100 drops - Referrals Referrals: Montez Andino MD [Primary Care Provider] - - Patient Instructions Printed Discharge Instructions: DI for Conjunctivitis Additional Instructions: You have conjunctivitis. Please use the eyedrops, one drop in each eye every 4 hours. You may use warm compresses to both eyes to help with the itching. Please wash your hands well. Follow-up with your primary care doctor if her symptoms should persist. Return to the emergency department for fevers, worsening symptoms, visual changes, or if you have any changes in your symptoms. - Post Discharge Activity Forms/Work/School Notes: Back to Work
== END 2018-04-16 08:44 | disposition home or self-care (01) ==
LOC: JER 07:43 → JERFT 07:43
DX: H10.32 Unspecified acute conjunctivitis, left eye (principal); I10 Essential (primary) hypertension; J45.909 Unspecified asthma, uncomplicated; E78.00 Pure hypercholesterolemia, unspecified
CPT/HCPCS: 99281-25

== ENCOUNTER 2018-05-16 18:01 | Emergency (ER) | payer OTHER ==
[2018-05-16 18:12] VITALS: BP 155/81; PULSE 66; TEMP 98.3; BMI 23.0
[2018-05-16] MEDS ORDERED: predniSONE 20 MG TABLET (UD) PO ONE (19:51)
--- NOTE | 2018-05-16 20:00 | PDOC ---
History of Present Illness - General Chief Complaint: Allergic Reaction Stated Complaint: ALLERGIC REACTION Time Seen by Provider: 05/16/18 19:49 History Source: Patient Exam Limitations: No Limitations - History of Present Illness Initial Comments: 05/16/18 19:57 Patient is a 57 year old female with h/o HTN, HEENT, SBO, chronic neck pain, multiple spinal fusion, laminectomy C2-T1 on 12/03/17, multiple allergies, complaining of itching to her face and neck IV incision site x 2 days. States she took Benadryl last dose was 11am but without relief of symptoms. States she' s been having some swelling to her lip and to her face. States that usually when she has the itching she is given IV Benadryl and it relieves the symptoms. She denies any shortness of breath, any throat involvement. PMD: Dr. Hernandez PMHX: as above PSOCHX: neg etoh, drug, cig ALL: ASA, Toradol, Motrin, gabapentin, Dilaudid, morphine, IV contrast dye, lactose intolerant, onions GENERAL/CONSTITUTIONAL: [No fever or chills. No weakness. No weight change.] HEAD, EYES, EARS, NOSE AND THROAT: [No change in vision. No ear pain or discharge. No sore throat.] CARDIOVASCULAR: [No chest pain or shortness of breath.] RESPIRATORY: [No cough, wheezing, or hemoptysis.] GASTROINTESTINAL: [No nausea, vomiting, diarrhea or constipation. No rectal bleeding.] GENITOURINARY: [No dysuria, frequency, or change in urination.] MUSCULOSKELETAL: [No joint or muscle swelling or pain. (+) neck or back pain.] SKIN AND BREASTS: (+) rash (-) easy bruising.] NEUROLOGIC: [No headache, vertigo, loss of consciousness, or loss of sensation.] PSYCHIATRIC: [No depression or anxiety.] ENDOCRINE: [No increased thirst. No abnormal weight change.] HEMATOLOGIC/LYMPHATIC: [No anemia, easy bleeding, or history of blood clots.] ALLERGIC/IMMUNOLOGIC: [No hives or skin allergy. No latex allergy.] GENERAL: [The patient is awake, alert, and fully oriented, in mild distress.] HEAD: [Normal with no signs of trauma.] EYES: [Pupils equal, round and reactive to light, extraocular movements intact, sclera anicteric, conjunctiva clear.] ENT: [Ears normal, nares patent, oropharynx clear without exudates. Moist mucous membranes.] NECK: [Normal range of motion, supple without lymphadenopathy, JVD, or masses.] LUNGS: [Breath sounds equal, clear to auscultation bilaterally. No wheezes, and no crackles.] HEART: [Regular rate and rhythm, normal S1 and S2 without murmur, rub.] ABDOMEN: [Soft, nontender, normoactive bowel sounds. No guarding, no rebound. No masses.] EXTREMITIES: [Normal range of motion, no edema. No clubbing or cyanosis. No cords, erythema, or tenderness.] NEUROLOGICAL: [Cranial nerves II through XII grossly intact. Normal speech, normal gait.] PSYCH: [Normal mood, normal affect.] SKIN: [Warm, Dry, normal turgor, (+) dry fine rashes to the face, (-) other lesions noted.] Past History - Past Medical History Allergies/Adverse Reactions: Allergies Allergy/AdvReac Type Severity Reaction Status Date / Time aspirin Allergy Intermediate Hives Verified 05/16/18 18:12 gabapentin Allergy Intermediate Rash Verified 05/16/18 18:12 hydromorphone [From Dilaudid] Allergy Intermediate Vomiting Verified 05/16/18 18 :12 ibuprofen Allergy Intermediate vomitting Verified 05/16/18 18:12 ketorolac tromethamine Allergy ITCHING, Verified 05/16/18 18:12 [From Toradol] VOMITING lactose Allergy Verified 05/16/18 18:12 morphine Allergy Hives Verified 05/16/18 18:12 Penicillins Allergy Hives Verified 05/16/18 18:12 Shellfish Allergy Hives Verified 05/16/18 18:12 onions Allergy Hives Uncoded 05/16/18 18:12 seasoning Allergy Hives Uncoded 04/16/18 07:52 iv dye AdvReac Severe Uncoded 04/16/18 07:52 Home Medications: Ambulatory Orders Estrogens, Conjugated [Premarin] 0.625 mg PO DAILY 01/02/17 Simvastatin 10 mg PO HS 09/19/17 Losartan Potassium 50 mg PO DAILY 10/31/17 Ondansetron HCl [Zofran] 4 mg PO BID PRN 11/27/17 Pantoprazole Sodium [Protonix] 40 mg PO DAILY 02/09/18 Diphenhydramine [Benadryl 12.5 MG/5 ML Oral Solution -] 25 mg PO Q6H PRN ml 03/21 Albuterol Sulfate Inhaler - [Ventolin Hfa Inhaler -] 1 - 2 inh PO PRN 03/23/18 Ofloxacin 0.3% Ophth Soln [Ocuflox -] 1 drop OP Q4H #100 drops 04/16/18 Diphenhydramine [Benadryl Oral Solution -] 12.5 mg PO Q6H #210 ml 05/16/18 Prednisolone Oral Solution [Orapred (15 mg/5 ml) Oral Solution -] 30 mg PO DAILY #90 mg 05/16/18 Anemia: No Asthma: Yes (bronchitis) Cancer: No Cardiac Disorders: No CVA: No COPD: No CHF: No DVT: No Dementia: No Diabetes: No GI Disorders: Yes (sbo) Disorders: No HTN: Yes Hypercholesterolemia: Yes Liver Disease: No Seizures: No Thyroid Disease: No - Surgical History Abdominal Surgery: Yes (small bowel obstruction) Appendectomy: No Cardiac Surgery: No Cholecystectomy: No Lung Surgery: No Neurologic Surgery: Yes (spinal surgery, SEVERAL) Orthopedic Surgery: Yes (Cervical Fusion x3-last one 12/03/17) - Immunization History Immunization Up to Date: Yes - Suicide/Smoking/Psychosocial Hx Smoking Status: No Smoking History: Never smoked Have you smoked in the past 12 months: No Number of Cigarettes Smoked Daily: 0 'Breaking Loose' booklet given: 02/14/18 Hx Alcohol Use: No Drug/Substance Use Hx: No Substance Use Type: None Hx Substance Use Treatment: No *Physical Exam - Vital Signs Last Vital Signs Temp Pulse Resp BP Pulse Ox 98.3 F 66 18 155/81 99 05/16/18 18:09 05/16/18 18:09 05/16/18 18:09 05/16/18 18:09 05/16/18 18:09 Moderate Sedation - Procedure Monitoring Vital Signs: Procedure Monitoring Vital Signs Temperature 98.3 F 05/16/18 18:09 Pulse Rate 66 05/16/18 18:09 Respiratory Rate 18 05/16/18 18:09 Blood Pressure 155/81 05/16/18 18:09 O2 Sat by Pulse Oximetry (%) 99 05/16/18 18:09 Medical Decision Making - Medical Decision Making 05/16/18 19:57 Patient is a 57 year old female with h/o HTN, HLD, SBO, chronic neck pain, multiple spinal fusion, laminectomy C2-T1 on 12/03/17, multiple allergies, complaining of itching to her face and neck IV incision site x 2 days. States she took Benadryl last dose was 11am but without relief of symptoms. States she' s been having some swelling to her lip and to her face. States that usually when she has the itching she is given IV Benadryl and it relieves the symptoms. She denies any shortness of breath, any throat involvement. Bendadryl and prednisone discharge I discussed the physical exam findings, ancillary test results and final diagnoses with the patient. I answered all of the patient's questions. The patient was satisfied with the care received and felt comfortable with the discharge plan and treatment plan. The Patient agrees to follow up with the primary care physician within 24-72 hours. *DC/Admit/Observation/Transfer Diagnosis at time of Disposition: Allergic reaction Qualifiers: Encounter type: initial encounter Qualified Code(s): T78.40XA - Allergy, unspecified, initial encounter - Discharge Dispostion Disposition: HOME Condition at time of disposition: Stable - Prescriptions Prescriptions: Diphenhydramine [Benadryl Oral Solution -] 12.5 mg PO Q6H #210 ml Prednisolone Oral Solution [Orapred (15 mg/5 ml) Oral Solution -] 30 mg PO DAILY #90 mg - Referrals Referrals: Montez Andino MD [Primary Care Provider] - - Patient Instructions Additional Instructions: Your Discharge Instructions: You must call primary care physician within 24 hours to arrange follow-up. Return to the Emergency Department with any new, persistent or worsening symptoms, for fever, chills, SOB, dizziness or any other concerning changes that may occur. Continue the Benadryl every 6 hours - Post Discharge Activity
[2018-05-16] MEDS ORDERED: predniSONE 20 MG TABLET (UD) ONE (20:06)
== END 2018-05-16 20:38 | disposition home or self-care (01) ==
LOC: JER 18:01
PROC: 3E023GC Introduction of Other Therapeutic Substance into Muscle, Percutaneous Approach (ICD-10-PCS; principal; 2018-05-16)
DX: T78.40XA Allergy, unspecified, initial encounter (principal); I10 Essential (primary) hypertension; E78.00 Pure hypercholesterolemia, unspecified; Z88.8 Allergy status to other drugs, medicaments and biological substances; Z91.018 Allergy to other foods; Z87.19 Personal history of other diseases of the digestive system; Z98.890 Other specified postprocedural states
CPT/HCPCS: 99281-25

== ENCOUNTER 2018-07-23 13:17 | Emergency (ER) | payer OTHER ==
[2018-07-23] MEDS ORDERED: ONDANSETRON *ODT* 4 MG TABLET SL ONE (13:20)
--- NOTE | 2018-07-23 13:22 | PDOC ---
Rapid Medical Evaluation Time Seen by Provider: 07/23/18 13:19 Medical Evaluation: Allergies Allergy/AdvReac Type Severity Reaction Status Date / Time aspirin Allergy Intermediate Hives Verified 05/16/18 18:12 gabapentin Allergy Intermediate Rash Verified 05/16/18 18:12 hydromorphone [From Dilaudid] Allergy Intermediate Vomiting Verified 05/16/18 18 :12 ibuprofen Allergy Intermediate vomitting Verified 05/16/18 18:12 ketorolac tromethamine Allergy ITCHING, Verified 05/16/18 18:12 [From Toradol] VOMITING lactose Allergy Verified 05/16/18 18:12 morphine Allergy Hives Verified 05/16/18 18:12 Penicillins Allergy Hives Verified 05/16/18 18:12 Shellfish Allergy Hives Verified 05/16/18 18:12 onions Allergy Hives Uncoded 05/16/18 18:12 seasoning Allergy Hives Uncoded 04/16/18 07:52 iv dye AdvReac Severe Uncoded 04/16/18 07:52 07/23/18 13:19 I have performed a brief in-person evaluation of this patient. The patient presents with a chief complaint of: abdominal pain and vomiting x 2 days Pertinent physical exam findings:uncomfortable no respiratory distress I have ordered the following: belly labs and troponin 07/23/18 13:22 Discharge Disposition - Referrals Referrals: Montez Andino MD [Primary Care Provider] - - Patient Instructions - Post Discharge Activity
[2018-07-23 13:24] VITALS: BMI 22.3
--- NOTE | 2018-07-23 14:33 | PDOC ---
History of Present Illness - General Chief Complaint: Pain Stated Complaint: Pain Time Seen by Provider: 07/23/18 13:19 - History of Present Illness Initial Comments: 07/23/18 14:14 Patient is a 57 y/o female with a history of HTN, COPD, chronic left neck and arm pain, and spinal fusion on 12/19 who presents for abdominal pain. She reports she has been having this pain on and off. She sees Dr. Landry as an outpatient and was told the pain comes from " food sitting her stomach". She reports she has been drinking tea but without relief. She states she was not told by GI to take any medication to help. She reports she has had multiple episodes of vomiting. She denies fever, chills, or shortness of breath. Past History - Past Medical History Allergies/Adverse Reactions: Allergies Allergy/AdvReac Type Severity Reaction Status Date / Time aspirin Allergy Intermediate Hives Verified 07/23/18 13:24 gabapentin Allergy Intermediate Rash Verified 07/23/18 13:24 hydromorphone [From Dilaudid] Allergy Intermediate Vomiting Verified 07/23/18 13 :24 ibuprofen Allergy Intermediate vomitting Verified 07/23/18 13:24 ketorolac tromethamine Allergy ITCHING, Verified 07/23/18 13:24 [From Toradol] VOMITING lactose Allergy Verified 07/23/18 13:24 morphine Allergy Hives Verified 07/23/18 13:24 Penicillins Allergy Hives Verified 07/23/18 13:24 Shellfish Allergy Hives Verified 07/23/18 13:24 onions Allergy Hives Uncoded 07/23/18 13:24 seasoning Allergy Hives Uncoded 07/23/18 13:24 iv dye AdvReac Severe Uncoded 07/23/18 13:24 Home Medications: Ambulatory Orders Estrogens, Conjugated [Premarin] 0.625 mg PO DAILY 01/02/17 Simvastatin 10 mg PO HS 09/19/17 Losartan Potassium 50 mg PO DAILY 10/31/17 Ondansetron HCl [Zofran] 4 mg PO BID PRN 11/27/17 Pantoprazole Sodium [Protonix] 40 mg PO DAILY 02/09/18 Diphenhydramine [Benadryl 12.5 MG/5 ML Oral Solution -] 25 mg PO Q6H PRN ml 03/21 Albuterol Sulfate Inhaler - [Ventolin Hfa Inhaler -] 1 - 2 inh PO PRN 03/23/18 Ofloxacin 0.3% Ophth Soln [Ocuflox -] 1 drop OP Q4H #100 drops 04/16/18 Diphenhydramine [Benadryl Oral Solution -] 12.5 mg PO Q6H #210 ml 05/16/18 Prednisolone Oral Solution [Orapred (15 mg/5 ml) Oral Solution -] 30 mg PO DAILY #90 mg 05/16/18 metroNIDAZOLE [Flagyl -] 500 mg PO Q8H #20 tablet 07/23/18 Anemia: No Asthma: Yes (bronchitis) Cancer: No Cardiac Disorders: No CVA: No COPD: No CHF: No DVT: No Dementia: No Diabetes: No GI Disorders: Yes (sbo) Disorders: No HTN: Yes Hypercholesterolemia: Yes Liver Disease: No Seizures: No Thyroid Disease: No - Surgical History Abdominal Surgery: Yes (small bowel obstruction) Appendectomy: No Cardiac Surgery: No Cholecystectomy: No Lung Surgery: No Neurologic Surgery: Yes (spinal surgery, SEVERAL) Orthopedic Surgery: Yes (Cervical Fusion x3-last one 12/03/17) - Immunization History Immunization Up to Date: Yes - Suicide/Smoking/Psychosocial Hx Smoking Status: No Smoking History: Never smoked Have you smoked in the past 12 months: No Number of Cigarettes Smoked Daily: 0 'Breaking Loose' booklet given: 02/14/18 Hx Alcohol Use: No Drug/Substance Use Hx: No Substance Use Type: None Hx Substance Use Treatment: No Review of Systems - Review of Systems Constitutional: No: Chills, Fever HEENTM: No: Eye Pain Respiratory: No: Cough, Shortness of Breath ABD/GI: Yes: Abdominal Distended, Nausea, Vomiting, Abdominal cramping. No: Constipated, Diarrhea Musculoskeletal: Yes: Joint Pain, Muscle Pain, Muscle Weakness *Physical Exam - Vital Signs Last Vital Signs Temp Pulse Resp BP Pulse Ox 97.8 F 104 H 20 133/89 100 07/23/18 13:20 07/23/18 13:20 07/23/18 13:20 07/23/18 13:20 07/23/18 13:20 - Physical Exam Comments: 07/23/18 14:34 GENERAL: A& O x3, diffuse tenderness pain to touch at every location, cervical collar HEART: RRR, no murmurs, rubs, or gallops, LUNGS: CTAL B/L ABD: tender to light palpation EXTREMITIES: non pitting edema NEURO: sensation in tact diffusely SKIN: no rashes or ulcers Moderate Sedation - Procedure Monitoring Vital Signs: Procedure Monitoring Vital Signs Temperature 97.8 F 07/23/18 13:20 Pulse Rate 104 H 07/23/18 13:20 Respiratory Rate 20 07/23/18 13:20 Blood Pressure 133/89 07/23/18 13:20 O2 Sat by Pulse Oximetry (%) 100 07/23/18 13:20 ED Treatment Course - LABORATORY CBC & Chemistry Diagram: 07/23/18 14:43 07/23/18 14:44 Medical Decision Making - Medical Decision Making 07/23/18 14:[address] Landry, likely 2/2 to gastroparesis exacerbation, Reglan 10 mg IV , spoke with pharmacy and unlikely to cause any interactions, and Zofran 4 mg IV , despite multiple orders patient only received 10 of Reglan, patient initially refused 07/23/18 15:45 f/u abd/pelvis CT non contrast with history of SBO CT- some edema indicating enteritis, pelvic cyst told to f/u as an outpatient Patient very difficult to discuss medications with, initially refusing and later asking for specific medications. Agreeable to Flagyl as an outpatient and told to follow up with GI *DC/Admit/Observation/Transfer Diagnosis at time of Disposition: Enteritis, Gastroparesis - Discharge Dispostion Disposition: HOME Condition at time of disposition: Good - Prescriptions Prescriptions: metroNIDAZOLE [Flagyl -] 500 mg PO Q8H #20 tablet - Referrals Referrals: Montez Andino MD [Primary Care Provider] - - Patient Instructions Printed Discharge Instructions: DI for Vomiting -- Adult, DI for Gastroparesis Additional Instructions: You came to the ED for vomiting with abdominal pain. The pain was from your gastroparesis, the slow movement of your stomach. We gave you some medication to help your pain. Please continue the medication Dr. Landry prescribes you for your gastroparesis. We did imaging of your abdomen (CT scan) that showed you have some edema. This is likely due to a viral infection, but could be a bacterial infection. To continue treatment of this infection please take: Flagyl 500 mg by mouth every 8 hours for 5 days It also showed a cyst in your pelvis. It is very important that you have follow up imaging, CT or MRI, of your pelvis to better view the cyst. Return to the Emergency Department if you vomit blood, cannot control your bowels, chest pain, shortness of breath, or headache. - Post Discharge Activity
[2018-07-23] MEDS ORDERED: METOCLOPRAMIDE HCL INJECTION 10 MG/2 ML VIAL IM ONE (14:49)
[2018-07-23] MEDS ORDERED: ONDANSETRON 4 MG/2 ML VIAL IVPUSH ONE (14:55)
[2018-07-23] MEDS ORDERED: METOCLOPRAMIDE HCL INJECTION 10 MG/2 ML VIAL ONE (14:55)
[2018-07-23] MEDS ORDERED: METOCLOPRAMIDE HCL INJECTION 10 MG/2 ML VIAL IVPUSH ONE ×2 (14:55→15:44)
[2018-07-23] MEDS ORDERED: ONDANSETRON 4 MG/2 ML VIAL ONE (14:56)
--- NOTE | 2018-07-23 14:58 | PDOC ---
Attending Attestation - Resident Resident Name: Shirley Mckeon - ED Attending Attestation I have performed the following: I have examined & evaluated the patient, The case was reviewed & discussed with the resident, I agree w/resident's findings & plan, Exceptions are as noted - HPI HPI: 57 yo F history HTN, COPD, spinal fusion December of last year (with associated neck and arm pain) presenting with abdominal pain. She states it has been intermittent, follows with Dr. Landry. She has been drinking tea, has not been taking any medication. +Vomiting, unable to tolerate PO. - Physicial Exam PE: GENERAL: Awake, alert, and fully oriented. Appears uncomfortable. HEAD: No signs of trauma EYES: PERRLA, EOMI, sclera anicteric, conjunctiva clear ENT: Auricles normal inspection, hearing grossly normal, nares patent, oropharynx clear without exudates. Dry mucosa NECK: Normal ROM, supple, no lymphadenopathy, JVD, or masses. Wearing a cervical collar LUNGS: Breath sounds equal, clear to auscultation bilaterally. No wheezes, and no crackles HEART: Regular rate and rhythm, normal S1 and S2, no murmurs, rubs or gallops ABDOMEN: Soft, diffusely tender, hypoactive bowel sounds. +Guarding, no rebound. No masses EXTREMITIES: L arm with dec motor function (chronic as per patient). Remainder of limbs with normal range of motion, no edema. No clubbing or cyanosis. No cords, erythema, or tenderness NEUROLOGICAL: Cranial nerves II through XII grossly intact. Normal speech, normal gait. Motor and sensation intact SKIN: Warm, Dry, normal turgor, no rashes or lesions noted. - Medical Decision Making Will discuss case with Dr. Landry, as patient has a complex history. Will obtain CT a/p after labs, as she has history of prior SBO. Procedures - Bedside Ultrasound Remarks: 07/23/18 14:59 Bedside sono for vascular access. First attempt to R AC failed. Second attempt to R upper arm with success, long 20G catheter used, confirmed in the vessel.
[2018-07-23] MEDS ORDERED: ACETAMINOPHEN 1000 MG/100 ML VIAL (NON FORMULARY) IVPB ONE (15:03)
[2018-07-23] MEDS ORDERED: ACETAMINOPHEN INJECTION 100 ML IVPB ONE (15:03)
[2018-07-23 15:26] LABS: BASO % 0.7 % (0-2.0); EOS % 0.5 % (0-4.5); HEMATOCRIT 38.1 % (32.4-45.2); LYMPH % 20.5 % (8-40); MCH 31.3 pg (25.7-33.7); MCHC 34.2 g/dl (32.0-36.0); MEAN CELL VOLUME 91.6 fl (80-96); MEAN PLT VOLUME 10.2 fl (7.5-11.1); MONO % 3.3 % (3.8-10.2); PLATELET COUNT 226 K/MM3 (134-434); RBC 4.16 M/mm3 (3.60-5.2); RDW 13.4 % (11.6-15.6); WHITE BLOOD COUNT 5.5 K/mm3 (4.0-10.0)
[2018-07-23 15:29] LABS: ALBUMIN 4.1 g/dl (3.4-5.0); ALK PHOS 61 U/L (45-117); ANION GAP 6 MMOL/L (8-16); BILIRUBIN,TOTAL 0.8 mg/dL (0.2-1); BLOOD UREA NITROGEN 14 mg/dL (7-18); CALCIUM 8.9 mg/dL (8.5-10.1); CHLORIDE 106 mmol/L (98-107); CO2 24 mmol/L (21-32); CREATININE 0.9 mg/dL (0.55-1.3); GLUCOSE,RANDOM 88 mg/dL (74-106); LIPASE 75 U/L (73-393); SGOT/AST 19 U/L (15-37); SGPT/ALT 12 U/L (13-61); SODIUM 137 mmol/L (136-145); TOT PROT 7.4 g/dl (6.4-8.2)
[2018-07-23 15:32] LABS: POTASSIUM 4.1 mmol/L (3.5-5.1)
[2018-07-23 16:21] LABS: PH,URINE 6.5 (5.0-8.0); URINE APPEARANCE CLEAR; URINE BILIRUBIN NEGATIVE (<2.0 mg/dL); URINE COLOR YELLOW; URINE GLUCOSE (UA) NEGATIVE (NEGATIVE); URINE KETONE 3+ (NEGATIVE); URINE LEUK ESTERASE NEGATIVE (NEGATIVE); URINE NITRITE NEGATIVE (NEGATIVE); URINE PROTEIN NEGATIVE (NEGATIVE); URINE UROBILINOGEN 0.2 mg/dL (0.2-1.0)
[2018-07-23 19:14] VITALS: BP 119/73; PULSE 78; TEMP 97.8
--- NOTE | 2018-07-24 17:07 | EKG ---
Test Reason : Blood Pressure : / mmHG Vent. Rate : 087 BPM Atrial Rate : 087 BPM P-R Int : 154 ms QRS Dur : 066 ms QT Int : 374 ms P-R-T Axes : 060 026 005 degrees QTc Int : 450 ms NORMAL SINUS RHYTHM NONSPECIFIC T WAVE ABNORMALITY ABNORMAL ECG WHEN COMPARED WITH ECG OF 10-FEB-2018 05:52, NO SIGNIFICANT CHANGE WAS FOUND Confirmed by CRISTI GRANGER MD ([id number]) on 07/24/2018 5:06:54 PM Referred By: Confirmed By:CRISTI GRANGER MD
== END 2018-07-23 19:13 | disposition home or self-care (01) ==
LOC: JER 13:17
PROC: 3E033GC Introduction of Other Therapeutic Substance into Peripheral Vein, Percutaneous Approach (ICD-10-PCS; principal; 2018-07-23)
PROC: 3E033NZ Introduction of Analgesics, Hypnotics, Sedatives into Peripheral Vein, Percutaneous Approach (ICD-10-PCS; 2018-07-23)
DX: K52.9 Noninfective gastroenteritis and colitis, unspecified (principal); K31.84 Gastroparesis; I10 Essential (primary) hypertension; E78.00 Pure hypercholesterolemia, unspecified
CPT/HCPCS: 36415; 74176-TC; 80053; 81003; 83690; 84484; 85025; 93005; 93010; 99283-25; J0131

== ENCOUNTER 2018-12-01 12:09 | Emergency (ER) | payer OTHER ==
[2018-12-01 12:15] VITALS: BP 132/89; PULSE 65; TEMP 98.2; BMI 23.0
--- NOTE | 2018-12-01 12:49 | PDOC ---
History of Present Illness - General Chief Complaint: Cold Symptoms Stated Complaint: SORE THROAT Time Seen by Provider: 12/01/18 12:21 History Source: Patient Exam Limitations: No Limitations Past History - Past Medical History Allergies/Adverse Reactions: Allergies Allergy/AdvReac Type Severity Reaction Status Date / Time clindamycin Allergy Severe Rash Verified 08/16/18 09:16 erythromycin base Allergy Severe Vomiting Verified 08/16/18 09:03 metronidazole Allergy Severe Vomiting Verified 08/16/18 09:03 oxycodone Allergy Severe VOMITING-IT Verified 08/16/18 09:16 CH aspirin Allergy Intermediate Hives Verified 07/23/18 13:24 duloxetine Allergy Intermediate Nausea Verified 08/16/18 09:05 gabapentin Allergy Intermediate Rash Verified 07/23/18 13:24 hydromorphone [From Dilaudid] Allergy Intermediate Vomiting Verified 07/23/18 13 :24 ibuprofen Allergy Intermediate vomitting Verified 07/23/18 13:24 tizanidine Allergy Intermediate Nausea Verified 08/16/18 09:04 ketorolac tromethamine Allergy ITCHING, Verified 07/23/18 13:24 [From Toradol] VOMITING lactose Allergy Verified 07/23/18 13:24 morphine Allergy Hives Verified 07/23/18 13:24 Penicillins Allergy Hives Verified 07/23/18 13:24 Shellfish Allergy Hives Verified 07/23/18 13:24 UNKNOWN IV MED GIVEN IN Allergy Severe Hives Uncoded 08/16/18 09:21 HOSPITAL onions Allergy Hives Uncoded 07/23/18 13:24 seasoning Allergy Hives Uncoded 07/23/18 13:24 iv dye AdvReac Severe Uncoded 07/23/18 13:24 Home Medications: Ambulatory Orders Estrogens, Conjugated [Premarin] 0.625 mg PO DAILY 01/02/17 Simvastatin 10 mg PO HS 09/19/17 Losartan Potassium 50 mg PO DAILY 10/31/17 Ondansetron HCl [Zofran] 4 mg PO BID PRN 11/27/17 Pantoprazole Sodium [Protonix] 40 mg PO DAILY 02/09/18 Acetaminophen [Tylenol] 650 mg PO PRN 08/16/18 Amitriptyline HCl 25 mg PO PRN PRN 08/16/18 Diazepam [Valium] 2 mg PO HS PRN 08/16/18 Diphenhydramine HCl [Benadryl -] 25 mg PO Q6H PRN 08/16/18 Lidocaine HCl [Lidocaine Plus] 120 gm TP PRN 08/16/18 Fluticasone Prop 0.05% Nasal [Flonase -] 1 - 2 spray NS DAILY #1 spray.pump Anemia: No Asthma: Yes (bronchitis) Cancer: No Cardiac Disorders: No CVA: No COPD: No CHF: No DVT: No Dementia: No Diabetes: No GI Disorders: Yes (sbo,ACID REFLUX) Disorders: No HTN: Yes (BORDERLINE) Hypercholesterolemia: Yes Liver Disease: No Seizures: No Thyroid Disease: No - Surgical History Abdominal Surgery: Yes (small bowel obstruction SURGERY) Appendectomy: No Cardiac Surgery: No Cholecystectomy: No Lung Surgery: No Neurologic Surgery: Yes (spinal surgery, SEVERAL,SPINAL FUSON 12/03/18) Orthopedic Surgery: Yes (Cervical Fusion x3-last one 12/03/17) - Immunization History Immunization Up to Date: Yes - Suicide/Smoking/Psychosocial Hx Smoking Status: No Smoking History: Unknown if ever smoked Have you smoked in the past 12 months: No Number of Cigarettes Smoked Daily: 0 Information on smoking cessation initiated: No 'Breaking Loose' booklet given: 02/14/18 Hx Alcohol Use: No Drug/Substance Use Hx: No Substance Use Type: None Hx Substance Use Treatment: No *Physical Exam - Vital Signs Last Vital Signs Temp Pulse Resp BP Pulse Ox 98.2 F 65 16 132/89 100 12/01/18 12:13 12/01/18 12:13 12/01/18 12:13 12/01/18 12:13 12/01/18 12:13 - Physical Exam General Appearance: No: Apparent Distress HEENT: positive: Normal Voice, Nasal Congestion (slight). negative: Muffled/ Hoarse voice, Pharyngeal Erythema, Tonsillar Exudate, Tonsillar Erythema, Rhinorrhea Neck: negative: Lymphadenopathy (R), Lymphadenopathy (L) Respiratory/Chest: positive: Lungs Clear, Normal Breath Sounds. negative: Respiratory Distress Cardiovascular: positive: Regular Rhythm, Regular Rate, S1, S2. negative: Murmur Neurologic: positive: Alert, Normal Mood/Affect Medical Decision Making - Medical Decision Making 58 y/o F hx of HTN, cervical spinal fusion, chronic bronchitis presents with slight dry cough, throat pain, rhinorrhea and mild nasal congestion x 3 days. Also with occasional post nasal drip Denies fever, ear pain, sneezing, sob, cp, abd pain, n/v. Likely allergic rhinitis Unlikely strep stable for dc 12/01/18 12:50 *DC/Admit/Observation/Transfer Diagnosis at time of Disposition: Allergic rhinitis Qualifiers: Allergic rhinitis trigger: unspecified Allergic rhinitis seasonality: unspecified Qualified Code(s): J30.9 - Allergic rhinitis, unspecified - Discharge Dispostion Disposition: HOME Condition at time of disposition: Stable Decision to Admit order: No - Prescriptions Prescriptions: Fluticasone Prop 0.05% Nasal [Flonase -] 1 - 2 spray NS DAILY #1 spray.pump - Referrals - Patient Instructions Printed Discharge Instructions: DI for Allergic Rhinitis Additional Instructions: Thank you for choosing [facility]. It was a pleasure taking care of you. Use nasal spray May also try use of Nedi-Pot to help alleviate your symptoms Follow-up with your doctor in 2 days Return to the Emergency Department if your symptoms worsen or persist or have other concerning symptoms. - Post Discharge Activity
== END 2018-12-01 13:11 | disposition home or self-care (01) ==
LOC: JERFT 12:09
DX: J30.9 Allergic rhinitis, unspecified (principal); I10 Essential (primary) hypertension; E78.00 Pure hypercholesterolemia, unspecified; K21.9 Gastro-esophageal reflux disease without esophagitis; J45.909 Unspecified asthma, uncomplicated
CPT/HCPCS: 99281-25

== ENCOUNTER 2019-01-22 12:47 | Emergency (ER) | payer OTHER ==
[2019-01-22 13:09] VITALS: BP 146/82; PULSE 88; TEMP 98.2; BMI 23.0
--- NOTE | 2019-01-22 13:22 | PDOC ---
History of Present Illness - General Chief Complaint: Cold Symptoms Stated Complaint: COLD SYX Time Seen by Provider: 01/22/19 13:09 History Source: Patient Exam Limitations: No Limitations Past History - Travel Traveled outside of the country in the last 30 days: No Close contact w/someone who was outside of country & ill: No - Past Medical History Allergies/Adverse Reactions: Allergies Allergy/AdvReac Type Severity Reaction Status Date / Time clindamycin Allergy Severe Rash Verified 01/22/19 12:57 erythromycin base Allergy Severe Vomiting Verified 01/22/19 12:57 metronidazole Allergy Severe Vomiting Verified 01/22/19 12:57 oxycodone Allergy Severe VOMITING-IT Verified 01/22/19 12:57 CH aspirin Allergy Intermediate Hives Verified 01/22/19 12:57 duloxetine Allergy Intermediate Nausea Verified 01/22/19 12:57 gabapentin Allergy Intermediate Rash Verified 01/22/19 12:57 hydromorphone [From Dilaudid] Allergy Intermediate Vomiting Verified 01/22/19 12 :57 ibuprofen Allergy Intermediate vomitting Verified 01/22/19 12:57 tizanidine Allergy Intermediate Nausea Verified 01/22/19 12:57 ketorolac tromethamine Allergy ITCHING, Verified 01/22/19 12:57 [From Toradol] VOMITING lactose Allergy Verified 01/22/19 12:57 morphine Allergy Hives Verified 01/22/19 12:57 Penicillins Allergy Hives Verified 01/22/19 12:57 Shellfish Allergy Hives Verified 01/22/19 12:57 UNKNOWN IV MED GIVEN IN Allergy Severe Hives Uncoded 01/22/19 12:57 HOSPITAL onions Allergy Hives Uncoded 01/22/19 12:57 seasoning Allergy Hives Uncoded 01/22/19 12:57 iv dye AdvReac Severe Uncoded 01/22/19 12:57 Home Medications: Ambulatory Orders Estrogens, Conjugated [Premarin] 0.625 mg PO DAILY 01/02/17 Simvastatin 10 mg PO HS 09/19/17 Losartan Potassium 50 mg PO DAILY 10/31/17 Ondansetron HCl [Zofran] 4 mg PO BID PRN 11/27/17 Pantoprazole Sodium [Protonix] 40 mg PO DAILY 02/09/18 Acetaminophen [Tylenol] 650 mg PO PRN 08/16/18 Amitriptyline HCl 25 mg PO PRN PRN 08/16/18 Diazepam [Valium] 2 mg PO HS PRN 08/16/18 Diphenhydramine HCl [Benadryl -] 25 mg PO Q6H PRN 08/16/18 Lidocaine HCl [Lidocaine Plus] 120 gm TP PRN 08/16/18 Fluticasone Prop 0.05% Nasal [Flonase -] 1 - 2 spray NS DAILY #1 spray.pump Promethazine/Dextromethorphan [Promethazine-Dm Solution] 5 ml PO Q6H PRN #473 ml 12/01/18 Albuterol Sulfate Inhaler - [Ventolin HFA Inhaler -] 1 - 2 inh PO Q4H #1 inhaler 01/22/19 Azithromycin [Zithromax 250mg Tablets -] 250 mg PO UTDICT #6 tab 01/22/19 Fluticasone Prop 0.05% Nasal [Flonase -] 1 - 2 spray NS DAILY #1 spray.pump predniSONE [Deltasone -] 40 mg PO DAILY #8 tablet 01/22/19 Anemia: No Asthma: Yes (bronchitis) Cancer: No Cardiac Disorders: No CVA: No COPD: No CHF: No DVT: No Dementia: No Diabetes: No GI Disorders: Yes (sbo,ACID REFLUX) Disorders: No HTN: Yes (BORDERLINE) Hypercholesterolemia: Yes Liver Disease: No Seizures: No Thyroid Disease: No - Surgical History Abdominal Surgery: Yes (small bowel obstruction SURGERY) Appendectomy: No Cardiac Surgery: No Cholecystectomy: No Lung Surgery: No Neurologic Surgery: Yes (spinal surgery, SEVERAL,SPINAL FUSON 12/03/18) Orthopedic Surgery: Yes (Cervical Fusion x3-last one 12/03/17) - Immunization History Immunization Up to Date: Yes - Suicide/Smoking/Psychosocial Hx Smoking Status: No Smoking History: Never smoked Have you smoked in the past 12 months: No Number of Cigarettes Smoked Daily: 0 'Breaking Loose' booklet given: 02/14/18 Hx Alcohol Use: No Drug/Substance Use Hx: No Substance Use Type: None Hx Substance Use Treatment: No Review of Systems - Review of Systems Able to Perform ROS?: Yes Comments:: 01/22/19 13:17 CONSTITUTIONAL: Absent: fever, chills, diaphoresis, generalized weakness, malaise, loss of appetite HEENT: Absent: rhinorrhea, nasal congestion, throat pain, throat swelling, difficulty swallowing, mouth swelling, ear pain, eye pain, visual Changes CARDIOVASCULAR: Absent: chest pain, loss of consciousness, palpitations, irregular heart rate, peripheral edema RESPIRATORY: Present: cough Absent: cough, shortness of breath, dyspnea with exertion, orthopnea, wheezing, stridor, hemoptysis GASTROINTESTINAL: Absent: abdominal pain, abdominal distension, nausea, vomiting, diarrhea, constipation, melena, hematochezia GENITOURINARY: Absent: dysuria, frequency, urgency, hesitancy, hematuria, flank pain, genital pain MUSCULOSKELETAL: Absent: myalgia, arthralgia, joint swelling SKIN: Absent: rash, itching, pallor HEMATOLOGIC/IMMUNOLOGIC: Absent: easy bleeding, easy bruising, lymphadenopathy, frequent infections ENDOCRINE: Absent: unexplained weight gain, unexplained weight loss, heat intolerance, cold intolerance NEUROLOGIC: Absent: headache, focal weakness or paresthesias, dizziness, unsteady gait, seizure, mental status changes, bladder or bowel incontinence PSYCHIATRIC: Absent: anxiety, depression, suicidal or homicidal ideation, hallucinations. Is the patient limited Mongolian proficient: No *Physical Exam - Vital Signs Last Vital Signs Temp Pulse Resp BP Pulse Ox 98.2 F 88 16 146/82 100 01/22/19 12:57 01/22/19 12:57 01/22/19 12:57 01/22/19 12:57 01/22/19 12:57 - Physical Exam Comments: 01/22/19 13:17 GENERAL: Well developed, well nourished. Awake and alert. No acute distress. HEENT: Normocephalic, atraumatic. PERRLA, EOMI. No conjunctival pallor. Sclera are non- icteric. Moist mucous membranes. Oropharynx is clear. NECK: Supple. Full ROM. No JVD. Carotid pulses 2+ and symmetric, without bruits. No thyromegaly. No lymphadenopathy. CARDIOVASCULAR: Regular rate and rhythm. No murmurs, rubs, or gallops. Distal pulses are 2+ and symmetric. PULMONARY: No evidence of respiratory distress. Lungs clear with course lung sounds. No wheezing, rales or rhonchi. ABDOMINAL: Soft. Non-tender. Non-distended. No rebound or guarding. No organomegaly. Normoactive bowel sounds. MUSCULOSKELETAL Normal range of motion at all joints. No bony deformities or tenderness. No CVA tenderness. EXTREMITIES: No cyanosis. No clubbing. No edema. No calf tenderness. SKIN: Warm and dry. Normal capillary refill. No rashes. No jaundice. NEUROLOGICAL: Alert, awake, appropriate. Cranial nerves 2-12 intact. No deficits to light touch and temperature in face, upper extremities and lower extremities. No motor deficits in the in face, upper extremities and lower extremities. Normoreflexic in the upper and lower extremities. Normal speech. Toes are down- going bilaterally. Gait is normal without ataxia. PSYCHIATRIC: Cooperative. Good eye contact. Appropriate mood and affect. Medical Decision Making - Medical Decision Making 01/22/19 13:17 The patient is a 58 y/o F with PMH of chronic bronchitis, who presents to the ER with cough for one week. Pt states that around this time of year she gets a bronchitis flare that lasts throughout the winter. The patient is concerned because she has a surgery planned for the first week in February and wants to catch this before it gets out of hand. She is also requesting a refill of her flonase. Denies difficulty breathing, shortness of breath and chest pain. A/P: Bronchitis One exam pt with dry cough and course lung sounds Will initiate prednisone and z-pack treatment at this time given upcoming surgery DC home with PCP follow up I discussed the physical exam findings, ancillary test results and final diagnoses with the patient. I answered all of the patient's questions. The patient was satisfied with the care received and felt comfortable with the discharge plan and treatment plan. The Patient agrees to follow up with the primary care physician/specialist within 24-72 hours. Return precautions were given. *DC/Admit/Observation/Transfer Diagnosis at time of Disposition: Bronchitis - Discharge Dispostion Disposition: HOME Condition at time of disposition: Stable Decision to Admit order: No - Prescriptions Prescriptions: Albuterol Sulfate Inhaler - [Ventolin HFA Inhaler -] 1 - 2 inh PO Q4H #1 inhaler Azithromycin [Zithromax 250mg Tablets -] 250 mg PO UTDICT #6 tab Fluticasone Prop 0.05% Nasal [Flonase -] 1 - 2 spray NS DAILY #1 spray.pump predniSONE [Deltasone -] 40 mg PO DAILY #8 tablet - Referrals Referrals: Juan Khan MD [Staff Physician] - Kyle Morris MD, MD [Staff Physician] - - Patient Instructions Printed Discharge Instructions: DI for Chronic Bronchitis Additional Instructions: You have bronchitis Please use the inhaler every 4 hours for the next week to help with your cough. Continue taking the prednisone daily for the next 4 days. Take the z-pack as directed Please follow up with your primary care doctor in 1 week if your symptoms are not improving. Return to the emergency department if you have fevers, chills, worsening cough, chest pain, worsening shortness of breath or if you have any changes in your symptoms. - Post Discharge Activity
[2019-01-22] MEDS ORDERED: DEXAMETHASONE SOD PHOSPHATE 10 MG/1 ML VIAL ONE (13:31)
[2019-01-22] MEDS ORDERED: DEXAMETHASONE LIQUID 0.5 MG/5 ML PO ONE (13:31)
== END 2019-01-22 13:50 | disposition home or self-care (01) ==
LOC: JERFT 12:47
DX: J42 Unspecified chronic bronchitis (principal); I10 Essential (primary) hypertension; E78.00 Pure hypercholesterolemia, unspecified; K21.9 Gastro-esophageal reflux disease without esophagitis
CPT/HCPCS: 99281-25

== ENCOUNTER 2019-02-01 06:18 | Inpatient (IN) | payer OTHER ==
[2019-02-01] MEDS ORDERED: VANCOMYCIN 1,000 MG VIAL (RESTRICTED TO ID ONLY) ONE (07:13)
[2019-02-01] MEDS ORDERED: GENTAMICIN SO4 80 MG/2 ML VIAL ONE (07:13)
[2019-02-01] MEDS ORDERED: THROMBIN (BOVINE) 20,000 UNIT VIAL TP ONE (07:14)
[2019-02-01] MEDS ORDERED: BUPIVACAINE HCL/PF 0.5% (5 MG/ML) 30 ML VIAL IJ ONE ×2 (07:14→13:26)
--- NOTE | 2019-02-01 08:10 | HP ---
History & Physical Update - History History: No Change - Physical Physical: No Change - Assessment Assessment: No Change - Plan Plan: No Change
[2019-02-01] MEDS ORDERED: BACITRACIN 15 GM TUBE TOPICAL OINTMENT ONE (08:20)
[2019-02-01] MEDS ORDERED: ONDANSETRON 4 MG/2 ML VIAL IVPUSH PRN (08:24)
[2019-02-01] MEDS ORDERED: PROMETHAZINE HCL 25 MG/1 ML VIAL IVPB PRN (08:24)
[2019-02-01] MEDS ORDERED: LACTATED RINGERS SOLUTION 1,000 ML IV SCH (08:30)
[2019-02-01] MEDS ORDERED: ceFAZolin SODIUM 1 GM VIAL IVPB ONE (09:55)
[2019-02-01] MEDS ORDERED: LIDOCAINE 1%/EPI 1:100000 (20 ML MULTI DOSE VIAL) IJ ONE (10:41)
[2019-02-01] MEDS ORDERED: VANCOMYCIN 1,000 MG VIAL (RESTRICTED TO ID ONLY) IVPB ONE (10:45)
[2019-02-01] MEDS ORDERED: BUPIVACAINE LIPOSOME/PF (EXPAREL) 266 MG/20 ML VIAL ONE (12:52)
[2019-02-01] MEDS ORDERED: BUPIVACAINE LIPOSOME/PF (EXPAREL) 266 MG/20 ML VIAL IJ ONE (13:25)
[2019-02-01] MEDS ORDERED: hydrALAZINE HCL 20 MG/ML VIAL ONE (13:53)
[2019-02-01] MEDS ORDERED: hydrALAZINE HCL 20 MG/ML VIAL IVPUSH ONE (14:00)
[2019-02-01] MEDS ORDERED: diphenhydrAMINE HCL 25 MG CAPSULE (FP) PO PRN (14:01)
[2019-02-01] MEDS ORDERED: ALBUTEROL SO4 0.042% IH SOL 1.25 MG/3 ML VIAL.NEB NEB PRN (14:14)
--- NOTE | 2019-02-01 14:20 | OP ---
Operative Note - Note: Operative Date: 02/01/19 Pre-Operative Diagnosis: left arm radiculopathy Operation: exploration of spinal fusion, revision of hardware from C2-T1. C2 thru C6 osteotomies and microvascular decompression of vertervral artery. Surgeon: Dandre Michelle Wordpress Developer: Ethel Cho Anesthesiologist/VIBRATION TECHNICIAN: Murtaza Alcaraz Anesthesia: General Estimated Blood Loss (mls): 300 Drains, Volume Out (mls): 500 (jacques) Fluid Volume Replaced (mls): 1,300 Operative Report Dictated: Yes
[2019-02-01] MEDS: ONDANSETRON 4 MG/2 ML VIAL IVPUSH PRN ×2 (14:50→21:41)
[2019-02-01] MEDS ORDERED: ONDANSETRON 4 MG/2 ML VIAL ONE ×2 (14:50→16:43)
[2019-02-01 14:59] LABS: BASO % 0.2 % (0-2.0); EOS % 0.1 % (0-4.5); HEMATOCRIT 30.4 % (32.4-45.2); HEMOGLOBIN 9.9 GM/dL (10.7-15.3); MCH 30.2 pg (25.7-33.7); MCHC 32.5 g/dl (32.0-36.0); MEAN CELL VOLUME 93.2 fl (80-96); MONO % 1.5 % (3.8-10.2); NEUT % 91.2 % (42.8-82.8); PLATELET COUNT 198 K/MM3 (134-434); RBC 3.27 M/mm3 (3.60-5.2); RDW 13.4 % (11.6-15.6)
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
[2019-02-01 15:26] LABS: BLOOD UREA NITROGEN 8.7 mg/dL (7-18); CALCIUM 7.9 mg/dL (8.5-10.1); CREATININE 0.8 mg/dL (0.55-1.3); POTASSIUM 3.8 mmol/L (3.5-5.1)
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
[2019-02-01 15:59] LABS: PLATELET ESTIMATE ADEQUATE
[2019-02-01] MEDS ORDERED: hydrALAZINE HCL 20 MG/ML VIAL IVPUSH PRN (16:20)
[2019-02-01] MEDS ORDERED: ACETAMINOPHEN INJECTION 100 ML IVPB ONE (16:37)
[2019-02-01] MEDS: ACETAMINOPHEN 1000 MG/100 ML VIAL (NON FORMULARY) IVPB SCH ×2 (16:41→21:40)
[2019-02-01] MEDS: LACTATED RINGERS SOLUTION 1,000 ML/1,000 ML INFUS.BAG IV SCH (17:30)
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
[2019-02-01] MEDS ORDERED: ceFAZolin SODIUM 1 GM VIAL ONE (18:46)
[2019-02-01] MEDS ORDERED: DEXTROSE 5%-WATER - 50 ML IVPB ONE (18:46)
[2019-02-01] MEDS: CEFAZOLIN 1 GM in DEXTROSE 5%-WATER - 50 ML IVPB SCH (18:51)
[2019-02-01] MEDS: MUPIROCIN 2% TOPICAL OINTMENT FOR DECOLONIZATION NS SCH (21:38)
[2019-02-01] MEDS: CHLORHEXIDINE GLUCONATE 4% CLEANSER FOR DECOLONIZATION TP SCH (21:38)
[2019-02-01] MEDS: ATORVASTATIN CA 10 MG TABLET (FP) PO SCH (21:47)
[2019-02-01] MEDS: HEPARIN NA (PORCINE) 5,000 UNITS/ML 1ML VIAL SQ SCH (21:52)
[2019-02-01] MEDS: DOCUSATE SODIUM 100 MG CAPSULE (FP) PO SCH (21:55)
[2019-02-01] MEDS ORDERED: ESTROGENS,CONJUGATED 0.625 MG TABLET PO SCH (22:00)
[2019-02-02] MEDS ORDERED: ceFAZolin SODIUM 1 GM VIAL ONE ×2 (01:29→07:21)
[2019-02-02] MEDS ORDERED: DEXTROSE 5%-WATER - 50 ML IVPB ONE ×2 (01:29→07:21)
[2019-02-02] MEDS: CEFAZOLIN 1 GM in DEXTROSE 5%-WATER - 50 ML IVPB SCH ×2 (01:37→09:02)
[2019-02-02] MEDS: LACTATED RINGERS SOLUTION 1,000 ML/1,000 ML INFUS.BAG IV SCH (02:00)
[2019-02-02] MEDS: HEPARIN NA (PORCINE) 5,000 UNITS/ML 1ML VIAL SQ SCH ×4 (03:06→21:46)
[2019-02-02] MEDS: ACETAMINOPHEN 1000 MG/100 ML VIAL (NON FORMULARY) IVPB SCH ×2 (04:20→11:38)
[2019-02-02] MEDS: DOCUSATE SODIUM 100 MG CAPSULE (FP) PO SCH ×3 (05:48→21:45)
[2019-02-02 06:27] LABS: HEMATOCRIT 25.8 % (32.4-45.2); HEMOGLOBIN 8.6 GM/dL (10.7-15.3); MCHC 33.5 g/dl (32.0-36.0); MEAN CELL VOLUME 92.6 fl (80-96); MEAN PLT VOLUME 7.9 fl (7.5-11.1); PLATELET COUNT 159 K/MM3 (134-434); RBC 2.78 M/mm3 (3.60-5.2); RDW 13.5 % (11.6-15.6); WHITE BLOOD COUNT 8.7 K/mm3 (4.0-10.0)
[2019-02-02 07:09] LABS: BLOOD UREA NITROGEN 8.4 mg/dL (7-18); CALCIUM 7.9 mg/dL (8.5-10.1); CREATININE 0.8 mg/dL (0.55-1.3); MAGNESIUM 1.7 mg/dL (1.8-2.4); PHOSPHOROUS 3.5 mg/dL (2.5-4.9)
[2019-02-02] MEDS: ONDANSETRON 4 MG/2 ML VIAL IVPUSH PRN (07:24)
[2019-02-02] MEDS ORDERED: MAGNESIUM SULF 50% (8.12 MEQ/2 ML-1 GM VIAL) IVPB ONE (08:00)
[2019-02-02] MEDS: FOLIC ACID 1 MG TABLET (FP) PO SCH (09:01)
[2019-02-02] MEDS: FERROUS SO4 325 MG TABLET (FP) PO SCH (09:01)
[2019-02-02] MEDS: PANTOPRAZOLE 40 MG TABLET (FP) PO SCH (09:01)
[2019-02-02] MEDS ORDERED: LOSARTAN POTASSIUM 50 MG TABLET (FP) PO SCH (10:00)
[2019-02-02] MEDS ORDERED: ONDANSETRON 4 MG TABLET PO SCH ×2 (10:00→11:00)
[2019-02-02] MEDS ORDERED: ACETAMINOPHEN WITH CODEINE 300MG/30MG TABLET PO SCH ×2 (10:00→11:00)
--- NOTE | 2019-02-02 10:24 | PN ---
Progress Note (short form) - Note Progress Note: POD#1 Pt states that her left arm pain is improved, she is able to touch her hand. Having difficulty raising her hand above her head but overall, the pain is improved. The patient states that she is able to take tylenol #3 if taken at the same times as zofran. Vital Signs Period Temp Pulse Resp BP Sys/Hylton Pulse Ox Last 24 Hr 97.6 F-98.2 F 57-98 10-18 108-154/55-110 100-100 GEN: A&0x3, NAD CV: RRR Lungs: CTA b/l ABD: soft, non-distended, non-tend Neck: Falls collar in place, Dressing c/d/i with telfa/tegaderm. Neuro: 5/5 flexion extension b/l. Decreased sensation to left 5th digit. [employer] strength equal b/l. Unable to raise left arm above head/or abduct. CBC, BMP 02/02/19 05:30 02/02/19 05:30 A/p: 58 yo female s/p spinal fusion exploration/ revision of hardware C2 thru C7 with osteotomies C2-C6 and microvascular decompression of vertebral artery. Plan for OOB to chair/ambuate/PT eval Oral pain medications with standing tylenol#3 and zofran Regular diet/discontinue IVF Monreal removal and TOV Iron/folic acid and stool softners to prevent constipation D/w Dr. Michelle, plan for discharge when medically cleared.
--- NOTE | 2019-02-02 11:08 | PN ---
Progress Note (short form) - Note Progress Note: HPI: In pain today, but reports sensation is improving in her L hand. Pt's strength also reported to increase in L hand. Pt has no lightheadedness, shortness of breath, chest pain, palpitations, abdominal pain, calf pain. Pt OOB to chair Vital Signs Temperature 98.2 F 02/02/19 12:00 Pulse Rate 72 02/02/19 12:00 Respiratory Rate 12 02/02/19 12:00 Blood Pressure 126/72 02/02/19 12:00 O2 Sat by Pulse Oximetry (%) 100 02/02/19 07:31 PE: GEN: OOB in chair sitting up, NAD, awake, alert, orientedx3 HEENT: EOMI, RAVINDRA, sclera anicteric MMM Neck: C-collar in place, no JVD LUNG: CTA b/l no wheezes. On 2LNC 100% CARD: RRR no murmurs EXT: No peripheral edema throughout. Pulses strong throughout. No calf tenderness NEURO: EOMI, RAVINDRA, strength 5/5 in b/l UExt, sensation of L hand improved in discerning light touch. Skin: No rashes CBC, BMP 02/02/19 05:30 02/02/19 05:30 Active Medications Acetaminophen (Ofirmev Injection -) 1,000 mg IVPB Q6H PRN PRN Reason: PAIN LEVEL 1-5 Last Admin: 02/02/19 14:59 Dose: 1,000 mg Albuterol Sulfate (Ventolin 0.042trength) -) 1 amp NEB Q6H PRN PRN Reason: SHORT OF BREATH/WHEEZING Atorvastatin Calcium (Lipitor -) 10 mg PO HS [facility] Last Admin: 02/01/19 21:47 Dose: 10 mg Chlorhexidine Gluconate (Hibiclens For Decolonization -) 1 applic TP HS [facility] Last Admin: 02/01/19 21:38 Dose: 1 applic Diphenhydramine HCl (Benadryl -) 25 mg PO Q6H PRN PRN Reason: FOR ITCHING Last Admin: 02/01/19 16:30 Dose: 25 mg Docusate Sodium (Colace -) 100 mg PO TID [facility] Last Admin: 02/02/19 13:19 Dose: 100 mg Fentanyl (Sublimaze Injection -) 25 mcg IVPUSH Q6H PRN PRN Reason: PAIN LEVEL 6-10 Stop: 02/03/19 14:44 Ferrous Sulfate (Feosol -) 325 mg PO DAILY [facility] Last Admin: 02/02/19 09:01 Dose: 325 mg Folic Acid (Folic Acid -) 1 mg PO DAILY [facility] Last Admin: 02/02/19 09:01 Dose: 1 mg Heparin Sodium (Porcine) (Heparin -) 5,000 unit SQ Q8H [facility] Last Admin: 02/02/19 13:19 Dose: 5,000 unit Hydralazine HCl (Apresoline Injection -) 10 mg IVPUSH Q8H PRN PRN Reason: HYPERTENSION Mupirocin (Bactroban Ointment (For Decolonization) -) 1 applic NS BID [facility] Stop: 02/06/19 21:59 Last Admin: 02/02/19 11:17 Dose: 1 applic Ondansetron HCl (Zofran -) 4 mg PO Q4H PRN PRN Reason: NAUSEA Last Admin: 02/02/19 14:44 Dose: 4 mg Pantoprazole Sodium (Protonix -) 40 mg PO DAILY [facility] Last Admin: 02/02/19 09:01 Dose: 40 mg Promethazine HCl (Phenergan Injection -) 12.5 mg IVPB Q6H PRN PRN Reason: NAUSEA-FOR RESCUE AFTER 15 MIN A/P Cervicalgia s/p cervical spine exploration, revision of hardware and vertebral artery decompression HTN History of COPD Normocytic anemia Anxiety HLD --Pain control per surgery; difficult management given pt reported allergies --OOB as tolerated and d/c jacques once able to move freely --Maintain C-collar until surgery recommendations --Can d/c fluids once pt tolerating PO --Discontinue oxygen as pt's SpO2 on RA 99% --Albuterol PRN for wheezing --Zofran PO for nausea --Continue Cozaar 50mg qdaily for BP control --Currently controlled --Can use Hydralazine PRN for BP >180/100 --Continue Lipitor 10mg HS PO FEN: Fluids: Discontinue Electrolyte abnormalities: Nutrition: Regular diet PPX: DVT - SCDs GI - Protonix PO per home meds Dispo: Mobilize patient; jacques d/c if able; rest per surgery Case discussed with Dr. Jaret Preston, DO - IM PGY-3
[2019-02-02] MEDS: MUPIROCIN 2% TOPICAL OINTMENT FOR DECOLONIZATION NS SCH ×2 (11:17→21:45)
--- NOTE | 2019-02-02 11:46 | PN ---
Progress Note (short form) - Note Progress Note: Anesthesiologist post op note POD#1, S/p exploration of spinal fusion, revision of hardware from C2-T1. C2 thru C6 osteotomies and microvascular decompression of vertervral artery, under GA. Pat seen and examined. VSS. Pain well controlled 08/11. No apparent post anesthesia complications.
--- NOTE | 2019-02-02 12:14 | PN ---
Teaching Attending Note Name of Resident: Kaylee Armas ATTENDING PHYSICIAN STATEMENT I saw and evaluated the patient. I reviewed the resident's note and discussed the case with the resident. I agree with the resident's findings and plan as documented. SUBJECTIVE: Pt seen and examined in the ICU. c/o neck pain and nausea. No shortness of breath or chest pain. OBJECTIVE: Vital Signs Period Temp Pulse Resp BP Sys/Hylton Pulse Ox Last 24 Hr 97.6 F-98.2 F 57-98 10-18 108-154/55-110 100-100 Intake & Output 01/30/19 01/31/19 02/01/19 02/02/19 23:59 23:59 23:59 23:59 Intake Total 2195 2009 Output Total 3100 700 Balance -905 1310 Weight 58.967 kg Gen: NAD in chair in c-collar Heart: RRR Lung: decreased breath sounds at the bases Abd: soft, nontender Ext: no edema CBC, BMP 02/02/19 05:30 02/02/19 05:30 Active Medications Acetaminophen/Codeine Phosphate (Tylenol # 3 -) 1 tab PO Q6H [facility] Last Admin: 02/02/19 10:01 Dose: 1 tab Albuterol Sulfate (Ventolin 0.042trength) -) 1 amp NEB Q6H PRN PRN Reason: SHORT OF BREATH/WHEEZING Atorvastatin Calcium (Lipitor -) 10 mg PO HS [facility] Last Admin: 02/01/19 21:47 Dose: 10 mg Chlorhexidine Gluconate (Hibiclens For Decolonization -) 1 applic TP HS [facility] Last Admin: 02/01/19 21:38 Dose: 1 applic Diphenhydramine HCl (Benadryl -) 25 mg PO Q6H PRN PRN Reason: FOR ITCHING Last Admin: 02/01/19 16:30 Dose: 25 mg Docusate Sodium (Colace -) 100 mg PO TID [facility] Last Admin: 02/02/19 05:48 Dose: 100 mg Ferrous Sulfate (Feosol -) 325 mg PO DAILY [facility] Last Admin: 02/02/19 09:01 Dose: 325 mg Folic Acid (Folic Acid -) 1 mg PO DAILY [facility] Last Admin: 02/02/19 09:01 Dose: 1 mg Heparin Sodium (Porcine) (Heparin -) 5,000 unit SQ Q8H [facility] Last Admin: 02/02/19 05:48 Dose: 5,000 unit Hydralazine HCl (Apresoline Injection -) 10 mg IVPUSH Q8H PRN PRN Reason: HYPERTENSION Cefazolin Sodium 1 gm/ (Dextrose) 50 mls @ 100 mls/hr IVPB Q8H-IV [facility] Last Admin: 02/02/19 09:02 Dose: 100 mls/hr Mupirocin (Bactroban Ointment (For Decolonization) -) 1 applic NS BID [facility] Stop: 02/06/19 21:59 Last Admin: 02/02/19 11:17 Dose: 1 applic Ondansetron HCl (Zofran -) 4 mg PO Q6H [facility] Last Admin: 02/02/19 10:01 Dose: 4 mg Pantoprazole Sodium (Protonix -) 40 mg PO DAILY [facility] Last Admin: 02/02/19 09:01 Dose: 40 mg Promethazine HCl (Phenergan Injection -) 12.5 mg IVPB Q6H PRN PRN Reason: NAUSEA-FOR RESCUE AFTER 15 MIN ASSESSMENT AND PLAN: Cervical Stenosis with Radiculopathy s/p MIKE C2-T1/C2-C6 Osteotomies HTN COPD Hyperlipidemia - pain control - incentive spirometry - d/c goergie when OOB - antiemetics - PO as tolerated - rehab/PT - DVT prophylaxis - can monitor on floor
--- NOTE | 2019-02-02 12:53 | PN ---
Physical Exam: SUBJECTIVE: Patient seen and examined at bedside. pt states she is having 10/10 R sided neck pain and headache. pt states the pain is radiating from her neck to her head. denies n/v. OBJECTIVE: Vital Signs Period Temp Pulse Resp BP Sys/Hylton Pulse Ox Last 24 Hr 97.6 F-98.2 F 57-98 10-18 108-154/55-110 100-100 GENERAL: The patient is awake, alert, and fully oriented, in no acute distress. HEAD: Normal with no signs of trauma. NECK: neck brace intact LUNGS: Breath sounds equal, clear to auscultation bilaterally, no wheezes, no crackles, no accessory muscle use. HEART: Regular rate and rhythm, S1, S2 without murmur, rub or gallop. ABDOMEN: Soft, nontender, nondistended, normoactive bowel sounds, no guarding EXTREMITIES: 2+ pulses, warm, well-perfused, no edema. NEUROLOGICAL: Cranial nerves II through XII grossly intact. Normal speech, gait not observed. SKIN: Warm, dry, normal turgor, no rashes or lesions noted Laboratory Results - last 24 hr 02/01/19 02/01/19 02/02/19 14:30 14:30 05:30 WBC 8.0 8.7 RBC 3.27 L 2.78 L Hgb 9.9 L 8.6 L Hct 30.4 L 25.8 L D MCV 93.2 92.6 MCH 30.2 31.0 MCHC 32.5 33.5 RDW 13.4 13.5 Plt Count 198 159 MPV 8.0 7.9 Absolute Neuts (auto) 7.3 Neutrophils % 91.2 H D Neutrophils % (Manual) 92.0 H Band Neutrophils % 1.0 Lymphocytes % 7.0 L D Lymphocytes % (Manual) 7.0 L D Monocytes % 1.5 L Eosinophils % 0.1 D Basophils % 0.2 Nucleated RBC % 0 Platelet Estimate Adequate Sodium 141 Potassium 3.8 Chloride 107 Carbon Dioxide 27 Anion Gap 7 L BUN 8.7 Creatinine 0.8 Est GFR (CKD-EPI)AfAm 93.53 Est GFR (CKD-EPI)NonAf 80.70 Random Glucose 148 H Calcium 7.9 L Phosphorus Magnesium 02/02/19 05:30 WBC RBC Hgb Hct MCV MCH MCHC RDW Plt Count MPV Absolute Neuts (auto) Neutrophils % Neutrophils % (Manual) Band Neutrophils % Lymphocytes % Lymphocytes % (Manual) Monocytes % Eosinophils % Basophils % Nucleated RBC % Platelet Estimate Sodium 138 Potassium 4.0 Chloride 106 Carbon Dioxide 27 Anion Gap 5 L BUN 8.4 Creatinine 0.8 Est GFR (CKD-EPI)AfAm 93.53 Est GFR (CKD-EPI)NonAf 80.70 Random Glucose 107 H Calcium 7.9 L Phosphorus 3.5 Magnesium 1.7 L Current Medications Acetaminophen/Codeine Phosphate (Tylenol # 3 -) 1 tab PO Q6H [facility] Last Admin: 02/02/19 10:01 Dose: 1 tab Albuterol Sulfate (Ventolin 0.042trength) -) 1 amp NEB Q6H PRN PRN Reason: SHORT OF BREATH/WHEEZING Atorvastatin Calcium (Lipitor -) 10 mg PO HS [facility] Last Admin: 02/01/19 21:47 Dose: 10 mg Chlorhexidine Gluconate (Hibiclens For Decolonization -) 1 applic TP HS [facility] Last Admin: 02/01/19 21:38 Dose: 1 applic Diphenhydramine HCl (Benadryl -) 25 mg PO Q6H PRN PRN Reason: FOR ITCHING Last Admin: 02/01/19 16:30 Dose: 25 mg Docusate Sodium (Colace -) 100 mg PO TID [facility] Last Admin: 02/02/19 05:48 Dose: 100 mg Ferrous Sulfate (Feosol -) 325 mg PO DAILY [facility] Last Admin: 02/02/19 09:01 Dose: 325 mg Folic Acid (Folic Acid -) 1 mg PO DAILY [facility] Last Admin: 02/02/19 09:01 Dose: 1 mg Heparin Sodium (Porcine) (Heparin -) 5,000 unit SQ Q8H [facility] Last Admin: 02/02/19 05:48 Dose: 5,000 unit Hydralazine HCl (Apresoline Injection -) 10 mg IVPUSH Q8H PRN PRN Reason: HYPERTENSION Cefazolin Sodium 1 gm/ (Dextrose) 50 mls @ 100 mls/hr IVPB Q8H-IV [facility] Last Admin: 02/02/19 09:02 Dose: 100 mls/hr Mupirocin (Bactroban Ointment (For Decolonization) -) 1 applic NS BID [facility] Stop: 02/06/19 21:59 Last Admin: 02/02/19 11:17 Dose: 1 applic Ondansetron HCl (Zofran -) 4 mg PO Q6H [facility] Last Admin: 02/02/19 10:01 Dose: 4 mg Pantoprazole Sodium (Protonix -) 40 mg PO DAILY [facility] Last Admin: 02/02/19 09:01 Dose: 40 mg Promethazine HCl (Phenergan Injection -) 12.5 mg IVPB Q6H PRN PRN Reason: NAUSEA-FOR RESCUE AFTER 15 MIN ASSESSMENT/PLAN: 58 y/o F with PMH COPD (unknown PFTs), HTN, HLD, chronic neck pain s/p multiple revisions, anemia, anxiety who presents today s/p exploration of spinal fusion , revision of hardware from C2-T1. C2 thru C6 osteotomies and microvascular decompression of vertebral artery- PO Day 1, done by Dr. Michelle. Neuro: s/p exploration of spinal fusion, revision of hardware from C2-T1. C2 thru C6 osteotomies and microvascular decompression of vertebral artery- PO Day 1 -AAOx3 -S/P ancef x 3 doses -pain control with oral pain medications with standing tylenol#3 and zofran. allergic to morphine, gabapentin, toradol, motrin - fentanyl pushes prn q 6 h, tomorrow transition to fentanyl patch -zofran, phenergan PRN for nausea. last qtc 437ms -no pillows per sx -continue c-collar -OOB to chair/ambuate/PT eval -Iron/folic acid and stool softners to prevent constipation Cardio: HTN, HLD HTN- controlled -c/w hydralazine PRN for BP> 170/100 per primary -c/w losartan 50mg qd -c/w lipitor Pulm:COPD -currently not in exacerbation -c/w nebs PRN F/E/N -no standing fluids -continue to follow lytes -sodium controlled diet PPX DVT: Hep sq 5k GI: protonix Lines/tubes -jacques removal, tov +R subclavian (02/01): placed by neurosx for access. not on pressors. no drains Dispo admitted to ICU , transfer to med surg tomorrow Visit type - Emergency Visit Emergency Visit: No - New Patient This patient is new to me today: Yes - Critical Care Critical Care patient: Yes Total Critical Care Time (in minutes): 36 Critical Care Statement: The care of this patient involved high complexity decision making to prevent further life threatening deterioration of the patient 's condition and/or to evaluate & treat vital organ system(s) failure or risk of failure. ATTENDING PHYSICIAN STATEMENT I saw and evaluated the patient. I reviewed the resident's note and discussed the case with the resident. I agree with the resident's findings and plan as documented. SUBJECTIVE: OBJECTIVE: ASSESSMENT AND PLAN:
[2019-02-02] MEDS: ONDANSETRON 4 MG TABLET PO PRN ×2 (14:44→22:51)
[2019-02-02] MEDS ORDERED: ACETAMINOPHEN 1000 MG/100 ML VIAL (NON FORMULARY) IVPB PRN (14:55)
[2019-02-02] MEDS ORDERED: ACETAMINOPHEN WITH CODEINE 300MG/30MG TABLET PO PRN (15:00)
[2019-02-02] MEDS ORDERED: FUROSEMIDE 100 MG/10 ML INJECTABLE VIAL IVPB ONE (16:00)
[2019-02-02] MEDS ORDERED: FUROSEMIDE INJECTION 100 MG in SODIUM CHLORIDE 40 ML IVPB SCH (17:00)
[2019-02-02] MEDS ORDERED: ACETAMINOPHEN 1000 MG/100 ML VIAL (NON FORMULARY) IVPB ONE (19:40)
[2019-02-02] MEDS ORDERED: ACETAMINOPHEN INJECTION 100 ML IVPB ONE (19:41)
[2019-02-02] MEDS: ATORVASTATIN CA 10 MG TABLET (FP) PO SCH (21:44)
[2019-02-02] MEDS: CHLORHEXIDINE GLUCONATE 4% CLEANSER FOR DECOLONIZATION TP SCH (21:44)
[2019-02-03] MEDS: ONDANSETRON 4 MG TABLET PO PRN ×4 (01:57→17:40)
[2019-02-03] MEDS: HEPARIN NA (PORCINE) 5,000 UNITS/ML 1ML VIAL SQ SCH ×3 (05:45→22:25)
[2019-02-03] MEDS: DOCUSATE SODIUM 100 MG CAPSULE (FP) PO SCH ×3 (05:47→21:12)
--- NOTE | 2019-02-03 06:54 | PN ---
Progress Note (short form) - Note Progress Note: 02/03/2019 0130: Patient is complaining of left sided arm pain that radiates down to her fingers. Patient reassessed and is stating that she also has left shoulder pain. Patient given IV fentanyl for pain control, which relieved the pain. Plan to discuss pain management plan with surgery PA tomorrow.
[2019-02-03 07:10] LABS: BASO % 0.6 % (0-2.0); EOS % 0.4 % (0-4.5); HEMATOCRIT 27.6 % (32.4-45.2); HEMOGLOBIN 9.3 GM/dL (10.7-15.3); LYMPH % 14.8 % (8-40); MCH 31.2 pg (25.7-33.7); MCHC 33.7 g/dl (32.0-36.0); MEAN CELL VOLUME 92.6 fl (80-96); MEAN PLT VOLUME 8.8 fl (7.5-11.1); MONO % 7.2 % (3.8-10.2); PLATELET COUNT 181 K/MM3 (134-434); RBC 2.98 M/mm3 (3.60-5.2); RDW 13.7 % (11.6-15.6)
[2019-02-03 07:38] LABS: BLOOD UREA NITROGEN 5.6 mg/dL (7-18); CREATININE 0.8 mg/dL (0.55-1.3); MAGNESIUM 1.9 mg/dL (1.8-2.4); PHOSPHOROUS 2.6 mg/dL (2.5-4.9); POTASSIUM 3.6 mmol/L (3.5-5.1)
--- NOTE | 2019-02-03 07:55 | PN ---
Addendum entered and electronically signed by Emiliano Preston, RESIDENT 02/03/19 09:04: CORRECTION: medical optimized once pain control addressed. Original Note: Progress Note (short form) - Note Progress Note: HPI: Overnight events noted with overnight team giving bridging dose of Fentanyl 25mcg once for pain. Pt's pain improved currently. No complaints. Walked with PT yesterday 50ft and tolerating diet. Vital Signs Temperature 98 F 02/03/19 04:00 Pulse Rate 84 02/03/19 04:00 Respiratory Rate 18 02/03/19 04:00 Blood Pressure 126/73 02/03/19 06:00 O2 Sat by Pulse Oximetry (%) 100 02/02/19 21:00 PE: GEN: OOB in chair sitting up, NAD, awake, alert, orientedx3 HEENT: EOMI, RAVINDRA, sclera anicteric MMM Neck: C-collar in place, no JVD LUNG: CTA b/l no wheezes. On 2LNC 100% CARD: RRR no murmurs EXT: No peripheral edema throughout. Pulses strong throughout. No calf tenderness NEURO: EOMI, RAVINDRA, strength 5/5 in b/l UExt, Sensation of L hand to light touch improving Skin: No rashes CBC, BMP 02/03/19 05:30 02/03/19 05:30 Active Medications Albuterol Sulfate (Ventolin 0.042trength) -) 1 amp NEB Q6H PRN PRN Reason: SHORT OF BREATH/WHEEZING Atorvastatin Calcium (Lipitor -) 10 mg PO HS [facility] Last Admin: 02/02/19 21:44 Dose: 10 mg Chlorhexidine Gluconate (Hibiclens For Decolonization -) 1 applic TP HS [facility] Last Admin: 02/02/19 21:44 Dose: 1 applic Diphenhydramine HCl (Benadryl -) 25 mg PO Q6H PRN PRN Reason: FOR ITCHING Last Admin: 02/01/19 16:30 Dose: 25 mg Docusate Sodium (Colace -) 100 mg PO TID [facility] Last Admin: 02/03/19 05:47 Dose: 100 mg Fentanyl (Sublimaze Injection -) 25 mcg IVPUSH Q4H PRN PRN Reason: PAIN LEVEL 6-10 Stop: 02/03/19 14:31 Last Admin: 02/03/19 05:45 Dose: 25 mcg Ferrous Sulfate (Feosol -) 325 mg PO DAILY [facility] Last Admin: 02/02/19 09:01 Dose: 325 mg Folic Acid (Folic Acid -) 1 mg PO DAILY [facility] Last Admin: 02/02/19 09:01 Dose: 1 mg Heparin Sodium (Porcine) (Heparin -) 5,000 unit SQ Q8H [facility] Last Admin: 02/03/19 05:45 Dose: 5,000 unit Hydralazine HCl (Apresoline Injection -) 10 mg IVPUSH Q8H PRN PRN Reason: HYPERTENSION Mupirocin (Bactroban Ointment (For Decolonization) -) 1 applic NS BID [facility] Stop: 02/06/19 21:59 Last Admin: 02/02/19 21:45 Dose: 1 applic Ondansetron HCl (Zofran -) 4 mg PO Q4H PRN PRN Reason: NAUSEA Last Admin: 02/03/19 05:46 Dose: 4 mg Pantoprazole Sodium (Protonix -) 40 mg PO DAILY [facility] Last Admin: 02/02/19 09:01 Dose: 40 mg Promethazine HCl (Phenergan Injection -) 12.5 mg IVPB Q6H PRN PRN Reason: NAUSEA-FOR RESCUE AFTER 15 MIN A/P Cervicalgia s/p cervical spine exploration, revision of hardware and vertebral artery decompression HTN History of COPD Normocytic anemia Anxiety HLD --Pain control per surgery; difficult management given pt reported allergies --OOB as tolerated and d/c jacques with ToV --Maintain C-collar until surgery recommendations --Albuterol PRN for wheezing --Zofran PO for nausea --Continue Cozaar 50mg qdaily for BP control --Currently controlled --Can use Hydralazine PRN for BP >180/100 --Continue Lipitor 10mg HS PO FEN: Fluids: None Electrolyte abnormalities: None Nutrition: Regular diet; switch meds to PO as able to PPX: DVT - SCDs GI - Protonix PO per home meds Dispo: Jacques d/c and ToV; dispo per surgery (medically optimized for home from our standpoint) Case discussed with Dr. Jaret Preston DO - IM PGY-3 <Emiliano Preston - Last Filed: 02/03/19 09:01> - Note Progress Note: Hypertensive episode with relative tachy noted overnight 2/2 pain; resolved with 1x dose medication. BP normal this AM and asx. Nausea controlled. Pain meds per surgery. No neurovascular sx/stroke sx/dizziness. Reviewed all vital parts of history and physical exam VS, labs, imaging reviewed No s/s post op infection all bdg c/d/i NAD, AAO, resting in bed RRR s1/2 Lungs CTAB, w/ sym exp CN2-12 wnl, no fnd, moves all 4 ext, neurovascularly intact A/P: POD2 with NSGY service; continue to follow -Chronic cervicalgia S/P vertebral A. decompression stable -HTN stable; control pain and continue meds. -HLD on lipitor Transfer from ICU to floor; PT Monitor for BM and postoperative complications DC planning per surgical services Thank you for allowing [facility] to be involved in the management of this patient. <Loi Raygoza - Last Filed: 02/03/19 09:23>
--- NOTE | 2019-02-03 09:22 | PN ---
Progress Note (short form) - Note Progress Note: POD#2 Pt states that her left arm pain and numbness is worse this morning, radiating from her neck to her fingers. She is unable to raise her hand left arm at all this morning 2/2 pain. She has been OOB and ambulating to the bathroom with assistance although this is painful for her. She denies any CP, SOB, N/V, fever or chills. She is tolerating her diet. Vital Signs Temp 98 F 02/03/19 04:00 Pulse 76 02/03/19 08:00 Resp 18 02/03/19 09:00 BP 123/76 02/03/19 08:00 Pulse Ox 100 02/03/19 09:00 Intake & Output 02/02/19 02/02/19 02/03/19 11:59 23:59 11:59 Intake Total 2009 940 240 Output Total 700 2100 250 Balance 1310 -1160 -10 Weight 130 lb 126 lb 4.8 oz Intake: IV 1500 500 LACTATED RINGERS SOLUTION 1500 500 1,000 ml In 1,000 ml @ 125 mls/hr IV ASDIR JUJU Rx#:[id number] IVPB 250 200 Oral 260 240 240 Output: Urine 700 2100 250 Monreal 700 1500 Void 600 250 Other: Voiding Method Indwelling Catheter Indwelling Catheter Indwelling Catheter # Unmeasured Voids Void 2 Height 5 ft 3 in Body Mass Index (BMI) 23.0 CBC, BMP 02/03/19 05:30 02/03/19 05:30 GEN: A&0x3, in distress 2/2 pain Resp: Unlabored resp on 2L NC Neck: [place] collar in place, Dressing c/d/i with telfa/tegaderm., surrounding tissues intact with no evidence of tracking erythema or active d/c 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 diffuse decreased sensation on left hand/fingers. B/L LE: 5/5 on Dorsi/plantar flexion b/l. +2 PD pulses. Problem List - Problems (1) S/P cervical spinal fusion Assessment/Plan: POD#2 patient with continued pain but appropriate to status. Team spoke to Dr Calvin who will place a formal consult. -Per Dr Calvin start Fentanyl patch- d/c IV fentanyal -f/u formal pain recs -Tylenol #3 for breakthrough -OOB with assist -Encourage IS-discussed at bedside -Transfer to floor today -d/c planning for tomorrow Evaluation and plan discussed with Dr Michelle Code(s): Z98.1 - ARTHRODESIS STATUS
[2019-02-03] MEDS: FERROUS SO4 325 MG TABLET (FP) PO SCH ×2 (09:27→10:00)
[2019-02-03] MEDS: FOLIC ACID 1 MG TABLET (FP) PO SCH (09:27)
[2019-02-03] MEDS: PANTOPRAZOLE 40 MG TABLET (FP) PO SCH (09:27)
[2019-02-03] MEDS: MUPIROCIN 2% TOPICAL OINTMENT FOR DECOLONIZATION NS SCH ×2 (09:27→21:07)
[2019-02-03] MEDS ORDERED: FENTANYL PATCH WASTE TD PRN (09:28)
[2019-02-03] MEDS ORDERED: ACETAMINOPHEN WITH CODEINE 300MG/30MG TABLET PO PRN ×2 (09:30→09:32)
[2019-02-03] MEDS ORDERED: fentaNYL 50mcg/hr PATCH.TD72 TD SCH (09:30)
--- NOTE | 2019-02-03 09:36 | PN ---
Physical Exam: SUBJECTIVE: Patient seen and examined at bedside. pt states she is having pain that is worse than yesterday on her L neck and L arm that is constant. pt is crying stating that the pain is unbearable and worse when she moves. she states the pain began at 1 am and has been constant since then and she is unable to sleep from this pain. pt states she is unable to move her L arm or feel anything on her L arm. OBJECTIVE: Vital Signs Period Temp Pulse Resp BP Sys/Hylton Pulse Ox Last 24 Hr 98 F-98.3 F 68-94 12-18 109-160/64-91 100-100 GENERAL: The patient is awake, alert, and fully oriented. pt is tearful on exam NECK: pt wearing neck brace LUNGS: Breath sounds equal, clear to auscultation bilaterally, no accessory muscle use. HEART: tachycardic and regular rhythm, S1, S2 without murmur, rub or gallop. ABDOMEN: Soft, nontender, nondistended, normoactive bowel sounds, no guarding EXTREMITIES: 2+ pulses, warm, well-perfused, no edema. L scapular warm on palpation, very tender to palpation NEUROLOGICAL: Cranial nerves II through XII grossly intact. Normal speech, gait not observed. SKIN: Warm, dry, normal turgor, no rashes or lesions noted Laboratory Results - last 24 hr 02/03/19 02/03/19 05:30 05:30 WBC 9.0 RBC 2.98 L Hgb 9.3 L Hct 27.6 L MCV 92.6 MCH 31.2 MCHC 33.7 RDW 13.7 Plt Count 181 MPV 8.8 D Absolute Neuts (auto) 6.9 Neutrophils % 77.0 Lymphocytes % 14.8 D Monocytes % 7.2 D Eosinophils % 0.4 D Basophils % 0.6 Nucleated RBC % 0 Sodium 141 Potassium 3.6 Chloride 105 Carbon Dioxide 28 Anion Gap 7 L BUN 5.6 L Creatinine 0.8 Est GFR (CKD-EPI)AfAm 93.53 Est GFR (CKD-EPI)NonAf 80.70 Random Glucose 93 Calcium 8.0 L Phosphorus 2.6 Magnesium 1.9 Current Medications Acetaminophen/Codeine Phosphate (Tylenol # 3 -) 1 tab PO Q4H PRN PRN Reason: Breakthrough pain Atorvastatin Calcium (Lipitor -) 10 mg PO HS [facility] Last Admin: 02/02/19 21:44 Dose: 10 mg Chlorhexidine Gluconate (Hibiclens For Decolonization -) 1 applic TP HS [facility] Last Admin: 02/02/19 21:44 Dose: 1 applic Docusate Sodium (Colace -) 100 mg PO TID [facility] Last Admin: 02/03/19 05:47 Dose: 100 mg Fentanyl (Duragesic 50mcg Patch -) 1 patch TD Q72H [facility] Stop: 02/10/19 09:28 Ferrous Sulfate (Feosol -) 325 mg PO DAILY [facility] Last Admin: 02/03/19 09:27 Dose: 325 mg Folic Acid (Folic Acid -) 1 mg PO DAILY [facility] Last Admin: 02/03/19 09:27 Dose: 1 mg Heparin Sodium (Porcine) (Heparin -) 5,000 unit SQ Q8H [facility] Last Admin: 02/03/19 05:45 Dose: 5,000 unit Miscellaneous (Duragesic Patch Waste) 1 each MC PRN PRN PRN Reason: PAIN Mupirocin (Bactroban Ointment (For Decolonization) -) 1 applic NS BID [facility] Stop: 02/06/19 21:59 Last Admin: 02/03/19 09:27 Dose: 1 applic Ondansetron HCl (Zofran -) 4 mg PO Q4H PRN PRN Reason: NAUSEA Last Admin: 02/03/19 09:26 Dose: 4 mg Pantoprazole Sodium (Protonix -) 40 mg PO DAILY [facility] Last Admin: 02/03/19 09:27 Dose: 40 mg ASSESSMENT/PLAN: 58 y/o F with PMH COPD (unknown PFTs), HTN, HLD, chronic neck pain s/p multiple revisions, anemia, anxiety who presents s/p exploration of spinal fusion, revision of hardware from C2-T1. C2 thru C6 osteotomies and microvascular decompression of vertebral artery- PO Day 2, done by Dr. Michelle. Neuro: s/p exploration of spinal fusion, revision of hardware from C2-T1. C2 thru C6 osteotomies and microvascular decompression of vertebral artery- PO Day 2 -AAOx3 -S/P ancef x 3 doses -pain control with oral pain medications with standing tylenol#3 and zofran. allergic to morphine, gabapentin, toradol, motrin -d/c fentanyl pushes prn q 6 h - transition to fentanyl patch -zofran, phenergan PRN for nausea. last qtc 437ms -no pillows per sx -continue c-collar -OOB to chair/ambuate/PT eval -Iron/folic acid and stool softners to prevent constipation Cardio: HTN, HLD HTN- controlled -c/w hydralazine PRN for BP> 170/100 per primary -c/w losartan 50mg qd -c/w lipitor Pulm:COPD -currently not in exacerbation -c/w nebs PRN F/E/N -no standing fluids -continue to follow lytes -sodium controlled diet PPX DVT: Hep sq 5k GI: protonix Lines/tubes -jacques removal, tov +R subclavian (02/01): placed by neurosx for access. not on pressors. can be transferred to medicine floors with line -no drains Dispo -transfer to med surg Visit type - Emergency Visit Emergency Visit: No - New Patient This patient is new to me today: No - Critical Care Critical Care patient: Yes Total Critical Care Time (in minutes): 36 Critical Care Statement: The care of this patient involved high complexity decision making to prevent further life threatening deterioration of the patient 's condition and/or to evaluate & treat vital organ system(s) failure or risk of failure. ATTENDING PHYSICIAN STATEMENT I saw and evaluated the patient. I reviewed the resident's note and discussed the case with the resident. I agree with the resident's findings and plan as documented. SUBJECTIVE: OBJECTIVE: ASSESSMENT AND PLAN:
--- NOTE | 2019-02-03 11:44 | PN ---
Teaching Attending Note Name of Resident: Kaylee Armsa ATTENDING PHYSICIAN STATEMENT I saw and evaluated the patient. I reviewed the resident's note and discussed the case with the resident. I agree with the resident's findings and plan as documented. SUBJECTIVE: Pt seen and examined in the ICU. Still with neck pain and left arm pain. OBJECTIVE: Vital Signs Period Temp Pulse Resp BP Sys/Hylton Pulse Ox Last 24 Hr 98 F-98.3 F 68-96 12-18 110-160/64-91 100-100 Intake & Output 01/31/19 02/01/19 02/02/19 02/03/19 23:59 23:59 23:59 23:59 Intake Total 2195 2950 240 Output Total 3100 2800 250 Balance -905 150 -10 Weight 58.967 kg 58.967 kg 57.289 kg Gen: NAD at rest with cervical collar Heart: RRR Lung: decreased breath sounds at the bases Abd: soft, nontender Ext: no edema CBC, BMP 02/03/19 05:30 02/03/19 05:30 Active Medications Acetaminophen/Codeine Phosphate (Tylenol # 3 -) 1 tab PO Q4H PRN PRN Reason: Breakthrough pain Atorvastatin Calcium (Lipitor -) 10 mg PO HS [facility] Last Admin: 02/02/19 21:44 Dose: 10 mg Chlorhexidine Gluconate (Hibiclens For Decolonization -) 1 applic TP HS [facility] Last Admin: 02/02/19 21:44 Dose: 1 applic Docusate Sodium (Colace -) 100 mg PO TID [facility] Last Admin: 02/03/19 05:47 Dose: 100 mg Fentanyl (Duragesic 50mcg Patch -) 1 patch TD Q72H [facility] Stop: 02/10/19 09:28 Last Admin: 02/03/19 10:58 Dose: 1 patch Ferrous Sulfate (Feosol -) 325 mg PO DAILY [facility] Last Admin: 02/03/19 09:27 Dose: 325 mg Folic Acid (Folic Acid -) 1 mg PO DAILY [facility] Last Admin: 02/03/19 09:27 Dose: 1 mg Heparin Sodium (Porcine) (Heparin -) 5,000 unit SQ Q8H [facility] Last Admin: 02/03/19 05:45 Dose: 5,000 unit Miscellaneous (Duragesic Patch Waste) 1 each TD PRN PRN PRN Reason: PAIN Mupirocin (Bactroban Ointment (For Decolonization) -) 1 applic NS BID [facility] Stop: 02/06/19 21:59 Last Admin: 02/03/19 09:27 Dose: 1 applic Ondansetron HCl (Zofran -) 4 mg PO Q4H PRN PRN Reason: NAUSEA Last Admin: 02/03/19 09:26 Dose: 4 mg Pantoprazole Sodium (Protonix -) 40 mg PO DAILY [facility] Last Admin: 02/03/19 09:27 Dose: 40 mg Polyethylene Glycol (Miralax (For Daily Use) -) 17 gm PO BID [facility] ASSESSMENT AND PLAN: Cervical Stenosis with Radiculopathy s/p MIKE C2-T1/C2-C6 Osteotomies HTN COPD Hyperlipidemia - pain control - incentive spirometry - antiemetics as needed - PO as tolerated - rehab/PT - DVT prophylaxis - can monitor on floor
[2019-02-03] MEDS: POLYETHYLENE GLYCOL 3350 119 GM BTL PO SCH ×2 (15:17→21:12)
[2019-02-03] MEDS: CHLORHEXIDINE GLUCONATE 4% CLEANSER FOR DECOLONIZATION TP SCH (21:09)
[2019-02-03] MEDS: ATORVASTATIN CA 10 MG TABLET (FP) PO SCH (21:12)
[2019-02-04] MEDS: DOCUSATE SODIUM 100 MG CAPSULE (FP) PO SCH ×3 (06:29→22:40)
[2019-02-04] MEDS: HEPARIN NA (PORCINE) 5,000 UNITS/ML 1ML VIAL SQ SCH ×3 (06:29→21:39)
[2019-02-04] MEDS ORDERED: FENTANYL PATCH WASTE TD PRN ×2 (07:18)
[2019-02-04] MEDS: ONDANSETRON 4 MG TABLET PO PRN ×4 (07:27→21:35)
[2019-02-04 08:02] LABS: HEMATOCRIT 26.1 % (32.4-45.2); HEMOGLOBIN 8.8 GM/dL (10.7-15.3); MCH 31.2 pg (25.7-33.7); MCHC 33.8 g/dl (32.0-36.0); MEAN CELL VOLUME 92.3 fl (80-96); MEAN PLT VOLUME 7.7 fl (7.5-11.1); PLATELET COUNT 154 K/MM3 (134-434); RBC 2.83 M/mm3 (3.60-5.2); RDW 13.4 % (11.6-15.6); WHITE BLOOD COUNT 7.8 K/mm3 (4.0-10.0)
--- NOTE | 2019-02-04 08:42 | PN ---
Progress Note (short form) - Note Progress Note: POD#3 Pt states that her left arm pain is much better this morning. She has been ambulating with PT and tolerating her diet. She denies any CP, SOB, N/V, fever or chills. She would like to go home with VNS. Vital Signs Temp 98.7 F 10 07:14 Pulse 82 10 07:14 Resp 20 02/04/19 07:14 BP 102/65 02/04/19 07:14 Pulse Ox 100 02/03/19 09:00 Intake & Output 02/03/1902/03/02/04/19 11:59 23:59 11:59 Intake Total 240 280 200 Output Total 250 150 Balance -10 280 50 Weight 126 lb 4.8 oz 132 lb 8 oz Intake: IV 0 SL 0 Oral 240 280 200 Output: Urine 250 150 Void 250 150 Other: Voiding Method Indwelling Catheter Bedpan # Unmeasured Voids Void 3 Bowel Movement No No Weight Measurement Method Built in Bedscale CBC, BMP 02/04/19 07:35 GEN: A&0x3, NAD Resp: Unlabored resp on RA Neck: [place] collar in place, incision c/d/i with chi in situ, surrounding tissues intact with no evidence of tracking erythema or active d/c Neuro: 3/5 left artist suspect strength, AAROM with forward elevation to 90 degrees, full extension and flexion at elbow with full supination and pronation. moving all digits although still with decreased sensation throughout dorsum of hand and fingers. B/L LE: compartments soft, supple and non-tender with 5/5 on Dorsi/plantar flexion b/l. +2 PD pulses. Problem List - Problems (1) S/P cervical spinal fusion Assessment/Plan: POD#3 patient with improved pain on fentanyl patch doing well. -OOB with assist, up to chair for meals -Encourage IS-discussed at bedside -d/c planning for home with VNS today vs tomorrow. Evaluation and plan discussed with Dr Michelle Code(s): Z98.1 - ARTHRODESIS STATUS
[2019-02-04 08:57] LABS: BLOOD UREA NITROGEN 8.5 mg/dL (7-18); CALCIUM 7.5 mg/dL (8.5-10.1); CREATININE 0.8 mg/dL (0.55-1.3); MAGNESIUM 1.9 mg/dL (1.8-2.4); PHOSPHOROUS 2.4 mg/dL (2.5-4.9); POTASSIUM 3.5 mmol/L (3.5-5.1)
--- NOTE | 2019-02-04 09:13 | PN ---
Teaching Attending Note Name of Resident: Emiliano Preston Seen and examined; please refer to resident note for further historical information. I personally verified all exam findings and menjivar historical information. Pending pain management consult. Passing gas; no neurovascular complaints or findings. Expected postoperative course. VS, labs, imaging reviewed NAD, AAO, resting in bed RRR s1/2 no mgr Lungs CTAB, w/ sym exp NT ND +BS CN2-12 wnl, no fnd Normal mood, appropriate behavior. A/P: Pt. continues to have expected postoperative course Continue current medications; no emergent complications No complications stemming from chronic issues Full problem list per resident note Continues to require inpatient care and monitoring for postoperative care. 30 minutes spent in the treatment of this patient at least half of that being in face to face contact.
[2019-02-04] MEDS: FERROUS SO4 325 MG TABLET (FP) PO SCH (09:18)
[2019-02-04] MEDS: POLYETHYLENE GLYCOL 3350 119 GM BTL PO SCH ×2 (09:18→22:41)
[2019-02-04] MEDS: FOLIC ACID 1 MG TABLET (FP) PO SCH (09:18)
[2019-02-04] MEDS ORDERED: MUPIROCIN 2% TOPICAL OINTMENT FOR DECOLONIZATION NS SCH (10:00)
[2019-02-04] MEDS ORDERED: PANTOPRAZOLE 40 MG TABLET (FP) PO SCH (10:00)
[2019-02-04] MEDS ORDERED: NAPH,MB-DB/K PH,MBDB POWDER PACKET PO ONE (10:34)
[2019-02-04] MEDS: ACETAMINOPHEN WITH CODEINE 300MG/30MG TABLET PO PRN ×2 (11:29→16:00)
--- NOTE | 2019-02-04 18:42 | PN ---
Progress Note (short form) - Note Progress Note: HPI: Pt's pain improved currently. No complaints. Walked with PT yesterday 50ft and tolerating diet. Vital Signs Temperature 98.8 F 02/04/19 17:32 Pulse Rate 89 02/04/19 17:32 Respiratory Rate 20 02/04/19 17:32 Blood Pressure 119/91 02/04/19 17:32 O2 Sat by Pulse Oximetry (%) 99 02/04/19 09:00 PE: GEN: sitting up, NAD, awake, alert, orientedx3 HEENT: EOMI, RAVINDRA, sclera anicteric MMM Neck: C-collar in place, no JVD LUNG: CTA b/l no wheezes. CARD: RRR no murmurs EXT: No peripheral edema throughout. Pulses strong throughout. No calf tenderness NEURO: EOMI, RAVINDRA, strength 5/5 in b/l UExt, sensation altered 5th finger of L hand Skin: No rashes CBC, BMP 02/04/19 07:35 02/04/19 07:35 Active Medications Albuterol Sulfate (Ventolin 0.042trength) -) 1 amp NEB Q6H PRN PRN Reason: SHORT OF BREATH/WHEEZING Atorvastatin Calcium (Lipitor -) 10 mg PO HS [facility] Last Admin: 02/02/19 21:44 Dose: 10 mg Chlorhexidine Gluconate (Hibiclens For Decolonization -) 1 applic TP HS [facility] Last Admin: 02/02/19 21:44 Dose: 1 applic Diphenhydramine HCl (Benadryl -) 25 mg PO Q6H PRN PRN Reason: FOR ITCHING Last Admin: 02/01/19 16:30 Dose: 25 mg Docusate Sodium (Colace -) 100 mg PO TID [facility] Last Admin: 02/03/19 05:47 Dose: 100 mg Fentanyl (Sublimaze Injection -) 25 mcg IVPUSH Q4H PRN PRN Reason: PAIN LEVEL 6-10 Stop: 02/03/19 14:31 Last Admin: 02/03/19 05:45 Dose: 25 mcg Ferrous Sulfate (Feosol -) 325 mg PO DAILY [facility] Last Admin: 02/02/19 09:01 Dose: 325 mg Folic Acid (Folic Acid -) 1 mg PO DAILY [facility] Last Admin: 02/02/19 09:01 Dose: 1 mg Heparin Sodium (Porcine) (Heparin -) 5,000 unit SQ Q8H [facility] Last Admin: 02/03/19 05:45 Dose: 5,000 unit Hydralazine HCl (Apresoline Injection -) 10 mg IVPUSH Q8H PRN PRN Reason: HYPERTENSION Mupirocin (Bactroban Ointment (For Decolonization) -) 1 applic NS BID [facility] Stop: 02/06/19 21:59 Last Admin: 02/02/19 21:45 Dose: 1 applic Ondansetron HCl (Zofran -) 4 mg PO Q4H PRN PRN Reason: NAUSEA Last Admin: 02/03/19 05:46 Dose: 4 mg Pantoprazole Sodium (Protonix -) 40 mg PO DAILY [facility] Last Admin: 02/02/19 09:01 Dose: 40 mg Promethazine HCl (Phenergan Injection -) 12.5 mg IVPB Q6H PRN PRN Reason: NAUSEA-FOR RESCUE AFTER 15 MIN A/P Cervicalgia s/p cervical spine exploration, revision of hardware and vertebral artery decompression HTN History of COPD Normocytic anemia Anxiety HLD --Pain control per surgery; difficult management given pt reported allergies --OOB as tolerated --Maintain C-collar until surgery recommendations --Albuterol PRN for wheezing --Zofran PO for nausea --Continue Cozaar 50mg qdaily for BP control --Currently controlled --Can use Hydralazine PRN for BP >180/100 --Continue Lipitor 10mg HS PO FEN: Fluids: None Electrolyte abnormalities: None Nutrition: Regular diet; switch meds to PO as able to PPX: DVT - SCDs GI - Protonix PO per home meds Dispo: Anticipate d/c tomorrow Case discussed with Dr. Jaret Preston, DO - IM PGY-3 <Emiliano Preston - Last Filed: 02/04/19 18:42> - Note Progress Note: Verified exam and history findings per resident note Agree with above problem list <Loi Raygoza - Last Filed: 02/05/19 20:06>
[2019-02-04] MEDS ORDERED: PT OWN MED DRAWER 7, Y5N ONE (21:24)
[2019-02-04] MEDS: RANITIDINE HCL 150 MG TABLET (FP) PO SCH (21:35)
[2019-02-04] MEDS ORDERED: CHLORHEXIDINE GLUCONATE 4% CLEANSER FOR DECOLONIZATION TP SCH (22:00)
[2019-02-04] MEDS: ATORVASTATIN CA 10 MG TABLET (FP) PO SCH (22:40)
[2019-02-04] MEDS: ESTROGENS,CONJUGATED 0.625 MG TABLET PO SCH (22:41)
[2019-02-05] MEDS: HEPARIN NA (PORCINE) 5,000 UNITS/ML 1ML VIAL SQ SCH ×3 (06:10→21:12)
[2019-02-05] MEDS: DOCUSATE SODIUM 100 MG CAPSULE (FP) PO SCH ×3 (06:10→21:12)
--- NOTE | 2019-02-05 09:00 | PN ---
Physical Exam: SUBJECTIVE: Patient seen and examined. She feels nauseous. She reports vomiting overnight. OBJECTIVE: Vital Signs Period Temp Pulse Resp BP Sys/Hylton Pulse Ox Last 24 Hr 97.8 F-98.8 F 82-89 18-20 109-129/69-91 GENERAL: The patient is awake, alert, and fully oriented, in no acute distress. Wearing cervical collar. LUNGS: Breath sounds equal, clear to auscultation bilaterally, no wheezes, no crackles, no accessory muscle use. HEART: Regular rate and rhythm, S1, S2 without murmur, rub or gallop. ABDOMEN: Soft, nontender, nondistended, normoactive bowel sounds, no guarding, no rebound, no hepatosplenomegaly, no masses. EXTREMITIES: 2+ pulses, warm, well-perfused, no edema. Active Medications Generic Name Dose Route Start Last Admin Trade Name Freq PRN Reason Stop Dose Admin Acetaminophen/Codeine Phosphate 1 tab 02/04/19 07:18 02/04/19 16:00 Tylenol # 3 - PO 1 tab Q4H PRN Administration Breakthrough pain Atorvastatin Calcium 10 mg 02/04/19 22:00 02/04/19 22:40 Lipitor - PO 10 mg HS [facility] Administration Docusate Sodium 100 mg 02/04/19 14:00 02/05/19 06:10 Colace - PO 100 mg TID [facility] Administration Estrogens Conjugated 0.625 mg 02/04/19 22:00 02/04/19 22:41 Premarin - PO 0.625 mg HS [facility] Administration Fentanyl 1 patch 02/06/19 09:30 Duragesic 50mcg Patch - TD 02/10/19 09:28 Q72H [facility] Ferrous Sulfate 325 mg 02/04/19 10:00 02/04/19 09:18 Feosol - PO 325 mg DAILY [facility] Administration Folic Acid 1 mg 02/04/19 10:00 02/04/19 09:18 Folic Acid - PO 1 mg DAILY [facility] Administration Heparin Sodium (Porcine) 5,000 unit 02/04/19 14:00 02/05/19 06:10 Heparin - SQ 5,000 unit TID [facility] Administration Miscellaneous 1 each 02/04/19 07:18 Duragesic Patch Waste TD PRN PRN PAIN Miscellaneous 1 each 02/04/19 07:18 Duragesic Patch Waste TD PRN PRN PAIN Ondansetron HCl 4 mg 02/04/19 07:18 02/04/19 21:35 Zofran - PO 4 mg Q4H PRN Administration NAUSEA Pantoprazole Sodium 40 mg 02/04/19 10:00 02/04/19 09:18 Protonix - PO 40 mg DAILY [facility] Administration Polyethylene Glycol 17 gm 02/04/19 10:00 02/04/19 22:41 Miralax (For Daily Use) - PO 17 gm BID [facility] Administration Ranitidine HCl 150 mg 02/04/19 22:00 02/04/19 21:35 Zantac - PO 150 mg BID [facility] Administration ASSESSMENT/PLAN: This is a 58 year old woman with a history of HTN, hyperlipidemia, COPD, SBO, anemia, anxiety, C-spine surgeries who was admitted for exploration of spinal fusion, revision of hardware C2-T1, C2-C6 osteotomies, and microvascular decompression of vertebral artery. 1. Cervicalgia - s/p exploration of spinal fusion, revision of hardware C2-T1, C2-C6 osteotomies, microvascular decompression of vertebral artery 02/01 - Maintain cervical collar - Has fentanyl patch for pain control - Continue PT 2. Nausea, vomiting - NPO - IV fluid - Zofran IV as needed 3. HTN - Currently on no medication 4. Hyperlipidemia - Continue Lipitor 5. COPD - Stable - DuoNeb as needed 6. Anemia, chronic - Continue ferrous sulfate, folic acid - Continue to monitor hemoglobin 7. Anxiety 8. DVT prophylaxis - On heparin subq Visit type - Emergency Visit Emergency Visit: No - New Patient This patient is new to me today: Yes Date on this admission: 02/05/19 - Critical Care Critical Care patient: No - Discharge Referral Referred to [facility] No
[2019-02-05] MEDS: RANITIDINE HCL 150 MG TABLET (FP) PO SCH (09:30)
[2019-02-05] MEDS: PANTOPRAZOLE SODIUM 40 MG VIAL IVPUSH SCH (09:30)
[2019-02-05] MEDS: FOLIC ACID 1 MG TABLET (FP) PO SCH (09:30)
[2019-02-05] MEDS: FERROUS SO4 325 MG TABLET (FP) PO SCH (09:30)
[2019-02-05] MEDS: ONDANSETRON 4 MG/2 ML VIAL IVPUSH PRN ×3 (09:31→21:12)
[2019-02-05] MEDS ORDERED: ALBUTEROL SO4 2.5/IPRATROPIUM 0.5 INH SOL 3 ML VIAL.NEB. NEB PRN (10:32)
[2019-02-05] MEDS: POLYETHYLENE GLYCOL 3350 119 GM BTL PO SCH ×2 (11:19→22:43)
[2019-02-05] MEDS: SODIUM CHLORIDE 1,000 ML IV SCH (11:50)
[2019-02-05] MEDS: ACETAMINOPHEN WITH CODEINE 300MG/30MG TABLET PO PRN (13:37)
[2019-02-05] MEDS ORDERED: ACETAMINOPHEN 1000 MG/100 ML VIAL (NON FORMULARY) IVPB ONE (18:12)
[2019-02-05] MEDS: ATORVASTATIN CA 10 MG TABLET (FP) PO SCH (21:12)
[2019-02-05] MEDS: ESTROGENS,CONJUGATED 0.625 MG TABLET PO SCH (21:13)
[2019-02-06] MEDS: SODIUM CHLORIDE 1,000 ML IV SCH ×2 (02:00→13:17)
[2019-02-06] MEDS: ONDANSETRON 4 MG/2 ML VIAL IVPUSH PRN ×3 (03:00→19:03)
[2019-02-06 06:49] LABS: HEMATOCRIT 25.5 % (32.4-45.2); HEMOGLOBIN 8.4 GM/dL (10.7-15.3); MCH 31.1 pg (25.7-33.7); MEAN CELL VOLUME 94.1 fl (80-96); PLATELET COUNT 194 K/MM3 (134-434); RDW 13.7 % (11.6-15.6); WHITE BLOOD COUNT 5.7 K/mm3 (4.0-10.0)
[2019-02-06] MEDS: HEPARIN NA (PORCINE) 5,000 UNITS/ML 1ML VIAL SQ SCH ×3 (06:50→22:44)
[2019-02-06] MEDS: DOCUSATE SODIUM 100 MG CAPSULE (FP) PO SCH ×3 (07:08→22:44)
[2019-02-06 07:37] LABS: BLOOD UREA NITROGEN 11.7 mg/dL (7-18); CREATININE 0.7 mg/dL (0.55-1.3); MAGNESIUM 2.1 mg/dL (1.8-2.4); PHOSPHOROUS 3.2 mg/dL (2.5-4.9); POTASSIUM 3.8 mmol/L (3.5-5.1)
--- NOTE | 2019-02-06 09:05 | PN ---
Physical Exam: SUBJECTIVE: Patient seen and examined. She reports vomiting green fluid overnight. She denies abdominal pain. She had a small bowel movement overnight. OBJECTIVE: Vital Signs Period Temp Pulse Resp BP Sys/Hylton Pulse Ox Last 24 Hr 98.1 F-98.6 F 61-89 16-20 106-151/68-75 97 GENERAL: The patient is awake, alert, and fully oriented, in no acute distress. Wearing cervical collar. NECK: Posterior dressing clean and dry. Incision intact with chi in place. LUNGS: Breath sounds equal, clear to auscultation bilaterally, no wheezes, no crackles, no accessory muscle use. HEART: Regular rate and rhythm, S1, S2 without murmur, rub or gallop. ABDOMEN: Soft, nontender, nondistended, normoactive bowel sounds, no guarding, no rebound, no hepatosplenomegaly, no masses. EXTREMITIES: 2+ pulses, warm, well-perfused, no edema. Laboratory Results - last 24 hr 02/06/19 02/06/19 06:40 06:40 WBC 5.7 RBC 2.70 L Hgb 8.4 L Hct 25.5 L MCV 94.1 MCH 31.1 MCHC 33.0 RDW 13.7 Plt Count 194 D MPV 7.0 L Sodium 142 Potassium 3.8 Chloride 110 H Carbon Dioxide 18 L Anion Gap 14 BUN 11.7 Creatinine 0.7 Est GFR (CKD-EPI)AfAm 109.91 Est GFR (CKD-EPI)NonAf 94.84 Random Glucose 60 L Calcium 8.0 L Phosphorus 3.2 Magnesium 2.1 Active Medications Generic Name Dose Route Start Last Admin Trade Name Freq PRN Reason Stop Dose Admin Acetaminophen/Codeine Phosphate 1 tab 02/04/19 07:18 02/05/19 13:37 Tylenol # 3 - PO 1 tab Q4H PRN Administration Breakthrough pain Atorvastatin Calcium 10 mg 02/04/19 22:00 02/05/19 21:12 Lipitor - PO 10 mg HS JUJU Administration Docusate Sodium 100 mg 02/04/19 14:00 02/06/19 07:08 Colace - PO Not Given TID JUJU Estrogens Conjugated 0.625 mg 02/04/19 22:00 02/05/19 21:13 Premarin - PO 0.625 mg HS JUJU Administration Fentanyl 1 patch 02/06/19 09:30 Duragesic 50mcg Patch - TD 02/10/19 09:28 Q72H JUJU Ferrous Sulfate 325 mg 02/04/19 10:00 02/05/19 09:30 Feosol - PO 325 mg DAILY JUJU Administration Folic Acid 1 mg 02/04/19 10:00 02/05/19 09:30 Folic Acid - PO 1 mg DAILY JUJU Administration Heparin Sodium (Porcine) 5,000 unit 02/04/19 14:00 02/06/19 06:50 Heparin - SQ 5,000 unit TID JUJU Administration Sodium Chloride 1,000 mls @ 83 mls/hr 02/05/19 10:45 02/06/19 02:00 Normal Saline - IV 83 mls/hr ASDIR JUJU Administration Miscellaneous 1 each 02/04/19 07:18 Duragesic Patch Waste TD PRN PRN PAIN Miscellaneous 1 each 02/04/19 07:18 Duragesic Patch Waste TD PRN PRN PAIN Ondansetron HCl 4 mg 02/05/19 09:01 02/06/19 03:00 Zofran Injection IVPUSH 4 mg Q4H PRN Administration NAUSEA AND/OR VOMITING Pantoprazole Sodium 40 mg 02/05/19 10:00 02/05/19 09:30 Protonix Iv IVPUSH 40 mg DAILY JUJU Administration Polyethylene Glycol 17 gm 02/04/19 10:00 02/05/19 22:43 Miralax (For Daily Use) - PO Not Given BID [facility] ASSESSMENT/PLAN: This is a 58 year old woman with a history of HTN, hyperlipidemia, COPD, SBO, anemia, anxiety, C-spine surgeries who was admitted for exploration of spinal fusion, revision of hardware C2-T1, C2-C6 osteotomies, and microvascular decompression of vertebral artery. 1. Cervicalgia - s/p exploration of spinal fusion, revision of hardware C2-T1, C2-C6 osteotomies, microvascular decompression of vertebral artery 02/01 - Maintain cervical collar - Has fentanyl patch for pain control and Tylenol w/codeine for breakthrough - Continue PT 2. Nausea, vomiting - Maintain NPO - Continue IV fluid - Continue Zofran - Flat/upright abdominal x-rays 3. HTN - Currently on no medication 4. Hyperlipidemia - Continue Lipitor 5. COPD - Stable 6. Anemia, chronic - Continue ferrous sulfate, folic acid - Continue to monitor hemoglobin 7. Anxiety 8. DVT prophylaxis - On heparin subq Visit type - Emergency Visit Emergency Visit: No - New Patient This patient is new to me today: No - Critical Care Critical Care patient: No - Discharge Referral Referred to [facility] Med P.C.: No
[2019-02-06] MEDS: FERROUS SO4 325 MG TABLET (FP) PO SCH (09:08)
[2019-02-06] MEDS: FOLIC ACID 1 MG TABLET (FP) PO SCH (09:08)
[2019-02-06] MEDS: PANTOPRAZOLE SODIUM 40 MG VIAL IVPUSH SCH (09:10)
[2019-02-06] MEDS: POLYETHYLENE GLYCOL 3350 119 GM BTL PO SCH ×2 (09:21→22:46)
[2019-02-06] MEDS ORDERED: fentaNYL 50mcg/hr PATCH.TD72 TD SCH (09:30)
[2019-02-06] MEDS: ONDANSETRON 4 MG/2 ML VIAL IVPUSH SCH ×3 (10:06→22:43)
[2019-02-06] MEDS: BENZOCAINE/MENTH/CETYLPYRD CL 1 EACH LOZENGE MM PRN (10:12)
[2019-02-06] MEDS ORDERED: ALBUTEROL SO4 2.5/IPRATROPIUM 0.5 INH SOL 3 ML VIAL.NEB. NEB PRN (10:49)
[2019-02-06] MEDS: ATORVASTATIN CA 10 MG TABLET (FP) PO SCH (22:46)
[2019-02-06] MEDS: ESTROGENS,CONJUGATED 0.625 MG TABLET PO SCH (22:47)
[2019-02-07] MEDS: ONDANSETRON 4 MG/2 ML VIAL IVPUSH SCH ×3 (03:43→14:22)
[2019-02-07] MEDS: DOCUSATE SODIUM 100 MG CAPSULE (FP) PO SCH ×3 (07:06→22:16)
[2019-02-07] MEDS: HEPARIN NA (PORCINE) 5,000 UNITS/ML 1ML VIAL SQ SCH ×3 (07:06→22:14)
--- NOTE | 2019-02-07 08:47 | PN ---
Progress Note (short form) - Note Progress Note: POD#6 Pt is refusing to speak to anyone this morning. Medicine team states she was complaining of vomiting yesterday, however, no one was able to validate this. Vital Signs Temp 98.4 F 02/07/19 05:00 Pulse 80 02/07/19 05:00 Resp 16 02/07/19 05:00 BP 135/82 02/07/19 05:00 Pulse Ox 97 02/06/19 21:00 Intake & Output 02/06/19 02/06/19 02/07/19 11:59 23:59 11:59 Intake Total 581 1832 581 Output Total 70 Balance 511 1832 581 Weight 131 lb 3 oz Intake: IV 581 1432 581 Normal Saline - 1,000 ml 581 1432 581 @ 83 mls/hr IV ASDIR JUJU Rx#:[id number] Oral 400 Output: Emesis 70 Other: Voiding Method Toilet Toilet # Unmeasured Voids Monreal 1 Void 2 1 Bowel Movement No No # Bowel Movements 1 Weight Measurement Method Built in Bedscale PE: resting comfortably, NAD, will not engage Unlabored resp on RA c-collar in place Problem List - Problems (1) S/P cervical spinal fusion Assessment/Plan: POD#6, patient refusing exam this morning. -OOB with assist, up to chair for meals -Encourage IS-discussed at bedside -d/c planning for home with VNS today vs tomorrow. Evaluation and plan discussed with Dr Michelle Code(s): Z98.1 - ARTHRODESIS STATUS
[2019-02-07] MEDS ORDERED: PT OWN MED DRAWER 7, Y5N ONE ×2 (10:29→22:13)
[2019-02-07] MEDS: FOLIC ACID 1 MG TABLET (FP) PO SCH (10:34)
[2019-02-07] MEDS: FERROUS SO4 325 MG TABLET (FP) PO SCH (10:34)
[2019-02-07] MEDS: PANTOPRAZOLE SODIUM 40 MG VIAL IVPUSH SCH ×2 (10:35→14:23)
[2019-02-07] MEDS: POLYETHYLENE GLYCOL 3350 119 GM BTL PO SCH ×2 (10:35→22:16)
[2019-02-07] MEDS: SODIUM CHLORIDE 1,000 ML IV SCH (14:15)
[2019-02-07] MEDS: BENZOCAINE/MENTH/CETYLPYRD CL 1 EACH LOZENGE MM PRN ×2 (15:04→22:22)
--- NOTE | 2019-02-07 16:18 | CON.GI ---
Consult Consult Specialty:: GI Referred by:: DION Reason for Consultation:: N/V - History of Present Illness Chief Complaint: N/V History of Present Illness: 58F admitted after vertebral artery decompression with revision of C-spine hardware. GI consulted for N/V. Patient of Dr. Landry. Mild gastroparesis as per GES. Pt reports that she has been having vomiting post-operative as medications aren' t being timed right. She reports she is taking zofran and protonix together before each meal. Patient denies abdominal pain. Is on narcotics for post-op analgesia. Called Dr. Landry's office; Oly confirmed Zofran 4mg TID with meals is documented; PCP has documented protonix 40mg BID. - History Source History Provided By: Patient Limitations to Obtaining History: No Limitations - Past Medical History Cardio/Vascular: Yes: HTN Pulmonary: Yes: COPD Gastrointestinal: Yes: Constipation Psych: Yes: Anxiety - Alcohol/Substance Use Hx Alcohol Use: No - Smoking History Smoking history: Never smoked Have you smoked in the past 12 months: No Aproximately how many cigarettes per day: 0 - Social History History of Recent Travel: No Home Medications - Allergies Allergies/Adverse Reactions: Allergies Allergy/AdvReac Type Severity Reaction Status Date / Time clindamycin Allergy Severe Rash Verified 01/22/19 12:57 erythromycin base Allergy Severe Vomiting Verified 01/22/19 12:57 metronidazole Allergy Severe Vomiting Verified 01/22/19 12:57 oxycodone Allergy Severe VOMITING-IT Verified 01/22/19 12:57 CH aspirin Allergy Intermediate Hives Verified 01/22/19 12:57 duloxetine Allergy Intermediate Nausea Verified 01/22/19 12:57 gabapentin Allergy Intermediate Rash Verified 01/22/19 12:57 hydromorphone [From Dilaudid] Allergy Intermediate Vomiting Verified 01/22/19 12 :57 ibuprofen Allergy Intermediate vomitting Verified 01/22/19 12:57 tizanidine Allergy Intermediate Nausea Verified 01/22/19 12:57 ketorolac tromethamine Allergy ITCHING, Verified 01/22/19 12:57 [From Toradol] VOMITING lactose Allergy Verified 01/22/19 12:57 morphine Allergy Hives Verified 01/22/19 12:57 Penicillins Allergy Hives Verified 01/22/19 12:57 Shellfish Allergy Hives Verified 01/22/19 12:57 UNKNOWN IV MED GIVEN IN Allergy Severe Hives Uncoded 01/22/19 12:57 HOSPITAL onions Allergy Hives Uncoded 01/22/19 12:57 seasoning Allergy Hives Uncoded 01/22/19 12:57 iv dye AdvReac Severe Uncoded 01/22/19 12:57 - Home Medications Home Medications: Ambulatory Orders Estrogens, Conjugated [Premarin] 0.625 mg PO HS 01/02/17 Simvastatin 10 mg PO HS 09/19/17 Losartan Potassium 50 mg PO DAILY 10/31/17 Ondansetron HCl [Zofran] 4 mg PO BID PRN 11/27/17 Acetaminophen [Tylenol] 650 mg PO PRN 08/16/18 Diphenhydramine HCl [Benadryl -] 25 mg PO Q6H PRN 08/16/18 Albuterol Sulfate Inhaler - [Ventolin HFA Inhaler -] 1 - 2 inh PO Q4H PRN Cholecalciferol (Vitamin D3) [Vitamin D3] 1,000 unit PO DAILY 01/31/19 Fluticasone Prop 0.05% Nasal [Flonase -] 1 - 2 spray NS DAILY PRN 01/31/19 Pantoprazole Sodium [Protonix] 40 mg PO DAILY 01/31/19 Review of Systems - Review of Systems Constitutional: reports: No Symptoms Eyes: reports: No Symptoms HENT: reports: No Symptoms Neck: reports: Decreased ROM, Tenderness Cardiovascular: reports: No Symptoms Respiratory: reports: No Symptoms Gastrointestinal: reports: Constipation, Nausea, Vomiting Musculoskeletal: reports: No Symptoms Integumentary: reports: No Symptoms Endocrine: reports: No Symptoms Physical Exam-GI Vital Signs: Vital Signs Temperature 98.8 F 02/07/19 14:46 Pulse Rate 67 02/07/19 14:46 Respiratory Rate 18 02/07/19 14:46 Blood Pressure 145/74 02/07/19 14:46 O2 Sat by Pulse Oximetry (%) 97 02/06/19 21:00 Constitutional: Yes: Well Nourished, No Distress Eyes: Yes: WNL Neck: Yes: Other (in C collar) Cardiovascular: Yes: Regular Rate and Rhythm Respiratory: Yes: CTA Bilaterally ...Palpate: Yes: Soft. No: Tenderness ...Rectal Exam: Yes: Deferred Edema: No Neurological: Yes: Alert, Oriented Psychiatric: Yes: Alert, Oriented Labs: CBC, BMP 02/06/19 06:40 02/06/19 06:40 Assessment/Plan Likely post op N/V due to gastroparesis and being on narcotics No documentation of protonix 40mg TID with meals in outpatient setting For now, would do zofran 4mg and protonix 20mg 30-60 minutes before each meal
[2019-02-07] MEDS ORDERED: ONDANSETRON 4 MG TABLET PO ONE (17:00)
--- NOTE | 2019-02-07 17:14 | PN ---
Teaching Attending Note Name of Resident: Emiliano Preston ATTENDING PHYSICIAN STATEMENT I saw and evaluated the patient. I reviewed the resident's note and discussed the case with the resident. I agree with the resident's findings and plan as documented. SUBJECTIVE: Patient continues to complain of vomiting. OBJECTIVE: Vital Signs Period Temp Pulse Resp BP Sys/Hylton Pulse Ox Last 24 Hr 98 F-98.8 F 67-88 16-20 127-151/69-92 97 GENERAL: The patient is awake, alert, and fully oriented, in no acute distress. Wearing cervical collar. NECK: Posterior dressing clean and dry. LUNGS: Breath sounds equal, clear to auscultation bilaterally, no wheezes, no crackles, no accessory muscle use. HEART: Regular rate and rhythm, S1, S2 without murmur, rub or gallop. ABDOMEN: Soft, nontender, nondistended, normoactive bowel sounds, no guarding, no rebound, no hepatosplenomegaly, no masses. EXTREMITIES: 2+ pulses, warm, well-perfused, no edema. Current Medications Generic Name Dose Route Start Last Admin Trade Name Freq PRN Reason Stop Dose Admin Acetaminophen/Codeine Phosphate 1 tab 02/04/19 07:18 02/05/19 13:37 Tylenol # 3 - PO 1 tab Q4H PRN Administration Breakthrough pain Albuterol/Ipratropium 1 amp 02/06/19 10:49 Duoneb - NEB Q6H PRN SHORTNESS OF BREATH Atorvastatin Calcium 10 mg 02/04/19 22:00 02/06/19 22:46 Lipitor - PO Not Given HS JUJU Benzocaine/Menthol 1 each 02/06/19 09:36 02/07/19 15:04 Cepacol Lozenge - MM 1 each Q2H PRN Administration SORE THROAT Docusate Sodium 100 mg 02/04/19 14:00 02/07/19 14:11 Colace - PO Not Given TID JUJU Estrogens Conjugated 0.625 mg 02/04/19 22:00 02/06/19 22:47 Premarin - PO Not Given HS JUJU Fentanyl 1 patch 02/06/19 09:30 02/06/19 09:55 Duragesic 50mcg Patch - TD 02/10/19 09:28 1 patch Q72H JUJU Administration Ferrous Sulfate 325 mg 02/04/19 10:00 02/07/19 10:34 Feosol - PO Not Given DAILY [facility] Folic Acid 1 mg 02/04/19 10:00 02/07/19 10:34 Folic Acid - PO Not Given DAILY [facility] Heparin Sodium (Porcine) 5,000 unit 02/04/19 14:00 02/07/19 14:11 Heparin - SQ Not Given TID [facility] Sodium Chloride 1,000 mls @ 83 mls/hr 02/05/19 10:45 02/07/19 14:15 Normal Saline - IV 83 mls/hr ASDIR JUJU Administration Losartan Potassium 50 mg 02/08/19 10:00 Cozaar - PO DAILY JUJU Miscellaneous 1 each 02/04/19 07:18 02/06/19 10:11 Duragesic Patch Waste TD 1 each PRN PRN Administration PAIN Miscellaneous 1 each 02/04/19 07:18 Duragesic Patch Waste TD PRN PRN PAIN Pantoprazole Sodium 20 mg 02/07/19 17:00 Protonix - PO TID [facility] Polyethylene Glycol 17 gm 02/04/19 10:00 02/07/19 10:35 Miralax (For Daily Use) - PO Not Given BID [facility] ASSESSMENT AND PLAN: This is a 58 year old woman with a history of HTN, hyperlipidemia, COPD, SBO, anemia, anxiety, C-spine surgeries who was admitted for exploration of spinal fusion, revision of hardware C2-T1, C2-C6 osteotomies, and microvascular decompression of vertebral artery. 1. Cervicalgia - s/p exploration of spinal fusion, revision of hardware C2-T1, C2-C6 osteotomies, microvascular decompression of vertebral artery 02/01 - Maintain cervical collar - Has fentanyl patch for pain control and Tylenol w/codeine for breakthrough - Continue PT 2. Nausea, vomiting secondary to gastroparesis and opioid use - X-rays show no evidence of ileus/obstruction - She appears to be tolerating diet - GI input appreciated - Protonix changed to 20 mg tid 3. HTN - Currently on no medication 4. Hyperlipidemia - Continue Lipitor 5. COPD - Stable 6. Anemia, chronic - Continue ferrous sulfate, folic acid - Continue to monitor hemoglobin 7. Anxiety 8. DVT prophylaxis - On heparin subq 9. Disposition - Expect discharge tomorrow
[2019-02-07] MEDS: PANTOPRAZOLE 20 MG TABLET (FP) PO SCH ×2 (17:26→22:22)
--- NOTE | 2019-02-07 18:48 | PN ---
Progress Note (short form) - Note Progress Note: HPI: Pt with vomiting and insistent upon Protonix TID. Noncooperative with rst of exam Vital Signs Temperature 98 F 02/07/19 17:08 Pulse Rate 70 02/07/19 17:08 Respiratory Rate 20 02/07/19 17:08 Blood Pressure 130/69 02/07/19 17:08 O2 Sat by Pulse Oximetry (%) 97 02/06/19 21:00 PE: GEN: sitting up, NAD, awake, alert, orientedx3 LUNG: CTA b/l no wheezes. CARD: RRR no murmurs ABD: Noncooperative EXT: Noncooperative NEURO: Noncooperative CBC, BMP 02/06/19 06:40 02/06/19 06:40 Active Medications Acetaminophen/Codeine Phosphate (Tylenol # 3 -) 1 tab PO Q4H PRN PRN Reason: Breakthrough pain Last Admin: 02/05/19 13:37 Dose: 1 tab Albuterol/Ipratropium (Duoneb -) 1 amp NEB Q6H PRN PRN Reason: SHORTNESS OF BREATH Atorvastatin Calcium (Lipitor -) 10 mg PO HS [facility] Last Admin: 02/06/19 22:46 Dose: Not Given Benzocaine/Menthol (Cepacol Lozenge -) 1 each MM Q2H PRN PRN Reason: SORE THROAT Last Admin: 02/07/19 15:04 Dose: 1 each Docusate Sodium (Colace -) 100 mg PO TID [facility] Last Admin: 02/07/19 14:11 Dose: Not Given Estrogens Conjugated (Premarin -) 0.625 mg PO HS [facility] Last Admin: 02/06/19 22:47 Dose: Not Given Fentanyl (Duragesic 50mcg Patch -) 1 patch TD Q72H [facility] Stop: 02/10/19 09:28 Last Admin: 02/06/19 09:55 Dose: 1 patch Ferrous Sulfate (Feosol -) 325 mg PO DAILY [facility] Last Admin: 02/07/19 10:34 Dose: Not Given Folic Acid (Folic Acid -) 1 mg PO DAILY [facility] Last Admin: 02/07/19 10:34 Dose: Not Given Heparin Sodium (Porcine) (Heparin -) 5,000 unit SQ TID [facility] Last Admin: 02/07/19 14:11 Dose: Not Given Sodium Chloride (Normal Saline -) 1,000 mls @ 83 mls/hr IV ASDIR [facility] Last Admin: 02/07/19 14:15 Dose: 83 mls/hr Losartan Potassium (Cozaar -) 50 mg PO DAILY [facility] Miscellaneous (Duragesic Patch Waste) 1 each TD PRN PRN PRN Reason: PAIN Last Admin: 02/06/19 10:11 Dose: 1 each Miscellaneous (Duragesic Patch Waste) 1 each TD PRN PRN PRN Reason: PAIN Pantoprazole Sodium (Protonix -) 20 mg PO TID [facility] Last Admin: 02/07/19 17:26 Dose: 20 mg Polyethylene Glycol (Miralax (For Daily Use) -) 17 gm PO BID [facility] Last Admin: 02/07/19 10:35 Dose: Not Given A/P Cervicalgia s/p cervical spine exploration, revision of hardware and vertebral artery decompression Vomiting HTN History of COPD Normocytic anemia Anxiety HLD --OOB as tolerated --Maintain C-collar until surgery recommendations --Albuterol PRN for wheezing --Zofran PO for nausea --Possibly add prokinetic agent such as reglan --Attempted to contact outpatient GI, however unable to contact --Consulted GI [facility] for further investigation an aid. Likely gastroparesis --Continue Cozaar 50mg qdaily for BP control --Continue Lipitor 10mg HS PO FEN: Fluids: None Electrolyte abnormalities: None Nutrition: Regular diet; switch meds to PO as able to PPX: DVT - SCDs GI - Protonix PO per home meds Dispo: Anticipate d/c tomorrow Case discussed with Dr. Daryl Preston, DO - IM PGY-3
[2019-02-07] MEDS: ATORVASTATIN CA 10 MG TABLET (FP) PO SCH (22:22)
[2019-02-07] MEDS: ESTROGENS,CONJUGATED 0.625 MG TABLET PO SCH (22:22)
[2019-02-08] MEDS ORDERED: ONDANSETRON 4 MG TABLET PO ONE ×3 (05:59→12:44)
[2019-02-08] MEDS: DOCUSATE SODIUM 100 MG CAPSULE (FP) PO SCH (06:00)
[2019-02-08] MEDS: HEPARIN NA (PORCINE) 5,000 UNITS/ML 1ML VIAL SQ SCH (06:00)
[2019-02-08 06:33] VITALS: BP 125/78; PULSE 63; TEMP 97.9
[2019-02-08] MEDS: PANTOPRAZOLE 20 MG TABLET (FP) PO SCH ×2 (07:12→12:13)
--- NOTE | 2019-02-08 08:56 | PN ---
Progress Note (short form) - Note Progress Note: POD #7 Pt is in better spirits this morning as she had some adjustments to her GI meds and she is eating and resting comfortably. She states that her left arm pain continues to improve and the paresthesias in the hand/fingers is also improving. She has been ambulating with PT and tolerating her diet. She denies any CP, SOB, N/V, fever or chills. She would like to go home today with VNS. Vital Signs Temp 97.9 F 02/08/19 06:00 Pulse 63 10 06:00 Resp 20 10 08:27 BP 125/78 02/08/19 06:00 Pulse Ox 98 02/08/19 08:27 Intake & Output 02/07/19 02/07/19 02/08/19 11:59 23:59 11:59 Intake Total 581 2075 1200 Balance 581 2075 1200 Weight 129 lb 14.4 oz Intake: IV 581 1375 1000 Normal Saline - 1,000 ml 581 1375 1000 @ 83 mls/hr IV ASDIR JUJU Rx#:[id number] SL 0 Oral 700 200 Other: Voiding Method Toilet Toilet Toilet # Unmeasured Voids Void 1 2 2 Bowel Movement No No No Weight Measurement Method Built in [facility] CBC, BMP 02/06/19 06:40 02/06/19 06:40 GEN: A&0x3, NAD Resp: Unlabored resp on RA Neck: [place] collar in place, dressing saturated with SS d/c but has not been changed in days as patient refused. incision c/d/i with chi in situ, no active d/c with pressure applied to margins of incisions. 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 moving all digits although still with decreased sensation throughout the left small finger and ulnar aspect of left ring finger. B/L LE: compartments soft, supple and non-tender with 5/5 on Dorsi/plantar flexion b/l. +2 PD pulses. Problem List - Problems (1) S/P cervical spinal fusion Assessment/Plan: Assessment/Plan: POD#7 patient with improved pain on fentanyl patch doing well. Nausea vomiting has resolved with new meds. -OOB with assist, up to chair for meals -Encourage IS-discussed at bedside -d/c planning for home with VNS today -F/u with Dr Calvin for pain mngt as outpatient Evaluation and plan discussed with Dr Michelle Code(s): Z98.1 - ARTHRODESIS STATUS
--- NOTE | 2019-02-08 09:15 | DS ---
"Physical Exam: SUBJECTIVE: Pt upset about not being able to leave early this morning. Otherwise no complaints OBJECTIVE: Vital Signs Period Temp Pulse Resp BP Sys/Hylton Pulse Ox Last 24 Hr 97.9 F-98.8 F 63-93 18-20 114-145/69-78 98 PHYSICAL EXAM PE: GEN: sitting up, NAD, awake, alert, orientedx3 NECK: R TLC subclavian site C/D/I (removed at bedside without any notice of bleed) LUNG: CTA b/l no wheezes. CARD: RRR no murmurs ABD: Noncooperative EXT: Noncooperative NEURO: Noncooperative Imaging: AXR: 2 views of the abdomen have been submitted. The lung bases appear well- aerated. There is a normal heart, intact bones and soft tissues and no sign of free air. Pneumatosis is not seen. There is no sign of ileus or obstruction. There is no sign of a fecal impaction or gross constipation. There is some minimal air and stool seen in the colon and air in the stomach. There are pelvic phleboliths. There is some prominence of soft tissues. Organomegaly or calcifications of significance is not seen. If symptoms persist, further imaging with CT may be of help. Cervical Spine CT: Coronal and sagittal reconstruction images were obtained. Compared to prior CT scan of the cervical spine dated 11/29/2018 Patient is status post corpectomy of C4 down to C7 level with anterior fusion from C3 through T1 and posterior fusion of C2-T1 level in satisfactory alignment. Posterior transpedicular screws are present from C2 down to T1 level on the right except for C7 and are present at C2 and T1 level on the left. No gross encroachment of the screws on the spinal canal is identified. Postop changes with soft tissue swelling and air are present, posteriorly at the site of surgery. Visualized portion of the airway appears unremarkable. No gross enlarged lymph nodes are identified. Lung windows at the thoracic inlet appear unremarkable. CXR: IMPRESSION: Right subclavian central venous line in good position with no evidence of pneumothorax. Suspected endotracheal tube terminating 1 cm above the julien. No active pulmonary disease. HOSPITAL COURSE: Date of Admission:02/01/19 Date of Discharge: 02/08/19 Pt was admitted on 02/01/19 due to cervicalgia and neuropathy for elective surgery of cervical spine exploration, revision of hardware, and vertebral artery decompression by Dr. Michelle. Pt had uneventful surgery and post- operative care and was transitioned to the medical floor for further monitoring. Due to pt's wide-range of allergies, pt had pain management (Dr. Calvin) consulted who recommended Fentanyl patch 50mcg q72h. Pt's pain control was much improved and pt even had some sensation and motor strength return in her L hand. Unfortunately patient's care was complicated by vomiting and nausea noted with each meal. Pt had GI consulted for suspected gastroparesis and was recommended Zofran TID with meals and for the time being Protonix TID. Pt is being discharged today with surgical instructions below and strict instructions to follow-up with Dr. Michelle, Dr. Landry, Dr. Calvin, and her primary care provider. Pt's transitional pain management control was overseen by Dr. Calvin who recommended Fentanyl 25mcg patches and taper to Fentanyl 12.5mcg patches that he will perform in outpatient setting. Pt is to maintain cervical collar on for 23hours of the day (off for showering). Minutes to complete discharge: 35 Discharge Summary Problems reviewed: Yes Reason For Visit: CERVICAL SPONDYLOSIS & KYPHOSIS Current Active Problems S/P cervical spinal fusion (Acute) Condition: Improved - Instructions Diet, Activity, Other Instructions: MEDICATIONS: You will be given a Fentanyl patch to use every [address] Calvin approved these patches, however you can only get a limited supply. As a result you will need to go to Dr. Calvin for pain management. Please do not drive or operate heavy machinery using these patches as it can impair your reflexes. Follow-up: Please follow-up with Dr. Amaro and Dr. Calvin in 1 weeks time Your surgical instructions are below: Post Operative Instructions Physical Activity Resume your normal everyday activity as tolerated. No heavy lifting or exercise until seen by your surgeon. You may walk unlimited amounts and climb stairs. You may resume driving the car when you feel safe and comfortable behind the wheel and you are no longer wearing your brace. Do not operate a vehicle while taking narcotic medication. Brace If you had neck surgery, wear surgical collar 23 hr/day. Remove to shower only. Wound Care Keep your incision clean, dry and covered at all times. Apply an occlusive dressing (Saran wrap or Tegaderm) when showering to avoid getting your incision wet. Do not submerge incision or apply ointments or creams. The chi will be removed in the office in 10-14 days post-op. Diet There are no dietary restrictions. Eat healthy, high-fiber foods. Drink 6-8 glasses of liquid each day. This will assist in keeping your bowels regular. Pain Management Any pain prescription medication ordered should be taken as prescribed for moderate to severe pain. Call Dr Díaz for any of the following: Severe pain not relieved by medication Fever of 101 or higher Excessive bleeding or drainage on dressing Inability to urinate Any chest pain or shortness of breath, seek Emergency Care. Call the office to confirm a post-operative appointment for 2-3 weeks post-op Dandre Michelle MD [facility] [address] [place] [address] This report was requested by: Ethel Cho | Reference #: [id number] Referrals: Bobby Amaro MD [Staff Physician] - 1 Week Eddie Burr MD [Staff Physician] - Dandre Michelle MD, [facility] [Staff Physician] - 2 Weeks Shirley Landry DO [Staff Physician] - 2 Weeks Juancho Calvin MD [Staff Physician] - 1 Week Disposition: VNS/HOME HEALTH CARE - Home Medications Comprehensive Discharge Medication List: Ambulatory Orders Estrogens, Conjugated [Premarin] 0.625 mg PO HS 01/02/17 Simvastatin 10 mg PO HS 09/19/17 Losartan Potassium 50 mg PO DAILY 10/31/17 Acetaminophen [Tylenol] 650 mg PO PRN 08/16/18 Diphenhydramine HCl [Benadryl Capsule -] 25 mg PO Q6H PRN 08/16/18 Albuterol Sulfate Inhaler - [Ventolin HFA Inhaler -] 1 - 2 inh PO Q4H PRN Cholecalciferol (Vitamin D3) [Vitamin D3] 1,000 unit PO DAILY 01/31/19 Fluticasone Prop 0.05% Nasal [Flonase -] 1 - 2 spray NS DAILY PRN 01/31/19 Pantoprazole Sodium [Protonix] 40 mg PO DAILY 01/31/19 Docusate Sodium [Colace -] 100 mg PO TID #90 capsule 02/08/19 Ondansetron HCl [Zofran] 4 mg PO TID PRN #15 tab 02/08/19 Polyethylene Glycol 3350 [Miralax 119 gm Btl -] 17 gm PO BID PRN #6 bottle 02/08 This patient is new to me today: No Emergency Visit: Yes ED Registration Date: 02/01/19 Care time: The patient presented to the Emergency Department on the above date and was hospitalized for further evaluation of their emergent condition. Critical Care patient: No - Discharge Referral Referred to [facility] Med [facility].C[facility] No ATTENDING PHYSICIAN STATEMENT I saw and evaluated the patient. I reviewed the resident's note and discussed the case with the resident. I agree with the resident's findings and plan as documented. SUBJECTIVE: OBJECTIVE: ASSESSMENT AND PLAN:"
[2019-02-08] MEDS ORDERED: LOSARTAN POTASSIUM 50 MG TABLET (FP) PO SCH (10:00)
[2019-02-08] MEDS: FERROUS SO4 325 MG TABLET (FP) PO SCH (10:58)
[2019-02-08] MEDS: SODIUM CHLORIDE 1,000 ML IV SCH (10:58)
[2019-02-08] MEDS: FOLIC ACID 1 MG TABLET (FP) PO SCH (10:58)
[2019-02-08] MEDS: POLYETHYLENE GLYCOL 3350 119 GM BTL PO SCH (10:58)
--- NOTE | 2019-02-08 11:17 | PN ---
Teaching Attending Note Name of Resident: Emiliano Preston ATTENDING PHYSICIAN STATEMENT I saw and evaluated the patient. I reviewed the resident's note and discussed the case with the resident. I agree with the resident's findings and plan as documented. SUBJECTIVE: Patient is feeling better this morning and wants to go home. OBJECTIVE: Vital Signs Period Temp Pulse Resp BP Sys/Hylton Pulse Ox Last 24 Hr 97.9 F-98.8 F 63-93 18-20 114-145/69-78 98 GENERAL: The patient is awake, alert, and fully oriented, in no acute distress. Wearing cervical collar. NECK: Posterior dressing clean and dry. LUNGS: Breath sounds equal, clear to auscultation bilaterally, no wheezes, no crackles, no accessory muscle use. HEART: Regular rate and rhythm, S1, S2 without murmur, rub or gallop. ABDOMEN: Soft, nontender, nondistended, normoactive bowel sounds, no guarding, no rebound, no hepatosplenomegaly, no masses. EXTREMITIES: 2+ pulses, warm, well-perfused, no edema. Current Medications Generic Name Dose Route Start Last Admin Trade Name Freq PRN Reason Stop Dose Admin Acetaminophen/Codeine Phosphate 1 tab 02/04/19 07:18 02/05/19 13:37 Tylenol # 3 - PO 1 tab Q4H PRN Administration Breakthrough pain Albuterol/Ipratropium 1 amp 02/06/19 10:49 Duoneb - NEB Q6H PRN SHORTNESS OF BREATH Atorvastatin Calcium 10 mg 02/04/19 22:00 02/07/19 22:22 Lipitor - PO 10 mg HS JUJU Administration Benzocaine/Menthol 1 each 02/06/19 09:36 02/07/19 22:22 Cepacol Lozenge - MM 1 each Q2H PRN Administration SORE THROAT Docusate Sodium 100 mg 02/04/19 14:00 02/08/19 06:00 Colace - PO Not Given TID JUJU Estrogens Conjugated 0.625 mg 02/04/19 22:00 02/07/19 22:22 Premarin - PO 0.625 mg HS JUJU Administration Fentanyl 1 patch 02/06/19 09:30 02/06/19 09:55 Duragesic 50mcg Patch - TD 02/10/19 09:28 1 patch Q72H JUJU Administration Ferrous Sulfate 325 mg 02/04/19 10:00 02/08/19 10:58 Feosol - PO Not Given DAILY [facility] Folic Acid 1 mg 02/04/19 10:00 02/08/19 10:58 Folic Acid - PO Not Given DAILY [facility] Heparin Sodium (Porcine) 5,000 unit 02/04/19 14:00 02/08/19 06:00 Heparin - SQ Not Given TID [facility] Sodium Chloride 1,000 mls @ 83 mls/hr 02/05/19 10:45 02/08/19 10:58 Normal Saline - IV Not Given ASDIR [facility] Losartan Potassium 50 mg 02/08/19 10:00 02/08/19 10:58 Cozaar - PO 50 mg DAILY JUJU Administration Miscellaneous 1 each 02/04/19 07:18 02/06/19 10:11 Duragesic Patch Waste TD 1 each PRN PRN Administration PAIN Miscellaneous 1 each 02/04/19 07:18 Duragesic Patch Waste TD PRN PRN PAIN Pantoprazole Sodium 20 mg 02/07/19 17:00 02/08/19 07:12 Protonix - PO 20 mg TID [facility] Administration Polyethylene Glycol 17 gm 02/04/19 10:00 02/08/19 10:58 Miralax (For Daily Use) - PO Not Given BID [facility] ASSESSMENT AND PLAN: This is a 58 year old woman with a history of HTN, hyperlipidemia, COPD, SBO, anemia, anxiety, C-spine surgeries who was admitted for exploration of spinal fusion, revision of hardware C2-T1, C2-C6 osteotomies, and microvascular decompression of vertebral artery. 1. Cervicalgia - s/p exploration of spinal fusion, revision of hardware C2-T1, C2-C6 osteotomies, microvascular decompression of vertebral artery 02/01 - Maintain cervical collar - Has fentanyl patch for pain control and Tylenol w/codeine for breakthrough - Continue PT 2. Nausea, vomiting secondary to gastroparesis and opioid use - X-rays show no evidence of ileus/obstruction - She appears to be tolerating diet - Continue Protonix 3. HTN - Currently on no medication 4. Hyperlipidemia - Continue Lipitor 5. COPD - Stable 6. Anemia, chronic - Continue ferrous sulfate, folic acid - Continue to monitor hemoglobin 7. Anxiety 8. DVT prophylaxis - On heparin subq 9. Disposition - Ok for discharge home
[2019-02-08] MEDS ORDERED: PANTOPRAZOLE 20 MG TABLET (FP) PO SCH (12:29)
[2019-02-08] MEDS ORDERED: ONDANSETRON 4 MG/2 ML VIAL IVPUSH ONE (12:38)
[2019-02-09 12:58] VITALS: BMI 22.8
== END 2019-02-08 13:45 | disposition home health service (06) | DRG 455 ==
LOC: JSAMEDAYSX 06:18 → JICU 17:28 → J8W 02-03 19:09
PROVIDERS: ADMIT Hospitalist; ATTEND Internal Medicine
PROC: 0RG2071 Fusion of 2 or more Cervical Vertebral Joints with Autologous Tissue Substitute, Posterior Approach, Posterior Column, Open Approach (ICD-10-PCS; 2019-02-01)
PROC: 01N10ZZ Release Cervical Nerve, Open Approach (ICD-10-PCS; 2019-02-01)
PROC: 0RG60AJ Fusion of Thoracic Vertebral Joint with Interbody Fusion Device, Posterior Approach, Anterior Column, Open Approach (ICD-10-PCS; 2019-02-01)
PROC: 0RGA071 Fusion of Thoracolumbar Vertebral Joint with Autologous Tissue Substitute, Posterior Approach, Posterior Column, Open Approach (ICD-10-PCS; 2019-02-01)
PROC: 0RP10AZ Removal of Interbody Fusion Device from Cervical Vertebral Joint, Open Approach (ICD-10-PCS; 2019-02-01)
PROC: 0RP60AZ Removal of Interbody Fusion Device from Thoracic Vertebral Joint, Open Approach (ICD-10-PCS; 2019-02-01)
PROC: 0PB30ZZ Excision of Cervical Vertebra, Open Approach (ICD-10-PCS; 2019-02-01)
PROC: 0PB40ZZ Excision of Thoracic Vertebra, Open Approach (ICD-10-PCS; 2019-02-01)
PROC: 0JX70ZZ Transfer Back Subcutaneous Tissue and Fascia, Open Approach (ICD-10-PCS; 2019-02-01)
PROC: 05H533Z Insertion of Infusion Device into Right Subclavian Vein, Percutaneous Approach (ICD-10-PCS; 2019-02-01)
PROC: B01BZZZ Fluoroscopy of Spinal Cord (ICD-10-PCS; 2019-02-01)
PROC: 0RG20AJ Fusion of 2 or more Cervical Vertebral Joints with Interbody Fusion Device, Posterior Approach, Anterior Column, Open Approach (ICD-10-PCS; principal; 2019-02-01 08:00)
DX: M48.02 Spinal stenosis, cervical region (principal); M54.2 Cervicalgia; M54.12 Radiculopathy, cervical region; I10 Essential (primary) hypertension; J44.9 Chronic obstructive pulmonary disease, unspecified; F41.9 Anxiety disorder, unspecified; D64.9 Anemia, unspecified; E78.5 Hyperlipidemia, unspecified; R11.2 Nausea with vomiting, unspecified; K31.84 Gastroparesis; F11.90 Opioid use, unspecified, uncomplicated; M40.40 Postural lordosis, site unspecified
CPT/HCPCS: 36415; 71045-TC-FY; 72125-TC; 74019-TC-FY; 80048; 83735; 84100; 85025; 85027; 86850; 86900; 86901; 94760; 97116-GP; 97162-GP; J0131; J1410; J1644; J7030

== ENCOUNTER 2020-02-12 21:47 | Emergency (ER) | payer OTHER ==
[2020-02-12 22:17] VITALS: BP 133/91; PULSE 78; TEMP 97.8; BMI 24.7
--- OUTSIDE RECORDS SUMMARY | 2020-02-12 22:21 | XMS ---
:1960 Author Organization [facility] Care Team Providers Name Role Phone Bobby Amaro C Unavailable Androne, C Unavailable Androne, C Unavailable Androne, C Unavailable Androne, C Unavailable Androne, C Unavailable Androne, C Unavailable Androne, C Unavailable Androne, C Unavailable Fader, M Unavailable Fader, M Unavailable Fader, M Unavailable Fader, M Unavailable Fader, M Unavailable Fader, M Unavailable Fader, M Unavailable Fader, M Unavailable Fader, M Unavailable Fader, M Unavailable Fader, M Unavailable Fader, M Unavailable Fader, M Unavailable Fader, M Unavailable Re-disclosure Warning The records that you are about to access may contain information from federally- assisted alcohol or drug abuse programs. If such information is present, then the following federally mandated warning applies: This information has been disclosed to you from records protected by federal confidentiality rules (42 CFR part 2). The federal rules prohibit you from making any further disclosure of this information unless further disclosure is expressly permitted by the written consent of the person to whom it pertains or as otherwise permitted by 42 CFR part 2. A general authorization for the release of medical or other information is NOT sufficient for this purpose. The Federal rules restrict any use of the information to criminally investigate or prosecute any alcohol or drug abuse patient.The records that you are about to access may contain highly sensitive health information, the redisclosure of which is protected by Article 27-F of the [facility] Public Health law. If you continue you may haveaccess to information: Regarding HIV / AIDS; Provided by facilities licensed or operated by the [facility] Office of Mental Health; or Provided by the [facility] Office for People With Developmental Disabilities. If such information is present, then the following [facility] mandated warning applies: This information has been disclosed to you from confidential records which are protected by state law. State law prohibits you from making any further disclosure of this information without the specific written consent of the person to whom it pertains, or as otherwise permitted by law. Any unauthorized further disclosure in violation of state law may result in a fine or assisted sentence or both. A general authorization for the release of medical or other information is NOT sufficient authorization for further disclosure. Encounters Encounter Providers Location Date Indications Data Source(s ) Attender: Montez 01/31/2020 MED[facility] ( [facility] 12:00:00 AM EDT Medical, ) Telehealth Attender: Montez Andino 01/31/2020 12:00:00 AM E DT [facility] ([facility], ) Telehealth Attender: Montez Andino 01/31/2020 12:00:00 AM E DT MEDGEN ([facility], ) Telehealth Attender: Montez Andino 01/31/2020 12:00:00 AM E DT MEDGEN ([facility], ) Telehealth Attender: Montez Sina 01/31/2020 12:00:00 AM E DT MEDGEN ([facility], ) Telehealth Attender: Bobby Liangjonas 12/01/2019 12:00:00 AM EDT MEDGEN ([facility], ) Telehealth Medications Medication Brand Start Product Dose Route Administrative Pharmacy [facility] Indications Reaction Description Data Name Date Form Instructions Instructions Source(s) Cholecalcif VITAMI 01/30/ TABLET 90 complet SHYAM MIN D3 MEDGEN (St zachariah 2000 N 2019 ed [facility] UNT Oral D3:801 12:00: Medical , Tablet 663 00 AM PC) VITAMIN EDT D3:750290 Codeine CODEIN 01/30/ SYRUP 240 complet CODEINE-G UAI MEDGEN (St Phosphate 2 E-GUAI 2019 ed FENESIN [facility] MG/ML / FENESI 12:00: Medical, Guaifenesin N:9958 00 AM PC) 20 MG/ML 68 EDT Oral Solution CODEINE-GUA IFENESIN:99 5868 Methylpredn METHYL 01/30/ TABLET 21 complet METH YLPREDNI MED[facility] (St isolone 4 PREDNI 2019 ed SOLONE [facility] MG Oral SOLONE 12:00: Medical, Tablet :81576 00 AM PC) METHYLPREDN 6 EDT ISOLONE:259 966 FLUTICASONE 01/29/ SPRAY 16 complet FLUTICA SONE MED[facility] (St NASAL:81040 2019 ed NASAL 's 07 12:00: Medical, 00 AM PC) EDT Simvastatin SIMVAS 12/25/ TABLET 90 complet SIMV ASTATIN [facility] (St 10 MG Oral TATIN: 2019 ed Joey[facility] Tablet 130735 12:00: Medical, SIMVASTATIN 00 AM PC) :[id number] EDT Ofloxacin 3 OFLOXA 11/30/ SOLUTION 1 complet OF LOXACIN MEDGEN (St MG/ML KAREN 2020 ed OPHTHALMIC [facility] Ophthalmic OPHTHA 12:00: Medic al, Solution LMIC:3 00 AM PC) OFLOXACIN 38552 EDT OPHTHALMIC: 833816 Ofloxacin 3 OFLOXA 11/30/ SOLUTION 1 complet OF LOXACIN MED[facility] (St MG/ML KAREN 2019 ed OPHTHALMIC [facility] Ophthalmic OPHTHA 12:00: Medic al, Solution LMIC:3 00 AM PC) OFLOXACIN 12873 EDT OPHTHALMIC: 249951 Cholecalcif VITAMI 11/07/ TABLET 90 complet SHYAM MIN D3 MED[facility] (St zachariah 1000 N 2020 ed [facility] UNT Oral D3:199 12:00: Medical , Tablet 362 00 AM PC) VITAMIN EDT D3:067530 AZITHROMYCI 10/27/ TABLET 6 complet AZITHR OMYCIN [facility] (St N 5 DAY 2020 ed 5 DAY DOSE [facility] DOSE 12:00: PACK Medical, PACK:[id number] 00 AM PC) EDT irbesartan IRBESA 10/10/ TABLET 90 complet IRBES BURAK [facility] (St 150 MG Oral RTAN:2 2019 ed Joey[facility] Tablet 20170 12:00: Medical, IRBESARTAN: 00 AM PC) [id number] EDT FLUTICASONE 10/10/ SPRAY 1 complet FLUTICA SONE [facility] (St NASAL:00036 2019 ed NASAL [facility] 07 12:00: Medical, 00 AM PC) EDT irbesartan IRBESA 10/10/ TABLET 90 complet IRBES BURAK MED[facility] (St 150 MG Oral RTAN:2 2019 ed [facility] Tablet 63303 12:00: Medical, IRBESARTAN: 00 AM PC) [id number] EDT Ondansetron ONDANS 09/13/ TABLET 270 complet ONDA NSETRON [facility] (St 4 MG Oral ETRON: 2019 ed [facility] Tablet [id number] 12:00: Medical, ONDANSETRON 00 AM PC) :[id number] EDT Ondansetron ONDANS /13/ TABLET 270 complet ONDA NSETRON MED[facility] (St 4 MG Oral ETRON: 2019 ed Joey[facility] Tablet 19790903 12:00: Medical, ONDANSETRON 00 AM PC) :[id number] EDT pantoprazol PANTOP 09/01/ DELAYED 180 complet GUERRIER TOPRAZOLE MED[facility] (St e 40 MG RAZOLE 2019 RELEASE ed [facility] Delayed :24801 12:00: TABLET Medica l, Release 0 00 AM PC) Oral Tablet EDT PANTOPRAZOL E:155608 pantoprazol PANTOP 09/01/ DELAYED 180 complet GUERRIER TOPRAZOLE MED[facility] (St e 40 MG RAZOLE 2019 RELEASE ed [facility] Delayed :36734 12:00: TABLET Medica l, Release 0 00 AM PC) Oral Tablet EDT PANTOPRAZOL E:998967 LIDOCAINE 09/01/ FILM 30 complet LIDOCAINE MED[facility] (St TOPICAL:174 2019 ed TOPICAL Joey' s 5091 12:00: Medical, 00 AM PC) EDT LIDOCAINE 09/01/ FILM 30 complet LIDOCAINE MED[facility] (St TOPICAL:174 2019 ed TOPICAL Joey' s 5091 12:00: Medical, 00 AM PC) EDT Ondansetron ZOFRAN 06/10/ TABLET 270 complet ZOFR AN MED[facility] (St 4 MG Oral :2019 ed Joey's Tablet 5 12:00: Medical, [Zofran] 00 AM PC) ZOFRAN:1048 EST 95 Simvastatin SIMVAS 06/10/ TABLET 90 complet SIMV ASTATIN MED[facility] (St 10 MG Oral TATIN: 2019 ed Joey[facility] Tablet 768380 12:00: Medical, SIMVASTATIN 00 AM PC) :[id number] EST Ondansetron ZOFRAN 06/10/ TABLET 270 complet ZOFR AN MED[facility] (St 4 MG Oral :2019 ed Joey[facility] Tablet 5 12:00: Medical, [Zofran] 00 AM PC) ZOFRAN:1048 EST 95 Insurance Providers Payer name Policy type Policy ID Covered Covered republican's Policy P chucho / Coverage republican ID relationship to Zhou Inf ormation type zhou MEDICARE [id number] SP [id number] UMR [id number] SP [id number] [facility] [id number] [facility] [id number] Problems, Conditions, and Diagnoses Code Display Name Description Problem Type Effective Data Sour ce(s) Dates R05 Cough COUGH Problem 01/31/2020 MED[facility] (St 12:00:00 AM [facility] EDT Medical, ) H10.33 Unspecified acute UNSPECIFIED ACUTE Problem 12/01/2019 MEDGEN (St conjunctivitis, CONJUNCTIVITIS, 12:00:00 AM Vic n's bilateral BILATERAL EDT Medical, PC) H10.33 Unspecified acute UNSPECIFIED ACUTE Problem 12/01/2019 MEDGEN (St conjunctivitis, CONJUNCTIVITIS, 12:00:00 AM Vic n's bilateral BILATERAL EDT Medical, PC) D72.819 Decreased white DECREASED WHITE Problem 01/13/2019 MEDG EN (St blood cell count, BLOOD CELL COUNT, 12:00:00 AM Joey[facility] unspecified UNSPECIFIED EDT Medical, PC) M54.2 Cervicalgia CERVICALGIA Problem 01/13/2019 MEDGEN (St 12:00:00 AM Joey[facility] EDT Medical, PC) E55.9 Vitamin D VITAMIN D Problem 01/13/2019 MEDGEN (St deficiency, DEFICIENCY, 12:00:00 AM Joey[facility] unspecified UNSPECIFIED EDT Medical, PC) Z01.818 Encounter for other ENCOUNTER FOR Problem 01/13/2019 ME DGEN (St preprocedural OTHER 12:00:00 AM Joey[facility] examination PREPROCEDURAL EDT Medical, P C) EXAMINATION D72.819 Decreased white DECREASED WHITE Problem 01/13/2019 MEDG EN (St blood cell count, BLOOD CELL COUNT, 12:00:00 AM [facility] unspecified UNSPECIFIED EDT Medical, ) M54.2 Cervicalgia CERVICALGIA Problem 01/13/2019 MEDGEN (St 12:00:00 AM Joey[facility] EDT Medical, PC) E55.9 Vitamin D VITAMIN D Problem 01/13/2019 MEDGEN (St deficiency, DEFICIENCY, 12:00:00 AM Joey[facility] unspecified UNSPECIFIED EDT Medical, ) Z01.818 Encounter for other ENCOUNTER FOR Problem 01/13/2019 ME DGEN (St preprocedural OTHER 12:00:00 AM Joey[facility] examination PREPROCEDURAL EDT Medical, P C) EXAMINATION Surgeries/Procedures Procedure Description Date Indications Data Source(s) Documentation of current 01/31/2020 MED GEN ([facility] medications (procedure) 12:00:00 AM EDT danny, ) Documentation of current 01/31/2020 MED GEN ([facility] medications (procedure) 12:00:00 AM EDT Mary Grace delgado, UZMA) Documentation of current 01/31/2020 MED GEN ([facility] medications (procedure) 12:00:00 AM EDT danny, ) OFFICE OUTPATIENT VISIT 01/31/2020 MEDG EN ([facility] 15 MINUTES 12:00:00 AM EDT Medical, PC) Documentation of current 12/01/2019 MED GEN ([facility] medications (procedure) 12:00:00 AM EDT Mary Grace delgado, ) Documentation of current 12/01/2019 MED GEN ([facility] medications (procedure) 12:00:00 AM EDT Mary Grace delgado, ) Documentation of current 12/01/2019 MED GEN ([facility] medications (procedure) 12:00:00 AM EDT danny, ) Documentation of current 12/01/2019 MED GEN ([facility] medications (procedure) 12:00:00 AM EDT avelinaical, ) OFFICE OUTPATIENT VISIT 12/01/2019 MEDG EN ([facility] 15 MINUTES 12:00:00 AM [facility], ) Documentation of current 12/01/2019 MED GEN ([facility] medications (procedure) 12:00:00 AM EDT avelinaical, ) OFFICE OUTPATIENT VISIT 12/01/2019 MEDG EN ([facility] 15 MINUTES 12:00:00 AM [facility], ) Documentation of current 10/11/2019 MED GEN ([facility] medications (procedure) 12:00:00 AM EDT danny, PC) Documentation of current 10/11/2019 MED GEN ([facility] medications (procedure) 12:00:00 AM EDT danny, PC) Documentation of current 10/11/2019 MED GEN ([facility] medications (procedure) 12:00:00 AM EDT avelinaical, PC) Documentation of current 10/11/2019 MED GEN ([facility] medications (procedure) 12:00:00 AM EDT danny, PC) Documentation of current 10/11/2019 MED GEN ([facility] medications (procedure) 12:00:00 AM EDT avelinaical, PC) Documentation of current 10/11/2019 MED GEN ([facility] medications (procedure) 12:00:00 AM EDT danny, PC) Documentation of current 10/11/2019 MED GEN ([facility] medications (procedure) 12:00:00 AM EDT danny, PC) OFFICE OUTPATIENT VISIT 10/11/2019 MEDG EN ([facility] 15 MINUTES 12:00:00 AM [facility], PC) Documentation of current 10/11/2019 MED GEN ([facility] medications (procedure) 12:00:00 AM EDT avelinaical, PC) Documentation of current 10/11/2019 MED GEN ([facility] medications (procedure) 12:00:00 AM EDT danny, PC) Documentation of current 10/11/2019 MED GEN ([facility] medications (procedure) 12:00:00 AM EDLaureano delgado PC) Documentation of current 10/11/2019 MED GEN ([facility] medications (procedure) 12:00:00 AM KYLE delgado PC) Documentation of current 10/11/2019 MED GEN ([facility] medications (procedure) 12:00:00 AM EDLaureano delgado, PC) Documentation of current 10/11/2019 MED GEN ([facility] medications (procedure) 12:00:00 AM KYLE delgado PC) OFFICE OUTPATIENT VISIT 10/11/2019 MEDG EN ([facility] 15 MINUTES 12:00:00 AM EDLaureano Medical, PC) Documentation of current 06/10/2019 MED GEN ([facility] medications (procedure) 12:00:00 AM EST Mary Grace delgado PC) Documentation of current 06/10/2019 MED GEN ([facility] medications (procedure) 12:00:00 AM EST Mary Grace delgado, PC) Documentation of current 06/10/2019 MED GEN ([facility] medications (procedure) 12:00:00 AM EST Mary Grace delgado, PC) Documentation of current 06/10/2019 MED GEN ([facility] medications (procedure) 12:00:00 AM EST Mary Grace delgado, PC) OFFICE OUTPATIENT VISIT 06/10/2019 MEDG EN ([facility] 15 MINUTES 12:00:00 AM EST Medical, PC) Documentation of current 06/10/2019 MED GEN ([facility] medications (procedure) 12:00:00 AM EST Mary Grace delgado, PC) Documentation of current 06/10/2019 MED GEN ([facility] medications (procedure) 12:00:00 AM EST Mary Grace delgaod PC) Documentation of current 06/10/2019 MED GEN ([facility] medications (procedure) 12:00:00 AM EST Mary Grace delgado, PC) Documentation of current 06/10/2019 MED GEN ([facility] medications (procedure) 12:00:00 AM EST Mary Grace delgado, PC) OFFICE OUTPATIENT VISIT 06/10/2019 MEDG EN ([facility] 15 MINUTES 12:00:00 AM EST Medical, PC) Documentation of current 03/11/2019 MED GEN ([facility] medications (procedure) 12:00:00 AM EST Mary Grace delgado, PC) Documentation of current 03/11/2019 MED GEN ([facility] medications (procedure) 12:00:00 AM MARCO delgado, PC) Documentation of current 03/11/2019 MED GEN ([facility] medications (procedure) 12:00:00 AM MARCO delgado, PC) Documentation of current 03/11/2019 MED GEN ([facility] medications (procedure) 12:00:00 AM MARCO delgado, PC) Documentation of current 03/11/2019 MED GEN ([facility] medications (procedure) 12:00:00 AM MARCO delgado, PC) Documentation of current 03/11/2019 MED GEN ([facility] medications (procedure) 12:00:00 AM MARCO delgado, PC) Documentation of current 03/11/2019 MED GEN ([facility] medications (procedure) 12:00:00 AM MARCO delgado, PC) OFFICE OUTPATIENT VISIT 03/11/2019 MEDG EN ([facility] 15 MINUTES 12:00:00 AM MARCO Poe, PC) Documentation of current 03/11/2019 MED GEN ([facility] medications (procedure) 12:00:00 AM MARCO delgado, PC) Documentation of current 03/11/2019 MED GEN ([facility] medications (procedure) 12:00:00 AM MARCO delgado, PC) Documentation of current 03/11/2019 MED GEN ([facility] medications (procedure) 12:00:00 AM MARCO delgado, PC) Documentation of current 03/11/2019 MED GEN ([facility] medications (procedure) 12:00:00 AM MARCO delgado, PC) Documentation of current 03/11/2019 MED GEN ([facility] medications (procedure) 12:00:00 AM MARCO delgado, PC) Documentation of current 03/11/2019 MED GEN ([facility] medications (procedure) 12:00:00 AM MARCO delgado, PC) Documentation of current 03/11/2019 MED GEN ([facility] medications (procedure) 12:00:00 AM MARCO delgado, PC) OFFICE OUTPATIENT VISIT 03/11/2019 MEDG EN ([facility] 15 MINUTES 12:00:00 AM MARCO Poe, PC) Documentation of current 01/13/2019 MED GEN ([facility] medications (procedure) 12:00:00 AM KYLE delgado, PC) Documentation of current 01/13/2019 MED GEN ([facility] medications (procedure) 12:00:00 AM EDT Mary Grace delgado, UZMA) Documentation of current 01/13/2019 MED GEN ([facility] medications (procedure) 12:00:00 AM EDT UZMA Green) Documentation of current 01/13/2019 MED GEN ([facility] medications (procedure) 12:00:00 AM EDT danny, PC) Documentation of current 01/13/2019 MED GEN ([facility] medications (procedure) 12:00:00 AM EDT danny, PC) Documentation of current 01/13/2019 MED GEN ([facility] medications (procedure) 12:00:00 AM EDT danny, PC) Documentation of current 01/13/2019 MED GEN ([facility] medications (procedure) 12:00:00 AM EDT danny PC) Documentation of current 01/13/2019 MED GEN ([facility] medications (procedure) 12:00:00 AM EDT danny, PC) Documentation of current 01/13/2019 MED GEN ([facility] medications (procedure) 12:00:00 AM EDT danny, UZMA) Documentation of current 01/13/2019 MED GEN ([facility] medications (procedure) 12:00:00 AM EDT UZMA delgado) Documentation of current 01/13/2019 MED GEN ([facility] medications (procedure) 12:00:00 AM EDT UZMA Green) OFFICE OUTPATIENT VISIT 01/13/2019 MEDG EN ([facility] 25 MINUTES 12:00:00 AM KYLE Poe PC) Documentation of current 01/13/2019 MED GEN ([facility] medications (procedure) 12:00:00 AM EDT Mary Grace delgado PC) Documentation of current 01/13/2019 MED GEN ([facility] medications (procedure) 12:00:00 AM EDT Mary Grace delgado PC) Documentation of current 01/13/2019 MED GEN ([facility] medications (procedure) 12:00:00 AM EDT Mary Grace delgado PC) Documentation of current 01/13/2019 MED GEN ([facility] medications (procedure) 12:00:00 AM EDT Mary Grace delgado PC) Documentation of current 01/13/2019 MED GEN ([facility] medications (procedure) 12:00:00 AM EDT edical, ) Documentation of current 01/13/2019 MED GEN ([facility] medications (procedure) 12:00:00 AM EDT edical, ) Documentation of current 01/13/2019 [facility] ([facility] of current 01/13/2019 MED GEN ([facility]fe[facility] medications (procedure) 12:00:00 AM EDT [facility], ) Documentation of current 01/13/2019 MED GEN ([facility] medications (procedure) 12:00:[facility] Documentation of current 01/13/2019 MED GEN ([facility] medications (procedure) 12:00:00 AM EDT [facility], ) Documentation of current 01/13/2019 MED GEN ([facility] medications (procedure) 12:00:00 AM EDT [facility], ) OFFICE OUTPATIENT VISIT 01/13/2019 MEDG EN ([facility] 25 MINUTES 12:00:00 AM EDT [facility], ) Results ID Date Data Source [id number] 02/04/2020 05:58:00 PM EDT [facility] Name Value Range Interpretation Code Description Data Hetal rce(s) Supporting Document(s ) SARS-COV-2 [facility] QL ALIZA+PROBE This lab was ordered by DEWEY greene nd reported by [facility]. 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 Smoking 12/01/2019 Unknown if ever completed Unknown if ever MEDG EN (St 12:00:00 AM EDT smoked lisa Leal Oh dical, ) Vital Signs ID Date Data Source UNK Name Value Range Interpretation Code Description Data Source(s) Heart rate 69 /min 69 /min MEDGEN ([facility] , ) Respiratory rate 15 /min 15 /min MEDGEN ( [facility] , ) Body temperature 98.2 F 98.2 F MEDGEN ( [facility] , ) Inhaled oxygen 98 % 98 % MEDGEN ([facility], ) Body mass index 25.2 kg/m2 25.2 kg/m2 MEDGEN (S t (BMI) [Ratio] [facility] [place] [place], ) Diastolic blood 75 mm[Hg] 75 mm[Hg] MEDGEN ([facility] , ) Systolic blood 128 mm[Hg] 128 mm[Hg] MEDGEN ([facility] , ) Body weight 138 lb 138 lb MEDGEN ([facility] , ) Body height 62 in 62 in MEDGEN ([facility] , ) Heart rate 69 /min 69 /min MEDGEN ([facility] , ) Respiratory rate 15 /min 15 /min MEDGEN ( [facility] , ) Body temperature 98.2 F 98.2 F MEDGEN ( [facility] , ) Inhaled oxygen 98 % 98 % MEDGEN ([facility], ) Body mass index 25.2 kg/m2 25.2 kg/m2 MEDGEN (S t (BMI) [Ratio] [facility] [place] [place], ) Diastolic blood 75 mm[Hg] 75 mm[Hg] MEDGEN (S t pressure [facility] , ) Systolic blood 128 mm[Hg] 128 mm[Hg] MEDGEN ([facility] , ) Body weight 138 lb 138 lb MEDGEN ([facility] , ) Body height 62 in 62 in MEDGEN ([facility] , ) Heart rate 66 /min 66 /min MEDGEN ([facility] , ) Respiratory rate 16 /min 16 /min MEDGEN ( [facility] , ) Body temperature 98 F 98 F MEDGEN ( [facility] , ) Inhaled oxygen 100 % 100 % MEDGEN ([facility], ) Body mass index 24.1 kg/m2 24.1 kg/m2 MEDGEN (S t (BMI) [Ratio] [facility] [place] [place], ) Diastolic blood 88 mm[Hg] 88 mm[Hg] MEDGEN (S t pressure [facility]) Systolic blood 148 mm[Hg] 148 mm[Hg] MEDGEN ([facility] , ) Body weight 132 lb 132 lb MEDGEN ([facility]) Body height 62 in 62 in MEDGEN ([facility]) Diastolic blood 88 mm[Hg] 88 mm[Hg] MEDGEN (S t pressure [facility]) Systolic blood 148 mm[Hg] 148 mm[Hg] MEDGEN (St [facility]) Body weight 132 lb 132 lb MEDGEN ([facility]) Body height 62 in 62 in MEDGEN ([facility]) Heart rate 66 /min 66 /min MEDGEN ([facility]) Respiratory rate 16 /min 16 /min MEDGEN ( [facility]) Body temperature 98 F 98 F MEDGEN ( [facility]) Inhaled oxygen 100 % 100 % MEDGEN ([facility], ) Body mass index 24.1 kg/m2 24.1 kg/m2 MEDGEN (S t (BMI) [Ratio] [facility] [place] [place], ) Heart rate 70 /min 70 /min MEDGEN ([facility]) Respiratory rate 14 /min 14 /min MEDGEN ( [facility]) Body temperature 97.9 F 97.9 F MEDGEN ( [facility]) Body mass index 24 kg/m2 24 kg/m2 MEDGEN (S t (BMI) [Ratio] [facility] [place] [place], ) Diastolic blood 90 mm[Hg] 90 mm[Hg] MEDGEN (S t pressure [facility]) Systolic blood 132 mm[Hg] 132 mm[Hg] MEDGEN ([facility]) Body weight 131 lb 131 lb MEDGEN ([facility]) Body height 62 in 62 in MEDGEN ([facility]) Heart rate 70 /min 70 /min MEDGEN ([facility]) Respiratory rate 14 /min 14 /min [facility] ( [facility]) Body temperature 97.9 F 97.9 F [facility] ( [facility]) Body mass index 24 kg/m2 24 kg/m2 [facility] ([facility] (BMI) [Ratio] [facility] Diastolic blood 90 mm[Hg] 90 mm[Hg] [facility] (S t pressure [facility]) Systolic blood 132 mm[Hg] 132 mm[Hg] [facility] ([facility]) Body weight 131 lb 131 lb [facility] ([facility]) Body height 62 in 62 in [facility] ([facility])
--- NOTE | 2020-02-12 23:32 | PDOC ---
History of Present Illness - General History Source: Patient Exam Limitations: No Limitations - History of Present Illness Initial Comments: 02/12/20 23:28 59y F with PMH of HTN, HLD, Bronchitis presenting to the ER for cough. Pt has been coughing for around 8 weeks now and it has not gone away. Pt has seen her pmd multiple times. She was given a Zpack and prednisone last month which helped but the cough returned and pt was given a 6d course of prednisone again. Cough was productive of yellow sputum which is white now. She has been using an albuterol inhaler which does not help as much and says she is also using Flonase. Her pmd also gave her a cough syrup and Tessalon Perles. She has been tested for COVID multiple times and it has been negative. She states she gets this cough every year due to the cold weather. Denies smoking history, chest p ain, fever, chills, orthopnea, leg swelling, weight gain. PMD: Fader PMH: see hpi PSH: Meds: irbesartan, simvastatin, pantoprazole, ondasetron Allergies: see allergy list <Caity Hsu - Last Filed: 02/13/20 04:58> <Zoe Bills - Last Filed: 02/13/20 06:33> - General Chief Complaint: Cold Symptoms Stated Complaint: BRONCHITIS Time Seen by Provider: 02/12/20 23:11 Attending Attestation - Resident Resident Name: Caity Hsu - ED Attending Attestation I have performed the following: I have examined & evaluated the patient, The case was reviewed & discussed with the resident, I agree w/resident's findings & plan - HPI HPI: 02/13/20 06:32 Pt comes with cough - Physicial Exam PE: 02/13/20 06:32 Agree with resident exam - Medical Decision Making 02/13/20 06:32 CXR normal. Pt stable for d/c home 02/13/20 06:33 Pt stable to go home. NO need for treatment at this time. Pt reassured. This is not consistent with COVID <Zoe Bills - Last Filed: 02/13/20 06:33> Past History - Medical History Anemia: No Asthma: Yes (bronchitis) Cancer: No Cardiac Disorders: No CVA: No COPD: No CHF: No DVT: No Dementia: No Diabetes: No GI Disorders: Yes (sbo,ACID REFLUX) Disorders: No HTN: Yes (BORDERLINE) Hypercholesterolemia: Yes Liver Disease: No Seizures: No Thyroid Disease: No - Surgical History Abdominal Surgery: Yes (small bowel obstruction SURGERY) Appendectomy: (EGD,COLONOSCOPY) Cardiac Surgery: No Cholecystectomy: No Lung Surgery: No Neurologic Surgery: Yes (spinal surgery, SEVERAL,SPINAL FUSON 12/03/18) Orthopedic Surgery: Yes (Cervical Fusion x3-last one 12/03/17) - Immunization History Immunization Up to Date: Yes - Psycho-Social/Smoking History Smoking Status: No Smoking History: Never smoked Have you smoked in the past 12 months: No Number of Cigarettes Smoked Daily: 0 'Breaking Loose' booklet given: 02/14/18 - Substance Abuse Hx (Audit-C & DAST Scrn) How often the patient has a drink containing alcohol: Never Score: In Men: 4 or > Positive; In Women: 3 or > Positive: 0 Screen Result (Pos requires Nsg. Audit-10AR): Negative <Caity Hsu - Last Filed: 02/13/20 04:58> <Zoe Bills - Last Filed: 02/13/20 06:33> - Medical History Allergies/Adverse Reactions: Allergies Allergy/AdvReac Type Severity Reaction Status Date / Time clindamycin Allergy Severe Rash Verified 01/22/19 12:57 erythromycin base Allergy Severe Vomiting Verified 01/22/19 12:57 metronidazole Allergy Severe Vomiting Verified 01/22/19 12:57 oxycodone Allergy Severe VOMITING-IT Verified 01/22/19 12:57 CH aspirin Allergy Intermediate Hives Verified 01/22/19 12:57 duloxetine Allergy Intermediate Nausea Verified 01/22/19 12:57 gabapentin Allergy Intermediate Rash Verified 01/22/19 12:57 hydromorphone [From Dilaudid] Allergy Intermediate Vomiting Verified 01/22/19 12:57 ibuprofen Allergy Intermediate vomitting Verified 01/22/19 12:57 tizanidine Allergy Intermediate Nausea Verified 01/22/19 12:57 ketorolac tromethamine Allergy ITCHING, Verified 01/22/19 12:57 [From Toradol] VOMITING lactose Allergy Verified 01/22/19 12:57 morphine Allergy Hives Verified 01/22/19 12:57 Penicillins Allergy Hives Verified 01/22/19 12:57 Shellfish Allergy Hives Verified 01/22/19 12:57 UNKNOWN IV MED GIVEN IN Allergy Severe Hives Uncoded 01/22/19 12:57 HOSPITAL onions Allergy Hives Uncoded 01/22/19 12:57 seasoning Allergy Hives Uncoded 01/22/19 12:57 iv dye AdvReac Severe Uncoded 01/22/19 12:57 Home Medications: Ambulatory Orders Estrogens, Conjugated [Premarin] 0.625 mg PO HS 01/02/17 Simvastatin 10 mg PO HS 09/19/17 Losartan Potassium 50 mg PO DAILY 10/31/17 Acetaminophen [Tylenol] 650 mg PO PRN 08/16/18 Diphenhydramine HCl [Benadryl Capsule -] 25 mg PO Q6H PRN 08/16/18 Albuterol Sulfate Inhaler - [Ventolin HFA Inhaler -] 1 - 2 inh PO Q4H PRN 01/31/19 Cholecalciferol (Vitamin D3) [Vitamin D3] 1,000 unit PO DAILY 01/31/19 Fluticasone Prop 0.05% Nasal [Flonase -] 1 - 2 spray NS DAILY PRN 01/31/19 Pantoprazole Sodium [Protonix] 40 mg PO DAILY 01/31/19 Docusate Sodium [Colace -] 100 mg PO TID #90 capsule 02/08/19 FENTANYL 50mcg PATCH [DURAGESIC 50 mcg PATCH -] 1 patch TD Q72H #5 patch.td72 MDD 1 patch 02/08/19 Ondansetron HCl [Zofran] 4 mg PO TID PRN #15 tab 02/08/19 Polyethylene Glycol 3350 [Miralax 119 gm Btl -] 17 gm PO BID PRN #6 bottle 02/08/19 Respiratory Specific PMHX - Complaint Specific PMHX Hx Bronchitis: No Hx Pneumonia: No Hx Pulmonary Embolus: No Hx TB (Tuberculosis): No <Caity sHu - Last Filed: 02/13/20 04:58> Review of Systems - Review of Systems Constitutional: No: Chills, Fever, Malaise HEENTM: Yes: Nose Congestion Respiratory: Yes: Cough. No: Shortness of Breath, SOB with Exertion, Stridor Cardiac (ROS): No: Symptoms Reported ABD/GI: No: Symptoms Reported Musculoskeletal: No: Symptoms Reported Integumentary: No: Symptoms Reported Neurological: No: Symptoms reported <Caity Hsu - Last Filed: 02/13/20 04:58> *Physical Exam - Vital Signs Last Vital Signs Temp Pulse Resp BP Pulse Ox 97.8 F 78 20 133/91 100 02/12/20 21:55 02/12/20 21:55 02/12/20 21:55 02/12/20 21:55 02/12/20 21:55 - Physical Exam General Appearance: Yes: Nourished, Appropriately Dressed, Other (walking around in vertical area). No: Apparent Distress HEENT: positive: EOMI, STARR, Other (swollen nasal turbinates without mucoid discharge). negative: Sinus Tenderness Neck: positive: Trachea midline, Supple. negative: Lymphadenopathy (R), Lymphadenopathy (L) Respiratory/Chest: positive: Lungs Clear, Normal Breath Sounds. negative: Crackles, Rales, Rhonchi, Stridor, Wheezing, Other Cardiovascular: positive: Regular Rhythm, Regular Rate, S1, S2. negative: Edema, JVD, Murmur Vascular Pulses: Dorsalis-Pedis (R): 2+, Doralis-Pedis (L): 2+ Gastrointestinal/Abdominal: positive: Normal Bowel Sounds, Soft. negative: Tender Musculoskeletal: negative: CVA Tenderness Extremity: positive: Normal Capillary Refill. 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 NML intact, Fully Oriented, Alert, Normal Mood/Affect, Normal Response, Motor Strength 5/5 <Caity Hsu - Last Filed: 02/13/20 04:58> - Vital Signs Last Vital Signs Temp Pulse Resp BP Pulse Ox 97.8 F 78 20 133/91 100 02/12/20 21:55 02/12/20 21:55 02/12/20 21:55 02/12/20 21:55 02/12/20 21:55 <Zoe Bills - Last Filed: 02/13/20 06:33> ED Treatment Course - RADIOLOGY Radiology Studies Ordered: Category Date Time Status CHEST PA & LAT [RAD] Stat Radiology 02/12/20 23:25 Ordered <Caity Hsu - Last Filed: 02/13/20 04:58> - Medications Given in the ED: ED Medications Discontinued Medications Generic Name Dose Route Start Last Admin Trade Name Brendan PRN Reason Stop Dose Admin Dexamethasone Sodium Phosphate 10 mg 02/12/20 23:51 02/13/20 00:06 Decadron Injection - PO 02/12/20 23:52 10 mg ONCE ONE Administration <Zoe Bills - Last Filed: 02/13/20 06:33> Medical Decision Making - Medical Decision Making 02/12/20 23:31 59y F with pmh of htn, hld, bronchitis presenting to ER for cough x2 months. vitals wnl exam: pt having dry cough. normal breath sounds, otherwise normal exam. ddx includes pna, bronchitis Do not suspect BLAYNE-I cough, chf, acs, pe pt is not toxic, no respiratory distress, speaking full sentences and ambulatory. does not require labs at this time. -cxr 02/13/20 04:59 xray negative for infiltrates or consolidations. given nature of bronchitis, will give decadron po. discussed results and diagnosis with pt. advised to f/u with pmd. pt agrees with plan. hemodynamically stable, safe for dc home. <Caity Hsu - Last Filed: 02/13/20 04:58> Discharge - Discharge Information Problems reviewed: Yes - Admission No <Caity Hsu - Last Filed: 02/13/20 04:58> <Zoe Bills - Last Filed: 02/13/20 06:33> - Discharge Information Clinical Impression/Diagnosis: Cough Condition: Good Disposition: HOME - Follow up/Referral Referrals: Montez Andino MD [Staff Physician] - - Patient Discharge Instructions Patient Printed Discharge Instructions: DI for Cough -- Adult Additional Instructions: You were seen in the ER for cough. The xray does not show a pneumonia or any excess fluid. The coughing is likely due to bronchitis, irritation of the lining of the trachea. You were given Decadron which should cover you for 72 hours. Please follow up with your PMD. Take your medications as directed. Come back to the ER if you have worsening cough, have fever, have difficulty breathing, have worsening chest pain. Thank you
[2020-02-12] MEDS ORDERED: DEXAMETHASONE SOD PHOSPHATE 10 MG/1 ML VIAL PO ONE (23:51)
[2020-02-12] MEDS ORDERED: DEXAMETHASONE SOD PHOSPHATE 10 MG/1 ML VIAL ONE (23:58)
== END 2020-02-13 00:11 | disposition home or self-care (01) ==
LOC: JER 21:47
DX: R05 Cough (principal)
CPT/HCPCS: 71046-TC-FY; 99284-25; J1100

== ENCOUNTER 2020-05-23 09:55 | Day surgery (SDC) | payer OTHER ==
[2020-05-17 15:18] VITALS: BMI 23.3
[2020-05-23] MEDS ORDERED: ONDANSETRON *ODT* 4 MG TABLET ONE (14:42)
[2020-05-23] MEDS ORDERED: PANTOPRAZOLE 40 MG TABLET ONE (14:48)
[2020-05-23 14:52] VITALS: TEMP 98.4
[2020-05-23 15:46] VITALS: BP 114/73; PULSE 71
== END 2020-05-23 15:47 | disposition home or self-care (01) ==
LOC: FASU 09:55 → FASU-ENDO 09:55
PROVIDERS: ATTEND Internal Medicine Gastroenterology
PROC: 0DB68ZX Excision of Stomach, Via Natural or Artificial Opening Endoscopic, Diagnostic (ICD-10-PCS; 2020-05-23)
PROC: 0DB48ZX Excision of Esophagogastric Junction, Via Natural or Artificial Opening Endoscopic, Diagnostic (ICD-10-PCS; 2020-05-23)
PROC: 0DB98ZX Excision of Duodenum, Via Natural or Artificial Opening Endoscopic, Diagnostic (ICD-10-PCS; principal; 2020-05-23 13:46)
DX: K29.50 Unspecified chronic gastritis without bleeding (principal); R10.13 Epigastric pain; R05 Cough
CPT/HCPCS: Q0162

== ENCOUNTER 2021-02-28 15:17 | Inpatient (IN) | payer OTHER ==
[2021-02-26 16:26] VITALS: BMI 23.9
[2021-02-28] MEDS: DOCUSATE SODIUM 100 MG CAPSULE (FP) PO SCH ×2 (14:00→21:48)
[~2021-02-28 15:17] MED LIST changes: -ACETAMINOPHEN 1000 MG/100 ML VIAL (NON FORMULARY) IVPB ONE; +ALBUTEROL SO4 HFA INHALER IH PRN; +BACITRACIN 15 GM TUBE TOPICAL OINTMENT ONE; +BUPIVACAINE HCL/PF 0.5% (5MG/ML) 10 ML VIAL IJ ONE; +BUPIVACAINE HCL/PF 0.5% (5MG/ML) 10 ML VIAL ONE; +BUPIVACAINE LIPOSOME/PF (EXPAREL) 266 MG/20 ML VIAL NR ONE; +BUPIVACAINE LIPOSOME/PF (EXPAREL) 266 MG/20 ML VIAL ONE; +DEXMEDETOMIDINE HCL 200 MCG/2 ML IVPB ONE; +ERYTHROMYCIN BASE 250 MG TAB PO SCH; +GENTAMICIN SO4 80 MG/2 ML VIAL IVPB ONE; +GENTAMICIN SO4 80 MG/2 ML VIAL ONE; +GLYCOPYRROLATE 0.2 MG/1 ML VIAL ONE; +KETAMINE HCL 200 MG/20 ML VIAL ONE; +LIDOCAINE 1%/EPI 1:100000 (20 ML MULTI DOSE VIAL) IJ ONE; +LIDOCAINE 1%/EPI 1:100000 (20 ML MULTI DOSE VIAL) ONE; +LIDOCAINE HCL/PF 2% SDV 5ML VIAL ONE; +MIDAZOLAM HCL 2 MG/2 ML SINGLE DOSE VIAL ONE; +NEOSTIGMINE METHYLSULFATE 0.5 MG/1 ML - 10 ML MDV ONE; +ONDANSETRON 4 MG TABLET PO PRN; -ONDANSETRON 4 MG/2 ML VIAL IVPUSH ONE; -ONDANSETRON 4 MG/2 ML VIAL ONE; +PANTOPRAZOLE 40 MG TABLET PO SCH; +PROMETHAZINE HCL 25 MG/1 ML VIAL IVPUSH PRN; +PROPOFOL 20 ML ONE; +ROCURONIUM BROMIDE 50 MG/5 ML SYRINGE ONE; -SODIUM CHLORIDE 1,000 ML IV STA; +SUCCINYLCHOLINE CHLORIDE 200 MG/10 ML SYRINGE ONE; +THROMBIN (BOVINE) 20,000 UNIT VIAL TP ONE; +THROMBIN (BOVINE) 5,000 UNIT VIAL TP ONE; +VANCOMYCIN 1,000 MG VIAL (RESTRICTED TO ID ONLY) IVPB ONE; +ceFAZolin SODIUM 1 GM VIAL IVPB ONE; +ePHEDrine SULFATE 50 MG/1 ML AMPULE ONE; +traMADol HCL 50 MG TABLET PO PRN
[2021-02-28] MEDS ORDERED: ALBUTEROL SO4 HFA INHALER IH PRN (15:18)
[2021-02-28] MEDS: LACTATED RINGERS SOLUTION 1,000 ML IV SCH (18:57)
[2021-02-28] MEDS: ONDANSETRON 4 MG/2 ML VIAL IVPUSH PRN (21:46)
[2021-02-28] MEDS: ATORVASTATIN CA 10 MG TABLET (FP) PO SCH (21:48)
[2021-02-28] MEDS: ACETAMINOPHEN 500 MG TABLET (FP) PO PRN (23:48)
[2021-02-28] MEDS: diphenhydrAMINE HCL 25 MG CAPSULE (FP) PO PRN (23:54)
[2021-03-01] MEDS ORDERED: ACETAMINOPHEN 1000 MG/100 ML VIAL IVPB ONE (00:17)
[2021-03-01] MEDS: BENZOCAINE/MENTH/CETYLPYRD CL 1 EACH LOZENGE MM PRN ×3 (01:03→14:18)
[2021-03-01] MEDS: LACTATED RINGERS SOLUTION 1,000 ML IV SCH ×3 (02:17→13:41)
[2021-03-01] MEDS: ACETAMINOPHEN 500 MG TABLET (FP) PO PRN (05:11)
[2021-03-01] MEDS: DOCUSATE SODIUM 100 MG CAPSULE (FP) PO SCH ×3 (05:11→20:59)
[2021-03-01] MEDS: ONDANSETRON 4 MG/2 ML VIAL IVPUSH PRN ×3 (06:39→20:43)
[2021-03-01 08:37] LABS: HEMATOCRIT 31.3 % (32.4-45.2); HEMOGLOBIN 10.5 GM/dL (10.7-15.3); MCH 30.8 pg (25.7-33.7); MCHC 33.6 g/dl (32.0-36.0); MEAN CELL VOLUME 91.8 fl (80-96); MEAN PLT VOLUME 7.8 fl (7.5-11.1); PLATELET COUNT 202 10^3/uL (134-434); RBC 3.41 M/mm3 (3.60-5.2); RDW 13.5 % (11.6-15.6); WHITE BLOOD COUNT 10.1 K/mm3 (4.0-10.0)
[2021-03-01 09:22] LABS: BLOOD UREA NITROGEN 8.7 mg/dL (7-18)
[2021-03-01 09:25] LABS: CREATININE 0.8 mg/dL (0.55-1.3)
[2021-03-01 09:29] LABS: CALCIUM 7.9 mg/dL (8.5-10.1)
[2021-03-01] MEDS ORDERED: LIDOCAINE 5% TOPICAL PATCH TP PRN (09:29)
[2021-03-01] MEDS ORDERED: PT OWN MED DRAWER 7, Y5N ONE ×5 (09:46→15:54)
[2021-03-01] MEDS: PANTOPRAZOLE 40 MG TABLET PO SCH ×2 (09:52→11:41)
[2021-03-01] MEDS: ACETAMINOPHEN 1000 MG/100 ML VIAL IVPB SCH ×2 (09:52→15:58)
[2021-03-01] MEDS: FERROUS SO4 325 MG TABLET (FP) PO SCH (09:56)
[2021-03-01] MEDS: CHOLECALCIFEROL (VIT D3) 1,000 UNIT (25 MCG) TABLET PO SCH (09:56)
[2021-03-01] MEDS: HEPARIN NA (PORCINE) 5,000 UNITS/ML 1ML VIAL SQ SCH ×2 (09:56→18:00)
[2021-03-01] MEDS: FOLIC ACID 1 MG TABLET (FP) PO SCH (09:56)
[2021-03-01] MEDS: LOSARTAN POTASSIUM 50 MG TABLET PO SCH (09:59)
[2021-03-01] MEDS ORDERED: PANTOPRAZOLE 40 MG TABLET PO SCH (10:00)
[2021-03-01] MEDS ORDERED: VITAMIN E MIXED 1000 UNIT PO SCH ×2 (10:00)
[2021-03-01] MEDS ORDERED: DICLOFENAC SODIUM 25 MG TABLET.DR PO SCH (10:00)
[2021-03-01] MEDS ORDERED: [UNRECOGNIZED DRUG - OTHER] PO SCH ×2 (10:00)
[2021-03-01] MEDS: ERYTHROMYCIN BASE 250 MG TAB PO SCH ×2 (11:42→14:10)
[2021-03-01] MEDS: diphenhydrAMINE HCL 25 MG CAPSULE (FP) PO PRN ×2 (14:11→20:58)
[2021-03-01] MEDS: ACETAMINOPHEN/CAFFEINE/BUTALBITAL 1 TAB PO PRN (20:45)
[2021-03-01] MEDS: ATORVASTATIN CA 10 MG TABLET (FP) PO SCH (20:59)
[2021-03-01] MEDS ORDERED: LIDOCAINE PATCH REMOVAL MC SCH (22:00)
[2021-03-01] MEDS ORDERED: ACETAMINOPHEN 1000 MG/100 ML VIAL IVPB PRN (22:00)
[2021-03-02] MEDS: diphenhydrAMINE HCL 25 MG CAPSULE (FP) PO PRN ×2 (01:31→11:32)
[2021-03-02] MEDS: HEPARIN NA (PORCINE) 5,000 UNITS/ML 1ML VIAL SQ SCH ×2 (01:33→09:37)
[2021-03-02] MEDS: LACTATED RINGERS SOLUTION 1,000 ML IV SCH ×2 (04:35→17:36)
[2021-03-02] MEDS: ACETAMINOPHEN/CAFFEINE/BUTALBITAL 1 TAB PO PRN (06:35)
[2021-03-02] MEDS: DOCUSATE SODIUM 100 MG CAPSULE (FP) PO SCH (06:39)
[2021-03-02] MEDS: ONDANSETRON 4 MG/2 ML VIAL IVPUSH PRN ×2 (06:39→12:35)
[2021-03-02 08:22] LABS: BASO % 0.3 % (0-2.0); EOS % 1.2 % (0-4.5); HEMATOCRIT 31.1 % (32.4-45.2); HEMOGLOBIN 10.3 GM/dL (10.7-15.3); LYMPH % 22.4 % (8-40); MCH 30.6 pg (25.7-33.7); MCHC 33.2 g/dl (32.0-36.0); MEAN CELL VOLUME 92.3 fl (80-96); MONO % 5.8 % (3.8-10.2); NEUT % 70.3 % (42.8-82.8); PLATELET COUNT 223 10^3/uL (134-434); RBC 3.36 M/mm3 (3.60-5.2); RDW 13.4 % (11.6-15.6); WHITE BLOOD COUNT 8.2 K/mm3 (4.0-10.0)
[2021-03-02 08:49] LABS: CALCIUM 8.2 mg/dL (8.5-10.1)
[2021-03-02 08:50] LABS: BLOOD UREA NITROGEN 8.7 mg/dL (7-18)
[2021-03-02 08:53] LABS: CREATININE 0.9 mg/dL (0.55-1.3)
[2021-03-02 08:54] LABS: BILIRUBIN,TOTAL 0.4 mg/dL (0.2-1)
[2021-03-02 08:58] LABS: ALBUMIN 2.9 g/dl (3.4-5.0)
[2021-03-02] MEDS: FERROUS SO4 325 MG TABLET (FP) PO SCH (09:35)
[2021-03-02] MEDS: CHOLECALCIFEROL (VIT D3) 1,000 UNIT (25 MCG) TABLET PO SCH (09:35)
[2021-03-02] MEDS: PANTOPRAZOLE 40 MG TABLET PO SCH (09:35)
[2021-03-02] MEDS: LOSARTAN POTASSIUM 50 MG TABLET PO SCH (09:36)
[2021-03-02] MEDS: FOLIC ACID 1 MG TABLET (FP) PO SCH (09:36)
[2021-03-02] MEDS ORDERED: ERYTHROMYCIN BASE 250 MG TAB PO SCH (10:00)
[2021-03-02] MEDS ORDERED: ACETAMINOPHEN/CAFFEINE/BUTALBITAL 1 TAB PO ONE (11:36)
[2021-03-02 13:32] VITALS: BP 130/62; PULSE 60; TEMP 98
== END 2021-03-02 17:30 | disposition home or self-care (01) | DRG 29 ==
LOC: SUATTDRO 15:17 → JASUSAT 15:17 → J8W 18:29 → JASUSAT 18:29 → J8W 18:40 → JASUSAT 03-01 00:17 → J8W 03-01 00:17
PROVIDERS: ADMIT Internal Medicine; ATTEND Nurse Practitioner Family
PROC: 0RP104Z Removal of Internal Fixation Device from Cervical Vertebral Joint, Open Approach (ICD-10-PCS; 2021-02-28)
PROC: 0RP404Z Removal of Internal Fixation Device from Cervicothoracic Vertebral Joint, Open Approach (ICD-10-PCS; 2021-02-28)
PROC: 00JU0ZZ Inspection of Spinal Canal, Open Approach (ICD-10-PCS; 2021-02-28)
PROC: 00QT0ZZ Repair Spinal Meninges, Open Approach (ICD-10-PCS; 2021-02-28)
PROC: 01N10ZZ Release Cervical Nerve, Open Approach (ICD-10-PCS; 2021-02-28)
PROC: 01N80ZZ Release Thoracic Nerve, Open Approach (ICD-10-PCS; 2021-02-28)
PROC: 4A11X4G Monitoring of Peripheral Nervous Electrical Activity, Intraoperative, External Approach (ICD-10-PCS; 2021-02-28)
PROC: 00HV0MZ Insertion of Neurostimulator Lead into Spinal Cord, Open Approach (ICD-10-PCS; principal; 2021-02-28 09:00)
PROC: 0JH70MZ Insertion of Stimulator Generator into Back Subcutaneous Tissue and Fascia, Open Approach (ICD-10-PCS; 2021-02-28 09:00)
DX: M54.12 Radiculopathy, cervical region (principal); G97.41 Accidental puncture or laceration of dura during a procedure; K21.9 Gastro-esophageal reflux disease without esophagitis; I10 Essential (primary) hypertension; E78.5 Hyperlipidemia, unspecified; J44.9 Chronic obstructive pulmonary disease, unspecified; D64.9 Anemia, unspecified; F41.9 Anxiety disorder, unspecified; R51.9 Headache, unspecified; M54.2 Cervicalgia; Y65.8 Other specified misadventures during surgical and medical care
CPT/HCPCS: 36415; 71045-TC-FY; 76000-TC-FY; 80048; 80053; 81003; 85025; 85027; 85610; 86850; 86900; 86901; 93005; 93010; 94760; 97116-GP; 97162-GP; C9803; J0131; J1644; U0003; U0005

== ENCOUNTER 2021-03-17 20:02 | Observation (INO) | payer OTHER ==
[2021-03-17 20:26] VITALS: BMI 23.0
[2021-03-17] MEDS ORDERED: ONDANSETRON 4 MG/2 ML VIAL IVPUSH ONE (21:23)
[2021-03-17 21:24] LABS: BASO % 1.3 % (0-2.0); EOS % 2.9 % (0-4.5); HEMATOCRIT 34.4 % (32.4-45.2); HEMOGLOBIN 11.4 GM/dL (10.7-15.3); LYMPH % 32.1 % (8-40); MCH 30.9 pg (25.7-33.7); MCHC 33.2 g/dl (32.0-36.0); MEAN CELL VOLUME 93.1 fl (80-96); MEAN PLT VOLUME 7.2 fl (7.5-11.1); MONO % 7.9 % (3.8-10.2); NEUT % 55.8 % (42.8-82.8); PLATELET COUNT 361 10^3/uL (134-434); RBC 3.69 M/mm3 (3.60-5.2); RDW 13.9 % (11.6-15.6); WHITE BLOOD COUNT 4.6 K/mm3 (4.0-10.0)
[2021-03-17] MEDS ORDERED: ONDANSETRON 4 MG/2 ML VIAL ONE (21:24)
[2021-03-17 21:44] LABS: ALBUMIN 3.6 g/dl (3.4-5.0); BLOOD UREA NITROGEN 15.2 mg/dL (7-18); CALCIUM 9.1 mg/dL (8.5-10.1)
[2021-03-17 21:47] LABS: CREATININE 1.1 mg/dL (0.55-1.3)
[2021-03-17 21:49] LABS: BILIRUBIN,TOTAL 0.2 mg/dL (0.2-1); TOT PROT 7.5 g/dl (6.4-8.2)
[2021-03-17] MEDS ORDERED: ACETAMINOPHEN 1000 MG/100 ML VIAL IVPB ONE (22:34)
[2021-03-17] MEDS ORDERED: ACETAMINOPHEN INJECTION 100 ML IVPB ONE (22:36)
[2021-03-18] MEDS ORDERED: LORazepam 2 MG/ML SDV VIAL IVPUSH ONE (01:46)
[2021-03-18] MEDS ORDERED: LORazepam 2 MG/ML SDV VIAL ONE (01:53)
[2021-03-18] MEDS ORDERED: LIDOCAINE 5% TOPICAL PATCH TP ONE (02:30)
[2021-03-18] MEDS ORDERED: ACETAMINOPHEN 1000 MG/100 ML VIAL IVPB ONE (02:31)
[2021-03-18] MEDS ORDERED: OLANZapine 2.5 MG TABLET PO ONE (05:09)
[2021-03-18] MEDS ORDERED: ONDANSETRON 4 MG/2 ML VIAL ONE (06:27)
[2021-03-18] MEDS: ONDANSETRON 4 MG/2 ML VIAL IVPB PRN ×2 (06:33→12:38)
[2021-03-18] MEDS: ACETAMINOPHEN/CAFFEINE/BUTALBITAL 1 TAB PO PRN ×4 (07:59→22:09)
[2021-03-18] MEDS ORDERED: diphenhydrAMINE HCL 25 MG CAPSULE (FP) PO ONE ×2 (13:23→21:43)
[2021-03-18] MEDS ORDERED: ONDANSETRON *ODT* 4 MG TABLET SL ONE (15:45)
[2021-03-18] MEDS ORDERED: ONDANSETRON 4 MG TABLET PO ONE ×2 (16:15→21:43)
[2021-03-18] MEDS: LIDOCAINE PATCH REMOVAL MC SCH (22:14)
[2021-03-19] MEDS: ACETAMINOPHEN/CAFFEINE/BUTALBITAL 1 TAB PO PRN ×3 (03:03→22:45)
[2021-03-19] MEDS ORDERED: diphenhydrAMINE HCL 25 MG CAPSULE (FP) PO ONE (03:36)
[2021-03-19] MEDS ORDERED: ONDANSETRON 4 MG TABLET PO ONE (03:36)
[2021-03-19 15:00] LABS: ALBUMIN 3.5 g/dl (3.4-5.0); BLOOD UREA NITROGEN 12.8 mg/dL (7-18); CALCIUM 8.8 mg/dL (8.5-10.1)
[2021-03-19 15:05] LABS: BILIRUBIN,TOTAL 0.7 mg/dL (0.2-1); TOT PROT 7.4 g/dl (6.4-8.2)
[2021-03-19] MEDS ORDERED: TRIMETHOBENZAMIDE HCL 300 MG CAPSULE PO PRN (16:05)
[2021-03-19] MEDS ORDERED: ONDANSETRON *ODT* 4 MG TABLET SL PRN (16:06)
[2021-03-19] MEDS ORDERED: PT OWN MED DRAWER 7, Y5N ONE (17:04)
[2021-03-19] MEDS: diphenhydrAMINE HCL 25 MG CAPSULE (FP) PO PRN (18:43)
[2021-03-19] MEDS: ONDANSETRON 4 MG TABLET PO PRN (19:40)
[2021-03-19] MEDS ORDERED: diphenhydrAMINE HCL 25 MG CAPSULE (FP) PO PRN (22:43)
[2021-03-19] MEDS: LIDOCAINE PATCH REMOVAL MC SCH (22:45)
[2021-03-20] MEDS: ONDANSETRON 4 MG TABLET PO PRN ×2 (05:46→17:41)
[2021-03-20] MEDS: ACETAMINOPHEN/CAFFEINE/BUTALBITAL 1 TAB PO PRN ×3 (05:50→21:50)
[2021-03-20] MEDS: diphenhydrAMINE HCL 25 MG CAPSULE (FP) PO PRN ×2 (05:51→17:41)
[2021-03-20] MEDS ORDERED: IRBESARTAN 150 MG PO SCH (21:00)
[2021-03-20] MEDS: LIDOCAINE PATCH REMOVAL MC SCH (21:44)
[2021-03-20] MEDS ORDERED: [UNRECOGNIZED DRUG - OTHER] PO SCH (22:00)
[2021-03-20] MEDS ORDERED: ESTROGENS CONJUGATED 0.9 MG PO SCH (22:00)
[2021-03-20] MEDS ORDERED: PATIENT'S OWN MEDICATION (NON-FORMULARY) (Simvastatin [Simvastatin] 10 MG Tablet) PO SCH (22:00)
[2021-03-21] MEDS ORDERED: PT OWN MED DRAWER 7, Y5N ONE (05:15)
[2021-03-21] MEDS: ACETAMINOPHEN/CAFFEINE/BUTALBITAL 1 TAB PO PRN (05:20)
[2021-03-21] MEDS: diphenhydrAMINE HCL 25 MG CAPSULE (FP) PO PRN (05:21)
[2021-03-21] MEDS: ONDANSETRON 4 MG TABLET PO PRN (05:22)
[2021-03-21 11:02] VITALS: TEMP 98.6
[2021-03-21 14:17] VITALS: BP 111/66; PULSE 72
== END 2021-03-21 17:40 | disposition home or self-care (01) ==
LOC: JER 20:02 → INTOOBSV 03-18 01:42 → JERBED 03-18 01:42 → J5S 03-18 06:52 → J6S 03-19 21:55
PROC: 3E033GC Introduction of Other Therapeutic Substance into Peripheral Vein, Percutaneous Approach (ICD-10-PCS; principal; 2021-03-18)
PROC: 3E033NZ Introduction of Analgesics, Hypnotics, Sedatives into Peripheral Vein, Percutaneous Approach (ICD-10-PCS; 2021-03-18)
DX: R51.9 Headache, unspecified (principal); M54.2 Cervicalgia; G89.29 Other chronic pain; K59.00 Constipation, unspecified; Z29.9 Encounter for prophylactic measures, unspecified; R11.0 Nausea; K22.70 Barrett's esophagus without dysplasia; F41.9 Anxiety disorder, unspecified; R42 Dizziness and giddiness; H92.09 Otalgia, unspecified ear; J44.9 Chronic obstructive pulmonary disease, unspecified; I10 Essential (primary) hypertension; E78.5 Hyperlipidemia, unspecified
CPT/HCPCS: 36415; 70450-TC; 72125-TC; 80053; 85025; 96374; 96375; 96376; 97116-GP; 97162-GP; 99285-25; C9803; G0378; J0131; U0003; U0005

== ENCOUNTER 2022-03-31 13:32 | Inpatient (IN) | payer OTHER ==
[2022-03-31 14:07] VITALS: BMI 26.5
[2022-03-31] MEDS ORDERED: guaiFENesin 200 MG/10 ML 10 ML UNIT-DOSE CUPS PO ONE (16:14)
[2022-03-31] MEDS ORDERED: guaiFENesin 200 MG/10 ML 10 ML UNIT-DOSE CUPS ONE (16:57)
[2022-03-31] MEDS ORDERED: ALBUTEROL SO4 2.5/IPRATROPIUM 0.5 INH SOL 3 ML VIAL.NEB. NEB ONE ×2 (17:25→23:35)
[2022-03-31] MEDS: ALBUTEROL SO4 2.5/IPRATROPIUM 0.5 INH SOL 3 ML VIAL.NEB. NEB SCH ×4 (17:35→18:14)
[2022-03-31 17:39] LABS: BASO % 0.5 % (0-2.0); EOS % 0.1 % (0-4.5); HEMATOCRIT 35.6 % (32.4-45.2); HEMOGLOBIN 11.6 GM/dL (10.7-15.3); LYMPH % 17.3 % (8-40); MCH 29.5 pg (25.7-33.7); MCHC 32.5 g/dl (32.0-36.0); MEAN CELL VOLUME 90.7 fl (80-96); MEAN PLT VOLUME 7.7 fl (7.5-11.1); MONO % 5.3 % (3.8-10.2); NEUT % 76.8 % (42.8-82.8); PLATELET COUNT 235 10^3/uL (134-434); RBC 3.93 M/mm3 (3.60-5.2); RDW 13.5 % (11.6-15.6); WHITE BLOOD COUNT 10.8 K/mm3 (4.0-10.0)
[2022-03-31 17:46] LABS: INR 1.07 (0.83-1.09); PROTHROMBIN TIME (PATIENT) 12.3 SEC (9.7-13.0)
[2022-03-31 17:49] LABS: ACTIVATED PTT 24.3 SECONDS (25.2-36.5)
[2022-03-31 17:58] LABS: CALCIUM 9.5 mg/dL (8.5-10.1)
[2022-03-31 17:59] LABS: ALBUMIN 3.8 g/dl (3.4-5.0); BLOOD UREA NITROGEN 21.1 mg/dL (7-18)
[2022-03-31] MEDS ORDERED: methylPREDNISolone NA SUCC 125 MG/2 ML VIAL IVPUSH ONE (18:00)
[2022-03-31] MEDS ORDERED: MAGNESIUM SULF 50% (8.12 MEQ/2 ML-1 GM VIAL) IVPB ONE (18:00)
[2022-03-31 18:03] LABS: BILIRUBIN,TOTAL 0.2 mg/dL (0.2-1)
[2022-03-31 18:04] LABS: TOT PROT 7.2 g/dl (6.4-8.2)
[2022-03-31 18:09] LABS: CREATININE 1.2 mg/dL (0.55-1.3)
[2022-03-31] MEDS ORDERED: methylPREDNISolone NA SUCC 125 MG/2 ML VIAL ONE (18:17)
[2022-03-31] MEDS ORDERED: MAGNESIUM SULFATE IN WATER 2 GM/50 ML IVPB IVPB ONE (18:17)
[2022-03-31] MEDS ORDERED: ACETAMINOPHEN 1000 MG/100 ML BAG IVPB ONE (18:37)
[2022-03-31] MEDS ORDERED: ONDANSETRON 4 MG/2 ML VIAL IVPUSH ONE (18:37)
[2022-03-31] MEDS ORDERED: ONDANSETRON 4 MG/2 ML VIAL ONE (20:45)
[2022-03-31] MEDS ORDERED: ACETAMINOPHEN INJECTION 100 ML IVPB ONE (20:45)
[2022-03-31] MEDS ORDERED: ACETAMINOPHEN 1000 MG/100 ML BAG IVPB PRN (21:56)
[2022-03-31] MEDS ORDERED: ALBUTEROL SO4 0.083% IH SOL 2.5 MG/3 ML VIAL.NEB. NEB PRN (21:57)
[2022-03-31] MEDS: MONTELUKAST NA 10 MG TABLET PO SCH (23:20)
[2022-03-31] MEDS: ATORVASTATIN CA 10 MG TABLET (FP) PO SCH (23:20)
[2022-03-31] MEDS ORDERED: BENZOCAINE/MENTH/CETYLPYRD CL 1 EACH LOZENGE MM ONE (23:24)
[2022-03-31] MEDS: BENZOCAINE/MENTH/CETYLPYRD CL 1 EACH LOZENGE MM PRN (23:25)
[2022-03-31] MEDS: BUDESONIDE/FORMETEROL FUMARATE 160/4.5 mcg INHALER IH SCH (23:34)
[2022-04-01] MEDS: ALBUTEROL SO4 2.5/IPRATROPIUM 0.5 INH SOL 3 ML VIAL.NEB. NEB SCH ×6 (00:15→19:58)
[2022-04-01] MEDS ORDERED: traMADol HCL 50 MG TABLET ONE (02:54)
[2022-04-01] MEDS ORDERED: ALBUTEROL SO4 2.5/IPRATROPIUM 0.5 INH SOL 3 ML VIAL.NEB. NEB ONE ×3 (02:54→11:53)
[2022-04-01] MEDS: traMADol HCL 50 MG TABLET PO ONE ×2 (02:55→03:06)
[2022-04-01] MEDS ORDERED: ACETAMINOPHEN INJECTION 100 ML IVPB ONE (03:08)
[2022-04-01] MEDS ORDERED: ONDANSETRON 4 MG/2 ML VIAL ONE ×2 (03:08→10:10)
[2022-04-01] MEDS: ONDANSETRON 4 MG/2 ML VIAL IVPUSH PRN ×2 (03:11→10:12)
[2022-04-01] MEDS ORDERED: SODIUM CHLORIDE 0.45% 1,000 ML IV SCH (03:30)
[2022-04-01] MEDS ORDERED: LIDOCAINE 5% TOPICAL PATCH ONE ×2 (03:43→12:04)
[2022-04-01] MEDS ORDERED: LIDOCAINE 5% TOPICAL PATCH TP ONE (04:00)
[2022-04-01 08:55] LABS: BASO % 0.2 % (0-2.0); HEMATOCRIT 34.4 % (32.4-45.2); HEMOGLOBIN 11.1 GM/dL (10.7-15.3); LYMPH % 8.4 % (8-40); MCH 29.7 pg (25.7-33.7); MCHC 32.3 g/dl (32.0-36.0); MEAN CELL VOLUME 91.9 fl (80-96); MEAN PLT VOLUME 8.4 fl (7.5-11.1); MONO % 0.8 % (3.8-10.2); NEUT % 90.6 % (42.8-82.8); PLATELET COUNT 209 10^3/uL (134-434); RBC 3.74 M/mm3 (3.60-5.2); RDW 13.6 % (11.6-15.6); WHITE BLOOD COUNT 10.5 K/mm3 (4.0-10.0)
[2022-04-01 09:17] LABS: ALBUMIN 3.4 g/dl (3.4-5.0); CALCIUM 8.9 mg/dL (8.5-10.1); MAGNESIUM 2.3 mg/dL (1.8-2.4)
[2022-04-01 09:19] LABS: BLOOD UREA NITROGEN 21.6 mg/dL (7-18)
[2022-04-01 09:20] LABS: CREATININE 1.1 mg/dL (0.55-1.3); PHOSPHOROUS 4.1 mg/dL (2.5-4.9)
[2022-04-01 09:22] LABS: BILIRUBIN,TOTAL 0.3 mg/dL (0.2-1); TOT PROT 6.7 g/dl (6.4-8.2)
[2022-04-01] MEDS ORDERED: predniSONE 20 MG TABLET (UD) PO SCH (10:00)
[2022-04-01] MEDS ORDERED: ENOXAPARIN NA (PORCINE) 40 MG/0.4 ML DISP.SYRIN SQ ONE (10:01)
[2022-04-01] MEDS ORDERED: LOSARTAN POTASSIUM 50 MG TABLET ONE (10:01)
[2022-04-01] MEDS ORDERED: PANTOPRAZOLE 40 MG TABLET PO ONE (10:01)
[2022-04-01] MEDS ORDERED: predniSONE 20 MG TABLET (UD) ONE (10:01)
[2022-04-01] MEDS: ENOXAPARIN NA (PORCINE) 40 MG/0.4 ML DISP.SYRIN SQ SCH (10:02)
[2022-04-01] MEDS: LOSARTAN POTASSIUM 50 MG TABLET PO SCH (10:02)
[2022-04-01] MEDS: PANTOPRAZOLE 40 MG TABLET PO SCH (10:03)
[2022-04-01] MEDS: BUDESONIDE/FORMETEROL FUMARATE 160/4.5 mcg INHALER IH SCH ×2 (10:03→21:54)
[2022-04-01] MEDS ORDERED: BENZOCAINE/MENTH/CETYLPYRD CL 1 EACH LOZENGE MM ONE (11:58)
[2022-04-01] MEDS: BENZOCAINE/MENTH/CETYLPYRD CL 1 EACH LOZENGE MM PRN (12:01)
[2022-04-01] MEDS ORDERED: guaiFENesin/D-METHORPHAN HB 10 ML UNIT-DOSE CUPS ONE (12:02)
[2022-04-01] MEDS ORDERED: methylPREDNISolone NA SUCC 40 MG/1 ML VIAL IVPUSH SCH (13:15)
[2022-04-01] MEDS: guaiFENesin 200 MG/10 ML 10 ML UNIT-DOSE CUPS PO PRN ×2 (14:00→19:59)
[2022-04-01] MEDS ORDERED: MAG HYDROX/AL HYDROX/SIMETH 30 ML UNIT-DOSE CUP PO PRN (15:12)
[2022-04-01] MEDS ORDERED: LIDOCAINE PATCH REMOVAL MC ONE (16:00)
[2022-04-01] MEDS: LIDOCAINE 5% TOPICAL PATCH TP SCH (18:08)
[2022-04-01] MEDS: predniSONE 20 MG TABLET (UD) PO SCH ×2 (18:08→21:54)
[2022-04-01] MEDS: ATORVASTATIN CA 10 MG TABLET (FP) PO SCH (21:54)
[2022-04-01] MEDS: MONTELUKAST NA 10 MG TABLET PO SCH (21:54)
[2022-04-02] MEDS: ALBUTEROL SO4 2.5/IPRATROPIUM 0.5 INH SOL 3 ML VIAL.NEB. NEB SCH ×7 (00:29→20:47)
[2022-04-02] MEDS: LIDOCAINE PATCH REMOVAL MC SCH (06:08)
[2022-04-02] MEDS: ONDANSETRON 4 MG/2 ML VIAL IVPUSH PRN ×3 (06:08→23:26)
[2022-04-02] MEDS: predniSONE 20 MG TABLET (UD) PO SCH (06:08)
[2022-04-02 10:20] LABS: HEMATOCRIT 35.1 % (32.4-45.2); HEMOGLOBIN 11.3 GM/dL (10.7-15.3); MCH 29.4 pg (25.7-33.7); MCHC 32.1 g/dl (32.0-36.0); MEAN CELL VOLUME 91.4 fl (80-96); MEAN PLT VOLUME 8.5 fl (7.5-11.1); PLATELET COUNT 187 10^3/uL (134-434); RBC 3.84 M/mm3 (3.60-5.2); RDW 13.3 % (11.6-15.6); WHITE BLOOD COUNT 12.1 K/mm3 (4.0-10.0)
[2022-04-02 10:27] LABS: CALCIUM 8.7 mg/dL (8.5-10.1)
[2022-04-02 10:30] LABS: BLOOD UREA NITROGEN 20.4 mg/dL (7-18)
[2022-04-02] MEDS: LOSARTAN POTASSIUM 50 MG TABLET PO SCH (10:48)
[2022-04-02] MEDS: PANTOPRAZOLE 40 MG TABLET PO SCH (10:48)
[2022-04-02] MEDS: ENOXAPARIN NA (PORCINE) 40 MG/0.4 ML DISP.SYRIN SQ SCH (10:49)
[2022-04-02] MEDS: BUDESONIDE/FORMETEROL FUMARATE 160/4.5 mcg INHALER IH SCH ×2 (10:50→21:42)
[2022-04-02] MEDS ORDERED: diphenhydrAMINE HCL 25 MG CAPSULE (FP) PO ONE (13:52)
[2022-04-02] MEDS ORDERED: ACETAMINOPHEN 500 MG TABLET (FP) PO ONE (13:52)
[2022-04-02] MEDS: methylPREDNISolone NA SUCC 40 MG/1 ML VIAL IVPUSH SCH ×2 (14:33→17:04)
[2022-04-02] MEDS: ERYTHROMYCIN BASE 250 MG TAB PO SCH (17:46)
[2022-04-02] MEDS: LIDOCAINE 5% TOPICAL PATCH TP SCH (17:47)
[2022-04-02] MEDS: guaiFENesin/D-METHORPHAN HB 10 ML UNIT-DOSE CUPS PO PRN (19:59)
[2022-04-02] MEDS: ATORVASTATIN CA 10 MG TABLET (FP) PO SCH (21:41)
[2022-04-02] MEDS: MONTELUKAST NA 10 MG TABLET PO SCH (21:42)
[2022-04-03] MEDS ORDERED: ACETAMINOPHEN 325 MG TABLET (FP) PO ONE ×2 (00:10→23:07)
[2022-04-03] MEDS ORDERED: MELATONIN 5 MG TABLETS PO ONE (00:11)
[2022-04-03] MEDS: methylPREDNISolone NA SUCC 40 MG/1 ML VIAL IVPUSH SCH ×4 (01:07→22:31)
[2022-04-03] MEDS: ALBUTEROL SO4 2.5/IPRATROPIUM 0.5 INH SOL 3 ML VIAL.NEB. NEB SCH ×5 (04:47→20:05)
[2022-04-03] MEDS: LIDOCAINE PATCH REMOVAL MC SCH (05:47)
[2022-04-03] MEDS: guaiFENesin/D-METHORPHAN HB 10 ML UNIT-DOSE CUPS PO PRN (05:49)
[2022-04-03] MEDS: ERYTHROMYCIN BASE 250 MG TAB PO SCH ×3 (06:05→16:54)
[2022-04-03] MEDS: PANTOPRAZOLE 40 MG TABLET PO SCH (10:50)
[2022-04-03] MEDS: LOSARTAN POTASSIUM 50 MG TABLET PO SCH (10:50)
[2022-04-03] MEDS: ENOXAPARIN NA (PORCINE) 40 MG/0.4 ML DISP.SYRIN SQ SCH (10:50)
[2022-04-03] MEDS: ONDANSETRON 4 MG/2 ML VIAL IVPUSH PRN ×2 (10:55→22:40)
[2022-04-03] MEDS: BUDESONIDE/FORMETEROL FUMARATE 160/4.5 mcg INHALER IH SCH ×2 (10:59→22:31)
[2022-04-03] MEDS ORDERED: SODIUM CHLORIDE FOR INHALATION 3 ML VIAL.NEB IH PRN (11:19)
[2022-04-03] MEDS: LIDOCAINE 5% TOPICAL PATCH TP SCH (17:50)
[2022-04-03] MEDS: ATORVASTATIN CA 10 MG TABLET (FP) PO SCH (22:31)
[2022-04-03] MEDS: MONTELUKAST NA 10 MG TABLET PO SCH (22:31)
[2022-04-04] MEDS: ALBUTEROL SO4 2.5/IPRATROPIUM 0.5 INH SOL 3 ML VIAL.NEB. NEB SCH ×6 (00:08→20:10)
[2022-04-04] MEDS: MELATONIN 5 MG TABLETS PO PRN ×2 (00:12→21:15)
[2022-04-04] MEDS: ERYTHROMYCIN BASE 250 MG TAB PO SCH ×3 (06:36→16:07)
[2022-04-04] MEDS: LIDOCAINE PATCH REMOVAL MC SCH (06:36)
[2022-04-04] MEDS: ONDANSETRON 4 MG/2 ML VIAL IVPUSH PRN ×3 (06:58→21:46)
[2022-04-04] MEDS: guaiFENesin/D-METHORPHAN HB 10 ML UNIT-DOSE CUPS PO PRN ×2 (06:58→22:52)
[2022-04-04 09:18] VITALS: RESP 18
[2022-04-04] MEDS: LOSARTAN POTASSIUM 50 MG TABLET PO SCH (09:31)
[2022-04-04] MEDS: ENOXAPARIN NA (PORCINE) 40 MG/0.4 ML DISP.SYRIN SQ SCH (09:32)
[2022-04-04] MEDS: PANTOPRAZOLE 40 MG TABLET PO SCH (09:32)
[2022-04-04] MEDS: BUDESONIDE/FORMETEROL FUMARATE 160/4.5 mcg INHALER IH SCH ×2 (09:32→21:15)
[2022-04-04] MEDS: methylPREDNISolone NA SUCC 40 MG/1 ML VIAL IVPUSH SCH (11:14)
[2022-04-04 11:21] LABS: ALBUMIN 3.3 g/dl (3.4-5.0); CALCIUM 8.8 mg/dL (8.5-10.1)
[2022-04-04 11:22] LABS: BLOOD UREA NITROGEN 30.4 mg/dL (7-18); MAGNESIUM 2.7 mg/dL (1.8-2.4)
[2022-04-04 11:25] LABS: CREATININE 1.1 mg/dL (0.55-1.3)
[2022-04-04 11:27] LABS: BILIRUBIN,TOTAL 0.7 mg/dL (0.2-1); TOT PROT 6.5 g/dl (6.4-8.2)
[2022-04-04 12:19] LABS: BASO % 0.1 % (0-2.0); HEMATOCRIT 38.9 % (32.4-45.2); HEMOGLOBIN 12.5 GM/dL (10.7-15.3); LYMPH % 8.1 % (8-40); MCH 29.7 pg (25.7-33.7); MCHC 32.2 g/dl (32.0-36.0); MEAN CELL VOLUME 92.4 fl (80-96); MEAN PLT VOLUME 8.8 fl (7.5-11.1); MONO % 4.3 % (3.8-10.2); NEUT % 87.5 % (42.8-82.8); PLATELET COUNT 169 10^3/uL (134-434); RBC 4.21 M/mm3 (3.60-5.2); RDW 14.4 % (11.6-15.6); WHITE BLOOD COUNT 6.9 K/mm3 (4.0-10.0)
[2022-04-04] MEDS: LIDOCAINE 5% TOPICAL PATCH TP SCH (18:49)
[2022-04-04] MEDS: ATORVASTATIN CA 10 MG TABLET (FP) PO SCH (21:14)
[2022-04-04] MEDS: MONTELUKAST NA 10 MG TABLET PO SCH (21:14)
[2022-04-05] MEDS: ALBUTEROL SO4 2.5/IPRATROPIUM 0.5 INH SOL 3 ML VIAL.NEB. NEB SCH ×6 (04:10→20:00)
[2022-04-05] MEDS: LIDOCAINE PATCH REMOVAL MC SCH (05:08)
[2022-04-05] MEDS: ERYTHROMYCIN BASE 250 MG TAB PO SCH ×3 (05:59→17:02)
[2022-04-05] MEDS: LOSARTAN POTASSIUM 50 MG TABLET PO SCH (10:12)
[2022-04-05] MEDS: ONDANSETRON 4 MG/2 ML VIAL IVPUSH PRN ×2 (10:12→21:15)
[2022-04-05] MEDS: ENOXAPARIN NA (PORCINE) 40 MG/0.4 ML DISP.SYRIN SQ SCH (10:12)
[2022-04-05] MEDS: PANTOPRAZOLE 40 MG TABLET PO SCH (10:13)
[2022-04-05] MEDS: methylPREDNISolone NA SUCC 40 MG/1 ML VIAL IVPUSH SCH (10:13)
[2022-04-05] MEDS: BUDESONIDE/FORMETEROL FUMARATE 160/4.5 mcg INHALER IH SCH ×2 (10:13→21:15)
[2022-04-05 11:23] LABS: BASO % 0.1 % (0-2.0); HEMATOCRIT 36.8 % (32.4-45.2); HEMOGLOBIN 11.9 GM/dL (10.7-15.3); LYMPH % 8.7 % (8-40); MCH 29.6 pg (25.7-33.7); MCHC 32.3 g/dl (32.0-36.0); MEAN CELL VOLUME 91.7 fl (80-96); MEAN PLT VOLUME 8.4 fl (7.5-11.1); MONO % 6.8 % (3.8-10.2); NEUT % 84.4 % (42.8-82.8); PLATELET COUNT 181 10^3/uL (134-434); RBC 4.01 M/mm3 (3.60-5.2); WHITE BLOOD COUNT 8.6 K/mm3 (4.0-10.0)
[2022-04-05 11:33] LABS: BLOOD UREA NITROGEN 26.9 mg/dL (7-18)
[2022-04-05 11:34] LABS: CALCIUM 9.4 mg/dL (8.5-10.1)
[2022-04-05 11:35] LABS: ALBUMIN 3.4 g/dl (3.4-5.0); BILIRUBIN,TOTAL 0.6 mg/dL (0.2-1); MAGNESIUM 2.5 mg/dL (1.8-2.4)
[2022-04-05 11:37] LABS: TOT PROT 6.7 g/dl (6.4-8.2)
[2022-04-05] MEDS ORDERED: guaiFENesin/D-METHORPHAN HB 10 ML UNIT-DOSE CUPS PO SCH (12:00)
[2022-04-05] MEDS: guaiFENesin/CODEINE 5 ML UNIT-DOSE CUPS PO PRN ×2 (12:19→21:15)
[2022-04-05] MEDS: LIDOCAINE 5% TOPICAL PATCH TP SCH (19:11)
[2022-04-05] MEDS: ATORVASTATIN CA 10 MG TABLET (FP) PO SCH (21:14)
[2022-04-05] MEDS: MONTELUKAST NA 10 MG TABLET PO SCH (21:14)
[2022-04-05] MEDS: MELATONIN 5 MG TABLETS PO PRN (21:15)
[2022-04-05 22:18] VITALS: TEMP 98.7
[2022-04-06] MEDS: ALBUTEROL SO4 2.5/IPRATROPIUM 0.5 INH SOL 3 ML VIAL.NEB. NEB SCH ×5 (04:00→15:10)
[2022-04-06] MEDS: LIDOCAINE PATCH REMOVAL MC SCH (05:10)
[2022-04-06] MEDS: ERYTHROMYCIN BASE 250 MG TAB PO SCH ×2 (06:44→11:29)
[2022-04-06] MEDS: guaiFENesin/CODEINE 5 ML UNIT-DOSE CUPS PO PRN (06:51)
[2022-04-06] MEDS: ENOXAPARIN NA (PORCINE) 40 MG/0.4 ML DISP.SYRIN SQ SCH (09:17)
[2022-04-06] MEDS: LOSARTAN POTASSIUM 50 MG TABLET PO SCH (09:17)
[2022-04-06] MEDS: BUDESONIDE/FORMETEROL FUMARATE 160/4.5 mcg INHALER IH SCH (09:26)
[2022-04-06] MEDS: ONDANSETRON 4 MG/2 ML VIAL IVPUSH PRN (10:00)
[2022-04-06] MEDS ORDERED: PANTOPRAZOLE SODIUM 40 MG VIAL IVPUSH SCH (10:00)
[2022-04-06] MEDS ORDERED: predniSONE 20 MG TABLET (UD) PO SCH ×2 (10:00)
[2022-04-06 12:20] VITALS: BP 111/72; PULSE 95
[2022-04-06] MEDS ORDERED: ERYTHROMYCIN ETHYLSUCCINATE 200 MG/5 ML BTL PO SCH (14:00)
[2022-04-09] MEDS ORDERED: predniSONE 20 MG, predniSONE 10 MG PO SCH (10:00)
[2022-04-12] MEDS ORDERED: predniSONE 20 MG TABLET (UD) PO SCH (10:00)
[2022-04-15] MEDS ORDERED: predniSONE 10 MG TABLET (UD) PO SCH (10:00)
== END 2022-04-06 15:46 | disposition home or self-care (01) | DRG 191 ==
LOC: JER 13:32 → JERBED 20:26 → INTOOBSV 20:26 → J6W 04-01 13:35 → OBSVTOIN 04-02 14:11
PROVIDERS: ADMIT Internal Medicine; ATTEND Nurse Practitioner Acute Care
DX: J44.1 Chronic obstructive pulmonary disease with (acute) exacerbation (principal); J45.901 Unspecified asthma with (acute) exacerbation; K92.0 Hematemesis; R04.2 Hemoptysis; J98.11 Atelectasis; K21.9 Gastro-esophageal reflux disease without esophagitis; E78.5 Hyperlipidemia, unspecified; I10 Essential (primary) hypertension; R13.10 Dysphagia, unspecified; K31.84 Gastroparesis; M54.2 Cervicalgia; Z79.01 Long term (current) use of anticoagulants; Z88.0 Allergy status to penicillin; K22.70 Barrett's esophagus without dysplasia
CPT/HCPCS: 0241U-QW; 36415; 71045-TC-FY; 71250-TC; 74240-TC-FY; 80048; 80053; 83735; 84100; 84484; 85025; 85027; 85610; 85730; 93005; 93010; 94640; 99285-25; G0378

== ENCOUNTER 2022-04-20 09:39 | Emergency (ER) | payer OTHER ==
[2022-04-20 09:43] VITALS: BP 137/79; PULSE 100; RESP 18; TEMP 98; BMI 28.3
[2022-04-20] MEDS ORDERED: FLUORESCEIN NA 1 EA STRIP ONE (10:40)
[2022-04-20] MEDS ORDERED: TETRACAINE 0.5% OPHTH SOLN 2 ML BOTTLE ONE (10:40)
== END 2022-04-20 11:15 | disposition home or self-care (01) ==
LOC: JER 09:39 → JERFT 09:39
DX: H57.12 Ocular pain, left eye (principal); R09.81 Nasal congestion; J01.80 Other acute sinusitis
CPT/HCPCS: 99283-25

== ENCOUNTER 2023-04-22 15:28 | Emergency (ER) | payer OTHER ==
[2023-04-22 15:50] VITALS: TEMP 98; BMI 28.0
[2023-04-22] MEDS ORDERED: ACETAMINOPHEN 1000 MG/100 ML BAG IVPB ONE (17:41)
[2023-04-22] MEDS ORDERED: LOSARTAN POTASSIUM 50 MG TABLET PO ONE (18:10)
[2023-04-22 18:14] LABS: PH,URINE 6.5 (5.0-8.0); URINE APPEARANCE CLEAR; URINE BILIRUBIN NEGATIVE (NEGATIVE); URINE COLOR YELLOW; URINE GLUCOSE (UA) NEGATIVE (NEGATIVE); URINE KETONE NEGATIVE (NEGATIVE); URINE LEUK ESTERASE NEGATIVE (NEGATIVE); URINE NITRITE NEGATIVE (NEGATIVE); URINE PROTEIN NEGATIVE (NEGATIVE); URINE UROBILINOGEN 0.2 mg/dL (0.2-1.0)
[2023-04-22] MEDS ORDERED: ONDANSETRON 4 MG/2 ML VIAL IVPUSH ONE (18:26)
[2023-04-22] MEDS ORDERED: PANTOPRAZOLE SODIUM 40 MG VIAL IVPUSH ONE (18:26)
[2023-04-22] MEDS ORDERED: LOSARTAN POTASSIUM 50 MG TABLET ONE (18:46)
[2023-04-22] MEDS ORDERED: PANTOPRAZOLE SODIUM 40 MG VIAL ONE (18:46)
[2023-04-22] MEDS ORDERED: ACETAMINOPHEN INJECTION 100 ML IVPB ONE (18:46)
[2023-04-22] MEDS ORDERED: ONDANSETRON 4 MG/2 ML VIAL ONE (18:53)
[2023-04-22 19:03] LABS: EOS % 1.8 % (0-4.5); HEMATOCRIT 38.8 % (32.4-45.2); HEMOGLOBIN 12.5 GM/dL (10.7-15.3); LYMPH % 27.6 % (8-40); MCHC 32.3 g/dl (32.0-36.0); MEAN CELL VOLUME 89.9 fl (80-96); MONO % 8.7 % (3.8-10.2); NEUT % 60.9 % (42.8-82.8); PLATELET COUNT 223 10^3/uL (134-434); RBC 4.31 M/mm3 (3.60-5.2); RDW 15.7 % (11.6-15.6); WHITE BLOOD COUNT 5.1 K/mm3 (4.0-10.0)
[2023-04-22 19:14] LABS: INR 1.05 (0.83-1.09); PROTHROMBIN TIME (PATIENT) 12.2 SEC (9.7-13.0)
[2023-04-22 19:21] LABS: POTASSIUM 3.8 mmol/L (3.5-5.1)
[2023-04-22 19:23] LABS: CALCIUM 9.4 mg/dL (8.5-10.1)
[2023-04-22 19:24] LABS: ALBUMIN 3.9 g/dl (3.4-5.0)
[2023-04-22 19:27] LABS: CREATININE 1.2 mg/dL (0.55-1.3)
[2023-04-22 19:28] LABS: BILIRUBIN,TOTAL 0.6 mg/dL (0.2-1); TOT PROT 7.6 g/dl (6.4-8.2)
[2023-04-22 20:59] VITALS: BP 145/92; PULSE 78; RESP 20
== END 2023-04-22 21:24 | disposition home or self-care (01) ==
LOC: JER 15:28
PROC: 3E033NZ Introduction of Analgesics, Hypnotics, Sedatives into Peripheral Vein, Percutaneous Approach (ICD-10-PCS; principal; 2023-04-22)
PROC: 3E033GC Introduction of Other Therapeutic Substance into Peripheral Vein, Percutaneous Approach (ICD-10-PCS; 2023-04-22)
PROC: 3E033GC Introduction of Other Therapeutic Substance into Peripheral Vein, Percutaneous Approach (ICD-10-PCS; 2023-04-22)
DX: R07.89 Other chest pain (principal); R05.9 Cough, unspecified; R11.10 Vomiting, unspecified; M79.10 Myalgia, unspecified site; M54.9 Dorsalgia, unspecified; Z20.822 Contact with and (suspected) exposure to COVID-19
CPT/HCPCS: 0241U-QW; 36415; 71046-TC-FY; 80053; 81003; 85025; 85379; 85610; 87040; 87086; 93005; 93010; 99285-25

== ENCOUNTER → 2023-12-09 | Day surgery (SDC) | payer OTHER | END | disposition home or self-care (01) | LOC: JRADUS-SUR 09:51 | PROVIDERS: ATTEND Obstetrics & Gynecology | PROC: 0H9U3ZX Drainage of Left Breast, Percutaneous Approach, Diagnostic (ICD-10-PCS; principal; 2023-12-09) | DX: N63.20 Unspecified lump in the left breast, unspecified quadrant (principal) | CPT/HCPCS: 19083; 77065-TC; 87899; 88305-TC; 88341-TC; 88342-TC; A4648 ==

== ENCOUNTER 2024-02-19 04:21 | Day surgery (SDC) | payer OTHER ==
[2024-02-16 15:55] VITALS: BMI 29.8
[2024-02-19] MEDS ORDERED: PROPOFOL 20 ML ONE (09:03)
[2024-02-19] MEDS ORDERED: MIDAZOLAM HCL 2 MG/2 ML SINGLE DOSE VIAL ONE (09:03)
[2024-02-19] MEDS ORDERED: LIDOCAINE HCL/PF 2% SDV 5ML VIAL ONE (09:27)
[2024-02-19] MEDS ORDERED: LIDOCAINE HCL 1%, 10 MG/ML (20ML VIAL) ONE (09:37)
[2024-02-19] MEDS: ceFAZolin SODIUM 1 GM VIAL IVPB ONE (11:10)
[2024-02-19] MEDS: LIDOCAINE HCL 1%, 10 MG/ML (20ML VIAL) ID ONE ×3 (11:13)
[2024-02-19] MEDS ORDERED: ceFAZolin SODIUM 1 GM VIAL ONE (11:14)
[2024-02-19] MEDS ORDERED: traMADol HCL 50 MG TABLET PO ONE (11:57)
[2024-02-19] MEDS ORDERED: LACTATED RINGERS SOLUTION 1,000 ML IV SCH (12:00)
[2024-02-19] MEDS ORDERED: ONDANSETRON 4 MG/2 ML VIAL ONE (12:48)
[2024-02-19] MEDS: ONDANSETRON 4 MG/2 ML VIAL IVPUSH PRN (12:48)
[2024-02-19] MEDS: HALOPERIDOL LACTATE 5 MG/ML IM ONE (13:30)
[2024-02-19] MEDS ORDERED: HALOPERIDOL LACTATE 5 MG/ML IVPUSH ONE (14:00)
[2024-02-19 14:27] VITALS: TEMP 97
[2024-02-19 16:31] VITALS: BP 125/55; PULSE 62; RESP 20
== END 2024-02-19 15:45 | disposition home or self-care (01) ==
LOC: JASU-SURG 04:21
PROVIDERS: ATTEND Surgery
PROC: 0HBU0ZX Excision of Left Breast, Open Approach, Diagnostic (ICD-10-PCS; principal; 2024-02-19 10:00)
DX: D24.2 Benign neoplasm of left breast (principal)
CPT/HCPCS: 19281; 76098-TC-FY; 88307-TC; 94760